=== PATIENT | female | born 1970 | race Caucasian/White ===

== ENCOUNTER 2016-04-23 12:58 | Emergency (ER) | payer BC ==
[2016-04-23 13:12] VITALS: RESP 18
[2016-04-23] MEDS ORDERED: HYDROmorphone 1 MG/ML 1 ML SYRINGE IVP STA ×2 (14:21→16:08)
[2016-04-23] MEDS ORDERED: SODIUM CHLORIDE 0.9% 1,000 ML IV STA (14:21)
[2016-04-23] MEDS ORDERED: ONDANSETRON 4 MG/2 ML VIAL IVP STA (14:21)
[2016-04-23 15:19] LABS: Basophils % (A) 1 %; CH 30.3; CHCM 33.7; Eosinophils # (A) 0.2 k/uL (0-0.7); Eosinophils % (A) 3 %; HCT 40.2 % (34.0-46.0); HDW 2.46; HGB 13.2 gm/dL (11.4-16.0); Luc # (Auto) 0.13; Luc % (Auto) 3; Lymphocytes % (A) 41 %; MCH 29.7 pg (25.0-35.0); MCHC 32.9 g/dL (31.0-37.0); MCV 90.2 fL (80.0-100.0); Mean Platelet Volume 6.3; Monocytes # (A) 0.2 k/uL (0-1.0); Monocytes % (A) 3 %; Neutrophils # (A) 2.5 k/uL (1.3-7.7); Neutrophils % (A) 50 %; RBC 4.45 m/uL (3.80-5.40); WBC (Perox) 5.31
--- NOTE | 2016-04-23 15:25 | ED ---
General Adult HPI - General Chief complaint: Recheck/Abnormal Lab/Rx Stated complaint: Pain from MS Time Seen by Provider: 04/23/16 14:12 Source: patient, RN notes reviewed Mode of arrival: ambulatory Limitations: no limitations - History of Present Illness Initial comments: 46-year-old female presents emergency Department chief complaint diffuse body pain. Patient states it has been getting worse last few days. Patient states that she has MS and states that they believe that she has fibromyalgia. Patient states that she currently sees Dr. Iker gomez in which she states that she' s been admitted in the past for this type symptoms. Patient states she has no focal weakness. Patient had a recent MRI which did show her lesions. Patient states that her pain medication was up to [place] was not helping her pain. Patient denies fever, chills, chest pain, shortness breath, nausea, vomiting diarrhea constipation. Patient states that nothing seems to help her symptoms. - Related Data Home Medications Medication Instructions Recorded Confirmed ALPRAZolam [ALPRAZolam] 0.5 mg PO TID PRN 02/26/14 04/23/16 ARIPiprazole [Abilify] 2 mg PO HS 04/23/16 04/23/16 Citalopram Hydrobromide [CeleXA] 40 mg PO HS 04/23/16 04/23/16 Dextroamphetamine/Amphetamine 30 mg PO DAILY 04/23/16 04/23/16 [Adderall] HYDROcodone/APAP 5-325MG [[place] 1 tab PO Q8H PRN 04/23/16 04/23/16 5-325] Previous Rx's Medication Instructions Recorded Ciprofloxacin HCl [Cipro] 500 mg PO Q12HR #14 tablet 04/23/16 Allergies Allergy/AdvReac Type Severity Reaction Status Date / Time No Known Allergies Allergy Verified 04/23/16 13:12 Review of Systems ROS Statement: Those systems with pertinent positive or pertinent negative responses have been documented in the HPI. ROS Other: All systems not noted in ROS Statement are negative. Past Medical History Past Medical History: Fibromyalgia, Neurologic Disorder Additional Past Medical History / Comment(s): Multiple Sclerosis - diagnosis 2013 History of Any Multi-Drug Resistant Organisms: None Reported Past Surgical History: Appendectomy Past Psychological History: No Psychological Hx Reported Smoking Status: Former smoker Past Alcohol Use History: Rare Past Drug Use History: None Reported General Exam Limitations: no limitations General appearance: alert, in no apparent distress Head exam: Present: atraumatic, normocephalic, normal inspection Eye exam: Present: normal appearance, PERRL, EOMI. Absent: scleral icterus, conjunctival injection, periorbital swelling ENT exam: Present: normal exam, normal oropharynx, mucous membranes moist, TM's normal bilaterally, normal external ear exam Neck exam: Present: normal inspection, full ROM. Absent: tenderness, meningismus, lymphadenopathy Respiratory exam: Present: normal lung sounds bilaterally. Absent: respiratory distress, wheezes, rales, rhonchi, stridor Cardiovascular Exam: Present: regular rate, normal rhythm, normal heart sounds. Absent: systolic murmur, diastolic murmur, rubs, gallop, clicks GI/Abdominal exam: Present: soft, normal bowel sounds. Absent: distended, tenderness, guarding, rebound, rigid Extremities exam: Present: other (Full range of motion of all extremities, full strength upper and lower extremities pulses equal bilaterally) Neurological exam: Present: alert, oriented X3, CN II-XII intact, reflexes normal. Absent: motor sensory deficit Skin exam: Present: warm, dry, intact, normal color. Absent: rash Course Vital Signs 04/23/16 13:08 Temperature 97.6 F Pulse Rate 93 Respiratory 18 Rate Blood Pressure 129/73 O2 Sat by Pulse 100 Oximetry EKG Findings - EKG Comments: EKG Findings:: EKG performed at 14:30 normal sinus rhythm with a rate of 83, WI interval 166, QRS duration 78, QT/QTC 372/437 Medical Decision Making - Medical Decision Making 46-year-old female presented for pain. Patient states she has chronic pain. Patient states she is feeling improved at this time but is requesting further medications. Patient we given additional medications WITH ANTIBIOTICS FOR HER UTI. PATIENT WILL BE DISCHARGED AND FOLLOW-UP WITH DR. BEACH. - Lab Data Result diagrams: 04/23/16 15:10 04/23/16 15:10 Lab Results 04/23/16 04/23/16 04/23/16 Range/Units 15:00 15:10 15:10 WBC 5.0 (3.8-10.6) k/uL RBC 4.45 (3.80-5.40) m/uL Hgb 13.2 (11.4-16.0) gm/dL Hct 40.2 (34.0-46.0) % MCV 90.2 (80.0-100.0) fL MCH 29.7 (25.0-35.0) pg MCHC 32.9 (31.0-37.0) g/dL RDW 13.0 (11.5-15.5) % Plt Count 225 (150-450) k/uL Neutrophils % 50 % Lymphocytes % 41 % Monocytes % 3 % Eosinophils % 3 % Basophils % 1 % Neutrophils # 2.5 (1.3-7.7) k/uL Lymphocytes # 2.0 (1.0-4.8) k/uL Monocytes # 0.2 (0-1.0) k/uL Eosinophils # 0.2 (0-0.7) k/uL Basophils # 0.0 (0-0.2) k/uL PT (9.0-12.0) sec INR (<1.1) APTT (22.0-30.0) sec Sodium (137-145) mmol/L Potassium (3.5-5.1) mmol/L Chloride (98-107) mmol/L Carbon Dioxide (22-30) mmol/L Anion Gap mmol/L BUN (7-17) mg/dL Creatinine (0.52-1.04) mg/dL Est GFR (MDRD) Af Amer (>60 ml/min/1.73 sqM) Est GFR (MDRD) Non-Af (>60 ml/min/1.73 sqM) Glucose (74-99) mg/dL Calcium (8.4-10.2) mg/dL Magnesium (1.6-2.3) mg/dL Total Bilirubin (0.2-1.3) mg/dL AST (14-36) U/L ALT (9-52) U/L Alkaline Phosphatase (38-126) U/L Total Creatine Kinase 44 (30-135) U/L CK-MB (CK-2) <0.2 (0.0-2.4) ng/mL CK-MB (CK-2) Rel Index Troponin I <0.012 (0.000-0.034) ng/mL Total Protein (6.3-8.2) g/dL Albumin (3.5-5.0) g/dL Urine Color Yellow Urine Appearance Cloudy H (Clear) Urine pH 6.5 (5.0-8.0) Ur Specific [place] 1.012 (1.001-1.035) Urine Protein Negative (Negative) Urine Glucose (UA) Negative (Negative) Urine Ketones Negative (Negative) Urine Blood Negative (Negative) Urine Nitrate Negative (Negative) Urine Bilirubin Negative (Negative) Urine Urobilinogen <2.0 (<2.0) mg/dL Ur Leukocyte Esterase Small H (Negative) Urine RBC 1 (0-5) /hpf Urine WBC 31 H (0-5) /hpf Ur Squamous Epith Cells 2 (0-4) /hpf Urine Bacteria Rare H (None) /hpf Urine Mucus Rare H (None) /hpf 04/23/16 04/23/16 Range/Units 15:10 15:10 WBC (3.8-10.6) k/uL RBC (3.80-5.40) m/uL Hgb (11.4-16.0) gm/dL Hct (34.0-46.0) % MCV (80.0-100.0) fL MCH (25.0-35.0) pg MCHC (31.0-37.0) g/dL RDW (11.5-15.5) % Plt Count (150-450) k/uL Neutrophils % % Lymphocytes % % Monocytes % % Eosinophils % % Basophils % % Neutrophils # (1.3-7.7) k/uL Lymphocytes # (1.0-4.8) k/uL Monocytes # (0-1.0) k/uL Eosinophils # (0-0.7) k/uL Basophils # (0-0.2) k/uL PT 10.0 (9.0-12.0) sec INR 1.0 (<1.1) APTT 24.1 (22.0-30.0) sec Sodium 140 (137-145) mmol/L Potassium 4.4 (3.5-5.1) mmol/L Chloride 104 (98-107) mmol/L Carbon Dioxide 28 (22-30) mmol/L Anion Gap 8 mmol/L BUN 8 (7-17) mg/dL Creatinine 0.80 (0.52-1.04) mg/dL Est GFR (MDRD) Af Amer >60 (>60 ml/min/1.73 sqM) Est GFR (MDRD) Non-Af >60 (>60 ml/min/1.73 sqM) Glucose 89 (74-99) mg/dL Calcium 8.9 (8.4-10.2) mg/dL Magnesium 2.0 (1.6-2.3) mg/dL Total Bilirubin 0.3 (0.2-1.3) mg/dL AST 22 (14-36) U/L ALT 42 (9-52) U/L Alkaline Phosphatase 52 (38-126) U/L Total Creatine Kinase (30-135) U/L CK-MB (CK-2) (0.0-2.4) ng/mL CK-MB (CK-2) Rel Index Troponin I (0.000-0.034) ng/mL Total Protein 6.6 (6.3-8.2) g/dL Albumin 3.9 (3.5-5.0) g/dL Urine Color Urine Appearance (Clear) Urine pH (5.0-8.0) Ur Specific [place] (1.001-1.035) Urine Protein (Negative) Urine Glucose (UA) (Negative) Urine Ketones (Negative) Urine Blood (Negative) Urine Nitrate (Negative) Urine Bilirubin (Negative) Urine Urobilinogen (<2.0) mg/dL Ur Leukocyte Esterase (Negative) Urine RBC (0-5) /hpf Urine WBC (0-5) /hpf Ur Squamous Epith Cells (0-4) /hpf Urine Bacteria (None) /hpf Urine Mucus (None) /hpf Disposition Clinical Impression: UTI (urinary tract infection), Diffuse pain Disposition: HOME SELF-CARE Condition: Stable Instructions: Urinary Tract Infection in Women (ED) Additional Instructions: Please return to the Emergency Department if symptoms worsen or any other concerns. Prescriptions: Ciprofloxacin HCl [Cipro] 500 mg PO Q12HR #14 tablet Time of Disposition: 16:10
[2016-04-23 15:28] LABS: Partial Thromboplastin Time 24.1 sec (22.0-30.0)
[2016-04-23 15:42] LABS: Appearance,Urine Cloudy (Clear); Bacteria,Urine Rare /hpf; Bilirubin,Urine Negative (Negative); Glucose,Urine (UA) Negative (Negative); Ketones,Urine Negative (Negative); Leukocyte Esterase,Urine Small (Negative); Mucus,Urine Rare /hpf; Nitrite,Urine Negative (Negative); PH, Urine 6.5 (5.0-8.0); Particle Count 3640; Protein,Urine Negative (Negative); RBC,Urine 1 /hpf (0-5); Specific Gravity,Urine 1.012 (1.001-1.035); Squamous Epithelial Cell,Urine 2 /hpf (0-4); UA Billing (MACRO vs. MICRO) MICRO; Urobilinogen,Urine <2.0 mg/dL (<2.0); WBC,Urine 31 /hpf (0-5)
[2016-04-23 15:46] LABS: ALT 42 U/L (9-52); AST 22 U/L (14-36); Alkaline Phosphatase 52 U/L (38-126); Anion Gap 8 mmol/L; Blood Urea Nitrogen 8 mg/dL (7-17); Calcium 8.9 mg/dL (8.4-10.2); Carbon Dioxide 28 mmol/L (22-30); Chloride 104 mmol/L (98-107); Glucose 89 mg/dL (74-99); Non-African American GFR(MDRD) >60 (>60 ml/min/1.73 sqM); Potassium 4.4 mmol/L (3.5-5.1); Sodium 140 mmol/L (137-145); Total Bilirubin 0.3 mg/dL (0.2-1.3); Total Protein 6.6 g/dL (6.3-8.2)
[2016-04-23 15:53] LABS: Creatine Kinase 44 U/L (30-135)
[2016-04-23 16:05] LABS: Creatine Kinase MB <0.2 ng/mL (0.0-2.4); Troponin I <0.012 ng/mL (0.000-0.034)
[2016-04-23] MEDS ORDERED: KETOROLAC 30 MG/ML 1 ML VIAL IVP STA (16:08)
[2016-04-23 17:01] VITALS: BP 116/65; PULSE 84; TEMP 98.1
== END 2016-04-23 16:57 | disposition home or self-care (01) ==
LOC: EC 12:58
DX: N39.0 Urinary tract infection, site not specified (principal); G89.29 Other chronic pain; G35 Multiple sclerosis; Z87.891 Personal history of nicotine dependence; Z79.899 Other long term (current) drug therapy
CPT/HCPCS: 99283; 96374; 96375 ×2; 96376; 96361; 36415; 93005; 80053; 82550; 82553; 83735; 84484; 85025; 85610; 85730; 81001; J2405; J1885; J1170

== ENCOUNTER 2016-06-02 21:43 | Inpatient (IN) | payer BC ==
[2016-06-02] MEDS ORDERED: NALOXONE 0.4 MG/ML 1 ML VIAL IV STA (21:46)
[2016-06-02] MEDS: NALOXONE 0.4 MG/ML 10 ML VIAL IVP STA ×2 (21:53→22:48)
--- NOTE | 2016-06-02 22:00 | ED ---
Overdose HPI - General Stated Complaint: Overdose Time Seen by Provider: 06/02/16 21:46 Source: police, EMS Limitations: altered mental status - History of Present Illness Initial Comments: This patient is a 46-year-old woman brought to be evaluated after she appears to have taken an overdose of her medications as a suicide attempt. History is from EMS and the police. The patient is not giving any history due to being very somnolent. It is reported that a family member arrived home and found the patient lying in the bathtub poorly responsive. There were a number of notes addressed to family members that indicated she had overdosed on her medications. There were bottles of Xanax and tramadol at the scene. MD Complaint: intentional overdose -: hour(s) Treatments Prior to Arrival: oxygen - Related Data Home Medications Medication Instructions Recorded Confirmed ALPRAZolam [ALPRAZolam] 0.5 mg PO TID PRN 02/26/14 06/02/16 ARIPiprazole [Abilify] 2 mg PO HS 04/23/16 06/02/16 Citalopram Hydrobromide [CeleXA] 40 mg PO HS 04/23/16 06/02/16 Dextroamphetamine/Amphetamine 30 mg PO DAILY 04/23/16 06/02/16 [Adderall] HYDROcodone/APAP 5-325MG [[place] 1 tab PO Q8H PRN 04/23/16 06/02/16 5-325] Allergies Allergy/AdvReac Type Severity Reaction Status Date / Time No Known Allergies Allergy Verified 06/02/16 22:01 Review of Systems ROS Statement: Those systems with pertinent positive or pertinent negative responses have been documented in the HPI. ROS Other: All systems not noted in ROS Statement are negative. Limitations: ROS unobtainable due to patients medical condition Past Medical History Past Medical History: Fibromyalgia, Neurologic Disorder Additional Past Medical History / Comment(s): Multiple Sclerosis - diagnosis 2014 History of Any Multi-Drug Resistant Organisms: None Reported Past Surgical History: Appendectomy Past Psychological History: No Psychological Hx Reported Smoking Status: Former smoker Past Alcohol Use History: Rare Past Drug Use History: None Reported General Exam General appearance: obtunded Head exam: Present: atraumatic, normocephalic Pupils: Present: miosis ENT exam: Present: mucous membranes dry Neck exam: Present: normal inspection. Absent: tenderness Respiratory exam: Present: normal lung sounds bilaterally. Absent: respiratory distress, wheezes, rales, rhonchi, stridor, chest wall tenderness Cardiovascular Exam: Present: regular rate, normal rhythm, normal heart sounds. Absent: systolic murmur, diastolic murmur, rubs, gallop GI/Abdominal exam: Present: soft. Absent: distended, tenderness, guarding, rebound, mass Extremities exam: Present: normal inspection, normal capillary refill. Absent: tenderness, pedal edema Back exam: Present: normal inspection Neurological exam: Present: altered, CN II-XII intact, reflexes normal, other ( The patient's GCS is (E=2, V=2, M=5). The patient does have intact cranial nerve reflexes including gag reflex. Deep tendon reflexes are symmetric. The patient does localize the painful stimuli (she is reaching for IV start).) Skin exam: Present: warm, dry, intact, normal color. Absent: rash Course Vital Signs 06/02/16 06/02/16 06/02/16 21:45 22:44 23:29 Temperature 96.9 F L Pulse Rate 72 89 80 Respiratory 12 16 16 Rate Blood Pressure 111/65 106/66 111/64 O2 Sat by Pulse 97 96 99 Oximetry 06/03/16 06/03/16 00:10 01:06 Temperature Pulse Rate 90 98 Respiratory 16 16 Rate Blood Pressure 99/58 115/69 O2 Sat by Pulse 98 98 Oximetry Medical Decision Making - Medical Decision Making This patient is a 46-year-old woman brought for evaluation and treatment of what appears to be suicide attempt by overdose. The patient does remain obtunded but arouses to noxious stimuli and at this point is protecting her airway. She has been evaluated multiple times and does continue to have protective reflexes. The patient is observed in the emergency department for number of hours. The EKG is repeated and it does show some lengthening of the QT interval from 460 ms to 500 ms. The patient will have additional electrolytes checked and may require supplementation. Bicarb drip indicated if QRS duration becomes prolonged. Case D/W toxicology fellow and recommendations incorporated. Case discussed with Dr. Spring who will admit the patient. Case discussed with Dr. Palomino. Treatment recommendations incorporated. - Lab Data Result diagrams: 06/02/16 22:10 06/02/16 22:10 Lab Results 06/02/16 06/02/16 06/02/16 Range/Units 22:10 22:10 22:10 WBC 9.7 (3.8-10.6) k/uL RBC 4.44 (3.80-5.40) m/uL Hgb 13.0 (11.4-16.0) gm/dL Hct 40.2 (34.0-46.0) % MCV 90.7 (80.0-100.0) fL MCH 29.4 (25.0-35.0) pg MCHC 32.4 (31.0-37.0) g/dL RDW 13.4 (11.5-15.5) % Plt Count 216 (150-450) k/uL Neutrophils % 73 % Lymphocytes % 21 % Monocytes % 4 % Eosinophils % 1 % Basophils % 0 % Neutrophils # 7.0 (1.3-7.7) k/uL Lymphocytes # 2.0 (1.0-4.8) k/uL Monocytes # 0.3 (0-1.0) k/uL Eosinophils # 0.1 (0-0.7) k/uL Basophils # 0.0 (0-0.2) k/uL PT (9.0-12.0) sec INR (<1.1) Sodium 140 (137-145) mmol/L Potassium 4.4 (3.5-5.1) mmol/L Chloride 106 (98-107) mmol/L Carbon Dioxide 23 (22-30) mmol/L Anion Gap 11 mmol/L BUN 14 (7-17) mg/dL Creatinine 1.10 H (0.52-1.04) mg/dL Est GFR (MDRD) Af Amer >60 (>60 ml/min/1.73 sqM) Est GFR (MDRD) Non-Af 53 (>60 ml/min/1.73 sqM) Glucose 107 H (74-99) mg/dL Calcium 9.6 (8.4-10.2) mg/dL Total Bilirubin 0.6 (0.2-1.3) mg/dL AST 19 (14-36) U/L ALT 47 (9-52) U/L Alkaline Phosphatase 53 (38-126) U/L Troponin I (0.000-0.034) ng/mL Total Protein 7.2 (6.3-8.2) g/dL Albumin 4.2 (3.5-5.0) g/dL Urine HCG, Qual (Not Detectd) Salicylates <1.0 mg/dL Urine Opiates Screen Detected H (NotDetected) Ur Oxycodone Screen Not Detected (NotDetected) Urine Methadone Screen Not Detected (NotDetected) Ur Propoxyphene Screen Not Detected (NotDetected) Acetaminophen <10.0 ug/mL Ur Barbiturates Screen Not Detected (NotDetected) U Tricyclic Antidepress Detected H (NotDetected) Ur Phencyclidine Scrn Not Detected (NotDetected) Ur Amphetamines Screen Detected H (NotDetected) U Methamphetamines Scrn Not Detected (NotDetected) U Benzodiazepines Scrn Detected H (NotDetected) Urine Cocaine Screen Not Detected (NotDetected) U Marijuana (THC) Screen Not Detected (NotDetected) Serum Alcohol <10 mg/dL 06/02/16 06/02/16 06/02/16 Range/Units 22:10 22:10 22:10 WBC (3.8-10.6) k/uL RBC (3.80-5.40) m/uL Hgb (11.4-16.0) gm/dL Hct (34.0-46.0) % MCV (80.0-100.0) fL MCH (25.0-35.0) pg MCHC (31.0-37.0) g/dL RDW (11.5-15.5) % Plt Count (150-450) k/uL Neutrophils % % Lymphocytes % % Monocytes % % Eosinophils % % Basophils % % Neutrophils # (1.3-7.7) k/uL Lymphocytes # (1.0-4.8) k/uL Monocytes # (0-1.0) k/uL Eosinophils # (0-0.7) k/uL Basophils # (0-0.2) k/uL PT 10.4 (9.0-12.0) sec INR 1.0 (<1.1) Sodium (137-145) mmol/L Potassium (3.5-5.1) mmol/L Chloride (98-107) mmol/L Carbon Dioxide (22-30) mmol/L Anion Gap mmol/L BUN (7-17) mg/dL Creatinine (0.52-1.04) mg/dL Est GFR (MDRD) Af Amer (>60 ml/min/1.73 sqM) Est GFR (MDRD) Non-Af (>60 ml/min/1.73 sqM) Glucose (74-99) mg/dL Calcium (8.4-10.2) mg/dL Total Bilirubin (0.2-1.3) mg/dL AST (14-36) U/L ALT (9-52) U/L Alkaline Phosphatase (38-126) U/L Troponin I <0.012 (0.000-0.034) ng/mL Total Protein (6.3-8.2) g/dL Albumin (3.5-5.0) g/dL Urine HCG, Qual Not Detected (Not Detectd) Salicylates mg/dL Urine Opiates Screen (NotDetected) Ur Oxycodone Screen (NotDetected) Urine Methadone Screen (NotDetected) Ur Propoxyphene Screen (NotDetected) Acetaminophen ug/mL Ur Barbiturates Screen (NotDetected) U Tricyclic Antidepress (NotDetected) Ur Phencyclidine Scrn (NotDetected) Ur Amphetamines Screen (NotDetected) U Methamphetamines Scrn (NotDetected) U Benzodiazepines Scrn (NotDetected) Urine Cocaine Screen (NotDetected) U Marijuana (THC) Screen (NotDetected) Serum Alcohol mg/dL - EKG Data -: EKG Interpreted by Nd EKG shows normal: sinus rhythm (Rate 71 bpm), axis (Normal), intervals (Normal) , QRS complexes (Normal), ST-T waves (Normal) Rate: normal Interpretation: normal EKG Critical Care Time Critical Care Time: Yes (45 minutes) Disposition Clinical Impression: Overdose of tricyclic antidepressants, Drug overdose, Suicide attempt by multiple drug overdose Disposition: ADMITTED IP TO THIS [facility] Condition: Critical Referrals: Rohit Hardy MD [Primary Care Provider] - 1-2 days
[2016-06-02 22:27] LABS: Basophils % (A) 0 %; CH 30.6; CHCM 33.9; Eosinophils # (A) 0.1 k/uL (0-0.7); Eosinophils % (A) 1 %; HCT 40.2 % (34.0-46.0); HDW 2.53; Luc # (Auto) 0.14; Luc % (Auto) 1; Lymphocytes % (A) 21 %; MCH 29.4 pg (25.0-35.0); MCHC 32.4 g/dL (31.0-37.0); MCV 90.7 fL (80.0-100.0); Mean Platelet Volume 7.2; Monocytes # (A) 0.3 k/uL (0-1.0); Monocytes % (A) 4 %; Neutrophils % (A) 73 %; RBC 4.44 m/uL (3.80-5.40); RDW 13.4 % (11.5-15.5); WBC 9.7 k/uL (3.8-10.6); WBC (Perox) 10.23
[2016-06-02 22:36] LABS: Prothrombin Time 10.4 sec (9.0-12.0)
[2016-06-02 22:37] LABS: ALT 47 U/L (9-52); AST 19 U/L (14-36); Acetaminophen <10.0 ug/mL; Alcohol <10 mg/dL; Alkaline Phosphatase 53 U/L (38-126); Anion Gap 11 mmol/L; Blood Urea Nitrogen 14 mg/dL (7-17); Calcium 9.6 mg/dL (8.4-10.2); Carbon Dioxide 23 mmol/L (22-30); Chloride 106 mmol/L (98-107); Glucose 107 mg/dL (74-99); Non-African American GFR(MDRD) 53 (>60 ml/min/1.73 sqM); Potassium 4.4 mmol/L (3.5-5.1); Salicylate <1.0 mg/dL; Sodium 140 mmol/L (137-145); Total Bilirubin 0.6 mg/dL (0.2-1.3); Total Protein 7.2 g/dL (6.3-8.2)
[2016-06-02] MEDS ORDERED: NALOXONE 0.4 MG/ML 10 ML VIAL IVP STA (22:57)
--- NOTE | 2016-06-02 22:59 | XR ---
EXAMINATION TYPE: XR chest 1V portable DATE OF EXAM: 06/02/2016 10:43 PM COMPARISON: 02/12/2015 HISTORY:MS change, overdose patient unresponsive no other history given. TECHNIQUE: Single frontal view of the chest is obtained. Portable study upright 06/02/2016, 10:39 PM h ours. FINDINGS: There is no focal air space opacity, pleural effusion, or pneumothorax seen. The cardiac silhouette size is within normal limits. The osseous structures are intact. IMPRESSION: 1. No acute process. 2. No significant change.
[2016-06-03] MEDS ORDERED: SODIUM CHLORIDE 0.9% 1,000 ML IV ONE (00:13)
[2016-06-03] MEDS ORDERED: LEVOFLOXACIN 750MG-D5W PMX 750 MG in DEXTROSE/WATER 1 150ML.BAG IVPB STA (00:48)
[2016-06-03] MEDS ORDERED: NALOXONE 0.4 MG/ML 1 ML VIAL IV PRN (01:14)
[2016-06-03] MEDS ORDERED: ARTIFICIAL TEARS OINTMENT 3.5 GM TUBE BOTH EYES PRN (01:14)
[2016-06-03] MEDS ORDERED: DEXTROSE 5% IN WATER 1,000 ML with SODIUM BICARB (1 MEQ/ML) 150 ML IV SCH (01:15)
[2016-06-03 01:30] LABS: Magnesium 2.2 mg/dL (1.6-2.3); Phosphorous 4.9 mg/dL (2.5-4.5)
[2016-06-03 01:35] LABS: Amorphous Sediment,Urine Rare /hpf; Appearance,Urine Turbid (Clear); Bacteria,Urine Occasional /hpf; Bilirubin,Urine Negative (Negative); Glucose,Urine (UA) Negative (Negative); Ketones,Urine Trace (Negative); Leukocyte Esterase,Urine Small (Negative); Mucus,Urine Many /hpf; Nitrite,Urine Negative (Negative); Particle Count 25462; Protein,Urine 1+ (Negative); Specific Gravity,Urine 1.025 (1.001-1.035); UA Billing (MACRO vs. MICRO) MICRO; WBC,Urine 12 /hpf (0-5)
[2016-06-03 02:14] LABS: Glucose,Whole Blood 85 mg/dL (75-99)
[2016-06-03 02:45] VITALS: BMI 29.4
[2016-06-03] MEDS: SODIUM CHLORIDE 0.9% 1,000 ML IV SCH ×4 (03:07→20:38)
[2016-06-03 04:12] LABS: ABG Base Excess -3.2 mmol/L; ABG HCO3 22 mmol/L (21-25); ABG PCO2 44 mmHg (35-45); ABG PH 7.32 (7.35-7.45); ABG PO2 93 mmHg (83-108); ABG TCO2 23 mmol/L (19-24)
[2016-06-03] MEDS: NALOXONE 4 MG in SODIUM CHLORIDE 0.9% 100 ML IV SCH ×3 (04:24→17:21)
[2016-06-03 05:11] LABS: Basophils % (A) 0 %; CH 30.1; CHCM 32.5; Eosinophils # (A) 0.1 k/uL (0-0.7); Eosinophils % (A) 1 %; HCT 37.8 % (34.0-46.0); HDW 2.48; HGB 12.2 gm/dL (11.4-16.0); Luc # (Auto) 0.14; Luc % (Auto) 2; Lymphocytes # (A) 1.6 k/uL (1.0-4.8); Lymphocytes % (A) 23 %; MCHC 32.3 g/dL (31.0-37.0); Mean Platelet Volume 6.7; Monocytes # (A) 0.3 k/uL (0-1.0); Monocytes % (A) 5 %; Neutrophils # (A) 4.6 k/uL (1.3-7.7); Neutrophils % (A) 68 %; RBC 4.06 m/uL (3.80-5.40); RDW 13.5 % (11.5-15.5); WBC 6.7 k/uL (3.8-10.6); WBC (Perox) 7.08
[2016-06-03 05:25] LABS: Anion Gap 9 mmol/L; Blood Urea Nitrogen 11 mg/dL (7-17); Calcium 8.5 mg/dL (8.4-10.2); Carbon Dioxide 24 mmol/L (22-30); Chloride 109 mmol/L (98-107); Glucose 89 mg/dL (74-99); Magnesium 2.1 mg/dL (1.6-2.3); Non-African American GFR(MDRD) 59 (>60 ml/min/1.73 sqM); Phosphorous 4.3 mg/dL (2.5-4.5); Potassium 4.3 mmol/L (3.5-5.1); Sodium 142 mmol/L (137-145)
--- NOTE | 2016-06-03 08:52 | P.CNPUL ---
History of Present Illness Consult date: 06/03/16 Chief complaint: Drug overdose and respiratory failure History of present illness: This is a 46-year-old female brought into the emergency department with a suicide attempt. She apparently had a drug overdose from tramadol Xanax and Abilify. There may be other medications involved as well. She was poorly responsive. She did not have to be intubated she was transferred up to the ICU. Here in the ICU, she is very somnolent and lethargic we went ahead and start her on [place] Narcan drip at 0.6 mg per hour for 6 hours. The patient's drug screen was positive for benzodiazepines opiates try cyclic antidepressant and amphetamines. Talking to her mother, she apparently did this once before when she was young. At that time was with aspirin. Anyway the patient is doing okay. I think we can hopefully hold off on intubation. Currently she is getting O2 2 L. Getting appointment 9 IV at 150 an hour. The Narcan drip will be turned off at 9 AM. Is running at 0.6 mg an hour. She apparently carries with her a diagnosis of fibromyalgia multiple sclerosis and depression. Review of Systems ROS unobtainable: due to mental status (The patient is very sleepy and lethargic and somnolent and no review of systems can be done.) Past Medical History Past Medical History: Fibromyalgia, Neurologic Disorder Additional Past Medical History / Comment(s): Multiple Sclerosis - diagnosis 2013 History of Any Multi-Drug Resistant Organisms: None Reported Past Surgical History: Appendectomy Past Anesthesia/Blood Transfusion Reactions: No Reported Reaction Past Psychological History: Anxiety, Depression Smoking Status: Former smoker Past Alcohol Use History: Rare Past Drug Use History: None Reported - Past Family History Father Family Medical History: Diabetes Mellitus Mother Family Medical History: No Reported History Additional Family Medical History / Comment(s): "healthy" Medications and Allergies Home Medications Medication Instructions Recorded Confirmed Type ALPRAZolam [ALPRAZolam] 0.5 mg PO TID PRN 02/26/14 06/02/16 History ARIPiprazole [Abilify] 2 mg PO HS 04/23/16 06/03/16 History Citalopram Hydrobromide [CeleXA] 40 mg PO HS 04/23/16 06/02/16 History Dextroamphetamine/Amphetamine 30 mg PO DAILY 04/23/16 06/02/16 History [Adderall] HYDROcodone/APAP 5-325MG [[place] 1 tab PO Q8H PRN 04/23/16 06/02/16 History 5-325] Allergies Allergy/AdvReac Type Severity Reaction Status Date / Time No Known Allergies Allergy Verified 06/02/16 22:01 Physical Exam Osteopathic Statement: *. No significant issues noted on an osteopathic structural exam other than those noted in the History and Physical/Consult. Vitals: Vital Signs Temp Pulse Resp BP Pulse Ox 06/03/16 07:00 89 12 107/63 99 06/03/16 06:00 92 12 100/59 100 06/03/16 05:00 89 11 L 114/65 100 06/03/16 04:00 89 12 104/66 98 06/03/16 03:45 89 11 L 104/66 99 06/03/16 03:30 90 19 129/80 100 06/03/16 03:15 97 13 129/80 100 06/03/16 03:00 91 10 L 106/63 99 06/03/16 02:45 91 12 106/63 99 06/03/16 02:30 92 12 118/84 100 06/03/16 02:20 95 12 118/84 100 06/03/16 02:10 98.2 F 96 11 L 118/84 100 06/03/16 01:46 88 16 99/60 100 Intake and Output 06/02/16 06/03/16 06/03/16 22:59 06:59 14:59 Intake Total 1780 165 Output Total 570 35 Balance 1210 130 Intake: IV 780 165 Naloxone 4 mg In Sodium 30 15 Chloride 0.9% 100 ml @ 0. 6 MG/HR 16.5 mls/hr IV . Q6H40M [facility] Rx#:[id number] Sodium Chloride 0.9% 1, 750 150 000 ml @ 150 mls/hr IV . Q6H40M ROSIO Rx#:[id number] Amount of Fluid Infused ( 1000 ml) Output: Urine 570 35 Other: Voiding Method Indwelling Catheter Weight 82.7 kg No acute distress, not oriented. The patient's very lethargic and somnolent but does arouse with thumb stimulation. HEENT examination is grossly unremarkable. Mucous membranes are moist. Neck supple. Full range of motion. No adenopathy or thyromegaly Cardiovascular examination reveals regular rhythm rate. S1-S2 normal. No S3- S4 or murmur. Next Lungs reveal clear breath sounds. No wheezes or rhonchi. No other adventitious lung sounds. Breath sounds are equal. Abdomen soft bowel sounds are heard. Extremities are intact. There is no edema cyanosis or clubbing. Results - Laboratory Findings CBC and BMP: 06/03/16 04:45 06/03/16 04:45 ABG ABG pH 7.32 (7.35-7.45) L 06/03/16 03:59 ABG pCO2 44 mmHg (35-45) 06/03/16 03:59 ABG pO2 93 mmHg (83-108) 06/03/16 03:59 ABG O2 Saturation 97.0 % (94-97) 06/03/16 03:59 PT/INR, D-dimer PT 10.4 sec (9.0-12.0) 06/02/16 22:10 INR 1.0 (<1.1) 06/02/16 22:10 Abnormal lab findings: Abnormal Labs 06/03/16 06/03/16 03:59 04:45 ABG pH 7.32 L Chloride 109 H - Diagnostic Findings Chest x-ray: image reviewed (Chest x-ray labs medications are all reviewed) Assessment and Plan (1) Drug overdose Status: Acute (2) Overdose of tricyclic antidepressants Status: Acute (3) Suicide attempt by multiple drug overdose Status: Acute Plan: Plan The patient will continue on fluid resuscitation. We'll continue to follow the instructions any advice of poison control. We'll turn off the Narcan drip at 9: 00 this morning see how she does. Medications labs and x-rays are all reviewed. Prognosis is guarded. I did speak to her mother. Get psychiatric evaluation at this time. Time with Patient: Greater than 30
[2016-06-03] MEDS: FAMOTIDINE 20 MG/2 ML VIAL IV SCH ×2 (09:05→20:38)
[2016-06-03] MEDS ORDERED: SODIUM CHLORIDE 0.9% 2,000 ML IV ONE (09:45)
[2016-06-03] MEDS: LEVOFLOXACIN 500MG-D5W PMX 500 MG in DEXTROSE/WATER 1 100ML.BAG IVPB SCH (13:09)
[2016-06-03] MEDS ORDERED: NOREPINEPHRINE 4 MG in SODIUM CHLORIDE 0.9% 250 ML IV SCH (13:15)
[2016-06-03] MEDS ORDERED: NOREPINEPHRINE 4 MG-0.9% NS PMX 250 ML IV ONE (13:28)
--- NOTE | 2016-06-03 15:16 | P.HPIM ---
History of Present Illness H&P Date: 06/03/16 Chief Complaint: Drug overdose, altered mental status, suicidal attempt, severe depression, 46-year-old female one of Dr. Hardy's patient with past medical history of multiple sclerosis fibromyalgia chronic depression and anxiety and panic attacks who has been struggling psychologically for the last few years has been much worse lately heparin 3 patient lost her cat recently become more depressed in the last few days. Patient found by her boyfriend and consciousness with suicidal note on the side of the bed she is taking multiple medications that she takes normally including [place], tramadol, Xanax, Celexa and Adderall. 911 was called patient brought to the emergency department by EMS drug screen came back positive for opiate, benzodiazepine, try cyclic. Patient was started on Narcan and end up on drip of Narcan. Watch for QT prolongation on her EKG finding from drug overdose patient was admitted to the intensive care unit and consult pulmonary service. Will be seen psych as well for her current attempt and for further management of her depression and suicidal. Review of Systems Constitutional: Reports anorexia, Reports fatigue, Reports lethargy, Reports malaise, Reports poor appetite, Denies as per HPI, Denies chills, Denies chronic headaches, Denies chronic pain, Denies daytime sleepiness, Denies fever , Denies night sweats, Denies sweats, Denies weakness, Denies weight gain, Denies weight loss Eyes: bilateral as per HPI, bilateral blurred vision Ears: bilateral: decreased hearing Ears, nose, mouth and throat: Reports ant. neck pain, Reports nasal congestion, Reports sinus pain, Reports sinus pressure, Denies as per HPI, Denies bleeding gums, Denies dental pain, Denies dysphagia, Denies epistaxis, Denies headache, Denies hoarseness, Denies mouth pain, Denies nasal discharge, Denies neck fullness/pressure, Denies neck lump, Denies nose pain, Denies odynophagia, Denies post-nasal drip, Denies swelling in mouth, Denies swelling in throat, Denies sore throat, Denies vertigo, Denies voice changes Breasts: bilateral: as per HPI Cardiovascular: Reports chest pain, Reports decreased exercise tolerance, Denies as per HPI, Denies claudication, Denies dyspnea on exertion, Denies edema , Denies high blood pressure, Denies irregular heart beat, Denies leg edema, Denies lightheadedness, Denies orthopnea, Denies palpitations, Denies paroxysmal nocturnal dyspnea, Denies phlebitis, Denies rapid heart beat, Denies shortness of breath, Denies syncope Respiratory: Reports congestion, Reports respiratory infections Gastrointestinal: Denies as per HPI, Denies abdominal pain, Denies belching, Denies bloating, Denies BRBPR, Denies change in bowel habits, Denies coffee ground emesis, Denies constipation, Denies diarrhea, Denies dyspepsia, Denies early satiety, Denies excessive gas, Denies heartburn, Denies hematemesis, Denies hematochezia, Denies indigestion, Denies jaundice, Denies lactose intolerance, Denies loss of appetite, Denies melena, Denies nausea, Denies vomiting Musculoskeletal: Reports limitation of motion, Reports myalgias, Reports neck pain, Reports neck stiffness, Denies as per HPI, Denies arm numbness/tingling, Denies atrophy, Denies fractures, Denies frequent falls, Denies gait dysfunction , Denies hot joints, Denies leg numbness/tingling, Denies loss of height, Denies low back pain, Denies morning stiffness, Denies muscle cramps, Denies muscle weakness, Denies prior amputations, Denies redness of joints, Denies shooting arm pain, Denies shooting leg pain Integumentary: Reports pruritus, Reports rash, Denies as per HPI, Denies acne, Denies boils, Denies brittle nails, Denies change in hair/nails, Denies color changes, Denies darkening of skin, Denies depigmentation, Denies dryness, Denies foot/leg ulcers, Denies growths, Denies hirsutism, Denies lesions, Denies onychomycosis, Denies sores, Denies striae, Denies unusual bruising, Denies wounds Neurological: Reports ataxia, Reports balance difficulties, Reports change in mentation, Reports lack of coordination, Reports paresthesias, Reports weakness , Denies as per HPI, Denies aphasia, Denies burning pain, Denies change in smell /taste, Denies change in speech, Denies confusion, Denies convulsions, Denies double vision, Denies gait dysfunction, Denies head injury, Denies headaches, Denies hearing difficulties, Denies loss of vision, Denies memory loss, Denies migraines, Denies motor disturbance, Denies numbness, Denies paralysis, Denies seizures, Denies sensory deficit, Denies spasticity, Denies syncope, Denies tic , Denies tingling, Denies transient paralysis, Denies tremors, Denies vertigo, Denies visual changes Psychiatric: Reports anhedonia, Reports anxiety, Reports depression, Reports hypersomnia, Reports mood swings, Reports sadness/tearfulness, Reports suicidal ideation, Denies as per HPI, Denies anxiety attacks, Denies change in appetite, Denies change in libido, Denies change in sleep habits, Denies confusion, Denies difficulty concentrating, Denies disorientation, Denies hallucinations, Denies hopelessness, Denies insomnia, Denies irritability, Denies memory loss, Denies paranoia, Denies sleep disturbances Endocrine: Reports nocturia, Reports polyphagia, Denies as per HPI, Denies cold intolerance, Denies deepening of the voice, Denies excessive sweating, Denies excessive thirst, Denies fatigue, Denies flushing, Denies heat intolerance, Denies high blood sugars, Denies increase in ring/shoe/hat size, Denies low blood sugars, Denies palpitations, Denies polydipsia, Denies polyuria, Denies proptosis, Denies recent glucocorticoid use, Denies thyroid mass, Denies weight change Hematologic/Lymphatic: Denies as per HPI, Denies easy bleeding, Denies easy bruising, Denies lymphadenopathy, Denies lymphedema, Denies thrombophilia Allergic/Immunologic: Denies as per HPI, Denies allergic rhinitis, Denies anaphylaxis, Denies angioedema, Denies gluten intolerance, Denies persistent infections, Denies seasonal allergies, Denies urticaria, Denies wheezing Past Medical History Past Medical History: Fibromyalgia, Neurologic Disorder Additional Past Medical History / Comment(s): Multiple Sclerosis - diagnosis 2013 History of Any Multi-Drug Resistant Organisms: None Reported Past Surgical History: Appendectomy Past Anesthesia/Blood Transfusion Reactions: No Reported Reaction Past Psychological History: Anxiety, Depression Smoking Status: Former smoker Past Alcohol Use History: Rare Past Drug Use History: None Reported - Past Family History Father Family Medical History: Diabetes Mellitus Mother Family Medical History: No Reported History Additional Family Medical History / Comment(s): "healthy" Medications and Allergies Home Medications Medication Instructions Recorded Confirmed Type ALPRAZolam [ALPRAZolam] 0.5 mg PO TID PRN 02/26/14 06/02/16 History ARIPiprazole [Abilify] 2 mg PO HS 04/23/16 06/03/16 History Citalopram Hydrobromide [CeleXA] 40 mg PO HS 04/23/16 06/02/16 History Dextroamphetamine/Amphetamine 30 mg PO DAILY 04/23/16 06/02/16 History [Adderall] HYDROcodone/APAP 5-325MG [[place] 1 tab PO Q8H PRN 04/23/16 06/02/16 History 5-325] Allergies Allergy/AdvReac Type Severity Reaction Status Date / Time No Known Allergies Allergy Verified 06/02/16 22:01 Physical Exam Vitals: Vital Signs Temp Pulse Resp BP Pulse Ox 06/03/16 14:30 87 11 L 113/65 99 06/03/16 14:15 89 10 L 102/62 99 06/03/16 14:00 85 11 L 107/61 98 06/03/16 13:45 83 13 93/53 99 06/03/16 13:30 83 9 L 75/49 97 06/03/16 13:15 87 12 79/46 99 06/03/16 13:00 86 10 L 94/52 98 06/03/16 12:45 95 13 86/48 81 L 06/03/16 12:30 97.7 F 89 11 L 80/46 89 L 06/03/16 12:15 90 11 L 81/47 91 L 06/03/16 12:00 87 12 80/46 96 06/03/16 11:45 88 11 L 91/43 98 06/03/16 11:30 90 11 L 100/49 98 06/03/16 11:15 91 13 89/46 98 06/03/16 11:00 87 11 L 93/53 99 06/03/16 10:45 91 12 95/55 99 06/03/16 10:30 82 13 95/50 100 06/03/16 10:15 86 13 93/55 99 06/03/16 10:00 89 16 93/55 96 06/03/16 09:00 88 13 93/59 97 06/03/16 08:00 98.2 F 87 12 106/61 99 06/03/16 07:00 89 12 107/63 99 06/03/16 06:00 92 12 100/59 100 06/03/16 05:00 89 11 L 114/65 100 06/03/16 04:00 89 12 104/66 98 06/03/16 03:45 89 11 L 104/66 99 06/03/16 03:30 90 19 129/80 100 06/03/16 03:15 97 13 129/80 100 06/03/16 03:00 91 10 L 106/63 99 06/03/16 02:45 91 12 106/63 99 06/03/16 02:30 92 12 118/84 100 06/03/16 02:20 95 12 118/84 100 06/03/16 02:10 98.2 F 96 11 L 118/84 100 06/03/16 01:46 88 16 99/60 100 Intake and Output 06/03/16 06/03/16 06/03/16 06:59 14:59 22:59 Intake Total 1780 3211.475 Output Total 570 415 Balance 1210 2796.475 Intake: IV 780 1110 Naloxone 4 mg In Sodium 30 60 Chloride 0.9% 100 ml @ 0. 6 MG/HR 16.5 mls/hr IV . Q6H40M [facility] Rx#:[id number] Sodium Chloride 0.9% 1, 750 1050 000 ml @ 150 mls/hr IV . Q6H40M [facility] Rx#:[id number] Amount of Fluid Infused ( 1000 ml) Intake, IV Titration 2101.475 Amount Naloxone 4 mg In Sodium 101.475 Chloride 0.9% 100 ml @ 0. 6 MG/HR 16.5 mls/hr IV . Q6H40M [facility] Rx#:[id number] Sodium Chloride 0.9% 2, 2000 000 ml @ 999 mls/hr IV . Q2H1M [facility] Rx#:[id number] Output: Urine 570 415 Other: Voiding Method Indwelling Catheter Indwelling Catheter Weight 82.7 kg - Constitutional She responded only to pain stimuli. General appearance: average body habitus, disheveled - EENT Eyes: abnormal pupil, no anicteric sclerae, no disc margins sharp, no edentulous , no EOMI, no PERRLA, no fundus normal, photophobia, no dentition normal, no poor dentition, no ptosis, no scleral icterus, normal appearance ENT: hard of hearing, hearing grossly normal, no NA/AT, normal oropharynx, no other, no pharyngeal erythema, no thrush, no tonsillar exudates, no tonsillar swelling Ears: bilateral: normal - Neck Neck: no lymphadenopathy, normal ROM, no other, no rigidity, no stridor, no thyromegaly Carotids: bilateral: upstroke normal, upstroke delayed Thyroid: bilateral: normal size - Respiratory Respiratory: bilateral: CTA, diminished - Cardiovascular Rhythm: regular Heart sounds: normal: S1, S2 Abnormal Heart Sounds: systolic murmur, S3 Gallop - Gastrointestinal General gastrointestinal: no absent bowel sounds, decreased bowel sounds, no distended, no hepatomegaly, no hyperactive bowel sounds, no normal bowel sounds , no organomegaly, no rigid, no scaphoid, soft, no splenomegaly, no tenderness, no umbilical hernia, no ventral hernia - Integumentary Integumentary: cellulitis, normal, pale, rash - Musculoskeletal Musculoskeletal: no gait normal, generalized weakness, no strength equal bilaterally, no right sided weakness, no left sided weakness - Psychiatric Psychiatric: no A&O x's 3, no appropriate affect, no intact judgment & insight Results CBC & Chem 7: 06/03/16 04:45 06/03/16 04:45 Labs: Abnormal Lab Results - Last 24 Hours (Table) 06/03/16 06/03/16 Range/Units 03:59 04:45 ABG pH 7.32 L (7.35-7.45) Chloride 109 H (98-107) mmol/L Thrombosis Risk Factor Assmnt - DVT/VTE Prophylaxis DVT/VTE Prophylaxis: Pharmacologic Prophylaxis ordered, Mechanical Prophylaxis ordered Assessment and Plan Plan: 1 drug overdose: Patient is taking multiple medication continue current treatment with an management try to protect her airway no need for intubation so far, continue hydration, continue to watch her liver kidney and blood count regularly. 2 altered mental status: Mostly secondary to drug overdose continue to secure her airway watch symptoms carefully. 3 severe depression and suicidal attempt with suicidal note, patient be seen psych and I will end up being transferred to the psych unit soon as she is more stable. 4 multiple sclerosis: Patient is not currently on any medication or management will be seen urology as an outpatient and consider treatment. 5 Severe fibromyalgia: Was seen in rheumatology recently and apparently testing are negative has been on symptom management only. 6 severe GERD: Patient will be on pantoprazole IV for now. 7 DVT prophylaxis: Patient be started on heparin 5000 units subcutaneous twice a day. 8 UTI: UA was positive patient will be continue on Levaquin 500 milligrams daily for total of 7 days. CODE STATUS: Full code. Expectation from this admission: Patient be in the hospital for more than 2 nights.
[2016-06-03 15:45] LABS: ALT 40 U/L (9-52); AST 13 U/L (14-36); Alkaline Phosphatase 43 U/L (38-126); Anion Gap 8 mmol/L; Blood Urea Nitrogen 8 mg/dL (7-17); Calcium 7.3 mg/dL (8.4-10.2); Carbon Dioxide 20 mmol/L (22-30); Chloride 115 mmol/L (98-107); Glucose 82 mg/dL (74-99); Non-African American GFR(MDRD) >60 (>60 ml/min/1.73 sqM); Potassium 4.3 mmol/L (3.5-5.1); Sodium 143 mmol/L (137-145); Total Bilirubin 0.6 mg/dL (0.2-1.3); Total Protein 5.6 g/dL (6.3-8.2)
--- NOTE | 2016-06-03 19:07 | CT ---
EXAMINATION TYPE: CT brain wo con DATE OF EXAM: 06/03/2016 6:51 PM COMPARISON: 03/10/2013 HISTORY: Patient shows signs of altered mental status. CT DLP: 875.8 mGycm Automated exposure control for dose reduction was used. FINDINGS: There is a 3 cm area of hypodensity in the left frontal lobe adjacent to the frontal horn of the left lateral ventricle. There is no mass effect nor midline shift. There is no sign of intracranial hemor rhage. The calvarium is intact. 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 No acute intracrania l abnormality.
[2016-06-03] MEDS: HEPARIN SODIUM,PORCINE 5,000 UNIT/ML 1 ML VIAL SQ SCH (20:38)
--- NOTE | 2016-06-03 20:39 | CONS ---
DATE OF CONSULTATION: 06/03/2016 REASON FOR CONSULTATION: Status post overdose. As the patient was sleeping and sedated, I did review the medical record and I did interview the patient's mother and her brother, who were at her bedside. HISTORY OF PRESENT ILLNESS: The patient is a 46-year-old white female with history of depression since early ; however, her depression has been getting worse over the last 2 years since she was diagnosed with MS. Since patient has been having difficulty going to work, despite having worked in the same place for the last 10 years. She is on medical leave of absence since . She has been feeling tired, not motivated, with poor concentration, lying in bed most of the daytime, and just on the day prior to her overdose, patient's cat of 18 years had to be put to ; according to the patient's mother, it seems that since then patient was getting worse. Patient left a suicidal note to each one of her family members, including her estranged , and she took an overdose of Xanax and tramadol. Her boyfriend, who has been living with her, found her lying in the bathtub unresponsive. Patient had one previous suicidal attempt in 1980 or 1981; she took an overdose of aspirin for depression, but it was not severe to this extent. Patient was admitted to the ICU. According to the patient's mother, patient has been treated with different antidepressant medications for more than 20 years on and off, but prescribed to her by primary care physician. Recent she did see a psychiatrist, Dr. Bingham, and she did see a counselor 2 weeks ago. PAST PSYCHIATRIC HISTORY: As I mentioned before, there is one previous suicidal attempt, but she never was admitted to any psychiatric facility. FAMILY HISTORY OF MENTAL ILLNESS: Nephew committed suicide 8 or 10 years ago. MEDICAL HISTORY: 1. Multiple sclerosis diagnosis in 2013. 2. History of fibromyalgia. Her urine drug screen when she came in was positive for benzodiazepines, opiates and tricyclic antidepressants in addition to amphetamine. Her home medications prescribed by her primary care physician are as follow: 1. Xanax 0.5 three times a day as needed. This is since 2013. 2. Abilify 2 mg at bedtime. This was started on April 23, 2016. 3. Celexa or citalopram 40 mg daily, started April 23, 2016. 4. Adderall or amphetamine. According to her mother, she has been on Adderall for a couple of years since she was diagnosed with multiple sclerosis. 5. [place] 1 tablet every 8 hours. SUBSTANCE ABUSE HISTORY/CHEMICAL DEPENDENCY: Alcohol just socially. MRI of the brain: I did compare the MRI done in March 2016 with the first one on 02/28/2014. It does show that patient has stable moderate MS (multiple sclerosis plaque). BRIEF SOCIAL HISTORY: Patient is the youngest of 3. She has one brother and one sister. 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 She was for 7 years. This ended by separation 2 years ago. She has been in a relationship for the last 2 years, and he decided to move in to live with her. He has 3 children and they have the children every other weekend. But patient does not have any children of her own. According to her mother, they found out that the patient paid the mortgage on the house for the next 3 months. Also she did transfer a lot of money from her account to her boyfriend's account. Patient has been not able to work since 2015 due to depression and physical tiredness. IMPRESSION: This is a 46-year-old female who has been struggling with chronic depression; however, it has been getting worse over the last 2 years since she was diagnosed with multiple sclerosis. Patient appears more depressed, hopeless and helpless, and it seems that she left multiple suicide notes for many of the family members; she even paid the mortgage for the next 3 months, as she wished that her boyfriend would be able to stay in her house. From this presentation, patient is at very high risk for suicide, and I do recommend that she will be transferred to inpatient psychiatric facility when she is medically cleared. DISCHARGE DIAGNOSES: 1. Major depression, recurrent, severe, without psychotic feature. 2. Rule out organic mood disorder secondary to multiple sclerosis. Prognosis guarded. MTDD
[2016-06-04] MEDS: NALOXONE 4 MG in SODIUM CHLORIDE 0.9% 100 ML IV SCH ×5 (03:14→23:43)
[2016-06-04] MEDS: SODIUM CHLORIDE 0.9% 1,000 ML IV SCH ×3 (04:58→14:23)
[2016-06-04 05:05] LABS: Basophils % (A) 0 %; CH 30.5; CHCM 32.2; Eosinophils # (A) 0.1 k/uL (0-0.7); Eosinophils % (A) 1 %; HCT 32.5 % (34.0-46.0); HDW 2.46; HGB 10.3 gm/dL (11.4-16.0); Luc # (Auto) 0.04; Luc % (Auto) 1; Lymphocytes # (A) 1.3 k/uL (1.0-4.8); Lymphocytes % (A) 21 %; MCH 30.3 pg (25.0-35.0); MCHC 31.8 g/dL (31.0-37.0); MCV 95.3 fL (80.0-100.0); Monocytes # (A) 0.3 k/uL (0-1.0); Monocytes % (A) 5 %; Neutrophils # (A) 4.5 k/uL (1.3-7.7); Neutrophils % (A) 73 %; RBC 3.41 m/uL (3.80-5.40); RDW 13.5 % (11.5-15.5); WBC 6.2 k/uL (3.8-10.6)
[2016-06-04 05:13] LABS: ALT 38 U/L (9-52); AST 17 U/L (14-36); Alkaline Phosphatase 44 U/L (38-126); Anion Gap 6 mmol/L; Blood Urea Nitrogen 7 mg/dL (7-17); Calcium 7.4 mg/dL (8.4-10.2); Carbon Dioxide 22 mmol/L (22-30); Chloride 114 mmol/L (98-107); Glucose 91 mg/dL (74-99); Magnesium 1.7 mg/dL (1.6-2.3); Non-African American GFR(MDRD) >60 (>60 ml/min/1.73 sqM); Phosphorous 2.3 mg/dL (2.5-4.5); Potassium 3.6 mmol/L (3.5-5.1); Sodium 142 mmol/L (137-145); Total Bilirubin 0.9 mg/dL (0.2-1.3); Total Protein 5.3 g/dL (6.3-8.2)
[2016-06-04] MEDS ORDERED: Magnesium Replacement Protocol 1 EACH MISC MISCELLANE PRN (06:45)
[2016-06-04] MEDS ORDERED: Phosphorus Replacement Protoco 1 EACH MISC MISCELLANE PRN (06:45)
[2016-06-04] MEDS ORDERED: Potassium Replacement Protocol 1 EACH MISC MISCELLANE PRN (06:45)
[2016-06-04] MEDS ORDERED: POTASSIUM CHLORIDE ER 20 MEQ TAB.ER PO ONE (06:59)
[2016-06-04] MEDS ORDERED: SODIUM PHOSPHATE 10 MMOL in SODIUM CHLORIDE 0.9% 250 ML IVPB ONE (07:00)
[2016-06-04] MEDS: MAGNESIUM SULFATE-D5W PMX 1 GM in DEXTROSE/WATER 1 100ML.BAG IVPB SCH ×2 (07:07→09:00)
[2016-06-04] MEDS: FAMOTIDINE 20 MG/2 ML VIAL IV SCH ×2 (09:00→20:52)
[2016-06-04] MEDS: HEPARIN SODIUM,PORCINE 5,000 UNIT/ML 1 ML VIAL SQ SCH ×2 (09:01→20:52)
[2016-06-04] MEDS ORDERED: BENZOCAINE/MENTHOL LOZENG 1 EACH LOZENGE MUCOUS MEM PRN (09:43)
--- NOTE | 2016-06-04 11:28 | P.PN ---
Subjective Principal diagnosis: Suicide attempt This is a 46-year-old female who has a history of fibromyalgia and multiple sclerosis as well as anxiety/depression. She was brought into the emergency department with a suicide attempt. She apparently had a drug overdose from tramadol, Xanax and Abilify. There may be other medications involved as well. She was poorly responsive. She did not have to be intubated she was transferred up to the ICU. Here in the ICU, she is very somnolent and lethargic we went ahead and start her on Narcan drip at 0.6 mg per hour for 6 hours. The patient's drug screen was positive for benzodiazepines opiates try cyclic antidepressant and amphetamines. Talking to her mother, she apparently did this once before when she was young. At that time was with aspirin. The patient is seen and evaluated in the intensive care unit again today 2016. She is more awake and alert today as compared to yesterday. She does admit to taking multiple medications today she is stating that was tramadol Flexeril and Xanax. She states she was just feeling overwhelmed. She is somewhat slow to respond. She denies any worsening shortness of breath, cough or congestion. She is maintaining good O2 saturations in the mid to upper 90s on room air. Current temperature 100.3. She's been hemodynamically stable. She is on a port .9 at 150 MLS per hour. The norepinephrine has been off since 6 AM. We'll give an additional 1 L bolus of 0.9 today. Objective - Vital Signs Vital signs: Vital Signs Temp 100.3 F H 06/04/16 08:00 Pulse 108 H 06/04/16 11:00 Resp 17 06/04/16 11:00 BP 109/72 06/04/16 11:00 Pulse Ox 96 06/04/16 11:00 Intake & Output 06/03/16 06/04/16 06/04/16 18:59 06:59 18:59 Intake Total 3811.475 2079.501 1200 Output Total 615 580 600 Balance 3196.475 1499.501 600 Weight 90.8 kg 90.8 kg Intake: IV 1710 1800 1200 Magnesium Sulfate-D5w Pmx 200 1 gm In Dextrose/Water 1 100ml.bag @ 100 mls/hr IVPB Q1H [facility] Rx#: [id number] Naloxone 4 mg In Sodium 60 Chloride 0.9% 100 ml @ 0. 6 MG/HR 16.5 mls/hr IV . Q6H40M [facility] Rx#:[id number] Sodium Chloride 0.9% 1, 1650 1800 750 000 ml @ 150 mls/hr IV . Q6H40M [facility] Rx#:[id number] Sodium Phosphate 10 mmol 250 In Sodium Chloride 0.9% 250 ml @ 125 mls/hr IVPB [facility]CE [facility] Rx#:[id number] Intake, IV Titration 2101.475 79.501 Amount Naloxone 4 mg In Sodium 101.475 Chloride 0.9% 100 ml @ 0. 6 MG/HR 16.5 mls/hr IV . Q6H40M [facility] Rx#:[id number] Norepinephrine 4 mg In 79.501 Sodium Chloride 0.9% 250 ml @ Titrate IV .Q0M [facility] Rx#:[id number] Sodium Chloride 0.9% 2, 2000 000 ml @ 999 mls/hr IV . Q2H1M [facility] Rx#:[id number] Oral 200 Output: Urine 615 580 600 Other: Voiding Method Indwelling Catheter Indwelling Catheter Indwelling Catheter - Exam GENERAL EXAM: Alert, alert, slow to respond, comfortable in no apparent distress. HEAD: Normocephalic. EYES: Normal reaction of pupils, equal size. NOSE: Clear with pink turbinates. THROAT: No erythema or exudates. NECK: No masses, no JVD. CHEST: No chest wall deformity. LUNGS: Equal air entry with no crackles, wheeze, rhonchi or dullness. CVS: S1 and S2 normal with no audible murmurs, regular rhythm. ABDOMEN: No hepatosplenomegaly, normal bowel sounds, no guarding or rigidity. Extremities: There is no significant peripheral edema. No clubbing, no cyanosis. Peripheral pulses are intact. - Labs CBC & Chem 7: 06/04/16 04:39 06/04/16 04:39 Labs: Abnormal Lab Results - Last 24 Hours (Table) 06/03/16 06/04/16 06/04/16 Range/Units 15:14 04:39 04:39 RBC 3.41 L (3.80-5.40) m/uL Hgb 10.3 L (11.4-16.0) gm/dL Hct 32.5 L (34.0-46.0) % Plt Count 144 L (150-450) k/uL Chloride 115 H 114 H (98-107) mmol/L Carbon Dioxide 20 L (22-30) mmol/L Calcium 7.3 L 7.4 L (8.4-10.2) mg/dL Phosphorus 2.3 L (2.5-4.5) mg/dL AST 13 L (14-36) U/L Total Protein 5.6 L 5.3 L (6.3-8.2) g/dL Albumin 2.9 L 2.8 L (3.5-5.0) g/dL Assessment and Plan Plan: Impression: #1 Acute drug overdose secondary to suicide attempt. Today stating she took tramadol and Xanax and Flexeril. Narcan drip has been discontinued. #2 Multiple sclerosis, history of. #3 Fibromyalgia, history of. Plan: The patient was seen and evaluated by Dr. Palomino. She is more awake and alert today. She remains tachycardic. We'll give her an additional liter of 0.9 normal saline. We'll continue her IV 0.9 normal saline at 150 MLS Per hour. She could be transferred to the [facility] medical floor with a sitter 09/11. We'll await further input from psychiatric services. We'll continue to follow make further recommendations based on her clinical status.
[2016-06-04] MEDS: LEVOFLOXACIN 500MG-D5W PMX 500 MG in DEXTROSE/WATER 1 100ML.BAG IVPB SCH (12:17)
[2016-06-04] MEDS: BENZOCAIN/BENZALKONM ORAL GEL 12 GM TUBE MM PRN ×2 (14:19→20:52)
--- NOTE | 2016-06-04 14:59 | P.PN ---
Subjective 46-year-old female one of Dr. Hardy's patient with past medical history of multiple sclerosis fibromyalgia chronic depression and anxiety and panic attacks who has been struggling psychologically for the last few years has been much worse lately heparin 3 patient lost her cat recently become more depressed in the last few days. Patient found by her boyfriend and consciousness with suicidal note on the side of the bed she is taking multiple medications that she takes normally including [place], tramadol, Xanax, Celexa and Adderall. 911 was called patient brought to the emergency department by EMS drug screen came back positive for opiate, benzodiazepine, try cyclic. Patient was started on Narcan and end up on drip of Narcan. Watch for QT prolongation on her EKG finding from drug overdose patient was admitted to the intensive care unit and consult pulmonary service. Will be seen psych as well for her current attempt and for further management of her depression and suicidal. 06/04: Patient has been weaned off vasopressor. She has been cleared for transfer to [facility]. Patient at this time is not ready for transfer to mental health unit due to lethargy. Sitter is at the bedside. Objective - Vital Signs Vital signs: Vital Signs Temp 100.3 F H 06/04/16 08:00 Pulse 112 H 06/04/16 10:00 Resp 25 H 06/04/16 10:00 BP 101/54 06/04/16 10:00 Pulse Ox 99 06/04/16 10:00 Intake & Output 06/03/16 06/04/16 06/04/16 18:59 06:59 18:59 Intake Total 3811.475 2079.501 1050 Output Total 615 580 200 Balance 3196.475 1499.501 850 Weight 90.8 kg 90.8 kg Intake: IV 1710 1800 1050 Magnesium Sulfate-D5w Pmx 200 1 gm In Dextrose/Water 1 100ml.bag @ 100 mls/hr IVPB Q1H [facility] Rx#: [id number] Naloxone 4 mg In Sodium 60 Chloride 0.9% 100 ml @ 0. 6 MG/HR 16.5 mls/hr IV . Q6H40M [facility] Rx#:[id number] Sodium Chloride 0.9% 1, 1650 1800 600 000 ml @ 150 mls/hr IV . Q6H40M [facility] Rx#:[id number] Sodium Phosphate 10 mmol 250 In Sodium Chloride 0.9% 250 ml @ 125 mls/hr IVPB ONCE ONE Rx#:[id number] Intake, IV Titration 2101.475 79.501 Amount Naloxone 4 mg In Sodium 101.475 Chloride 0.9% 100 ml @ 0. 6 MG/HR 16.5 mls/hr IV . Q6H40M [facility] Rx#:[id number] Norepinephrine 4 mg In 79.501 Sodium Chloride 0.9% 250 ml @ Titrate IV .Q0M [facility] Rx#:[id number] Sodium Chloride 0.9% 2, 2000 000 ml @ 999 mls/hr IV . Q2H1M [facility] Rx#:[id number] Oral 200 Output: Urine 615 580 200 Other: Voiding Method Indwelling Catheter Indwelling Catheter Indwelling Catheter - Exam She responded slowly to verbal stimuli. General appearance: average body habitus, disheveled - EENT Eyes: abnormal pupil, no anicteric sclerae, no disc margins sharp, no edentulous , no EOMI, no PERRLA, no fundus normal, photophobia, no dentition normal, no poor dentition, no ptosis, no scleral icterus, normal appearance ENT: hard of hearing, hearing grossly normal, no NA/AT, normal oropharynx, no other, no pharyngeal erythema, no thrush, no tonsillar exudates, no tonsillar swelling Ears: bilateral: normal - Neck Neck: no lymphadenopathy, normal ROM, no other, no rigidity, no stridor, no thyromegaly Carotids: bilateral: upstroke normal, upstroke delayed Thyroid: bilateral: normal size - Respiratory Respiratory: bilateral: CTA, diminished - Cardiovascular Rhythm: regular Heart sounds: normal: S1, S2 Abnormal Heart Sounds: systolic murmur, S3 Gallop - Gastrointestinal General gastrointestinal: no absent bowel sounds, decreased bowel sounds, no distended, no hepatomegaly, no hyperactive bowel sounds, no normal bowel sounds , no organomegaly, no rigid, no scaphoid, soft, no splenomegaly, no tenderness, no umbilical hernia, no ventral hernia - Integumentary Integumentary: cellulitis, normal, pale, rash - Musculoskeletal Musculoskeletal: no gait normal, generalized weakness, no strength equal bilaterally, no right sided weakness, no left sided weakness - Psychiatric Psychiatric: A&O x's 2, no appropriate affect, no intact judgment & insight - Labs CBC & Chem 7: 06/04/16 04:39 06/04/16 04:39 Labs: Abnormal Lab Results - Last 24 Hours (Table) 06/03/16 06/04/16 06/04/16 Range/Units 15:14 04:39 04:39 RBC 3.41 L (3.80-5.40) m/uL Hgb 10.3 L (11.4-16.0) gm/dL Hct 32.5 L (34.0-46.0) % Plt Count 144 L (150-450) k/uL Chloride 115 H 114 H (98-107) mmol/L Carbon Dioxide 20 L (22-30) mmol/L Calcium 7.3 L 7.4 L (8.4-10.2) mg/dL Phosphorus 2.3 L (2.5-4.5) mg/dL AST 13 L (14-36) U/L Total Protein 5.6 L 5.3 L (6.3-8.2) g/dL Albumin 2.9 L 2.8 L (3.5-5.0) g/dL Assessment and Plan Plan: 1 drug overdose: Patient is taking multiple medication continue current treatment with an management try to protect her airway no need for intubation so far, continue hydration, continue to watch her liver kidney and blood count regularly. 2 toxic encephalopathy: Mostly secondary to drug overdose continue to secure her airway watch symptoms carefully. 3 severe depression and suicidal attempt with suicidal note, patient be seen psych and I will end up being transferred to the psych unit soon as she is more stable. 4 multiple sclerosis: Patient is not currently on any medication or management will be seen urology as an outpatient and consider treatment. 5 Severe fibromyalgia: Was seen in rheumatology recently and apparently testing are negative has been on symptom management only. 6 severe GERD: Patient will be on pantoprazole IV for now. 7 DVT prophylaxis: Patient be started on heparin 5000 units subcutaneous twice a day. 8 UTI: UA was positive patient will be continue on Levaquin 500 milligrams daily for total of 7 days. CODE STATUS: Full code. Discharge plan: Mental health unit. Impression and plan of care have been directed as dictated by the signing physician. Reny Pearson nurse practitioner acting as scribe for signing physician. Time with Patient: Greater than 30
--- NOTE | 2016-06-04 15:49 | P.PN ---
Progress Note - Text PATIENT WAS SEEN FOR PSYCHIATRIC FOLLOW UP: SUBJECTIVE: Patient was sitting in her bed ,tearful however she is trying to minimize her serious suicidal attempt telling me "Loosing my cat pushed me to edge ,I will never hurt myself again ,I am not going to Mental unit ,I have appointment with Neurologist and I am not loosing my Job",patient was irritable ,labile ,very defensive ,her insight to need for inpatient psych.hospitalization is impaired I talked with her mother outside patient room who informed me that patient lost her job as she did return back to work on Wednesday and lost her medical insurance but her mother bought her COBRA and she is afraid to inform patient about this PLAN: Petition was filled by juvenile officer ,please transfer to inpatient psych. unit on involuntary basis
[2016-06-04] MEDS: BENZOCAINE SPRAY 100 APPLIC/CAN MUCOUS MEM PRN (15:51)
[2016-06-04 17:25] VITALS: RESP 16
[2016-06-05] MEDS: BENZOCAINE SPRAY 100 APPLIC/CAN MUCOUS MEM PRN ×2 (01:23→09:13)
[2016-06-05] MEDS: SODIUM CHLORIDE 0.9% 1,000 ML IV SCH (04:24)
[2016-06-05] MEDS ORDERED: ACETAMINOPHEN TAB 325 MG TAB PO PRN (08:31)
[2016-06-05] MEDS: FAMOTIDINE 20 MG/2 ML VIAL IV SCH (09:13)
[2016-06-05] MEDS: HEPARIN SODIUM,PORCINE 5,000 UNIT/ML 1 ML VIAL SQ SCH (09:13)
[2016-06-05] MEDS: LEVOFLOXACIN 500MG-D5W PMX 500 MG in DEXTROSE/WATER 1 100ML.BAG IVPB SCH (13:01)
[2016-06-05] MEDS: NALOXONE 4 MG in SODIUM CHLORIDE 0.9% 100 ML IV SCH (13:36)
--- NOTE | 2016-06-05 13:40 | P.PN ---
Subjective Principal diagnosis: Suicide attempt This is a 46-year-old female who has a history of fibromyalgia and multiple sclerosis as well as anxiety/depression. She was brought into the emergency department with a suicide attempt. She apparently had a drug overdose from tramadol, Xanax and Abilify. There may be other medications involved as well. She was poorly responsive. She did not have to be intubated she was transferred up to the ICU. Here in the ICU, she is very somnolent and lethargic we went ahead and start her on Narcan drip at 0.6 mg per hour for 6 hours. The patient's drug screen was positive for benzodiazepines opiates try cyclic antidepressant and amphetamines. Talking to her mother, she apparently did this once before when she was young. At that time was with aspirin. The patient is seen and evaluated in the intensive care unit again today 2016. She is more awake and alert today as compared to yesterday. She does admit to taking multiple medications today she is stating that was tramadol Flexeril and Xanax. She states she was just feeling overwhelmed. She is somewhat slow to respond. She denies any worsening shortness of breath, cough or congestion. She is maintaining good O2 saturations in the mid to upper 90s on room air. Current temperature 100.3. She's been hemodynamically stable. She is on a port .9 at 150 MLS per hour. The norepinephrine has been off since 6 AM. We'll give an additional 1 L bolus of 0.9 today. The patient is seen again today 06/05/2016 on the regular medical floor. She is more awake and alert today as compared to yesterday. She denies any shortness of breath, cough or congestion. She denies any significant pain or discomfort. She has been afebrile. No leukocytosis. She is maintaining good O2 saturations in the mid 90s on room air. She's been hemodynamically stable. Objective - Vital Signs Vital signs: Vital Signs Temp 97.9 F 06/05/16 07:00 Pulse 97 06/05/16 07:00 Resp 16 06/05/16 07:00 BP 117/72 06/05/16 07:00 Pulse Ox 95 06/05/16 07:00 Intake & Output 06/04/16 06/05/16 06/05/16 18:59 06:59 18:59 Intake Total 1500 Output Total 2900 2800 2400 Balance -1400 -2800 -2400 Weight 90.8 kg 88.5 kg Intake: IV 1500 Magnesium Sulfate-D5w Pmx 200 1 gm In Dextrose/Water 1 100ml.bag @ 100 mls/hr IVPB Q1H [facility] Rx#: [id number] Sodium Chloride 0.9% 1, 1050 000 ml @ 75 mls/hr IV . [id number] [facility] Rx#:[id number] Sodium Phosphate 10 mmol 250 In Sodium Chloride 0.9% 250 ml @ 125 mls/hr IVPB ONCE ONE Rx#:[id number] Output: Urine 2900 2800 2400 Straight 1200 Other: Voiding Method Indwelling Catheter Indwelling Catheter Indwelling Catheter # Voids 2 - Exam GENERAL EXAM: Alert, alert, comfortable in no apparent distress. HEAD: Normocephalic. EYES: Normal reaction of pupils, equal size. NOSE: Clear with pink turbinates. THROAT: No erythema or exudates. NECK: No masses, no JVD. CHEST: No chest wall deformity. LUNGS: Equal air entry with no crackles, wheeze, rhonchi or dullness. CVS: S1 and S2 normal with no audible murmurs, regular rhythm. ABDOMEN: No hepatosplenomegaly, normal bowel sounds, no guarding or rigidity. Extremities: There is no significant peripheral edema. No clubbing, no cyanosis. Peripheral pulses are intact. - Labs CBC & Chem 7: 06/04/16 04:39 06/04/16 04:39 Assessment and Plan Plan: Impression: #1 Acute drug overdose secondary to suicide attempt. Stating she took tramadol and Xanax and Flexeril. Narcan drip has been discontinued. #2 Multiple sclerosis, history of. #3 Fibromyalgia, history of. Plan: The patient was seen and evaluated by Dr. Palomino. She is more awake and alert today. She is cleared for discharge from the pulmonary standpoint. She could be transitioned to oral Levaquin for her suspected urinary tract infection. I believe the plan is for inpatient admission to the psychiatric unit. In the interim, she remains with a sitter 24 7. We'll see the patient on as-needed basis.
[2016-06-05 15:19] VITALS: BP 109/63; PULSE 96; TEMP 98.1
[2016-06-05] MEDS ORDERED: FAMOTIDINE 20 MG TAB PO SCH (21:00)
[2016-06-06] MEDS ORDERED: LEVOFLOXACIN 500 MG TAB PO SCH (12:00)
--- NOTE | 2016-06-12 17:08 | P.DS ---
Providers Date of admission: 06/03/16 01:14 Expected date of discharge: 06/05/16 Attending physician: [place] Consults: 06/03/16 09:02 Consult Physician Urgent Consulting Provider: Latanya Bee Consult Reason/Comments: intentional overdose Do you want consulting provider notified?: Yes Primary care physician: Rohit Hardy Hospital Course: 46-year-old female one of Dr. Hardy's patient with past medical history of multiple sclerosis fibromyalgia chronic depression and anxiety and panic attacks who has been struggling psychologically for the last few years has been much worse lately heparin 3 patient lost her cat recently become more depressed in the last few days. Patient found by her boyfriend and consciousness with suicidal note on the side of the bed she is taking multiple medications that she takes normally including [place], tramadol, Xanax, Celexa and Adderall. 911 was called patient brought to the emergency department by EMS drug screen came back positive for opiate, benzodiazepine, try cyclic. Patient was started on Narcan and end up on drip of Narcan. Watch for QT prolongation on her EKG finding from drug overdose patient was admitted to the intensive care unit and consult pulmonary service. Will be seen psych as well for her current attempt and for further management of her depression and suicidal. 06/04: Patient has been weaned off vasopressor. She has been cleared for transfer to [facility]. Patient at this time is not ready for transfer to mental health unit due to lethargy. Sitter is at the bedside. 06/05:patient is back to her baseline mentation. Plan for follow-up with Dr. Bautista as an outpatient regarding her multiple sclerosis. She does have a sitter at the bedside. Hernandez will be discontinued. She is complaining of a headache. Patient has been cleared medically for discharge to mental health unit. Discharge Diagnoses: 1 drug overdose: Patient is taking multiple medication 2 toxic encephalopathy: Mostly secondary to drug overdose 3 severe depression and suicidal attempt 4 multiple sclerosis: 5 Severe fibromyalgia 6 severe GERD 7 UTI Discharge plan: Mental health unit. Impression and plan of care have been directed as dictated by the signing physician. Reny Pearson nurse practitioner acting as scribe for signing physician. Patient Condition at Discharge: Good Plan - Discharge Summary Discharge Medication List Citalopram Hydrobromide [CeleXA] 40 mg PO HS 30 Days 06/09/16 [Rx] Modafinil [Provigil] 100 mg PO DAILY 30 Days 06/09/16 [Rx] clonazePAM [KlonoPIN] 0.5 mg PO HS PRN 21 Days 06/09/16 [Rx] Follow up Appointment(s)/Referral(s): Rohit Hardy MD [Primary Care Provider] - 1 Week (after discharge from [facility]) Discharge Disposition: TRANSFER TO PSYCH HOSP/UNIT
== END 2016-06-05 16:39 | DRG 918 ==
LOC: EC 21:43 → 6ICU 06-03 01:14 → 4MS4W 06-04 19:26
PROVIDERS: ADMIT Internal Medicine Geriatric Medicine; ATTEND Internal Medicine Geriatric Medicine
PROC: 0T9B70Z Drainage of Bladder with Drainage Device, Via Natural or Artificial Opening (ICD-10-PCS; principal; 2016-06-02)
DX: T42.4X2A Poisoning by benzodiazepines, intentional self-harm, initial encounter (principal); F33.2 Major depressive disorder, recurrent severe without psychotic features; N39.0 Urinary tract infection, site not specified; G35 Multiple sclerosis; F41.9 Anxiety disorder, unspecified; T14.91 Suicide attempt; T43.622A Poisoning by amphetamines, intentional self-harm, initial encounter; T43.012A Poisoning by tricyclic antidepressants, intentional self-harm, initial encounter; R94.31 Abnormal electrocardiogram [ECG] [EKG]; T40.4X2A Poisoning by other synthetic narcotics, intentional self-harm, initial encounter; T48.1X2A Poisoning by skeletal muscle relaxants [neuromuscular blocking agents], intentional self-harm, initial encounter; R41.82 Altered mental status, unspecified; F41.0 Panic disorder [episodic paroxysmal anxiety]; K21.9 Gastro-esophageal reflux disease without esophagitis; M79.7 Fibromyalgia; Z87.891 Personal history of nicotine dependence; Z83.3 Family history of diabetes mellitus; Z81.8 Family history of other mental and behavioral disorders; Z79.891 Long term (current) use of opiate analgesic; Z79.899 Other long term (current) drug therapy; Z90.49 Acquired absence of other specified parts of digestive tract; Z91.5 Personal history of self-harm; Z56.0 Unemployment, unspecified; Y92.012 Bathroom of single-family (private) house as the place of occurrence of the external cause
CPT/HCPCS: 36415; 36600; 70450; 71010; 80048; 80053; 80306; 80320; 81001; 81025; 82805; 83520; 83735; 84100; 84484; 85025; 85610; 93005; 96361; 96374; 99291

== ENCOUNTER 2016-06-05 16:05 | Inpatient (IN) | payer BC ==
[2016-06-05 16:48] VITALS: BMI 29.7
[2016-06-05] MEDS ORDERED: ACETAMINOPHEN TAB 325 MG TAB PO PRN (19:26)
[2016-06-05] MEDS ORDERED: MAGNESIUM HYDROXIDE 2,400 MG/10 ML CUP PO PRN (19:26)
[2016-06-05] MEDS ORDERED: MAG HYDROX/AL HYDROX/SIMETH 30 ML CUP PO PRN (19:26)
[2016-06-05] MEDS: CITALOPRAM HYDROBROMIDE 20 MG TAB PO SCH (21:07)
--- NOTE | 2016-06-06 13:11 | P.HP ---
Psychiatric H&P - . H&P Date: 06/06/16 History & Physical: Allergies Allergy/AdvReac Type Severity Reaction Status Date / Time No Known Allergies Allergy Verified 06/05/16 17:04 Vital Signs Temp 98.1 F 06/06/16 05:10 Pulse 101 H 06/06/16 05:10 Resp 18 06/06/16 05:10 BP 126/74 06/06/16 05:10 Pulse Ox 97 06/05/16 17:00 Intake & Output 06/05/16 06/06/16 06/06/16 18:59 06:59 18:59 Weight 86.2 kg Laboratory Last Values TSH 3.170 mIU/L (0.465-4.680) 06/05/16 08:43 06/06/16 13:03 IDENTIFYING DATA: 46-year-old female patient HPI: Patient was admitted to the inpatient psychiatric unit [facility] on a voluntary basis as a transfer from the medical floor. She reports that Wednesday she tried to kill herself by taking a bunch of pills. She says she took Ultram Xanax and Flexeril probably a total of about 100 pills and was having thoughts of suicide at the time. She says lately has been a snowball effect she says she was diagnosed with MS 4 years ago in the past 4 years of been difficult with symptoms. She is in February things were bad and she had to take a leave from work and couldn't get out of bed. She says April and May were starting to be the same, she was having a lot of pain and the final straw was that her cat of 18-1/2 years she had to have put to sleep. She states that her boyfriend came home and found her after taking the pills. She does describe that she will have difficulties with racing thoughts and irritability. PAST PSYCHIATRIC HISTORY: She states that she saw Dr. Byrd 2 weeks ago but otherwise has not been any outpatient treatment. She did see a counselor through [facility] once. She's never had any previous psychiatric hospitalizations or had any previous suicide attempts. She most recently has been taking Celexa 40 mg daily. She did try Cymbalta which made her feel weird and Trileptal it's which seemed to work but her insurance would not pay for it. She has been on Abilify in the past for approximately a month but had stopped that because they did not want her to begin to many new medications. 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 She's been off work since the end of February other than 6 days. She states that work has been understanding. She currently lives with her boyfriend in the home. They have been together 3 years she says the relationship is good. She is still but they are and says she has a great relationship with him. She does not have any children. MENTAL STATUS EXAM: She is alert and cooperative with the interview. Her speech is fluent, not rapid or pressured. Her thought processes are organized. Her mood is described as "thoughtful." She denies any thoughts of harm to self or others. Her affect overall is restricted but able show some range. She does not verbalize any delusions or hallucinations. Cognitively she appears very grossly intact. I do not note any significant disorientation or memory disturbance. Insight is adequate, judgment shows evidence of recent impairment. STRENGTHS/WEAKNESSES: Strengths-support system, seeking treatment; weaknesses- coping skills INTELLECTUAL FUNCTIONING: Average IMPRESSIONS: AXIS I : Major depressive disorder, recurrent AXIS II: Deferred AXIS III: MS, concerns of fibromyalgia AXIS IV: Medical, lengthy time off work AXIS V: 30 PLAN: She is admitted to the inpatient psychiatric unit [facility] on a voluntary basis. She'll be placed on SP 15 minute precautions. Baseline laboratory workup will be done the patient and medical consultation will be ordered. She will be maintained on Celexa 40 more grams daily for depression. We will add Lamictal 25 mg at bedtime to help augmentation for depression. Lamictal may also get benefit for description of some irritability as well as racing thoughts. We will look into support systems. Estimated length of stay is 3-5 days. We'll continue to cover for Dr. Bee through the weekend. Prognosis guarded.
--- NOTE | 2016-06-06 16:39 | CONS ---
DATE OF CONSULTATION: CHIEF COMPLAINT: Suicidal ideation. HISTORY OF PRESENT ILLNESS: This is a 46-year-old female who presented to the hospital with chief complaint of suicidal ideation. The patient was found by her friend where after she ingested multiple pills including Ultram, Xanax, Flexeril, Celexa and other medications. The patient was admitted to the psych floor for acute depression. Currently, the patient is denying chest pain, shortness of breath, nausea, vomiting, abdominal pain, dizziness, lightheadedness, or blurry vision. REVIEW OF SYSTEMS: All 14 systems were reviewed and negative except as above. ALLERGIES: No known drug allergies. Past medical history significant for: 1. Multiple sclerosis diagnosed 4 years ago. 2. Fibromyalgia since that time. 3. Generalized pain and tingling for the above reason. 4. Depression. 5. Anxiety. 6. Chronic back spasm. HOME MEDICATIONS: 1. Adderall 30 mg every morning. 2. Celexa 40 mg every evening. 3. Xanax 0.5 mg bedtime. 4. Ultram as needed. 5. Flexeril as needed. FAMILY HISTORY: Mother positive for age 75, healthy otherwise. Father positive for diabetes and coronary artery disease. SOCIAL HISTORY: Quit tobacco 15 years ago. Drinks alcohol rarely. No drug abuse. Lives with boyfriend and she works ( ). PAST SURGICAL HISTORY: Positive for appendix removal and wisdom extraction. PHYSICAL EXAMINATION: VITAL SIGNS: Reviewed and stable. LUNGS: Clear to auscultation bilaterally. HEART: Normal S1, S2. NECK: Supple. No masses or thyromegaly. HEENT: Atraumatic, normocephalic. PERRLA. ABDOMEN: Soft, no tenderness. Positive bowel sounds in all 4 quadrants. LOWER EXTREMITIES: Chronic 1+ edema, states that she has been in that condition for a long time. PSYCH: Alert and oriented x3. ( ) and affect. NEURO: Cranial nerves 2 through 12 intact. Normal ( ) and sensation. IMAGING AND LABS: TSH normal. ASSESSMENT AND PLAN: 1. Suicidal ideation with acute depression, per your recommendation. 2. Anxiety and depression. Will continue on regimen. 3. Insomnia. Will continue ( ) 0.5 at bedtime. 4. Multiple sclerosis. No active medication at this point. Follow up outpatient. 5. Fibromyalgia. Continue current pain regimen and Flexeril as needed. 6. Chronic back spasm. Will continue Ultram as needed. 7. Discharge planning per your recommendation.
[2016-06-06] MEDS ORDERED: BENZOCAINE/MENTHOL LOZENG 1 EACH LOZENGE MUCOUS MEM PRN (17:19)
[2016-06-06] MEDS: lamoTRIgine 25 MG TAB PO SCH (21:06)
[2016-06-06] MEDS: CITALOPRAM HYDROBROMIDE 20 MG TAB PO SCH (21:06)
--- NOTE | 2016-06-07 16:49 | P.PN ---
Progress Note - Text Interval history: Patient seen in cross coverage today for Dr. Bee. She reports that her mood is doing better. She states that last night she was not able to fall sleep until very late. She also felt some stomach upset. She does seem agreeable to continuing to trial the Lamictal. She inquires regarding being restarted on Xanax. Mental status exam: She is alert and cooperative with the interview. Her speech is fluent, not rapid or pressured. Thought processes are organized. Her mood is described as doing better. She denies any thoughts of harm to self or others. No evidence of psychosis or agitation. Plan: We'll maintain current psychotropic medications. Status is improving. Dr. Bee will be initiating care of this patient tomorrow. Would continue to hold Xanax at this time due to status post overdose on Xanax among a few other medications.
[2016-06-07] MEDS: CITALOPRAM HYDROBROMIDE 20 MG TAB PO SCH (20:54)
[2016-06-07] MEDS: lamoTRIgine 25 MG TAB PO SCH (20:54)
[2016-06-08 05:55] VITALS: RESP 16; TEMP 98.1
[2016-06-08] MEDS ORDERED: ZOLPIDEM 10 MG TAB PO PRN (16:41)
--- NOTE | 2016-06-08 16:55 | P.PN ---
Progress Note - Text Interval history: . She reports initial insomnia ,still struggling with low motivation ,tiredness ,fatigue ,.she is feeling overwhelmed with declining of her physical health saying "I TRIED 3 DIFFERENT MS MEDICATIONS OVER LAST COUPLE OF YEARS AND I COULD NOT TOLERATE SIDE EFFECTS",she stated that she read her last MRI and felt worse "THEY ARE SAYING MS LESIONS INCREASED OVER 6 MONTHS ", patient had Neurology follow-up on 06/05 to discuss new MS medication but she overdosed prior to it . She has upset stomach since started Lamictal . Her mother told her yesterday that "I USED ALL MY MEDICAL LEAVE ,MY MOTHER IS PAYING FOR COBRA I KNOW THAT MY BOSS CAN TAKE ME BACK" Mental status exam: She is alert and cooperative with the interview. Her speech is fluent, not rapid or pressured. Thought processes are organized. Very somatic preoccupied . She denies any thoughts of harm to self or others. No evidence of psychosis or agitation. Plan: Discontinue Lamictal add Ambien PRN ,Provigil to improve her energy and motivation ,SW will meet with mother for family meeting ,will monitor her mood and medications side-effect
[2016-06-08] MEDS: CITALOPRAM HYDROBROMIDE 20 MG TAB PO SCH (21:03)
[2016-06-09] MEDS ORDERED: MODAFINIL 100 MG TAB PO SCH (09:00)
[2016-06-09 13:42] VITALS: BP 124/78; PULSE 107
[2016-06-09] MEDS ORDERED: clonazePAM 0.5 MG TAB PO PRN (14:36)
--- NOTE | 2016-06-10 12:14 | DS ---
DATE OF ADMISSION: 06/05/2016 DATE OF DISCHARGE: 06/09/2016 DISCHARGE DIAGNOSES: 1. 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 2. Major depression disorder, recurrent. 3. Anxiety disorder. CONSULT PHYSICIAN: Routine. CONSULTING PROVIDER: Dr. Jaiden Wise. CONSULT REASON: For medical management. Do you want consulting provider notified? He was already notified. BRIEF SUMMARY OF ADMISSION NOTE: The patient was admitted to the mental health unit from the medical floor after being seen in psychiatric consultation. She had presented originally to the ER after she overdosed on her Xanax and Dexedrine. Patient was transferred from the ER to the intensive care unit and after she was medically stabilized she was transferred to the mental health unit on petition and certificate; however, when she came to the unit, she did sign for voluntary admission. For a complete history and physical examination, please refer to the dictation by Dr. Phill Stevens. SUMMARY OF HOSPITAL COURSE: Patient was admitted to the mental health unit and she was started back on her Celexa [address] Stevens did add Lamictal to help her depression; however, patient could not tolerate it as she was complaining of having nausea, upset stomach. She was complaining of feeling tired, fatigued from her multiple sclerosis and fibromyalgia. In addition, she has been having trouble sleeping at night. I discontinued the Lamictal and she was given low dose of Ambien; however, it was not effective to restore her sleep and she was given Klonopin 0.5 at bedtime to restore her sleep. I did discuss with her treatment option regarding her energy and motivation and she did agree to start Provigil just 100 mg. It seems that the patient is very somatic preoccupied and always very sensitive to most of the medication according to what she told me, that is why she did try 4 or 5 different medication for multiple sclerosis and she could not tolerate the side effects. I discussed with her that she needs to treat the multiple sclerosis and she has an appointment with a neurologist to try new medication next week. networker had meeting with her mother who stated that she will dispense patient's medication. Also, she will be able to take the patient to her appointment. Patient mother does feel comfortable about the discharge plan. MENTAL STATUS EXAMINATION: Patient is alert, smiling, good eye contact. Hygiene and grooming are adequate. Speech is spontaneous, non-pressured. Thought process it is linear. She denied any homicidal or suicidal ideation, intent or plan. She does not feel hopeless. She is very somatic, preoccupied, but she is aware that she has multiple sclerosis and fibromyalgia and needs to treat these 2 conditions. There is no evidence of hypomania or yogesh. There is no evidence of psychosis. Insight and judgment improved. PLAN: 1. Patient will be discharged from the mental health unit today to return back home. 2. Patient living in boyfriend will dispense patient's medications. 3. Patient was given one-month supply for Celexa 40 mg daily. 4. Klonopin 0.5 at bedtime as needed for sleep and I did give her 21 tablets. 5. Provigil 100 mg in the morning for her tiredness and fatigue due to the multiple sclerosis and fibromyalgia. 6. Patient will follow up with Dr. Bingham for psychotropic management. 7. Patient will follow up with her neurologist for medical management of her fibromyalgia and multiple sclerosis. 8. Patient is able to complete her activity of daily living and she was very active in all the group therapy. She does not have any hopeless or helpless feeling and there is no ( ) safety risk and she is appropriate for transition back to the outpatient care.
== END 2016-06-09 15:11 | disposition home or self-care (01) | DRG 885 ==
LOC: 3MHU 16:33
PROVIDERS: ADMIT Psychiatry & Neurology Psychiatry; ATTEND Psychiatry & Neurology Psychiatry
DX: F33.9 Major depressive disorder, recurrent, unspecified (principal); R45.851 Suicidal ideations; G35 Multiple sclerosis; F41.9 Anxiety disorder, unspecified; G47.00 Insomnia, unspecified; M79.7 Fibromyalgia; M62.830 Muscle spasm of back; Z87.891 Personal history of nicotine dependence; Z79.899 Other long term (current) drug therapy; Z82.49 Family history of ischemic heart disease and other diseases of the circulatory system
CPT/HCPCS: 84443

== ENCOUNTER 2016-07-01 23:06 | Emergency (ER) | payer BC ==
--- NOTE | 2016-07-01 23:49 | ED ---
General Adult HPI - General Chief complaint: Upper Respiratory Infection Stated complaint: SOB/Cough Time Seen by Provider: 07/01/16 23:38 Source: patient, RN notes reviewed, old records reviewed Mode of arrival: ambulatory Limitations: no limitations - History of Present Illness Initial comments: Chief complaint history of present illness a 38-year-old female here for complaint of not feeling well for a days with him cough. Today she vomited several times and thinks she may have aspirated. - Related Data Home Medications Medication Instructions Recorded Confirmed Dextroamphetamine/Amphetamine 30 mg PO DAILY 07/01/16 07/01/16 [Adderall] clonazePAM [KlonoPIN] 1 mg PO HS PRN 07/01/16 07/01/16 Previous Rx's Medication Instructions Recorded Citalopram Hydrobromide [CeleXA] 40 mg PO HS 30 Days 06/09/16 Azithromycin [Zithromax Z-pack] 250 mg PO DIRECTED #6 tab 07/02/16 Ondansetron Odt [Zofran ODT] 4 mg PO Q8HR PRN #5 tab 07/02/16 Allergies Allergy/AdvReac Type Severity Reaction Status Date / Time No Known Allergies Allergy Verified 07/01/16 23:38 Review of Systems ROS Statement: Those systems with pertinent positive or pertinent negative responses have been documented in the HPI. Review of systems patient reports been coughing hard for 8 days today she coughed hard enough to vomit 4 times asked and thinks she may have aspirated. Denies any fever. Has generalized aches and pains. She did receive her flu shot this year. All systems were otherwise reviewed. Past medical problems significant for MS, fibromyalgia. Surgeries appendectomy. Family history grandfather colon cancer. Patient has seasonal ALLERGIES. She quit smoking 20 years ago drinks alcohol socially. 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 No heavy lifting ROS Other: All systems not noted in ROS Statement are negative. Past Medical History Past Medical History: Fibromyalgia, Neurologic Disorder Additional Past Medical History / Comment(s): Multiple Sclerosis - diagnosis 2013 History of Any Multi-Drug Resistant Organisms: None Reported Past Surgical History: Appendectomy Past Anesthesia/Blood Transfusion Reactions: No Reported Reaction Past Psychological History: Anxiety, Depression Smoking Status: Former smoker Past Alcohol Use History: Rare Past Drug Use History: None Reported - Past Family History Father Family Medical History: Diabetes Mellitus Mother Family Medical History: No Reported History Additional Family Medical History / Comment(s): "healthy" General Exam - General Exam Comments Initial Comments: General: The patient is awake and alert, in no distress, and does not appear acutely ill. Complains of cough for 8 days. Thinks may have aspirated after vomiting today. Vital signs show temperature 97.7 pulse 95 respiratory rate 16 pulse ox 96% room air blood pressure 125/87. Mildly elevated systolic diastolic noted patient will be following up with her family physician. Eye: Pupils are equal, round and reactive to light, extra-ocular movements are intact ; there is normal conjunctiva bilaterally. No signs of icterus. Ears, nose, mouth and throat: There are moist mucous membranes and no oral lesions. Neck: The neck is supple, there is no tenderness . Cardiovascular: There is a regular rate and rhythm. No murmur, rub or gallop is appreciated. Respiratory: Lungs are clear to auscultation, respirations are non-labored, breath sounds are equal. No wheezes, stridor, rales, or rhonchi. Gastrointestinal: Soft, non-distended, non-tender abdomen without masses or organomegaly noted. There is no rebound or guarding present. No CVA tenderness. Bowel sounds are unremarkable. Back: There is no tenderness to palpation in the midline. There is no obvious deformity. No rashes noted. Musculoskeletal: Normal ROM, no tenderness, There is no pedal edema. There is no calf tenderness or swelling. Sensation intact. Pulses equal bilaterally 2+. Neurological: No neuro deficits this time. Patient does have a history of MS. Limitations: no limitations Course Vital Signs 07/01/16 23:25 Temperature 97.7 F Pulse Rate 95 Respiratory 16 Rate Blood Pressure 125/87 O2 Sat by Pulse 96 Oximetry Medical Decision Making - Medical Decision Making Medical decision making; the patient's influenza test were both negative. Chest x-ray was done and reviewed by radiologist his final impression is normal chest x-ray. As read by Dr. Gallo The patient coughing for a week she will be placed on Zofran for control of nausea. She'll be placed on a Z-Seun and advised follow-up with her family physician. - Lab Data Lab Results 07/01/16 Range/Units 23:45 Influenza Type A RNA Not Detected (Not Detectd) Influenza Type B (PCR) Not Detected (Not Detectd) Disposition Clinical Impression: Bronchitis Disposition: HOME SELF-CARE Condition: Fair Instructions: Acute Bronchitis (ED) Additional Instructions: Use Z-Seun as directed. Use Zofran to control nausea vomiting. Increase fluid intake. If he develop a fever repeat chest x-ray may be necessary Prescriptions: Azithromycin [Zithromax Z-pack] 250 mg PO DIRECTED #6 tab Ondansetron Odt [Zofran ODT] 4 mg PO Q8HR PRN #5 tab PRN Reason: Nausea Time of Disposition: 00:38
--- NOTE | 2016-07-02 00:16 | XR ---
EXAM: XR Chest, 2 Views. CLINICAL HISTORY: Reason: Pain TECHNIQUE: Frontal and lateral views of the chest. COMPARISON: CXR 06/02/16 FINDINGS: Lungs: Unremarkable. No consolidation. Pleural space: Unremarkable. No pneumothorax. Heart: Unremarkable. No cardiomegaly. Mediastinum: Unremarkable. Bones/joints: Unremarkable. IMPRESSION: Normal chest x-rays.
[2016-07-02] MEDS ORDERED: AZITHROMYCIN 250 MG TAB PO STA (00:41)
[2016-07-02] MEDS ORDERED: Acetaminophen-Codeine 300-30mg TAB PO STA (00:49)
[2016-07-02 00:59] VITALS: BP 136/71; PULSE 87; RESP 18; TEMP 98.9
== END 2016-07-02 01:03 | disposition home or self-care (01) ==
LOC: EC 23:06
DX: J20.9 Acute bronchitis, unspecified (principal); R11.2 Nausea with vomiting, unspecified; Z87.891 Personal history of nicotine dependence; Z79.899 Other long term (current) drug therapy
CPT/HCPCS: 71020; 87502; 99284

== ENCOUNTER → 2016-08-07 | Outpatient (CLI) | payer BC | END | disposition home or self-care (01) | LOC: LABWHC1 10:26 | PROVIDERS: ATTEND Psychiatry & Neurology Psychiatry | DX: E03.9 Hypothyroidism, unspecified (principal) | CPT/HCPCS: 36415; 84439; 84443 ==

== ENCOUNTER → 2016-10-28 | Outpatient (CLI) | payer OTHER ==
--- NOTE | 2016-10-28 15:27 | US ---
EXAMINATION TYPE: US abdomen complete DATE OF EXAM: 10/28/2016 COMPARISON: NONE CLINICAL HISTORY: 46-year-old female NAUSEA AND VOMITING R11.2. abdominal pain, acid reflux TECHNIQUE: Multiple sonographic images of the abdomen are obtained. FINDINGS: Liver Length: 14.1 cm Gallbladder Wall: 0.2 cm CBD: 0.5 cm Spleen: 13.3 cm Right Kidney: 12.0 x 4.0 x 5.6 cm Left Kidney: 12.5 x 4.8 x 5.5 cm Pancreas: Suboptimal visualization of the pancreatic neck and head. Visualized portions appear withi n normal limits. Liver: Slight increased echogenicity. No focal lesion seen. Gallbladder: No abnormal gallbladder distention, wall thickening, pericholecystic fluid, or shadowin g calculi. Evidence for sonographic Hernandez's sign: No CBD: wnl Spleen: Measures at the upper limits of normal. Right Kidney: No hydronephrosis. Left Kidney: No hydronephrosis. Upper IVC: wnl Abd Aorta: wnl IMPRESSION: 1. Correlate for mild fatty infiltration of the liver. 2. Otherwise, unremarkable sonographic examination of the abdomen.
== END | disposition home or self-care (01) ==
LOC: RADUSWWP 14:51
PROVIDERS: ATTEND Family Medicine
DX: R11.2 Nausea with vomiting, unspecified (principal); K76.0 Fatty (change of) liver, not elsewhere classified
CPT/HCPCS: 76700

== ENCOUNTER → 2016-11-17 | Outpatient (CLI) | payer OTHER ==
--- NOTE | 2016-11-19 11:00 | MM ---
Reason for exam: screening (asymptomatic). Last mammogram was performed 3 years ago. History: Patient is nulliparous. Took hormonal contraceptives for 15 years beginning at age 13. Physical Findings: A clinical breast exam by your physician is recommended on an annual basis and results should be correlated with mammographic findings. MG Screening Mammo w CAD Bilateral CC and MLO view(s) were taken. Prior study comparison: November 22, 2013, bilateral MG diagnostic mammo w CAD [facility]. The breast tissue is heterogeneously dense. This may lower the sensitivity of mammography. There is a 8mm focal asymmetry left upper outer quadrant at middle depth. ASSESSMENT: Incomplete: need additional imaging evaluation, BI-RAD 0 RECOMMENDATION: Special view mammogram of the left breast. If lesion persists on supplemental views, image directed ultrasound is recommended. [facility] will attempt to contact patient to return for supplemental views and ultrasound if indicated.
== END | disposition home or self-care (01) ==
LOC: RADMAMWWP 14:50
PROVIDERS: ATTEND Obstetrics & Gynecology
DX: Z12.31 Encounter for screening mammogram for malignant neoplasm of breast (principal)

== ENCOUNTER → 2016-11-24 | Outpatient (CLI) | payer BC, OTHER ==
--- NOTE | 2016-11-25 07:49 | CONS ---
REASON FOR CONSULTATION: Sleep apnea. This is a 46-year-old female patient with known history of multiple sclerosis and chronic depression. More recently, the patient was told also to have chronic liver disease. She was found to have abnormal LFTs and she is currently under investigation. The patient is coming in to have a sleep evaluation to see if there is any other sleep disorder contributing to her chronic fatigue and tiredness. In terms of her MS. The patient is under the care of Dr. Bautista and the patient is on Copaxone. This has been a progressively debilitating neurological disease for this patient. She has also had significant depression and anxiety for which she is on a combination of Seroquel , Xanax and Effexor. In terms of her chronic fatigue, and tiredness and sleepiness, the patient was started on Adderall 20 mg po twice a day. In terms of her sleep characteristics, the patient has a very irregular sleep wake cycle. She tries to go to bed at midnight and takes her hours to fall asleep. She gets out of bed around noon time. This is not however, a steady schedule and the schedule varies on a day to day basis. She spends many hours in bed without having good luck in establishing and maintaining sleep. As such her average sleep hours are between five hours and as much as 10 to 11 hours. She is tired all the time and she is having trouble paying attention and concentration. She is not sure if she snores. She is not sure if she stops breathing. She has restlessness in the lower extremities and occasional grinding of the teeth. No sleepwalking and no sleeptalking. No waking up in the middle of the night choking or gasping for air. No nocturia. Her weight is stable and she is currently around 185 which is five pounds higher than her baseline. No sleep paralysis. No ( ). No cataplexy at this point. No history of any substance abuse. His past medical history: 1. MS. 2. Severe anxiety. 3. Severe depression. 4. Chronic liver disease, currently under investigation. 5. History of [employer] concussion. Surgical history: Appendectomy. Drug allergies are not known. Outpatient Medications: 1. Adderall 20 mg po twice a day. 2. Copaxone 200 mg po daily. 3. Effexor XR 150 mg po daily. 4. Xanax 0.5 mg on a prn basis. 5. Gabapentin 300 mg po daily. 6. Seroquel 200 mg po daily. SOCIAL HISTORY: Smokes is a nonsmoker. No history of alcohol. No history of IV drugs. FAMILY HISTORY: Negative for any insomnia. Brother and Father have obstructive sleep apnea. REVIEW OF SYSTEMS: 12 point review of systems was done. All of the positive findings were mentioned above in the history of present illness. BP 138/90. Pulse 100, respiratory rate 16, temperature 97.9, saturation 98% on room air. Weight is 196. Height 5 feet 7 inches and neck size 13 and three quarter inches. BMI 30.5. General appearance: Calm, comfortable. Mallampati Class III with some mild tonsillar enlargement. There is no goiter or neck masses. Lungs clear to auscultation. Heart sounds are regular rate and rhythm , normal S1, S2. Normal S3, S4. No murmurs. Abdomen soft, nontender, no organomegaly. Extremities: No edema, cyanosis or clubbing. IMPRESSION: 1. Chronic fatigue/sleepiness, multifactorial. Declo score is at 4. The patients chronic tiredness and fatigue and sleepiness could be a manifestation of various other medical problems and comorbidities most significant of which includes MS, anxiety, depression and chronic liver disease. In addition, this may be a potential side effect of the various drugs that she is on. However, possibility of primary sleep disorder is being considered and for that reason, it is reasonable to undergo a screening polysomnogram to assess the patients sleep efficiency and sleep architecture and see if there is any other sleep breathing disorder that is contributing to her symptoms. For that reason a sleep study will be done. 2. Chronic liver disease. 3. Multiple sclerosis. 4. Depression. 5. Anxiety. PLAN: 1. Proceed with a polysomnogram. 2. We will make further recommendations based on the results of the sleep study. LEV
== END ==
LOC: SLEEP 14:21
PROVIDERS: ATTEND Internal Medicine Critical Care Medicine
DX: G47.30 Sleep apnea, unspecified (principal); K76.9 Liver disease, unspecified; G35 Multiple sclerosis; F41.9 Anxiety disorder, unspecified; F32.9 Major depressive disorder, single episode, unspecified; Z79.899 Other long term (current) drug therapy
CPT/HCPCS: 99211

== ENCOUNTER → 2016-11-25 | Outpatient (CLI) | payer BC ==
--- NOTE | 2016-11-26 08:45 | MM ---
Reason for exam: additional evaluation requested from abnormal screening. Last mammogram was performed less than 1 month ago. History: Patient is nulliparous. Took hormonal contraceptives for 15 years beginning at age 13. Physical Findings: Nurse did not find any significant physical abnormalities on exam. MG Work Up Mamm w CAD LT CC and MLO view(s) were taken of the left breast. Prior study comparison: November 17, 2016, bilateral MG screening mammo w CAD. November 22, 2013, bilateral MG diagnostic mammo w CAD [facility]. The breast tissue is heterogeneously dense. This may lower the sensitivity of mammography. The focal asymmetry appears to disperse on additional views. Precautionary 6 month follow up recommended. These results were verbally communicated with the patient and result sheet given to the patient on 11/25/16. ASSESSMENT: Probably benign, BI-RAD 3 RECOMMENDATION: Follow-up diagnostic mammogram of the left breast in 6 months.
== END | disposition home or self-care (01) ==
LOC: RADMAMWWP 13:35
PROVIDERS: ATTEND Obstetrics & Gynecology
DX: R92.8 Other abnormal and inconclusive findings on diagnostic imaging of breast (principal)

== ENCOUNTER → 2016-12-09 | Outpatient (CLI) | payer OTHER ==
[2016-12-09 12:17] LABS: CH 30.9; HCT 37.5 % (34.0-46.0); HDW 2.79; HGB 12.9 gm/dL (11.4-16.0); MCH 31.4 pg (25.0-35.0); MCHC 34.3 g/dL (31.0-37.0); MCV 91.4 fL (80.0-100.0); Mean Platelet Volume 6.5; RDW 13.8 % (11.5-15.5); WBC 6.1 k/uL (3.8-10.6)
[2016-12-09 13:47] LABS: ALT 141 U/L (9-52); AST 104 U/L (14-36); Alkaline Phosphatase 70 U/L (38-126); Bilirubin, Delta 0.3 mg/dL (0.0-0.2); Total Bilirubin 0.5 mg/dL (0.2-1.3)
[2016-12-09 20:23] LABS: Hepatitis B Surface Ag Index 0.06
[2016-12-09 20:29] LABS: Hepatitis B Core IgM Index 0.03
[2016-12-09 20:41] LABS: Hepatitis C Virus IgG Ab Negative (Negative); Hepatitis C Virus IgG Index 0.03
== END | disposition home or self-care (01) ==
LOC: LABWHC1 11:45
PROVIDERS: ATTEND Psychiatry & Neurology Psychiatry
DX: R74.8 Abnormal levels of other serum enzymes (principal); R11.2 Nausea with vomiting, unspecified; K75.9 Inflammatory liver disease, unspecified
CPT/HCPCS: 36415; 80074; 80076; 85027

== ENCOUNTER → 2016-12-26 | Outpatient (CLI) | payer OTHER ==
[2016-12-26 12:55] LABS: ALT 35 U/L (9-52); AST 20 U/L (14-36); Alkaline Phosphatase 69 U/L (38-126); Anion Gap 12 mmol/L; Blood Urea Nitrogen 13 mg/dL (7-17); Calcium 9.4 mg/dL (8.4-10.2); Carbon Dioxide 21 mmol/L (22-30); Chloride 105 mmol/L (98-107); Glucose 131 mg/dL (74-99); Iron 57 ug/dL (37-170); Non-African American GFR(MDRD) >60 (>60 ml/min/1.73 sqM); Potassium 4.4 mmol/L (3.5-5.1); Sodium 138 mmol/L (137-145); Total Bilirubin 0.6 mg/dL (0.2-1.3); Total Protein 7.4 g/dL (6.3-8.2)
[2016-12-26 13:04] LABS: % Iron Saturation 15.1 % (20-50); Total Iron Binding Capacity 378 ug/dL (265-497)
== END ==
LOC: LABWHC1 11:59
PROVIDERS: ATTEND Internal Medicine Gastroenterology
DX: R94.5 Abnormal results of liver function studies (principal)
CPT/HCPCS: 36415; 80053; 82103; 82390; 82728; 83516; 83540; 83550; 84165; 86038

== ENCOUNTER → 2017-02-25 | Outpatient (CLI) | payer OTHER ==
[2017-02-25 15:49] LABS: Estradiol 90.2 pg/mL
== END | disposition home or self-care (01) ==
LOC: LABWHC1 08:45
PROVIDERS: ATTEND Obstetrics & Gynecology
DX: E55.9 Vitamin D deficiency, unspecified (principal); F41.8 Other specified anxiety disorders; N95.9 Unspecified menopausal and perimenopausal disorder; R53.83 Other fatigue
CPT/HCPCS: 36415; 82306; 82670; 83001; 84403

== ENCOUNTER → 2017-04-09 | Outpatient (CLI) | payer OTHER ==
--- NOTE | 2017-04-11 07:26 | MR ---
EXAMINATION TYPE: MR brain wo/w con DATE OF EXAM: 04/10/2017 2:40 AM COMPARISON: Previous study dated 04/09/2016. HISTORY: MS. TECHNIQUE: Multiplanar, multiecho imaging of the brain was obtained with and without intravenous adm inistration of 10 mL intravenous Gadavist. FINDINGS: Midline structures are unremarkable. There is a normal craniocervical junction. Echoplanar diffusion imaging is normal. There are normal vascular flow voids. The orbits are unremarkable. There is no evidence of a CP angle mass lesion. T2 lesions present: Yes Approximate number of lesions greater than 20 Locations: Pericallosal and deep white matter tracts Size of reference lesion: 1. The largest lesion in the ram radiata on the left adjacent to the frontal horn of the left late ral ventricle today measures 17 x 22 x 17.5 mm. Previously this measured 18 x 19 mm. This is best see n on axial image 22 and sagittal image 12. 2. Second reference lesion in the subcortical white matter no left cerebral hemisphere previously omega sured 8.3 x 6.9 mm. Today this measures 11.5 x 3.8 x 4.6 mm, best seen on axial image 20 and sagittal image 7. Enhancing lesions: No T1 hypointense lesions: Yes Change from previous colon slight improvement IMPRESSION: MILD IMPROVEMENT IN THE PATIENT'S KNOWN MULTIPLE SCLEROSIS LESIONS.
== END | disposition home or self-care (01) ==
LOC: RADMRIMAIN 13:45
PROVIDERS: ATTEND Psychiatry & Neurology Neurology
DX: G35 Multiple sclerosis (principal); G93.9 Disorder of brain, unspecified
CPT/HCPCS: 70553; A9581

== ENCOUNTER → 2017-04-09 | Outpatient (CLI) | payer OTHER ==
[2017-04-10 15:15] LABS: Bilirubin, Delta 0.2 mg/dL (0.0-0.2); Total Bilirubin 0.4 mg/dL (0.2-1.3); Total Protein 6.8 g/dL (6.3-8.2)
== END | disposition home or self-care (01) ==
LOC: LABWHC1 12:01
PROVIDERS: ATTEND Psychiatry & Neurology Psychiatry
DX: E11.9 Type 2 diabetes mellitus without complications (principal); Z79.899 Other long term (current) drug therapy
CPT/HCPCS: 36415; 80076; 83036

== ENCOUNTER → 2017-11-05 | Outpatient (CLI) | payer OTHER ==
[2017-11-05 13:55] LABS: Basophils % (A) 0 %; Eosinophils # (A) 0.2 k/uL (0-0.7); Eosinophils % (A) 3 %; HCT 40.8 % (34.0-46.0); HGB 13.5 gm/dL (11.4-16.0); Lymphocytes # (A) 2.3 k/uL (1.0-4.8); Lymphocytes % (A) 37 %; MCH 30.2 pg (25.0-35.0); MCHC 33.1 g/dL (31.0-37.0); MCV 91.3 fL (80.0-100.0); Mean Platelet Volume 6.7; Monocytes # (A) 0.3 k/uL (0-1.0); Monocytes % (A) 4 %; Neutrophils # (A) 3.5 k/uL (1.3-7.7); Neutrophils % (A) 55 %; Platelet Count 232 k/uL (150-450); RBC 4.47 m/uL (3.80-5.40); RDW 13.4 % (11.5-15.5); WBC 6.4 k/uL (3.8-10.6)
[2017-11-05 14:04] LABS: Albumin 4.4 g/dL (3.5-5.0); Calcium 9.2 mg/dL (8.4-10.2); Potassium 4.5 mmol/L (3.5-5.1); Total Bilirubin 0.5 mg/dL (0.2-1.3); Total Protein 7.1 g/dL (6.3-8.2)
[2017-11-05 19:58] LABS: Vitamin D 25 Hydroxy 24.8 ng/mL (30.0-100.0)
== END | disposition home or self-care (01) ==
LOC: LABWHC1 13:16
PROVIDERS: ATTEND Family Medicine
DX: E78.5 Hyperlipidemia, unspecified (principal); E55.9 Vitamin D deficiency, unspecified; F32.2 Major depressive disorder, single episode, severe without psychotic features
CPT/HCPCS: 36415; 80053; 80061; 82306; 82607; 85025

== ENCOUNTER 2017-12-31 01:37 | Emergency (ER) | payer OTHER ==
[2017-12-31] MEDS ORDERED: KETOROLAC 30 MG/ML 1 ML VIAL IVP STA (02:01)
[2017-12-31] MEDS ORDERED: SODIUM CHLORIDE 0.9% 1,000 ML IV ONE (02:01)
[2017-12-31] MEDS ORDERED: METOCLOPRAMIDE 5 MG/ML 2 ML VIAL IVP STA (02:01)
[2017-12-31] MEDS ORDERED: diphenhydrAMINE 50 MG/ML 1 ML VIAL IVP STA (02:01)
[2017-12-31 02:17] LABS: Basophils % (A) 0 %; Eosinophils # (A) 0.2 k/uL (0-0.7); Eosinophils % (A) 3 %; HCT 39.2 % (34.0-46.0); HGB 12.8 gm/dL (11.4-16.0); Lymphocytes # (A) 2.6 k/uL (1.0-4.8); Lymphocytes % (A) 31 %; MCH 30.7 pg (25.0-35.0); MCHC 32.8 g/dL (31.0-37.0); MCV 93.8 fL (80.0-100.0); Mean Platelet Volume 6.5; Monocytes # (A) 0.3 k/uL (0-1.0); Monocytes % (A) 4 %; Neutrophils # (A) 5.1 k/uL (1.3-7.7); Neutrophils % (A) 61 %; Platelet Count 229 k/uL (150-450); RBC 4.18 m/uL (3.80-5.40); RDW 14.3 % (11.5-15.5); WBC 8.4 k/uL (3.8-10.6)
[2017-12-31 02:25] LABS: ALT 24 U/L (9-52); AST 16 U/L (14-36); Albumin 3.8 g/dL (3.5-5.0); Alkaline Phosphatase 53 U/L (38-126); Anion Gap 7 mmol/L; Blood Urea Nitrogen 14 mg/dL (7-17); Calcium 8.9 mg/dL (8.4-10.2); Carbon Dioxide 26 mmol/L (22-30); Chloride 105 mmol/L (98-107); Glucose 118 mg/dL (74-99); Potassium 3.9 mmol/L (3.5-5.1); Sodium 138 mmol/L (137-145); Total Bilirubin 0.2 mg/dL (0.2-1.3); Total Protein 6.6 g/dL (6.3-8.2)
[2017-12-31 02:27] LABS: INR 0.9 (<1.2); Partial Thromboplastin Time 23.5 sec (22.0-30.0); Prothrombin Time 9.5 sec (9.0-12.0)
[2017-12-31 02:36] LABS: Creatine Kinase 47 U/L (30-135)
[2017-12-31 02:49] LABS: Creatine Kinase MB 0.3 ng/mL (0.0-2.4); Troponin I <0.012 ng/mL (0.000-0.034)
--- NOTE | 2017-12-31 02:54 | ED ---
General Adult HPI - General Chief complaint: Chest Pain Stated complaint: back/chest/neck/arm pain Time Seen by Provider: 12/31/17 01:50 Source: patient, family Mode of arrival: ambulatory Limitations: no limitations - History of Present Illness Initial comments: 47-year-old female patient with past medical history significant for multiple sclerosis presents to the emergency department today for evaluation of increased pain. Patient states that she has had increased pain to her shoulders , arms, low back, and right leg over the last 5 days. Patient is also reporting headache with pain to the right eye. Patient denies any blurred vision or double vision. States she is nauseated but has not vomited. Patient states that over the last 7 weeks she has been gradually decreasing her Seroquel dosing. Patient states she initially started with 300 mg and is now down to 150 mg. She does believe her symptoms may be related to Seroquel withdrawal. Patient denies any chest pain or shortness of breath. She denies any abdominal pain, constipation, or diarrhea. Denies any difficulty with urination. Patient states she has been taking [id number] Tylenol Motrin without relief of symptoms.Patient denies any recent rash, fever, chills, numbness, tingling, dizziness, weakness, hematuria, dysuria, urinary urgency, urinary frequency, or any other complaints. - Related Data Home Medications Medication Instructions Recorded Confirmed Dextroamphetamine/Amphetamine 30 mg PO DAILY 07/01/16 12/31/17 [Adderall] QUEtiapine FUMARATE [SEROquel] 300 mg PO HS 12/31/17 12/31/17 Venlafaxine HCl ER [Effexor Xr] 150 mg PO DAILY 12/31/17 12/31/17 busPIRone HCl [Buspar] 22.5 mg PO BID 12/31/17 12/31/17 Allergies Allergy/AdvReac Type Severity Reaction Status Date / Time No Known Allergies Allergy Verified 12/31/17 01:47 Review of Systems ROS Statement: Those systems with pertinent positive or pertinent negative responses have been documented in the HPI. ROS Other: All systems not noted in ROS Statement are negative. Past Medical History Past Medical History: Fibromyalgia, Neurologic Disorder Additional Past Medical History / Comment(s): Multiple Sclerosis - diagnosis 2014 History of Any Multi-Drug Resistant Organisms: None Reported Past Surgical History: Appendectomy Past Anesthesia/Blood Transfusion Reactions: No Reported Reaction Past Psychological History: Anxiety, Depression Smoking Status: Former smoker Past Alcohol Use History: Rare Past Drug Use History: None Reported - Past Family History Father Family Medical History: Diabetes Mellitus Mother Family Medical History: No Reported History Additional Family Medical History / Comment(s): "healthy" General Exam Limitations: no limitations General appearance: alert, in no apparent distress, other (This is a well- developed, well-nourished adult female patient in no acute distressVital signs upon presentation are temperature 98.7F, pulse 110, respirations 18, blood pressure 153/79, pulse ox 97% on room air.) Eye exam: Present: normal appearance, PERRL, EOMI. Absent: scleral icterus, conjunctival injection, periorbital swelling ENT exam: Present: normal exam, normal oropharynx, mucous membranes moist Respiratory exam: Present: normal lung sounds bilaterally. Absent: respiratory distress, wheezes, rales, rhonchi, stridor Cardiovascular Exam: Present: regular rate, normal rhythm, normal heart sounds. Absent: systolic murmur, diastolic murmur, rubs, gallop, clicks GI/Abdominal exam: Present: soft, normal bowel sounds. Absent: distended, tenderness, guarding, rebound, rigid Neurological exam: Present: alert, oriented X3, CN II-XII intact, other ( Strength in all 4 extremities is 5/5.) Psychiatric exam: Present: normal affect, normal mood Skin exam: Present: warm, dry, intact, normal color. Absent: rash Course Vital Signs 12/31/17 12/31/17 12/31/17 01:42 03:14 03:15 Temperature 98.7 F Pulse Rate 110 H 84 Respiratory 18 18 20 Rate Blood Pressure 153/79 119/74 O2 Sat by Pulse 97 95 Oximetry EKG Findings - EKG Comments: EKG Findings:: EKG obtained at shows normal sinus rhythm with a ventricular rate of 92, TX interval 174, QRS duration 76, QT 364, QTC 450. No evidence of ST elevation or depression. Medical Decision Making - Medical Decision Making 47-year-old female patient presented to the emergency department today for evaluation of increased back pain, clavicle pain, and headache. Physical examination was relatively unremarkable. Patient is neurologically intact. Patient did receive medication here in the emergency department, upon reevaluation she is feeling better. Patient is currently weaning down from Seroquel, she had her last dose reduction about one week ago. Patient has had increase in symptoms for the last 5 days. Patient symptoms are consistent with Seroquel withdrawal symptoms. Labs reviewed and were unremarkable. EKG showed normal sinus rhythm. Patient be discharged home to follow-up with her primary care physician to discuss a slower tapering. She also does have MS that she is instructed to discuss possible exacerbation with her physician. At this time she will be discharged in stable condition. Return parameters were discussed in detail. She verbalizes understanding and agreed with this plan. - Lab Data Result diagrams: 12/31/17 02:05 12/31/17 02:05 Lab Results 12/31/17 12/31/17 12/31/17 Range/Units 02:05 02:05 02:05 WBC 8.4 (3.8-10.6) k/uL RBC 4.18 (3.80-5.40) m/uL Hgb 12.8 (11.4-16.0) gm/dL Hct 39.2 (34.0-46.0) % MCV 93.8 (80.0-100.0) fL MCH 30.7 (25.0-35.0) pg MCHC 32.8 (31.0-37.0) g/dL RDW 14.3 (11.5-15.5) % Plt Count 229 (150-450) k/uL Neutrophils % 61 % Lymphocytes % 31 % Monocytes % 4 % Eosinophils % 3 % Basophils % 0 % Neutrophils # 5.1 (1.3-7.7) k/uL Lymphocytes # 2.6 (1.0-4.8) k/uL Monocytes # 0.3 (0-1.0) k/uL Eosinophils # 0.2 (0-0.7) k/uL Basophils # 0.0 (0-0.2) k/uL PT (9.0-12.0) sec INR (<1.2) APTT (22.0-30.0) sec Sodium 138 (137-145) mmol/L Potassium 3.9 (3.5-5.1) mmol/L Chloride 105 (98-107) mmol/L Carbon Dioxide 26 (22-30) mmol/L Anion Gap 7 mmol/L BUN 14 (7-17) mg/dL Creatinine 0.81 (0.52-1.04) mg/dL Est GFR (CKD-EPI)AfAm >90 (>60 ml/min/1.73 sqM) Est GFR (CKD-EPI)NonAf 86 (>60 ml/min/1.73 sqM) Glucose 118 H (74-99) mg/dL Calcium 8.9 (8.4-10.2) mg/dL Magnesium 2.0 (1.6-2.3) mg/dL Total Bilirubin 0.2 (0.2-1.3) mg/dL AST 16 (14-36) U/L ALT 24 (9-52) U/L Alkaline Phosphatase 53 (38-126) U/L Total Creatine Kinase 47 (30-135) U/L CK-MB (CK-2) 0.3 (0.0-2.4) ng/mL CK-MB (CK-2) Rel Index 0.6 Troponin I <0.012 (0.000-0.034) ng/mL Total Protein 6.6 (6.3-8.2) g/dL Albumin 3.8 (3.5-5.0) g/dL 12/31/17 Range/Units 02:05 WBC (3.8-10.6) k/uL RBC (3.80-5.40) m/uL Hgb (11.4-16.0) gm/dL Hct (34.0-46.0) % MCV (80.0-100.0) fL MCH (25.0-35.0) pg MCHC (31.0-37.0) g/dL RDW (11.5-15.5) % Plt Count (150-450) k/uL Neutrophils % % Lymphocytes % % Monocytes % % Eosinophils % % Basophils % % Neutrophils # (1.3-7.7) k/uL Lymphocytes # (1.0-4.8) k/uL Monocytes # (0-1.0) k/uL Eosinophils # (0-0.7) k/uL Basophils # (0-0.2) k/uL PT 9.5 (9.0-12.0) sec INR 0.9 (<1.2) APTT 23.5 (22.0-30.0) sec Sodium (137-145) mmol/L Potassium (3.5-5.1) mmol/L Chloride (98-107) mmol/L Carbon Dioxide (22-30) mmol/L Anion Gap mmol/L BUN (7-17) mg/dL Creatinine (0.52-1.04) mg/dL Est GFR (CKD-EPI)AfAm (>60 ml/min/1.73 sqM) Est GFR (CKD-EPI)NonAf (>60 ml/min/1.73 sqM) Glucose (74-99) mg/dL Calcium (8.4-10.2) mg/dL Magnesium (1.6-2.3) mg/dL Total Bilirubin (0.2-1.3) mg/dL AST (14-36) U/L ALT (9-52) U/L Alkaline Phosphatase (38-126) U/L Total Creatine Kinase (30-135) U/L CK-MB (CK-2) (0.0-2.4) ng/mL CK-MB (CK-2) Rel Index Troponin I (0.000-0.034) ng/mL Total Protein (6.3-8.2) g/dL Albumin (3.5-5.0) g/dL Disposition Clinical Impression: Headache, Body aches Disposition: HOME SELF-CARE Condition: Good Instructions: Acute Headache (ED), Back Pain (ED) Additional Instructions: Follow-up with your primary care physician for recheck or sooner as possible. Return here immediately for any new, worsening, or concerning symptoms. Is patient prescribed a controlled substance at d/c from ED?: No Referrals: Miguelina Monroe MD [Primary Care Provider] - 1-2 days Time of Disposition: 03:41
[2017-12-31 03:17] VITALS: RESP 20
[2017-12-31] MEDS ORDERED: MORPHINE SULFATE 4 MG/ML SYRINGE IVP STA (03:40)
[2017-12-31 04:18] VITALS: BP 121/73; PULSE 81; TEMP 98
== END 2017-12-31 04:22 | disposition home or self-care (01) ==
LOC: EC 01:37
DX: R51 Headache (principal); M79.1 Myalgia; M25.512 Pain in left shoulder; M25.511 Pain in right shoulder; M54.5 Low back pain; M79.604 Pain in right leg; R11.0 Nausea; F32.9 Major depressive disorder, single episode, unspecified; F41.9 Anxiety disorder, unspecified; Z87.891 Personal history of nicotine dependence; Z79.899 Other long term (current) drug therapy
CPT/HCPCS: 36415; 93005; 80053; 82550; 82553; 83735; 84484; 85025; 85610; 85730; 99285; 96374; 96375 ×3; 96361 ×2; J2270; J1200; J2765; J1885

== ENCOUNTER 2018-02-04 03:34 | Emergency (ER) | payer OTHER ==
[2018-02-04] MEDS ORDERED: SODIUM CHLORIDE 0.9% 1,000 ML IV ONE (04:03)
[2018-02-04] MEDS ORDERED: ORPHENADRINE 30 MG/ML 2 ML VIAL IM STA (04:03)
[2018-02-04] MEDS ORDERED: KETOROLAC 30 MG/ML 1 ML VIAL IVP ONE (04:03)
[2018-02-04] MEDS ORDERED: MORPHINE SULFATE 4 MG/ML SYRINGE IVP STA (04:03)
--- NOTE | 2018-02-04 04:05 | ED ---
General Adult HPI - General Chief complaint: Recheck/Abnormal Lab/Rx Stated complaint: pain, MS PATIENT Time Seen by Provider: 02/04/18 03:44 Source: patient Mode of arrival: ambulatory Limitations: no limitations - History of Present Illness Initial comments: Juliette is a 48-year-old female with a history of MS as well as fibromyalgia who presents to the emergency department for evaluation of diffuse body pain. Patient reports that she has these exacerbations of pain at times and they're uncertain if it's due to her MS or her fibromyalgia. Patient reports that her MS primarily causes some paresthesias in her extremities as well as cognitive impairment with memory problems. She is currently being treated with injection medication which she gets results daily. Patient admits that she is always perfectly compliant with this medication due to not liking the injection. She has a follow-up visit with her neurologist to discuss this. Patient was also diagnosed with fibromyalgia and reports that she suffers from chronic pain. She reports that in the past she has had to come to the ER due to exacerbations of her pain. Patient states that she is currently on Effexor or and BuSpar for her fibromyalgia and depression. Patient reports that she is currently experiencing pain all over her body, worse in her upper extremities and her lower. Pain is not associated with any weakness or gait instability. Pain is described as diffuse aching of all of her tissues. This at home with Tylenol with no relief. - Related Data Home Medications Medication Instructions Recorded Confirmed Dextroamphetamine/Amphetamine 30 mg PO DAILY 07/01/16 12/31/17 [Adderall] QUEtiapine FUMARATE [SEROquel] 300 mg PO HS 12/31/17 12/31/17 Venlafaxine HCl ER [Effexor Xr] 150 mg PO DAILY 12/31/17 12/31/17 busPIRone HCl [Buspar] 22.5 mg PO BID 12/31/17 12/31/17 Allergies Allergy/AdvReac Type Severity Reaction Status Date / Time No Known Allergies Allergy Verified 02/04/18 03:39 Review of Systems ROS Statement: Those systems with pertinent positive or pertinent negative responses have been documented in the HPI. ROS Other: All systems not noted in ROS Statement are negative. Past Medical History Past Medical History: Fibromyalgia, Neurologic Disorder Additional Past Medical History / Comment(s): Multiple Sclerosis - diagnosis 2014 History of Any Multi-Drug Resistant Organisms: None Reported Past Surgical History: Appendectomy Past Anesthesia/Blood Transfusion Reactions: No Reported Reaction Past Psychological History: Anxiety, Depression Smoking Status: Former smoker Past Alcohol Use History: Rare Past Drug Use History: None Reported - Past Family History Father Family Medical History: Diabetes Mellitus Mother Family Medical History: No Reported History Additional Family Medical History / Comment(s): "healthy" General Exam - General Exam Comments Initial Comments: Physical Exam GENERAL: Patient is well-developed and well-nourished. Patient is nontoxic and well- hydrated and is in no distress. HENT: Normocephalic, Atraumatic. EYES: PERRL, EOMI PULMONARY: Unlabored respirations. No audible rales rhonchi or wheezing was noted. CARDIOVASCULAR: There is a regular rate and rhythm without any murmurs gallops or rubs. ABDOMEN: Soft and nontender with normal bowel sounds. SKIN: Skin is clear with no lesions or rashes and otherwise unremarkable. : Deferred NEUROLOGIC: Patient is alert and oriented x3. Moving all extremities spontaneously MUSCULOSKELETAL: Normal extremities with adequate strength and full range of motion. No lower extremity swelling or edema. No calf tenderness. PSYCHIATRIC: Normal psychiatric evaluation. Limitations: no limitations Limitations: no limitations Course Vital Signs 02/04/18 02/04/18 02/04/18 03:35 04:58 05:30 Temperature 97.0 F L 98 F Pulse Rate 90 74 Respiratory 18 17 Rate Blood Pressure 127/89 108/67 O2 Sat by Pulse 97 94 L Oximetry - Reevaluation(s) Reevaluation #1: The patient was reevaluated, reports that the first dose of morphine took the edge off her pain but she still having some pain. Repeat dose was ordered. 02/04/18 05:17 Medical Decision Making - Medical Decision Making Patient with a history of chronic pain, fibromyalgia, MS presenting with diffuse pain throughout her body similar to previous exacerbations she has experienced No midline back pain, no fevers, no red flag signs of back pain Labs, IVF, pain medications ordered Patient reported some improvement after first dose of morphine, 2mg repeat dose ordered Patient was satisfied with analgesia from repeat dose of morphine. Patient was discharged home in stable condition with plan to follow up with neurology - Lab Data Result diagrams: 02/04/18 04:09 02/04/18 04:09 Lab Results 02/04/18 02/04/18 Range/Units 04:09 04:09 WBC 6.8 (3.8-10.6) k/uL RBC 4.17 (3.80-5.40) m/uL Hgb 12.8 (11.4-16.0) gm/dL Hct 38.6 (34.0-46.0) % MCV 92.7 (80.0-100.0) fL MCH 30.7 (25.0-35.0) pg MCHC 33.1 (31.0-37.0) g/dL RDW 14.5 (11.5-15.5) % Plt Count 248 (150-450) k/uL Neutrophils % 48 % Lymphocytes % 41 % Monocytes % 5 % Eosinophils % 3 % Basophils % 0 % Neutrophils # 3.3 (1.3-7.7) k/uL Lymphocytes # 2.8 (1.0-4.8) k/uL Monocytes # 0.3 (0-1.0) k/uL Eosinophils # 0.2 (0-0.7) k/uL Basophils # 0.0 (0-0.2) k/uL Sodium 137 (137-145) mmol/L Potassium 4.1 (3.5-5.1) mmol/L Chloride 107 (98-107) mmol/L Carbon Dioxide 22 (22-30) mmol/L Anion Gap 8 mmol/L BUN 12 (7-17) mg/dL Creatinine 0.86 (0.52-1.04) mg/dL Est GFR (CKD-EPI)AfAm >90 (>60 ml/min/1.73 sqM) Est GFR (CKD-EPI)NonAf 80 (>60 ml/min/1.73 sqM) Glucose 109 H (74-99) mg/dL Calcium 9.5 (8.4-10.2) mg/dL Total Bilirubin 0.3 (0.2-1.3) mg/dL AST 20 (14-36) U/L ALT 33 (9-52) U/L Alkaline Phosphatase 56 (38-126) U/L Creatine Kinase 44 (30-135) U/L Total Protein 6.8 (6.3-8.2) g/dL Albumin 3.9 (3.5-5.0) g/dL Disposition Clinical Impression: Diffuse pain Disposition: HOME SELF-CARE Condition: Good Instructions: Fibromyalgia (ED) Is patient prescribed a controlled substance at d/c from ED?: No Referrals: Miguelina Monroe MD [Primary Care Provider] - 1-2 days
[2018-02-04 04:29] LABS: Basophils % (A) 0 %; Eosinophils # (A) 0.2 k/uL (0-0.7); Eosinophils % (A) 3 %; HCT 38.6 % (34.0-46.0); HGB 12.8 gm/dL (11.4-16.0); Lymphocytes # (A) 2.8 k/uL (1.0-4.8); Lymphocytes % (A) 41 %; MCH 30.7 pg (25.0-35.0); MCHC 33.1 g/dL (31.0-37.0); MCV 92.7 fL (80.0-100.0); Mean Platelet Volume 6.6; Monocytes # (A) 0.3 k/uL (0-1.0); Monocytes % (A) 5 %; Neutrophils # (A) 3.3 k/uL (1.3-7.7); Neutrophils % (A) 48 %; Platelet Count 248 k/uL (150-450); RBC 4.17 m/uL (3.80-5.40); RDW 14.5 % (11.5-15.5); WBC 6.8 k/uL (3.8-10.6)
[2018-02-04 04:34] LABS: ALT 33 U/L (9-52); AST 20 U/L (14-36); Albumin 3.9 g/dL (3.5-5.0); Alkaline Phosphatase 56 U/L (38-126); Anion Gap 8 mmol/L; Blood Urea Nitrogen 12 mg/dL (7-17); Calcium 9.5 mg/dL (8.4-10.2); Carbon Dioxide 22 mmol/L (22-30); Chloride 107 mmol/L (98-107); Creatine Kinase 44 U/L (30-135); Glucose 109 mg/dL (74-99); Potassium 4.1 mmol/L (3.5-5.1); Sodium 137 mmol/L (137-145); Total Bilirubin 0.3 mg/dL (0.2-1.3); Total Protein 6.8 g/dL (6.3-8.2)
[2018-02-04 05:00] VITALS: BP 108/67; PULSE 74; RESP 17
[2018-02-04] MEDS ORDERED: MORPHINE SULFATE 2 MG/ML SYRINGE IVP STA (05:09)
[2018-02-04 05:32] VITALS: TEMP 98
== END 2018-02-04 05:31 | disposition home or self-care (01) ==
LOC: EC 03:34
DX: R52 Pain, unspecified (principal); M79.7 Fibromyalgia; F32.9 Major depressive disorder, single episode, unspecified; F41.9 Anxiety disorder, unspecified; Z87.891 Personal history of nicotine dependence; Z79.899 Other long term (current) drug therapy
CPT/HCPCS: 36415; 80053; 82550; 85025; 99283; 96374; 96375; 96376; 96361; 96372; J2270 ×2; J2360; J1885

== ENCOUNTER → 2018-03-30 | Outpatient (CLI) | payer OTHER ==
--- NOTE | 2018-03-30 16:53 | MR ---
EXAMINATION TYPE: MR brain/cspine wo/w DATE OF EXAM: 03/30/2018 COMPARISON: Prior brain MRI 04/09/2017 and cervical spine MRI 02/28/2014 HISTORY: Yearly F/U for MS TECHNIQUE: Multiplanar, multisequence images of the brain and brainstem, cervical spine is performed without and with IV contrast, utilizing 9 mL intravenous Gadavist . FINDINGS: Diffusion weighted images demonstrate no evidence of a recent infarct or other diffusion ab normality. There is no extra-axial fluid collection or significant interval change in white matter s ignal abnormality. The ventricular system and cisternal spaces are normal in size and appearance. T he brain volume is age appropriate. Midline structures demonstrate normal morphology. The craniocervical junction appears within normal limits. Post contrast images demonstrate no abnormal enhancement. The dural venous sinuses appear pa tent. The visualized sinuses are clear and the globes are intact. CERVICAL spine: There is no interval change. Mild spondylosis is present, mild degenerative disc cameron ges. No significant central canal stenosis or foraminal encroachment. Cervical cord signal is unremar kable. No abnormal enhancement following contrast menstruation. IMPRESSION: Stable brain and stable cervical spine MRI. Findings compatible with patient's history of multiple sclerosis.
== END | disposition home or self-care (01) ==
LOC: RADMRIMAIN 14:43
PROVIDERS: ATTEND Psychiatry & Neurology Neurology
DX: G35 Multiple sclerosis (principal)
CPT/HCPCS: 70553; 72156; A9585

== ENCOUNTER → 2018-07-01 | Outpatient (CLI) | payer OTHER ==
[2018-07-01 11:49] LABS: Basophils % (A) 0 %; Eosinophils # (A) 0.2 k/uL (0-0.7); Eosinophils % (A) 2 %; HGB 13.6 gm/dL (11.4-16.0); Lymphocytes # (A) 2.8 k/uL (1.0-4.8); Lymphocytes % (A) 30 %; MCH 30.1 pg (25.0-35.0); MCHC 32.4 g/dL (31.0-37.0); MCV 92.8 fL (80.0-100.0); Mean Platelet Volume 6.7; Monocytes # (A) 0.3 k/uL (0-1.0); Monocytes % (A) 4 %; Neutrophils # (A) 5.8 k/uL (1.3-7.7); Neutrophils % (A) 63 %; Platelet Count 249 k/uL (150-450); RBC 4.52 m/uL (3.80-5.40); RDW 14.1 % (11.5-15.5); WBC 9.3 k/uL (3.8-10.6)
[2018-07-01 18:30] LABS: Albumin 4.4 g/dL (3.80-4.90); Calcium 9.1 mg/dL (8.7-10.3); Globulin 2.2 g/dL (1.6-3.3); Potassium 3.6 mmol/L (3.5-5.5); Total Bilirubin 0.4 mg/dL (0.2-1.2); Total Protein 6.6 g/dL (6.2-8.2)
[2018-07-01 18:34] LABS: Hemoglobin A1C 5.2 % (4.0-6.0)
[2018-07-01 19:00] LABS: T4, Free (Free Thyroxine) 0.8 ng/dL (0.80-1.80)
[2018-07-01 19:10] LABS: Hepatitis A Antibody IgM Non-Reactive (Non-Reactive); Hepatitis B Core IgM Non-Reactive (Non-Reactive)
== END ==
LOC: LABWHC1 11:24
PROVIDERS: ATTEND Nurse Practitioner Acute Care
DX: E03.9 Hypothyroidism, unspecified (principal); G35 Multiple sclerosis; R51 Headache; Z79.899 Other long term (current) drug therapy
CPT/HCPCS: 36415; 80053; 80074; 83036; 84439; 84443; 85025

== ENCOUNTER 2018-09-17 13:14 | Inpatient (IN) | payer MEDICARE, OTHER ==
[2018-09-17] MEDS ORDERED: SODIUM CHLORIDE 0.9% 1,000 ML IV STA ×2 (13:19)
[2018-09-17] MEDS ORDERED: IPRATROPIUM-ALBUTEROL 3 ML NEB INHALATION STA (13:19)
--- NOTE | 2018-09-17 13:20 | ED ---
SOB HPI - General Chief Complaint: Shortness of Breath Stated Complaint: SOB Time Seen by Provider: 09/17/18 13:19 Source: patient, RN notes reviewed, old records reviewed Mode of arrival: ambulatory Limitations: no limitations - History of Present Illness Initial Comments: This is a 48-year-old female the ER for evaluation recent diagnosis of pneumonia and history of MS. Patient given steroids and antibiotics currently. Also 20 of chest pain back pain rib pain. Persistent severe cough unable take deep breath without coughing. Patient denies any current fevers. MD Complaint: shortness of breath, cough, chest pain -: days(s) Severity: mild Severity scale (1-10): 3 Consistency: constant Improves With: nothing Worsens With: exertion Known History Of: recurrent pneumonia Context: recent URI Associated Symptoms: pain with inspiration, fever, cough - Related Data Home Medications Medication Instructions Recorded Confirmed Albuterol Inhaler [Ventolin Hfa 1 - 2 puff INHALATION RT-Q6H PRN 09/17/18 09/17/18 Inhaler] Azithromycin [Zithromax] 500 mg PO DAILY 09/17/18 09/17/18 Benzonatate [Tessalon Perles] 200 mg PO TID PRN 09/17/18 09/17/18 DULoxetine HCL [Cymbalta] 120 mg PO DAILY 09/17/18 09/17/18 Ergocalciferol [Vitamin D2] 50,000 unit PO Q7D 09/17/18 09/17/18 Levothyroxine Sodium [Synthroid] 25 mcg PO DAILY 09/17/18 09/17/18 Mirtazapine [Remeron] 30 mg PO HS 09/17/18 09/17/18 Pregabalin [Lyrica] 150 mg PO TID 09/17/18 09/17/18 methylPREDNISolone Dose Pack See Taper PO DAILY 09/17/18 09/17/18 [Medrol Dose Pack] Allergies Allergy/AdvReac Type Severity Reaction Status Date / Time No Known Allergies Allergy Verified 09/17/18 13:42 Review of Systems ROS Statement: Those systems with pertinent positive or pertinent negative responses have been documented in the HPI. ROS Other: All systems not noted in ROS Statement are negative. Past Medical History Past Medical History: Fibromyalgia, Neurologic Disorder Additional Past Medical History / Comment(s): Multiple Sclerosis - diagnosis 2014 History of Any Multi-Drug Resistant Organisms: None Reported Past Surgical History: Appendectomy Past Anesthesia/Blood Transfusion Reactions: No Reported Reaction Past Psychological History: Anxiety, Depression Smoking Status: Former smoker Past Alcohol Use History: Rare Past Drug Use History: None Reported - Past Family History Father Family Medical History: Diabetes Mellitus Mother Family Medical History: No Reported History Additional Family Medical History / Comment(s): "healthy" General Exam Limitations: no limitations General appearance: alert, in no apparent distress Head exam: Present: atraumatic, normocephalic, normal inspection Eye exam: Present: normal appearance, PERRL, EOMI. Absent: scleral icterus, conjunctival injection, periorbital swelling ENT exam: Present: normal exam, mucous membranes moist Neck exam: Present: normal inspection. Absent: tenderness, meningismus, lymphadenopathy Respiratory exam: Present: wheezes, rales, accessory muscle use, decreased breath sounds, prolonged expiratory. Absent: respiratory distress, rhonchi, stridor Cardiovascular Exam: Present: normal rhythm, tachycardia, normal heart sounds. Absent: systolic murmur, diastolic murmur, rubs, gallop, clicks GI/Abdominal exam: Present: soft, normal bowel sounds. Absent: distended, tenderness, guarding, rebound, rigid Extremities exam: Present: normal inspection, full ROM, normal capillary refill. Absent: tenderness, pedal edema, joint swelling, calf tenderness Back exam: Present: normal inspection Neurological exam: Present: alert, oriented X3, CN II-XII intact Psychiatric exam: Present: normal affect, normal mood Skin exam: Present: warm, dry, intact, normal color. Absent: rash Course Vital Signs 09/17/18 09/17/18 09/17/18 13:16 13:17 13:47 Temperature 98.0 F Pulse Rate 104 H 90 Respiratory 18 24 Rate Blood Pressure 145/87 O2 Sat by Pulse 97 Oximetry 09/17/18 14:05 Temperature Pulse Rate 92 Respiratory Rate Blood Pressure O2 Sat by Pulse Oximetry - Reevaluation(s) Reevaluation #1: 09/17/18 16:20 Medical record is reviewed Reevaluation #2: 09/17/18 16:20 Patient symptoms improved with breathing treatments and pain control Medical Decision Making - Medical Decision Making 48 female the ER for evaluation, patient presents for shortness with cough and congestion mild heart failure which is new for her. History of MS, will admit patient for monitoring of cardiac troponin chest, steroids and cardiology evaluation - Lab Data Result diagrams: 09/17/18 13:31 09/17/18 13:31 Lab Results 09/17/18 09/17/18 09/17/18 Range/Units 13:31 13:31 13:31 WBC 15.1 H (3.8-10.6) k/uL RBC 4.49 (3.80-5.40) m/uL Hgb 13.0 (11.4-16.0) gm/dL Hct 39.2 (34.0-46.0) % MCV 87.4 (80.0-100.0) fL MCH 29.0 (25.0-35.0) pg MCHC 33.2 (31.0-37.0) g/dL RDW 14.1 (11.5-15.5) % Plt Count 354 (150-450) k/uL Neutrophils % (Manual) 57 % Band Neutrophils % 1 % Lymphocytes % (Manual) 38 % Monocytes % (Manual) 2 % Eosinophils % (Manual) 2 % Neutrophils # (Manual) 8.70 H (1.3-7.7) k/uL Lymphocytes # (Manual) 5.74 H (1.0-4.8) k/uL Monocytes # (Manual) 0.30 (0-1.0) k/uL Eosinophils # (Manual) 0.30 (0-0.7) k/uL Nucleated RBCs 0 (0-0) /100 WBC Manual Slide Review Performed Stomatocytes Present PT 9.4 (9.0-12.0) sec INR 0.9 (<1.2) APTT 22.7 (22.0-30.0) sec Sodium 141 (137-145) mmol/L Potassium 3.6 (3.5-5.1) mmol/L Chloride 107 (98-107) mmol/L Carbon Dioxide 24 (22-30) mmol/L Anion Gap 10 mmol/L BUN 11 (7-17) mg/dL Creatinine 0.85 (0.52-1.04) mg/dL Est GFR (CKD-EPI)AfAm >90 (>60 ml/min/1.73 sqM) Est GFR (CKD-EPI)NonAf 80 (>60 ml/min/1.73 sqM) Glucose 100 H (74-99) mg/dL Calcium 9.3 (8.4-10.2) mg/dL Magnesium 2.1 (1.6-2.3) mg/dL Total Bilirubin 0.3 (0.2-1.3) mg/dL AST 20 (14-36) U/L ALT 26 (9-52) U/L Alkaline Phosphatase 71 (38-126) U/L Troponin I (0.000-0.034) ng/mL NT-Pro-B Natriuret Pep pg/mL Total Protein 7.4 (6.3-8.2) g/dL Albumin 4.5 (3.5-5.0) g/dL 09/17/18 09/17/18 Range/Units 13:31 13:31 WBC (3.8-10.6) k/uL RBC (3.80-5.40) m/uL Hgb (11.4-16.0) gm/dL Hct (34.0-46.0) % MCV (80.0-100.0) fL MCH (25.0-35.0) pg MCHC (31.0-37.0) g/dL RDW (11.5-15.5) % Plt Count (150-450) k/uL Neutrophils % (Manual) % Band Neutrophils % % Lymphocytes % (Manual) % Monocytes % (Manual) % Eosinophils % (Manual) % Neutrophils # (Manual) (1.3-7.7) k/uL Lymphocytes # (Manual) (1.0-4.8) k/uL Monocytes # (Manual) (0-1.0) k/uL Eosinophils # (Manual) (0-0.7) k/uL Nucleated RBCs (0-0) /100 WBC Manual Slide Review Stomatocytes PT (9.0-12.0) sec INR (<1.2) APTT (22.0-30.0) sec Sodium (137-145) mmol/L Potassium (3.5-5.1) mmol/L Chloride (98-107) mmol/L Carbon Dioxide (22-30) mmol/L Anion Gap mmol/L BUN (7-17) mg/dL Creatinine (0.52-1.04) mg/dL Est GFR (CKD-EPI)AfAm (>60 ml/min/1.73 sqM) Est GFR (CKD-EPI)NonAf (>60 ml/min/1.73 sqM) Glucose (74-99) mg/dL Calcium (8.4-10.2) mg/dL Magnesium (1.6-2.3) mg/dL Total Bilirubin (0.2-1.3) mg/dL AST (14-36) U/L ALT (9-52) U/L Alkaline Phosphatase (38-126) U/L Troponin I <0.012 (0.000-0.034) ng/mL NT-Pro-B Natriuret Pep 283 pg/mL Total Protein (6.3-8.2) g/dL Albumin (3.5-5.0) g/dL - EKG Data -: EKG Interpreted by Me (EKG shows sinus rhythm rate 95, CT 176, QRS 80, QTC 469) Disposition Clinical Impression: Acute exacerbation of chronic obstructive airways disease, Community acquired pneumonia, Acute pulmonary edema, Congestive heart failure, Multiple sclerosis Disposition: ADMITTED IP TO THIS HOSP Condition: Fair Is patient prescribed a controlled substance at d/c from ED?: No Referrals: Miguelina Monroe MD [Primary Care Provider] - 1-2 days
[2018-09-17 14:11] LABS: ALT 26 U/L (9-52); AST 20 U/L (14-36); Albumin 4.5 g/dL (3.5-5.0); Alkaline Phosphatase 71 U/L (38-126); Anion Gap 10 mmol/L; Blood Urea Nitrogen 11 mg/dL (7-17); Calcium 9.3 mg/dL (8.4-10.2); Carbon Dioxide 24 mmol/L (22-30); Chloride 107 mmol/L (98-107); Glucose 100 mg/dL (74-99); Magnesium 2.1 mg/dL (1.6-2.3); Potassium 3.6 mmol/L (3.5-5.1); Sodium 141 mmol/L (137-145); Total Bilirubin 0.3 mg/dL (0.2-1.3); Total Protein 7.4 g/dL (6.3-8.2)
[2018-09-17 14:12] LABS: INR 0.9 (<1.2); Partial Thromboplastin Time 22.7 sec (22.0-30.0); Prothrombin Time 9.4 sec (9.0-12.0)
[2018-09-17 14:14] LABS: HCT 39.2 % (34.0-46.0); MCHC 33.2 g/dL (31.0-37.0); MCV 87.4 fL (80.0-100.0); Mean Platelet Volume 6.8; Platelet Count 354 k/uL (150-450); RBC 4.49 m/uL (3.80-5.40); RDW 14.1 % (11.5-15.5); WBC 15.1 k/uL (3.8-10.6)
--- NOTE | 2018-09-17 14:20 | XR ---
EXAMINATION TYPE: XR chest 2V DATE OF EXAM: 09/17/2018 COMPARISON: Prior chest x-ray July 01, 2016. HISTORY: Shortness of breath with cough and congestion for 9 days. TECHNIQUE: Frontal and lateral views of the chest are obtained. FINDINGS: Overlying EKG leads are present. There is no focal air space opacity, pleural effusion, or pneumothorax seen. The cardiac silhouette size is within normal limits. The osseous structures are intact. IMPRESSION: No acute cardiopulmonary process. No significant change from prior.
[2018-09-17] MEDS ORDERED: FAMOTIDINE 20 MG/2 ML VIAL IV STA (14:34)
[2018-09-17] MEDS ORDERED: HYDROmorphone 1 MG/ML 1 ML SYRINGE IVP STA (14:34)
[2018-09-17] MEDS ORDERED: diphenhydrAMINE 50 MG/ML 1 ML VIAL IVP STA (14:34)
[2018-09-17] MEDS ORDERED: DEXAMETHASONE SOD PHOSPHATE 10 MG/ML 1 ML VIAL IV STA (14:34)
--- NOTE | 2018-09-17 15:23 | CT ---
EXAMINATION TYPE: CT angio chest DATE OF EXAM: 09/17/2018 COMPARISON: CT abdomen and pelvis from 2012. HISTORY: SOB CT DLP: 396.9 mGycm. Automated Exposure Control for Dose Reduction was Utilized. CONTRAST: CTA scan of the thorax is performed with IV Contrast, patient injected with 80cc mL of Isovue 370, pu lmonary embolism protocol. MIP Images are created on CT scanner and reviewed. FINDINGS: LUNGS: Frontal and lower lobes show increased groundglass opacity suggesting mild alveolar edema bila terally with more focal linear scarring or atelectasis medially in the left lower lobe axial image 84 for reference. Right lower lobe shows 6 x 6 mm nodule or nodular consolidation subpleural region pos teriorly axial image 76. Advise short-term CT follow-up in 6 months time to reassess. No pleural effu frank or pneumothorax is evident. Tracheobronchial tree is patent. MEDIASTINUM: There is satisfactory enhancement of the pulmonary artery and its branches, there is no CT evidence for pulmonary embolism. There are no greater than 1 cm hilar or mediastinal lymph nodes. No cardiomegaly or pericardial effusion is seen. OTHER: There is dextroconvex scoliotic curvature centered in the mid thoracic spine. There is partial visualization of splenomegaly axial image 96 which is felt enlarged from [address] IMPRESSION: 1. No CT evidence for acute pulmonary embolism. 2. Mild fluid overload state felt present as there is mild bilateral central alveolar edema. 3. Splenomegaly is partially seen which may warrant further clinical workup.
[2018-09-17 15:43] LABS: Band Neutrophils % 1 %; Lymphocytes # (M) 5.74 k/uL (1.0-4.8); Neutrophils % (M) 57 %; Nucleated Red Blood Cells 0 /100 WBC (0-0); Total Cells Counted 100
[2018-09-17 15:44] LABS: Stomatocytes Present
[2018-09-17] MEDS ORDERED: methylPREDNISolone SOD SUCCI 125 MG/2 ML VIAL IV STA (16:20)
[2018-09-17] MEDS ORDERED: AZITHROMYCIN 500 MG in SODIUM CHLORIDE 0.9% 250 ML IVPB STA (16:24)
[2018-09-17] MEDS ORDERED: ACETAMINOPHEN TAB 325 MG TAB PO PRN (17:43)
[2018-09-17] MEDS ORDERED: ONDANSETRON 4 MG/2 ML VIAL IVP PRN (17:43)
[2018-09-17] MEDS ORDERED: NALOXONE 0.4 MG/ML 1 ML VIAL IV PRN (17:43)
[2018-09-17] MEDS ORDERED: BENZOCAINE/MENTHOL LOZENG 1 EACH LOZENGE MUCOUS MEM PRN (17:43)
--- NOTE | 2018-09-17 17:51 | P.HPIM ---
History of Present Illness H&P Date: 09/17/18 Chief Complaint: cough Patient is a 48-year-old female with a past medical history of multiple sclerosis seen by Dr. Pitt, fibromyalgia, depression, and hypothyroi dism who presented to the emergency department with complaints of shortness of breath and cough. In the ER she underwent an extensive evaluation. On her initial vital signs his found to be tachycardic with a pulse rate of 104. Initial laboratory analysis showed an elevated white blood cell count of 15.1. Initial chest x-ray showed no acute process. EKG demonstrated normal sinus rhythm at a rate of 95. CTA of the chest showed no acute pulmonary embolism, mild fluid overload due to bilateral central alveolar edema, splenomegaly. In the ER she was given a dose of Zithromax, Rocephin, Decadron, Pepcid, and Dilaudid. There was concern for CHF and therefore the patient was admitted. Patient seen and examined at bedside in the emergency department. She states that approximately 10 days ago she woke up with a hoarse voice, she then developed laryngitis and coughing. 2 days ago she presented to her primary care's office. She underwent a chest x-ray and was told she had pneumonia. She was placed on Zithromax, albuterol inhaler, Medrol Dosepak, and Tessalon Perles. She states that she continued to have severe coughing. She reports that she's had some wheezing and rattling in her chest. She reports shortness of breath secondary to cough. She reports that prior to pain medication she was unable to stop coughing at all. This coughing made her feel very lightheaded. She then had some nausea and vomiting. She also reports significant postnasal drip. Her cough is productive of clear sputum. She reports that she's had some intermittent diarrhea. She has had very little appetite. She states that her fatigue and pain is worse but she is unsure if that is secondary to her MS with a which exacerbates when she is sick, or part of the acute illness. She reports that her boyfriend's son currently has mono. She states that 2 months ago she was diagnosed with hypothyroidism and started on levothyroxine. She is not taking anything currently for her MS and is awaiting insurance approval. Review of Systems Pertinent positives and negatives as discussed in HPI, a complete review of systems was performed and all other systems are negative. Past Medical History Past Medical History: Fibromyalgia, Neurologic Disorder Additional Past Medical History / Comment(s): Multiple Sclerosis - diagnosis 2014 , hypothyroidism History of Any Multi-Drug Resistant Organisms: None Reported Past Surgical History: Appendectomy Past Anesthesia/Blood Transfusion Reactions: No Reported Reaction Past Psychological History: Anxiety, Depression Smoking Status: Former smoker Past Alcohol Use History: Rare Past Drug Use History: None Reported Additional History: On disability, lives with her boyfriend, no assistive devices - Past Family History Father Family Medical History: Diabetes Mellitus, Myocardial Infarction ([place]) Mother Additional Family Medical History / Comment(s): Chronic kidney disease stage IV Medications and Allergies Home Medications Medication Instructions Recorded Confirmed Type Albuterol Inhaler [Ventolin Hfa 1 - 2 puff INHALATION RT-Q6H PRN 09/17/18 09/17/18 History Inhaler] Azithromycin [Zithromax] 500 mg PO DAILY 09/17/18 09/17/18 History Benzonatate [Tessalon Perles] 200 mg PO TID PRN 09/17/18 09/17/18 History DULoxetine HCL [Cymbalta] 120 mg PO DAILY 09/17/18 09/17/18 History Ergocalciferol [Vitamin D2] 50,000 unit PO Q7D 09/17/18 09/17/18 History Levothyroxine Sodium [Synthroid] 25 mcg PO DAILY 09/17/18 09/17/18 History Mirtazapine [Remeron] 30 mg PO HS 09/17/18 09/17/18 History Pregabalin [Lyrica] 150 mg PO TID 09/17/18 09/17/18 History methylPREDNISolone Dose Pack See Taper PO DAILY 09/17/18 09/17/18 History [Medrol Dose Pack] Allergies Allergy/AdvReac Type Severity Reaction Status Date / Time No Known Allergies Allergy Verified 09/17/18 13:42 Physical Exam Osteopathic Statement: *. No significant issues noted on an osteopathic structural exam other than those noted in the History and Physical/Consult. Vitals: Vital Signs Temp Pulse Resp BP Pulse Ox 09/17/18 16:55 98.8 F 106 H 24 136/67 98 09/17/18 14:05 92 09/17/18 13:47 90 09/17/18 13:17 24 09/17/18 13:16 98.0 F 104 H 18 145/87 97 Intake and Output 09/17/18 09/17/18 09/17/18 06:59 14:59 22:59 Other: Weight 90.718 kg General: Ill-appearing, no distress, appears at stated age, normal weight Derm: + Multiple tattoos no unusual rashes/lesions no unusual ecchymoses, warm, dry Head: atraumatic, normocephalic, symmetric Eyes: EOMI, no lid lag, anicteric sclera, pupils equal round reactive to light ENT: Nose and ears atraumatic, no thrush, no pharyngeal erythema Neck: No thyromegaly, no cervical lymphadenopathy, trachea midline, supple Mouth: no lip lesion, mucus membranes moist Cardiovascular: S1S2 reg, no murmur, positive posterior tibial pulse bilateral, no edema, capillary refill less than 2 seconds Lungs: Velcro Crackles bilateral, no rhonchi, no rales , no accessory muscle use Abdominal: soft, nontender to palpation, no guarding, no appreciable organomegaly, normal bowel sounds Ext: no gross muscle atrophy, no contractures, Moving all 4 extremities independently Neuro: CN II-XI grossly intact, light touch intact all 4 extremities Psych: Alert, oriented, appropriate affect Results CBC & Chem 7: 09/17/18 13:31 09/17/18 13:31 Labs: Abnormal Lab Results - Last 24 Hours (Table) 09/17/18 09/17/18 Range/Units 13:31 13:31 WBC 15.1 H (3.8-10.6) k/uL Neutrophils # (Manual) 8.70 H (1.3-7.7) k/uL Lymphocytes # (Manual) 5.74 H (1.0-4.8) k/uL Glucose 100 H (74-99) mg/dL Comments: EKG-normal sinus rhythm at 95, NM 176, QRS 80, QTC 469, normal axis, no ST-T wave changes Chest x-ray: report reviewed CT scan - chest: report reviewed Thrombosis Risk Factor Assmnt - DVT/VTE Prophylaxis DVT/VTE Prophylaxis: Low risk, early ambulation encouraged Assessment and Plan Assessment: Pneumonia failed outpatient treatment -CT of the chest shows pulmonary edema, believed more consistent with atypical p neumonia, BNP normal -Continue with Zithromax and Rocephin -Repeat CBC -Sputum culture -Check respiratory viral panel and Monospot -Clinically appears dehydrated, will stop Lasix has been given 1 dose in the ER -Await cardiology input on pulmonary edema -Continue with steroids -Add Phenergan With Codeine Costochondritis -Toradol -Dilaudid for breakthrough pain Multiple sclerosis -Not currently on treatment -Continue outpatient follow-up with Dr. Pitt Fibromyalgia and depression - Cymbalta - lyrica - Remeron Hypothyroidism - continue synthroid Lung nodule -6 mm -Follow up CT in 6 months to reassess The patient is placed in observation with an anticipated less than 2 per night stay for evaluation of Pneumonia failed outpatient treatment. Surrogate decision-maker: MotherKenan Montiel CODE STATUS: Full DVT prophylaxis: Lovenox Discussed with: Patient, ED physician Anticipated discharge date: 24-[address]: home A total of 65 minutes was spent on the care of this complex patient more than 50% of the time was spent in counseling and care coordination.
[2018-09-17] MEDS: DULoxetine HCL 60 MG CAPSULE.DR PO SCH (17:59)
[2018-09-17] MEDS: PREGABALIN 75 MG CAP PO SCH ×2 (18:00→22:57)
[2018-09-17] MEDS: FUROSEMIDE 10 MG/ML 4 ML VIAL IV SCH (18:00)
[2018-09-17] MEDS: HYDROmorphone 1 MG/ML 1 ML SYRINGE IV PRN ×2 (18:02→22:57)
[2018-09-17] MEDS: guaiFENesin 600 MG TABLET.ER PO SCH (19:39)
[2018-09-17] MEDS: MIRTAZAPINE 15 MG TAB PO SCH (19:40)
[2018-09-17] MEDS: IPRATROPIUM-ALBUTEROL 3 ML NEB INHALATION SCH (20:39)
[2018-09-17 20:59] LABS: Glucose,Whole Blood 235 mg/dL (75-99)
[2018-09-17] MEDS: INSULIN ASPART (NovoLOG) 100 UNIT/ML VIAL SQ SCH (21:09)
[2018-09-17] MEDS: methylPREDNISolone SOD SUCCI 125 MG/2 ML VIAL IV SCH (22:57)
[2018-09-18] MEDS: HYDROmorphone 1 MG/ML 1 ML SYRINGE IV PRN ×5 (02:38→15:54)
[2018-09-18] MEDS: FUROSEMIDE 10 MG/ML 4 ML VIAL IV SCH (06:04)
[2018-09-18] MEDS: LEVOTHYROXINE 25 MCG TAB PO SCH (06:04)
[2018-09-18] MEDS: methylPREDNISolone SOD SUCCI 125 MG/2 ML VIAL IV SCH ×3 (06:04→17:48)
[2018-09-18 06:05] LABS: Glucose,Whole Blood 149 mg/dL (75-99)
[2018-09-18] MEDS: INSULIN ASPART (NovoLOG) 100 UNIT/ML VIAL SQ SCH ×4 (06:12→20:52)
[2018-09-18 07:09] LABS: HCT 41.7 % (34.0-46.0); HGB 13.5 gm/dL (11.4-16.0); MCH 29.3 pg (25.0-35.0); MCHC 32.3 g/dL (31.0-37.0); MCV 90.7 fL (80.0-100.0); Mean Platelet Volume 6.5; Platelet Count 390 k/uL (150-450); RDW 13.6 % (11.5-15.5); WBC 14.7 k/uL (3.8-10.6)
[2018-09-18 07:22] LABS: Anion Gap 14 mmol/L; Blood Urea Nitrogen 16 mg/dL (7-17); Calcium 9.2 mg/dL (8.4-10.2); Carbon Dioxide 23 mmol/L (22-30); Chloride 103 mmol/L (98-107); Glucose 149 mg/dL (74-99); Potassium 4.2 mmol/L (3.5-5.1); Sodium 140 mmol/L (137-145)
[2018-09-18] MEDS: IPRATROPIUM-ALBUTEROL 3 ML NEB INHALATION SCH ×4 (07:36→20:12)
[2018-09-18] MEDS: guaiFENesin 600 MG TABLET.ER PO SCH ×2 (08:03→20:52)
[2018-09-18] MEDS: DULoxetine HCL 60 MG CAPSULE.DR PO SCH (09:04)
[2018-09-18] MEDS: ENOXAPARIN 40 MG/0.4 ML SYRINGE SQ SCH (09:05)
[2018-09-18] MEDS: PREGABALIN 75 MG CAP PO SCH ×2 (09:05→15:54)
--- NOTE | 2018-09-18 09:21 | P.CRDCN ---
History of Present Illness Consult date: 09/18/18 Requesting physician: Lizzy Leos Consult reason: shortness of breath Chief complaint: Cough, shortness of breath History of present illness: This is a 48-year-old female with no documented history of hypertension, nondiabetic, no hyperlipidemia, she does have history of multiple sclerosis, fibromyalgia, depression, and hypothyroidism for which recently she was started on Synthroid. She presented to the hospital with symptoms of shortness of breath and cough. According to the patient for the last few weeks she's been dealing with an upper respiratory infection and postnasal drip, she's been coughing a considerable amount and has had a hoarse throat. Because of the significant coughing, she states that she's aching in her ribs all over and has a headache. Patient went to see her primary care doctor, underwent a chest x- ray and was told that she may have a possible pneumonia, she was placed on Zithromax inhalers and steroids. In spite of that she continued to feel rattling in her chest with associated wheezing and came to the emergency room for further evaluation and treatment. Her chest x-ray on presentation here did not reveal any acute cardiopulmonary process. CTA of the chest was also performed which did not reveal any evidence for acute pulmonary embolism, mild fluid overload noted. Splenomegaly was also partially seen. EKG on presentation here showed normal sinus rhythm with no acute changes. Blood pressure 110/60 with a heart rate in the 90s, 90% on room air. White blood cell count 15.1 on admission, 14.7 this morning. Hemoglobin 13.5 and platelet count 390. Sodium 140, potassium 4.2, BUN 16 and creatinine 0.8. Troponins were negative 3 and her BNP level came back at 283. At the time of my examination this morning, patient complains of headache and generalized body aches. Breathing overall is stable. Past Medical History Past Medical History: Fibromyalgia, Neurologic Disorder Additional Past Medical History / Comment(s): Multiple Sclerosis - diagnosis 2014 , hypothyroidism History of Any Multi-Drug Resistant Organisms: None Reported Past Surgical History: Appendectomy Past Anesthesia/Blood Transfusion Reactions: No Reported Reaction Past Psychological History: Anxiety, Depression Smoking Status: Former smoker Past Alcohol Use History: Rare Past Drug Use History: None Reported - Past Family History Father Family Medical History: Diabetes Mellitus, Myocardial Infarction ([place]) Mother Family Medical History: No Reported History Additional Family Medical History / Comment(s): Chronic kidney disease stage IV Medications and Allergies Home Medications Medication Instructions Recorded Confirmed Type Albuterol Inhaler [Ventolin Hfa 1 - 2 puff INHALATION RT-Q6H PRN 09/17/18 09/17/18 History Inhaler] Azithromycin [Zithromax] 500 mg PO DAILY 09/17/18 09/17/18 History Benzonatate [Tessalon Perles] 200 mg PO TID PRN 09/17/18 09/17/18 History DULoxetine HCL [Cymbalta] 120 mg PO DAILY 09/17/18 09/17/18 History Ergocalciferol [Vitamin D2] 50,000 unit PO Q7D 09/17/18 09/17/18 History Levothyroxine Sodium [Synthroid] 25 mcg PO DAILY 09/17/18 09/17/18 History Mirtazapine [Remeron] 30 mg PO HS 09/17/18 09/17/18 History Pregabalin [Lyrica] 150 mg PO TID 09/17/18 09/17/18 History methylPREDNISolone Dose Pack See Taper PO DAILY 09/17/18 09/17/18 History [Medrol Dose Pack] Allergies Allergy/AdvReac Type Severity Reaction Status Date / Time No Known Allergies Allergy Verified 09/17/18 13:42 Physical Exam Vitals: Vital Signs Temp Pulse Pulse Resp BP BP Pulse Ox 09/18/18 07:54 97.8 F 93 16 110/67 90 L 09/18/18 03:18 102 H 16 09/18/18 03:17 98.0 F 102 H 16 125/75 92 L 09/17/18 23:23 102 H 16 09/17/18 23:21 97.9 F 102 H 16 116/64 92 L 09/17/18 20:49 100 09/17/18 20:41 101 H 09/17/18 19:44 101 H 18 09/17/18 19:43 98.0 F 101 H 18 131/79 93 L 09/17/18 18:13 99 16 140/90 95 09/17/18 16:55 98.8 F 106 H 24 136/67 98 09/17/18 14:05 92 09/17/18 13:47 90 09/17/18 13:17 24 09/17/18 13:16 98.0 F 104 H 18 145/87 97 Intake and Output 09/17/18 09/18/18 09/18/18 22:59 06:59 14:59 Intake Total 240 1000 240 Balance 240 1000 240 Intake: Intake, IV Titration 1000 Amount Sodium Chloride 0.9% 1, 1000 000 ml @ 100 mls/hr IV . Q10H STA Rx#:[id number] Oral 240 240 Other: Voiding Method Toilet Toilet # Voids 3 Weight 91.8 kg PHYSICAL EXAMINATION: GENERAL: 48-year-old female in no acute distress at the time of my examination HEENT: Head is atraumatic, normocephalic. Pupils equal, round. Sclera anicteric. Conjunctiva are clear. Mucous membranes of the mouth are moist. Neck is supple. There is no elevated jugular venous pressure.No carotid bruit is heard. HEART EXAMINATION: Heart S1, S2 normal. No murmur or gallop heard. CHEST EXAMINATION: Lungs are clear to auscultation and precussion. Positive chest wall tenderness is noted on palpation or with deep breathing. ABDOMEN: Soft, nontender. Bowel sounds are heard. No organomegaly noted. EXTREMITIES: 2+ peripheral pulses with no evidence of peripheral edema and no calf tenderness noted. NEUROLOGIC patient is awake, alert and oriented X3 . Results 09/18/18 06:24 09/18/18 06:24 Cardiac Enzymes 09/17/18 09/17/18 09/17/18 Range/Units 13:31 13:31 22:38 AST 20 (14-36) U/L Troponin I <0.012 <0.012 (0.000-0.034) ng/mL 09/18/18 Range/Units 01:27 AST (14-36) U/L Troponin I <0.012 (0.000-0.034) ng/mL Coagulation 09/17/18 Range/Units 13:31 PT 9.4 (9.0-12.0) sec APTT 22.7 (22.0-30.0) sec CBC 09/17/18 09/18/18 Range/Units 13:31 06:24 WBC 15.1 H 14.7 H (3.8-10.6) k/uL RBC 4.49 4.60 (3.80-5.40) m/uL Hgb 13.0 13.5 (11.4-16.0) gm/dL Hct 39.2 41.7 (34.0-46.0) % Plt Count 354 390 (150-450) k/uL Comprehensive Metabolic Panel 09/17/18 09/18/18 Range/Units 13:31 06:24 Sodium 141 140 (137-145) mmol/L Potassium 3.6 4.2 (3.5-5.1) mmol/L Chloride 107 103 (98-107) mmol/L Carbon Dioxide 24 23 (22-30) mmol/L BUN 11 16 (7-17) mg/dL Creatinine 0.85 0.86 (0.52-1.04) mg/dL Glucose 100 H 149 H (74-99) mg/dL Calcium 9.3 9.2 (8.4-10.2) mg/dL AST 20 (14-36) U/L ALT 26 (9-52) U/L Alkaline Phosphatase 71 (38-126) U/L Total Protein 7.4 (6.3-8.2) g/dL Albumin 4.5 (3.5-5.0) g/dL Current Medications Generic Name Dose Route Start Last Admin Trade Name Freq PRN Reason Stop Dose Admin Acetaminophen 650 mg 09/17/18 17:43 Tylenol Tab PO Q6HR PRN Mild Pain or Fever > 100.5 Hydrocodone Bitart/Acetaminophen 1 each 09/18/18 09:06 Byron 7.5-325 PO Q6H PRN Pain Albuterol/Ipratropium 3 ml 09/17/18 20:00 09/18/18 07:36 Duoneb 0.5 Mg-3 Mg/3 Ml Soln INHALATION Not Given RT-QID [facility] Benzocaine/Menthol 1 each 09/17/18 17:43 Cepacol Lozenge MUCOUS MEM Q4HR PRN Sore Throat Duloxetine HCl 120 mg 09/17/18 17:15 09/18/18 09:04 Cymbalta PO 120 mg DAILY [facility] Administration Enoxaparin Sodium 40 mg 09/18/18 09:00 09/18/18 09:05 Lovenox SQ 40 mg DAILY [facility] Administration Guaifenesin 1,200 mg 09/17/18 21:00 09/18/18 08:03 Mucinex PO Not Given Q12HR [facility]IO Hydromorphone HCl 0.5 mg 09/17/18 17:43 09/18/18 09:05 Dilaudid IV 0.5 mg Q3HR PRN Administration Severe Pain Azithromycin 500 mg/ Sodium 250 mls @ 250 mls/hr 09/18/18 16:00 Chloride IVPB DAILY@1600 ROSIO Ceftriaxone Sodium 1 gm/ 50 mls @ 100 mls/hr 09/18/18 09:00 09/18/18 09:05 Sodium Chloride IVPB 100 mls/hr Q24HR [facility]IO Administration Insulin Aspart 0 unit 09/17/18 21:00 09/18/18 06:12 Novolog SQ 2 unit ACHS ROSIO Administration Protocol Ketorolac Tromethamine 15 mg 09/17/18 17:43 Toradol IVP 09/22/18 17:44 Q6HR PRN Moderate Pain Levothyroxine Sodium 25 mcg 09/18/18 06:30 09/18/18 06:04 Synthroid PO 25 mcg 0630 ROSIO Administration Methylprednisolone Sodium Succinate 60 mg 09/18/18 00:00 09/18/18 06:04 Solu-Medrol IV 60 mg Q6HR [facility]IO Administration Mirtazapine 30 mg 09/17/18 21:00 09/17/18 19:40 Remeron PO 30 mg HS ROSIO Administration Naloxone HCl 0.2 mg 09/17/18 17:43 Narcan IV Q2M PRN Opioid Reversal Ondansetron HCl 4 mg 09/17/18 17:43 Zofran IVP Q8HR PRN Nausea And Vomiting Pregabalin 150 mg 09/17/18 17:15 09/18/18 09:05 Lyrica PO 150 mg TID [facility]IO Administration Promethazine HCl/Codeine 5 ml 09/17/18 17:50 Phenergan With Codeine PO Q6H PRN Cold Symptoms Intake and Output 09/17/18 09/18/18 09/18/18 22:59 06:59 14:59 Intake Total 240 1000 240 Balance 240 1000 240 Intake: Intake, IV Titration 1000 Amount Sodium Chloride 0.9% 1, 1000 000 ml @ 100 mls/hr IV . Q10H STA Rx#:[id number] Oral 240 240 Other: Voiding Method Toilet Toilet # Voids 3 Weight 91.8 kg 09/18/18 06:24 09/18/18 06:24 EKG Interpretations (text) EKG shows a normal sinus rhythm with no acute changes. Assessment and Plan Plan: Assessment and plan #1 symptoms of generalized chest discomfort, with associated cough and shortness of breath. atypical for acute coronary syndrome, possible costochondritis. Possible pneumonia. No evidence of congestive cardiac failure. #2 multiple sclerosis #3 fibromyalgia and depression #4 hypothyroidism #5 lung nodule, follow-up CT in 6 months Plan We will obtain an echocardiogram with Doppler study. It does not appear that the patient is in congestive cardiac failure at this time. Continue current medications. Further recommendations to follow. DNP note has been reviewed, I agree with a documented findings and plan of care. Patient was seen and examined.
[2018-09-18 11:43] LABS: Glucose,Whole Blood 147 mg/dL (75-99)
--- NOTE | 2018-09-18 11:48 | P.CNPUL ---
History of Present Illness Consult date: 09/18/18 Requesting physician: Lizzy Leos Reason for consult: dyspnea, cough Chief complaint: Shortness of breath, coughing History of present illness: This is a 48-year-old white female patient with past medical history of multiple sclerosis, fibromyalgia, anxiety, depression, remote history of sm oking, who presented to the emergency department yesterday on 09/17/2018 for evaluation of severe coughing spells, chest pain, back pain and rib pain. Patient was diagnosed with pneumonia 10 days ago, was started on Zithromax, and patient had taken a couple days worth, started on Medrol Dosepak for severe coughing spells. However her cough got significantly worse, and she started developing chest pain and patient came into the hospital. Chest x-ray showed no acute cardiopulmonary process, lab work did show mild leukocytosis, with a white blood cell, 15.1, electrolytes and renal profile were within normal limits, troponins were negative 3, proBNP was within normal limits at 283. CT angios chest was completed and showed no evidence for acute pulmonary embolism, it did show increased groundglass opacities suggesting mild alveolar edema bilaterally with more focal linear scarring or atelectasis medially in the left lower lobe, right lower lobe showed 6.6 mm nodule or nodular consolidation in the subpleural region posteriorly. Patient was started on Rocephin and Zithromax for possib ility of pneumonia, IV steroids, nebulized bronchodilators, cough syrup. She is receiving Dilaudid for her chest pain, she does complain of generalized aching. Has had no fever, room air pulse ox is 90-92%, hemodynamically stable, lung sounds reveal coarse expiratory crackles at bilateral bases, no rhonchi or wheezes. Today's exam patient states her coughing spells are not quite as severe with the cough medication, or chest pain has subsided. She has she has been evaluated by cardiology and her chest pain was felt to be atypical, likely related to underlying pneumonia, and cough. Review of Systems All systems: negative Constitutional: Denies chills, Denies fever Eyes: denies blurred vision, denies pain Ears, nose, mouth and throat: Denies headache, Denies sore throat Cardiovascular: Reports chest pain, Denies shortness of breath Respiratory: Reports cough, Reports pain, Reports wheezing Gastrointestinal: Denies abdominal pain, Denies diarrhea, Denies nausea, Denies vomiting Genitourinary: Denies dysuria, Denies hematuria Musculoskeletal: Denies myalgias Integumentary: Denies pruritus, Denies rash Neurological: Denies numbness, Denies weakness Psychiatric: Denies anxiety, Denies depression Endocrine: Denies fatigue, Denies weight change Past Medical History Past Medical History: Fibromyalgia, Neurologic Disorder Additional Past Medical History / Comment(s): Multiple Sclerosis - diagnosis 2014 , hypothyroidism History of Any Multi-Drug Resistant Organisms: None Reported Past Surgical History: Appendectomy Past Anesthesia/Blood Transfusion Reactions: No Reported Reaction Past Psychological History: Anxiety, Depression Smoking Status: Former smoker Past Alcohol Use History: Rare Past Drug Use History: None Reported - Past Family History Father Family Medical History: Diabetes Mellitus, Myocardial Infarction ([place]) Mother Family Medical History: No Reported History Additional Family Medical History / Comment(s): Chronic kidney disease stage IV Medications and Allergies Home Medications Medication Instructions Recorded Confirmed Type Albuterol Inhaler [Ventolin Hfa 1 - 2 puff INHALATION RT-Q6H PRN 09/17/18 09/17/18 History Inhaler] Azithromycin [Zithromax] 500 mg PO DAILY 09/17/18 09/17/18 History Benzonatate [Tessalon Perles] 200 mg PO TID PRN 09/17/18 09/17/18 History DULoxetine HCL [Cymbalta] 120 mg PO DAILY 09/17/18 09/17/18 History Ergocalciferol [Vitamin D2] 50,000 unit PO Q7D 09/17/18 09/17/18 History Levothyroxine Sodium [Synthroid] 25 mcg PO DAILY 09/17/18 09/17/18 History Mirtazapine [Remeron] 30 mg PO HS 09/17/18 09/17/18 History Pregabalin [Lyrica] 150 mg PO TID 09/17/18 09/17/18 History methylPREDNISolone Dose Pack See Taper PO DAILY 09/17/18 09/17/18 History [Medrol Dose Pack] Allergies Allergy/AdvReac Type Severity Reaction Status Date / Time No Known Allergies Allergy Verified 09/17/18 13:42 Physical Exam Vitals: Vital Signs Temp Pulse Pulse Resp BP BP Pulse Ox 09/18/18 11:12 94 09/18/18 11:01 98 09/18/18 07:54 97.8 F 93 16 110/67 90 L 09/18/18 03:18 102 H 16 09/18/18 03:17 98.0 F 102 H 16 125/75 92 L 09/17/18 23:23 102 H 16 09/17/18 23:21 97.9 F 102 H 16 116/64 92 L 09/17/18 20:49 100 09/17/18 20:41 101 H 09/17/18 19:44 101 H 18 09/17/18 19:43 98.0 F 101 H 18 131/79 93 L 09/17/18 18:13 99 16 140/90 95 09/17/18 16:55 98.8 F 106 H 24 136/67 98 09/17/18 14:05 92 09/17/18 13:47 90 09/17/18 13:17 24 09/17/18 13:16 98.0 F 104 H 18 145/87 97 Intake and Output 09/17/18 09/18/18 09/18/18 22:59 06:59 14:59 Intake Total 240 1000 240 Balance 240 1000 240 Intake: Intake, IV Titration 1000 Amount Sodium Chloride 0.9% 1, 1000 000 ml @ 100 mls/hr IV . Q10H [facility] Rx#:[id number] Oral 240 240 Other: Voiding Method Toilet Toilet # Voids 3 Weight 91.8 kg GENERAL EXAM: Alert, 48-year-old white female, comfortable in no apparent distress. HEAD: Normocephalic/atraumatic. EYES: Normal reaction of pupils, equal size. Conjunctiva pink, sclera white. NOSE: Clear with pink turbinates. THROAT: No erythema or exudates. NECK: No masses, no JVD, no thyroid enlargement, no adenopathy. CHEST: No chest wall deformity. Symmetrical expansion. LUNGS: Equal air entry with coarse crackles at posterior bases, wheeze, rhonchi or dullness. CVS: Regular rate and rhythm, normal S1 and S2, no gallops, no murmurs, no rubs ABDOMEN: Soft, nontender. No hepatosplenomegaly, normal bowel sounds, no guarding or rigidity. EXTREMITIES: No clubbing, no edema, no cyanosis, 2+ pulses and upper and lower extremities. MUSCULOSKELETAL: Muscle strength and tone normal. SPINE: No scoliosis or deformity SKIN: No rashes CENTRAL NERVOUS SYSTEM: Alert and oriented -3. No focal deficits, tone is normal in all 4 extremities. PSYCHIATRIC: Alert and oriented -3. Appropriate affect. Intact judgment and insight. Results - Laboratory Findings CBC and BMP: 09/18/18 06:24 09/18/18 06:24 PT/INR, D-dimer PT 9.4 sec (9.0-12.0) 09/17/18 13:31 INR 0.9 (<1.2) 09/17/18 13:31 Abnormal lab findings: Abnormal Labs 09/17/18 09/17/18 09/17/18 13:31 13:31 20:53 WBC 15.1 H Neutrophils # (Manual) 8.70 H Lymphocytes # (Manual) 5.74 H Glucose 100 H POC Glucose (mg/dL) 235 H 09/18/18 09/18/18 09/18/18 06:03 06:24 06:24 WBC 14.7 H Neutrophils # (Manual) Lymphocytes # (Manual) Glucose 149 H POC Glucose (mg/dL) 149 H - Diagnostic Findings Chest x-ray: report reviewed, image reviewed CT scan - chest: report reviewed, image reviewed Additional studies: EKG reviewed Assessment and Plan Plan: Assessment: #1. Acute community acquired pneumonia, with secondary dyspnea, and severe coughing, chest x-ray showed no acute cardiopulmonary process, CT angios showed no evidence for acute pulmonary embolism, it showed increased groundglass opacity and mild alveolar edema bilaterally hemodynamically related to atypical pneumonia. ProBNP was within normal limits, and troponins were negative. #2. Atypical chest pain #3. Multiple sclerosis #4. Anxiety, depression #5. Remote history of smoking Plan: We'll continue current antibiotic coverage, with Zithromax and Rocephin, IV steroids, nebulized bronchodilators and cough syrup. Patient has been evaluated by cardiology, echocardiogram is pending, chest pain is felt to be atypical. CT chest has been reviewed with Dr. Hewitt, patient was seen and evaluated by Dr. Hewitt, her symptoms are likely related to pneumonia. Her coughing spells have improved, and are not as severe. No fever or chills, vitals are stable, anticipate further improvement, possible discharge home today or tomorrow I performed a history & physical examination of the patient and discussed their management with my nurse practitioner, Lesley Bean. I reviewed the nurse practitioner's note and agree with the documented findings and plan of care. Lung sounds are positive for coarse rales at the bases. The findings and the impression was discussed with the patient. I attest to the documentation by the nurse practitioner. Time with Patient: Greater than 30
--- NOTE | 2018-09-18 13:57 | ECHOF ---
Referral Reason:sob MEASUREMENTS -------- HEIGHT: 170.2 cm WEIGHT: 90.7 kg BP: 120/80 IVSd: 1.3 cm (0.6 - 1.1) LVIDd: 3.6 cm (3.9 - 5.3) LVPWd: 1.4 cm (0.6 - 1.1) EDV(Teich): 56 ml IVSs: 1.6 cm LVIDs: 2.3 cm LVPWs: 1.7 cm %IVS Thck: 23 % ESV(Teich): 18 ml EF(Teich): 68 % %FS: 37 % SV(Teich): 38 ml LA Diam: 3.2 cm (2.7 - 3.8) RVIDd: 3.0 cm (< 3.3) LALs A4C: 4.9 cm LAAs A4C: 13.2 cm LAESV A-L A4C: 30 ml LAESV MOD A4C: 29 ml LALs A2C: 4.7 cm LAAs A2C: 13.5 cm LAESV A-L A2C: 33 ml LAESV MOD A2C: 32 ml LAESV(A-L): 32 ml LAESV Index (A-L): 15.95 ml/m Ao Diam: 3.2 cm (2.0 - 3.7) AV Cusp: 2.1 cm (1.5 - 2.6) EPSS: 1.0 cm MV E Anthony: 1.11 m/s MV DecT: 296 ms MV Dec [place]: 3.7 m/s MV A Anthony: 1.30 m/s MV E/A Ratio: 0.85 MV PHT: 86 ms AV Vmax: 1.62 m/s AV maxP.50 mmHg MV EF SLOPE: 42.20 mm/s (70 - 150) MV EXCURSION: 9.59 mm (> 18.000) FINDINGS -------- Resting tachycardia (HR>100bpm). This was a technically good study. The left ventricular size is normal. There is moderate concentric left ventricular hypertrophy. O verall left ventricular systolic function is normal with, an EF between 60 - 65 %. The right ventricle is normal in size. Normal LA size by volume 22+/-6 ml/m2. The right atrium is normal in size. Interatrial and interventricular septum intact. The aortic valve is trileaflet and appears structurally normal. The mitral valve is normal. The tricuspid valve appears structurally normal. There is no pulmonic regurgitation present. The aortic root size is normal. Normal inferior vena cava with normal inspiratory collapse consistent with estimated right atrial pre ssure of 5 mmHg. There is no pericardial effusion. CONCLUSIONS -------- 1. Resting tachycardia (HR>100bpm). 2. This was a technically good study. 3. The left ventricular size is normal. 4. There is moderate concentric left ventricular hypertrophy. 5. Overall left ventricular systolic function is normal with, an EF between 60 - 65 %. 6. The right ventricle is normal in size. 7. Normal LA size by volume 22+/-6 ml/m2. 8. The right atrium is normal in size. 9. Interatrial and interventricular septum intact. 10. The aortic valve is trileaflet and appears structurally normal. 11. The mitral valve is normal. 12. The tricuspid valve appears structurally normal. 13. There is no pulmonic regurgitation present. 14. The aortic root size is normal. 15. Normal inferior vena cava with normal inspiratory collapse consistent with estimated right atrial pressure of 5 mmHg. 16. There is no pericardial effusion. SURGICAL DEVICE SALES REPRESENTATIVE: Shirley Coronado RDCS
[2018-09-18 15:37] VITALS: BMI 31.6
[2018-09-18] MEDS ORDERED: AZITHROMYCIN 500 MG in SODIUM CHLORIDE 0.9% 250 ML IVPB SCH (16:00)
--- NOTE | 2018-09-18 16:43 | P.PN ---
Subjective Progress Note Date: 09/18/18 Principal diagnosis: shortness of breath Patient is a 48-year-old female with a past medical history of multiple sclerosis seen by Dr. Pitt, fibromyalgia, depression, and hypothyroidism who presented to the emergency department with complaints of shortness of breath and cough. In the ER she underwent an extensive evaluation. On her initial vital signs his found to be tachycardic with a pulse rate of 104. Initial laboratory analysis showed an elevated white blood cell count of 15.1. Initial chest x-ray showed no acute process. EKG demonstrated normal sinus rhythm at a rate of 95. CTA of the chest showed no acute pulmonary embolism, mild fluid overload due to bilateral central alveolar edema, splenomegaly. In the ER she was given a dose of Zithromax, Rocephin, Decadron, Pepcid, and Dilaudid. There was concern for CHF and therefore the patient was admitted. On my review of CT scan it appears more consistent with atypical pneumonia, patient maintained on ABX. Seen by cardio no CHF, echo normal. Seen by Pulm who agrees with atypical Pneumonia. Patient complaining of severe pain due to MS Flair. Patient seen and examined at bedside. Reports complaints of pain all over. Complains of being tired and not being able to sleep because of her IV. Still with cough and shortness of breath. Did not try phenergan with codine. Encouraged her to try norco. Was told home today if echo normal. Objective - Vital Signs Vital signs: Vital Signs Temp 97.8 F 09/18/18 07:54 Pulse 104 H 09/18/18 16:08 Resp 16 09/18/18 15:53 BP 138/60 09/18/18 15:53 Pulse Ox 91 L 09/18/18 15:53 Intake & Output 09/17/18 09/18/18 09/18/18 18:59 06:59 18:59 Intake Total 240 1000 900 Balance 240 1000 900 Weight 90.718 kg 91.8 kg 91.8 kg Intake: Intake, IV Titration 1000 300 Amount Azithromycin 500 mg In 250 Sodium Chloride 0.9% 250 ml @ 250 mls/hr IVPB DAILY@1600 [facility] Rx#: [id number] Sodium Chloride 0.9% 1, 1000 000 ml @ 100 mls/hr IV . Q10H [facility] Rx#:[id number] cefTRIAXone 1 gm In 50 Sodium Chloride 0.9% 50 ml @ 100 mls/hr IVPB Q24HR [facility] Rx#:[id number] Oral 240 600 Other: Voiding Method Toilet # Voids 3 2 - Exam General: ill appearing, no distress, appears at stated age Derm: warm, dry Head: atraumatic, normocephalic, symmetric Eyes: EOMI, no lid lag, anicteric sclera Mouth: no lip lesion, mucus membranes moist Cardiovascular: S1S2 reg, no murmur, positive posterior tibial pulse bilateral, Lungs: Ronchi bilateral , no accessory muscle use Abdominal: soft, nontender to palpation, no guarding, no appreciable organomegaly Ext: no gross muscle atrophy, no edema, no contractures Neuro: CN II-XI grossly intact, no focal neuro deficits Psych: Alert, oriented, tearful - Labs CBC & Chem 7: 09/18/18 06:24 09/18/18 06:24 Labs: Abnormal Lab Results - Last 24 Hours (Table) 09/17/18 09/18/18 09/18/18 Range/Units 20:53 06:03 06:24 WBC 14.7 H (3.8-10.6) k/uL Glucose (74-99) mg/dL POC Glucose (mg/dL) 235 H 149 H (75-99) mg/dL 09/18/18 09/18/18 Range/Units 06:24 11:40 WBC (3.8-10.6) k/uL Glucose 149 H (74-99) mg/dL POC Glucose (mg/dL) 147 H (75-99) mg/dL Assessment and Plan Assessment: Pneumonia failed outpatient treatment -Atypical pneumonia -Continue with Zithromax and Rocephin -Repeat CBC -Sputum culture -EBV pending -Cardio: no CHF -Continue with steroids -Phenergan With Codeine Costochondritis -Toradol -[place] for breakthrough pain Multiple sclerosis -Not currently on treatment -Continue outpatient follow-up with Dr. Pitt Fibromyalgia and depression - Cymbalta - lyrica - Remeron Hypothyroidism - continue synthroid Lung nodule -6 mm -Follow up CT in 6 months to reassess Discussed with: Patient, Cardio, pulm Anticipated discharge date:in AM Anticipated discharge place: home A total of 35 minutes was spent on the care of this complex patient more than 50% of the time was spent in counseling and care coordination.
[2018-09-18 16:47] LABS: Glucose,Whole Blood 167 mg/dL (75-99)
[2018-09-18] MEDS: HYDROcodone/APAP 7.5-325MG 1 EACH TAB PO PRN (19:15)
[2018-09-18 20:17] LABS: Glucose,Whole Blood 188 mg/dL (75-99)
[2018-09-18] MEDS: KETOROLAC 30 MG/ML 1 ML VIAL IVP PRN (20:18)
[2018-09-18] MEDS: MIRTAZAPINE 15 MG TAB PO SCH (20:52)
[2018-09-19] MEDS: PREGABALIN 75 MG CAP PO SCH ×2 (00:02→09:00)
[2018-09-19] MEDS: methylPREDNISolone SOD SUCCI 125 MG/2 ML VIAL IV SCH ×3 (00:02→13:28)
[2018-09-19] MEDS: HYDROcodone/APAP 7.5-325MG 1 EACH TAB PO PRN ×3 (04:07→15:59)
[2018-09-19 07:05] LABS: Glucose,Whole Blood 148 mg/dL (75-99)
[2018-09-19] MEDS: ENOXAPARIN 40 MG/0.4 ML SYRINGE SQ SCH (09:00)
[2018-09-19] MEDS ORDERED: CEFDINIR 300 MG CAP PO SCH (09:00)
[2018-09-19] MEDS: guaiFENesin 600 MG TABLET.ER PO SCH (09:00)
[2018-09-19] MEDS: LEVOTHYROXINE 25 MCG TAB PO SCH (09:01)
[2018-09-19] MEDS: PROMETHAZ-COD 6.25-10 MG/5 ML 5 ML CUP PO PRN ×2 (09:13→14:31)
[2018-09-19] MEDS: KETOROLAC 30 MG/ML 1 ML VIAL IVP PRN (09:13)
[2018-09-19 09:15] LABS: HCT 37.6 % (34.0-46.0); HGB 12.2 gm/dL (11.4-16.0); MCH 29.9 pg (25.0-35.0); MCHC 32.5 g/dL (31.0-37.0); MCV 91.8 fL (80.0-100.0); Platelet Count 300 k/uL (150-450); RDW 14.7 % (11.5-15.5); WBC 16.4 k/uL (3.8-10.6)
[2018-09-19] MEDS: IPRATROPIUM-ALBUTEROL 3 ML NEB INHALATION SCH ×3 (09:15→16:24)
[2018-09-19] MEDS: INSULIN ASPART (NovoLOG) 100 UNIT/ML VIAL SQ SCH ×2 (09:18→13:28)
[2018-09-19] MEDS: DULoxetine HCL 60 MG CAPSULE.DR PO SCH (10:01)
[2018-09-19 11:07] LABS: Glucose,Whole Blood 141 mg/dL (75-99)
[2018-09-19 12:10] LABS: EBV-VCA (IgG) >8.0 AI
[2018-09-19 12:16] VITALS: BP 103/64; PULSE 101; RESP 16; TEMP 98.2
[2018-09-19 12:37] LABS: Band Neutrophils % 2 %; Monocytes # (M) 0.16 k/uL (0-1.0); Neutrophils % (M) 83 %; Nucleated Red Blood Cells 0 /100 WBC (0-0); Total Cells Counted 100
[2018-09-19 12:39] LABS: Anisocytosis (M) Present; Poikilocytosis (M) Present
--- NOTE | 2018-09-19 13:35 | P.PN ---
Subjective Progress Note Date: 09/19/18 Principal diagnosis: Acute community acquired pneumonia, with secondary dyspnea, and severe coughing, CTA chest showed groundglass opacity and mild alveolar edema bilaterally, likely related to atypical pneumonia, viral pneumonia or pneumonitis This is a 48-year-old white female patient with past medical history of multiple sclerosis, fibromyalgia, anxiety, depression, remote history of smoking, who presented to the emergency department yesterday on 09/17/2018 for evaluation of severe coughing spells, chest pain, back pain and rib pain. Patient was diagnosed with pneumonia 10 days ago, was started on Zithromax, and patient had taken a couple days worth, started on Medrol Dosepak for severe coughing spells. However her cough got significantly worse, and she started developing chest pain and patient came into the hospital. Chest x-ray showed no acute cardiopulmonary process, lab work did show mild leukocytosis, with a white blood cell, 15.1, electrolytes and renal profile were within normal limits, troponins were negative 3, proBNP was within normal limits at 283. CT angios chest was completed and showed no evidence for acute pulmonary embolism, it did show increased groundglass opacities suggesting mild alveolar edema bilaterally with more focal linear scarring or atelectasis medially in the left lower lobe, right lower lobe showed 6.6 mm nodule or nodular consolidation in the subpleural region posteriorly. Patient was started on Rocephin and Zithromax for possibility of pneumonia, IV steroids, nebulized bronchodilators, cough syrup. She is receiving Dilaudid for her chest pain, she does complain of generalized aching. Has had no fever, room air pulse ox is 90-92%, hemodynamically stable, lung sounds reveal coarse expiratory crackles at bilateral bases, no rhonchi or wheezes. Today's exam patient states her coughing spells are not quite as severe with the cough medication, or chest pain has subsided. She has she has been evaluated by cardiology and her chest pain was felt to be atypical, likely related to underlying pneumonia, and cough. On 09/19/2018 patient seen in follow-up on medical surgical floor. Her main complaint today is her chest discomfort from coughing, but coughing overall has subsided, patient is receiving cough syrup, and she is receiving IV Dilaudid for pain control. She states she has generalized body aches. No fever, or chills. Hemodynamically patient is stable, room air pulse ox 91%, lung sounds reveal diminished breath sounds reveal coarse crackles at posterior bases, no wheezes rhonchi or dullness. Objective - Vital Signs Vital signs: Vital Signs Temp 98.2 F 09/19/18 12:15 Pulse 101 H 09/19/18 12:15 Resp 16 09/19/18 12:15 BP 103/64 09/19/18 12:15 Pulse Ox 91 L 09/19/18 12:15 Intake & Output 09/18/18 09/19/18 09/19/18 18:59 06:59 18:59 Intake Total 1260 Balance 1260 Weight 91.8 kg Intake: Intake, IV Titration 300 Amount Azithromycin 500 mg In 250 Sodium Chloride 0.9% 250 ml @ 250 mls/hr IVPB DAILY@1600 [facility] Rx#: [id number] cefTRIAXone 1 gm In 50 Sodium Chloride 0.9% 50 ml @ 100 mls/hr IVPB Q24HR [facility] Rx#:[id number] Oral 960 Other: Voiding Method Toilet # Voids 2 1 - Exam GENERAL EXAM: Alert, 48-year-old white female, comfortable in no apparent distress. HEAD: Normocephalic/atraumatic. EYES: Normal reaction of pupils, equal size. Conjunctiva pink, sclera white. NOSE: Clear with pink turbinates. THROAT: No erythema or exudates. NECK: No masses, no JVD, no thyroid enlargement, no adenopathy. CHEST: No chest wall deformity. Symmetrical expansion. LUNGS: Equal air entry with coarse crackles at posterior bases, wheeze, rhonchi or dullness. CVS: Regular rate and rhythm, normal S1 and S2, no gallops, no murmurs, no rubs ABDOMEN: Soft, nontender. No hepatosplenomegaly, normal bowel sounds, no guarding or rigidity. EXTREMITIES: No clubbing, no edema, no cyanosis, 2+ pulses and upper and lower extremities. MUSCULOSKELETAL: Muscle strength and tone normal. SPINE: No scoliosis or deformity SKIN: No rashes CENTRAL NERVOUS SYSTEM: Alert and oriented -3. No focal deficits, tone is normal in all 4 extremities. PSYCHIATRIC: Alert and oriented -3. Appropriate affect. Intact judgment and insight. - Labs CBC & Chem 7: 09/19/18 08:26 09/18/18 06:24 Labs: Abnormal Lab Results - Last 24 Hours (Table) 09/17/18 09/18/18 09/18/18 Range/Units 22:38 16:32 20:16 WBC (3.8-10.6) k/uL Neutrophils # (Manual) (1.3-7.7) k/uL POC Glucose (mg/dL) 167 H 188 H (75-99) mg/dL EBV Capsid Ag IgG Intrp POSITIVE H (NEGATIVE) EBV Nuc Ag IgG Interp POSITIVE H (NEGATIVE) 09/19/18 09/19/18 09/19/18 Range/Units 07:02 08:26 11:05 WBC 16.4 H (3.8-10.6) k/uL Neutrophils # (Manual) 13.90 H (1.3-7.7) k/uL POC Glucose (mg/dL) 148 H 141 H (75-99) mg/dL EBV Capsid Ag IgG Intrp (NEGATIVE) EBV Nuc Ag IgG Interp (NEGATIVE) Assessment and Plan Plan: Assessment: #1. Acute community acquired pneumonia, with secondary dyspnea, and severe coughing, chest x-ray showed no acute cardiopulmonary process, CT angios showed no evidence for acute pulmonary embolism, it showed increased groundglass opacity and mild alveolar edema bilaterally hemodynamically possibly related to atypical pneumonia, viral pneumonia, or pneumonitis. ProBNP was within normal limits, and troponins were negative. #2. Atypical chest pain #3. Multiple sclerosis #4. Anxiety, depression #5. Remote history of smoking Plan: Continue current antibiotic coverage, afebrile, hemodynamically stable, we will check influenza screen, and if it is negative from pulmonary perspective patient is stable for discharge home today she can finish outpatient course of oral an tibiotics, prednisone taper, and cough syrup. Follow-up with Dr. Santoyo any office in 7-10 days. I performed a history & physical examination of the patient and discussed their management with my nurse practitioner, Lesley Bean. I reviewed the nurse practitioner's note and agree with the documented findings and plan of care. Lung sounds are positive for coarse rales at the bases. The findings and the impression was discussed with the patient. I attest to the documentation by the nurse practitioner. Time with Patient: Less than 30
--- NOTE | 2018-09-19 14:10 | P.DS ---
Providers Date of admission: 09/17/18 16:21 Expected date of discharge: 09/19/18 Attending physician: Najma Andino MD Consults: 09/17/18 16:20 Consult Physician Routine Consulting Provider: Kayla Bucio Consult Reason/Comments: chf Do you want consulting provider notified?: Yes 09/18/18 08:06 Consult Physician Routine Consulting Provider: Shae Santoyo Consult Reason/Comments: Pneumonia vs CHF Do you want consulting provider notified?: Yes Primary care physician: Miguelina Monroe MD Hospital Course: Discharge diagnosis Atypical pneumonia Atypical chest pain due to costochondritis Costochondritis Multiple sclerosis Fibromyalgia and depression Hypothyroidism Lung nodule This is a 48-year-old white female patient with past medical history of multiple sclerosis, fibromyalgia, anxiety, depression, remote history of smoking, who presented to the emergency department yesterday on 09/17/2018 for evaluation of severe coughing spells, chest pain, back pain and rib pain. Patient was diagnosed with pneumonia 10 days ago, was started on Zithromax, and patient had taken a couple days worth, started on Medrol Dosepak for severe coughing spells. However her cough got significantly worse, and she started developing chest pain and patient came into the hospital. Chest x-ray showed no acute cardiopulmonary process, lab work did show mild leukocytosis, with a white blood cell, 15.1, electrolytes and renal profile were within normal limits, troponins were negative 3, proBNP was within normal limits at 283. CT angios chest was completed and showed no evidence for acute pulmonary embolism, it did show increased groundglass opacities suggesting mild alveolar edema bilaterally with more focal linear scarring or atelectasis medially in the left lower lobe, right lower lobe showed 6.6 mm nodule or nodular consolidation in the subpleural region posteriorly. Patient was started on Rocephin and Zithromax for atypical pneumonia, IV steroids, nebulized bronchodilators, cough syrup. She was receiving Dilaudid for her chest pain, she does complain of generalized aching. Has had no fever, room air pulse ox is 90-92%, hemodynamically stable, antibiotics was de-escalated to include ceftinir and oral azithromycin. She was discharged home in stable condition with the prednisone taper, continuing her home azithromycin for 3 more days and Ceftinir for 4 more days. This discharge process took approximately 35 minutes. The patient is told to follow-up with her PCP and Dr. Natanael so 1 week. The patient is also advised to have her PCP follow-up on her pulmonary nodule with a repeat CAT scan of the chest in 6 months Focused exam Equal air entry with coarse crackles at the posterior bases, unlabored breathing on room air with sats documented at 92% Patient Condition at Discharge: Good Plan - Discharge Summary Discharge Rx Participant: No New Discharge Prescriptions: New Cefdinir [Omnicef] 300 mg PO BID #8 cap Promethaz-Cod 6.25-10 mg/5 ml [Phenergan with Codeine] 5 ml PO Q6H PRN 5 Days #100 ml PRN Reason: Cold Symptoms Continue Mirtazapine [Remeron] 30 mg PO HS DULoxetine HCL [Cymbalta] 120 mg PO DAILY methylPREDNISolone Dose Pack [Medrol Dose Pack] See Taper PO DAILY Pregabalin [Lyrica] 150 mg PO TID Levothyroxine Sodium [Synthroid] 25 mcg PO DAILY Ergocalciferol [Vitamin D2 (DRISDOL)] 50,000 unit PO Q7D Benzonatate [Tessalon Perles] 200 mg PO TID PRN PRN Reason: Cough Albuterol Inhaler [Ventolin Hfa Inhaler] 1 - 2 puff INHALATION RT-Q6H PRN PRN Reason: Shortness Of Breath Discontinued Azithromycin [Zithromax] 500 mg PO DAILY Discharge Medication List Albuterol Inhaler [Ventolin Hfa Inhaler] 1 - 2 puff INHALATION RT-Q6H PRN 09/17/18 [History] Benzonatate [Tessalon Perles] 200 mg PO TID PRN 09/17/18 [History] DULoxetine HCL [Cymbalta] 120 mg PO DAILY 09/17/18 [History] Ergocalciferol [Vitamin D2 (DRISDOL)] 50,000 unit PO Q7D 09/17/18 [History] Levothyroxine Sodium [Synthroid] 25 mcg PO DAILY 09/17/18 [History] Mirtazapine [Remeron] 30 mg PO HS 09/17/18 [History] Pregabalin [Lyrica] 150 mg PO TID 09/17/18 [History] methylPREDNISolone Dose Pack [Medrol Dose Pack] See Taper PO DAILY 09/17/18 [History] Cefdinir [Omnicef] 300 mg PO BID #8 cap 09/19/18 [Rx] Promethaz-Cod 6.25-10 mg/5 ml [Phenergan with Codeine] 5 ml PO Q6H PRN 5 Days #100 ml 09/19/18 [Rx] Follow up Appointment(s)/Referral(s): Shae Santoyo MD [STAFF PHYSICIAN] - 1 Week Miguelina Monroe MD [Primary Care Provider] - 1-2 days
[2018-09-19] MEDS ORDERED: AZITHROMYCIN 500 MG TAB PO SCH (16:00)
[2018-09-19 16:05] LABS: Glucose,Whole Blood 158 mg/dL (75-99)
== END 2018-09-19 16:10 | disposition home or self-care (01) | DRG 194 ==
LOC: EC 13:14 → 3SCARD 16:21 → 3NMEDONC 09-18 18:17
PROVIDERS: ADMIT Internal Medicine; ATTEND Internal Medicine
DX: J18.9 Pneumonia, unspecified organism (principal); J44.0 Chronic obstructive pulmonary disease with (acute) lower respiratory infection; J44.1 Chronic obstructive pulmonary disease with (acute) exacerbation; G35 Multiple sclerosis; R16.1 Splenomegaly, not elsewhere classified; E03.9 Hypothyroidism, unspecified; E86.0 Dehydration; F32.9 Major depressive disorder, single episode, unspecified; F41.9 Anxiety disorder, unspecified; M79.7 Fibromyalgia; M94.0 Chondrocostal junction syndrome [Tietze]; R09.82 Postnasal drip; R19.7 Diarrhea, unspecified; R91.1 Solitary pulmonary nodule; R07.89 Other chest pain; Z79.890 Hormone replacement therapy; Z79.899 Other long term (current) drug therapy; Z87.01 Personal history of pneumonia (recurrent); Z87.891 Personal history of nicotine dependence; Z90.49 Acquired absence of other specified parts of digestive tract; Z82.49 Family history of ischemic heart disease and other diseases of the circulatory system; Z83.3 Family history of diabetes mellitus; Z84.1 Family history of disorders of kidney and ureter
CPT/HCPCS: 36415; 71046; 71275; 80048; 80053; 83735; 83880; 84484; 85025; 85027; 85610; 85730; 86663; 86664; 86665; 87502; 93005; 93306; 94640; 94760; 96361; 96374; 96375; 99285

== ENCOUNTER 2018-09-24 14:54 | Inpatient (IN) | payer MEDICARE, OTHER ==
[2018-09-24] MEDS ORDERED: SODIUM CHLORIDE 0.9% 1,000 ML IV STA ×2 (15:27)
[2018-09-24] MEDS ORDERED: IPRATROPIUM-ALBUTEROL 3 ML NEB INHALATION STA ×2 (15:27→17:16)
[2018-09-24] MEDS ORDERED: MORPHINE SULFATE 4 MG/ML SYRINGE IVP STA (15:29)
--- NOTE | 2018-09-24 15:35 | ED ---
SOB HPI - General Source: patient, RN notes reviewed, old records reviewed Mode of arrival: wheelchair Limitations: no limitations <Kandis Yanez - Last Filed: 09/24/18 17:30> <Chirag Vega - Last Filed: 09/24/18 17:49> - General Chief Complaint: Shortness of Breath Stated Complaint: RADHA Time Seen by Provider: 09/24/18 15:11 - History of Present Illness Initial Comments: Samy is 48-year-old female presents emergency room today with difficulty breathing, cough. She is diagnosed with pneumonia and discharged 5 days ago. She reports taking the antibiotic Ceftin year as prescribed. Patient states it seems like her chest pain, coughing and symptoms are becoming worse. She complains of fevers chills and sweats. She complains of generalized weakness. She reports that she gets sick her MS flares up to be more severe. She reports that she's been coughing so much that she has been having hard time coping keeping her medications down. Patient relates that she's had no other significant symptoms. (Kandis Yanez) - Related Data Home Medications Medication Instructions Recorded Confirmed Albuterol Inhaler [Ventolin Hfa 1 - 2 puff INHALATION RT-Q6H PRN 09/17/18 09/24/18 Inhaler] DULoxetine HCL [Cymbalta] 120 mg PO DAILY 09/17/18 09/24/18 Ergocalciferol [Vitamin D2 50,000 unit PO FR 09/17/18 09/24/18 (DRISDOL)] Levothyroxine Sodium [Synthroid] 25 mcg PO DAILY 09/17/18 09/24/18 Mirtazapine [Remeron] 30 mg PO HS 09/17/18 09/24/18 Pregabalin [Lyrica] 150 mg PO TID 09/17/18 09/24/18 Allergies Allergy/AdvReac Type Severity Reaction Status Date / Time No Known Allergies Allergy Verified 09/24/18 15:07 Review of Systems ROS Other: All systems not noted in ROS Statement are negative. <Kandis Yanez - Last Filed: 09/24/18 17:30> ROS Other: All systems not noted in ROS Statement are negative. <Chirag Vega - Last Filed: 09/24/18 17:49> ROS Statement: Those systems with pertinent positive or pertinent negative responses have been documented in the HPI. Past Medical History Past Medical History: Fibromyalgia, Neurologic Disorder, Pneumonia Additional Past Medical History / Comment(s): Multiple Sclerosis - diagnosis 2014 , hypothyroidism History of Any Multi-Drug Resistant Organisms: None Reported Past Surgical History: Appendectomy Past Anesthesia/Blood Transfusion Reactions: No Reported Reaction Past Psychological History: Anxiety, Depression Smoking Status: Former smoker Past Alcohol Use History: Rare Past Drug Use History: None Reported - Past Family History Father Family Medical History: Diabetes Mellitus, Myocardial Infarction ([place]) Mother Family Medical History: No Reported History Additional Family Medical History / Comment(s): Chronic kidney disease stage IV <Kandis Yanez - Last Filed: 09/24/18 17:30> General Exam Limitations: no limitations General appearance: alert, in no apparent distress Head exam: Present: atraumatic, normocephalic, normal inspection Eye exam: Present: normal appearance, PERRL, EOMI. Absent: scleral icterus, conjunctival injection, periorbital swelling ENT exam: Present: normal exam Neck exam: Present: normal inspection Respiratory exam: Present: wheezes, decreased breath sounds, other (Severe coughing.). Absent: normal lung sounds bilaterally Cardiovascular Exam: Present: regular rate, normal rhythm, normal heart sounds. Absent: systolic murmur, diastolic murmur, rubs, gallop, clicks GI/Abdominal exam: Present: soft, normal bowel sounds. Absent: distended, tenderness, guarding, rebound, rigid Extremities exam: Present: normal inspection, full ROM, normal capillary refill. Absent: tenderness, pedal edema, joint swelling, calf tenderness Back exam: Present: normal inspection Neurological exam: Present: alert, oriented X3, CN II-XII intact Psychiatric exam: Present: normal affect, normal mood Skin exam: Present: warm, dry, intact, normal color. Absent: rash <Kandis Yanez - Last Filed: 09/24/18 17:30> - General Exam Comments Initial Comments: 48-year-old female. Alert and oriented. Patient appears in moderate discomfort. (Knadis Yanez) Course <Chirag Vega - Last Filed: 09/24/18 17:49> Vital Signs 09/24/18 09/24/18 09/24/18 14:56 16:21 16:28 Temperature 98.4 F Pulse Rate 125 H 99 101 H Respiratory 20 18 18 Rate Blood Pressure 127/78 O2 Sat by Pulse 95 Oximetry - Reevaluation(s) Reevaluation #1: 09/24/18 17:47 PA supervision: I proceeded [id number] evaluation the patient she does present with complaints of progressively worsening weakness that she attributes to her MS as well as persistent cough with some shortness of breath. She's had decreased oral intake since she was discharged from the hospital earlier this week. I did discuss the case with her and did discuss case with Dr. Hopkins. She will be admitted for IV fluids evaluation of MS with treatment for bronchospasm and persistent cough (Chirag Vega) Medical Decision Making - Lab Data Result diagrams: 09/24/18 15:40 09/24/18 15:40 - Radiology Data Radiology results: report reviewed <Kandis Yanez - Last Filed: 09/24/18 17:30> - Lab Data Result diagrams: 09/24/18 15:40 09/24/18 15:40 <Chirag Vega - Last Filed: 09/24/18 17:49> - Medical Decision Making 48-year-old female presents weren't department today for evaluation today complaints of cough difficulty breathing. He was treated recently for continued or pneumonia. She completed her Ceftin year 2 days ago. She states that her emesis worsening cognitive general weakness, and worsening cough and fevers. Patient has chest x-ray showing evidence of left sided atelectasis. Blood work was reviewed today and improved from her previous. Patient was tachycardic, diaphoretic and emergency department. She generally pills L1 week. She's had multiple coughing episodes, heart rate up to 150s during that time. Patient case discussed Dr. Vega also given the Patient. He contacted Dr. jong Palacios. We will admit the Patient at this time for generalized weakness, acute bronchitis. (Kandis Yanez) - Lab Data Lab Results 09/24/18 09/24/18 09/24/18 Range/Units 15:40 15:40 15:40 WBC 10.2 (3.8-10.6) k/uL RBC 4.70 (3.80-5.40) m/uL Hgb 13.9 (11.4-16.0) gm/dL Hct 42.1 (34.0-46.0) % MCV 89.5 (80.0-100.0) fL MCH 29.6 (25.0-35.0) pg MCHC 33.0 (31.0-37.0) g/dL RDW 13.7 (11.5-15.5) % Plt Count 312 (150-450) k/uL Neutrophils % 58 % Lymphocytes % 34 % Monocytes % 4 % Eosinophils % 2 % Basophils % 0 % Neutrophils # 5.9 (1.3-7.7) k/uL Lymphocytes # 3.5 (1.0-4.8) k/uL Monocytes # 0.4 (0-1.0) k/uL Eosinophils # 0.2 (0-0.7) k/uL Basophils # 0.0 (0-0.2) k/uL PT 9.4 (9.0-12.0) sec INR 0.9 (<1.2) APTT 22.5 (22.0-30.0) sec Sodium 139 (137-145) mmol/L Potassium 4.0 (3.5-5.1) mmol/L Chloride 107 (98-107) mmol/L Carbon Dioxide 23 (22-30) mmol/L Anion Gap 9 mmol/L BUN 12 (7-17) mg/dL Creatinine 0.86 (0.52-1.04) mg/dL Est GFR (CKD-EPI)AfAm >90 (>60 ml/min/1.73 sqM) Est GFR (CKD-EPI)NonAf 80 (>60 ml/min/1.73 sqM) Glucose 134 H (74-99) mg/dL Calcium 8.9 (8.4-10.2) mg/dL Magnesium 2.1 (1.6-2.3) mg/dL Total Bilirubin 0.4 (0.2-1.3) mg/dL AST 22 (14-36) U/L ALT 21 (9-52) U/L Alkaline Phosphatase 61 (38-126) U/L Troponin I (0.000-0.034) ng/mL NT-Pro-B Natriuret Pep pg/mL Total Protein 6.7 (6.3-8.2) g/dL Albumin 3.8 (3.5-5.0) g/dL 09/24/18 09/24/18 Range/Units 15:40 15:40 WBC (3.8-10.6) k/uL RBC (3.80-5.40) m/uL Hgb (11.4-16.0) gm/dL Hct (34.0-46.0) % MCV (80.0-100.0) fL MCH (25.0-35.0) pg MCHC (31.0-37.0) g/dL RDW (11.5-15.5) % Plt Count (150-450) k/uL Neutrophils % % Lymphocytes % % Monocytes % % Eosinophils % % Basophils % % Neutrophils # (1.3-7.7) k/uL Lymphocytes # (1.0-4.8) k/uL Monocytes # (0-1.0) k/uL Eosinophils # (0-0.7) k/uL Basophils # (0-0.2) k/uL PT (9.0-12.0) sec INR (<1.2) APTT (22.0-30.0) sec Sodium (137-145) mmol/L Potassium (3.5-5.1) mmol/L Chloride (98-107) mmol/L Carbon Dioxide (22-30) mmol/L Anion Gap mmol/L BUN (7-17) mg/dL Creatinine (0.52-1.04) mg/dL Est GFR (CKD-EPI)AfAm (>60 ml/min/1.73 sqM) Est GFR (CKD-EPI)NonAf (>60 ml/min/1.73 sqM) Glucose (74-99) mg/dL Calcium (8.4-10.2) mg/dL Magnesium (1.6-2.3) mg/dL Total Bilirubin (0.2-1.3) mg/dL AST (14-36) U/L ALT (9-52) U/L Alkaline Phosphatase (38-126) U/L Troponin I <0.012 (0.000-0.034) ng/mL NT-Pro-B Natriuret Pep <11 pg/mL Total Protein (6.3-8.2) g/dL Albumin (3.5-5.0) g/dL - Radiology Data EKG performed at 1519 to sinus tachycardia otherwise normal EKG. Ventricular rate of 102 bpm period. It was 156 ms. QRS duration 80 ms. QT QTc is 360/469 ms. The left lower lobe that is new compared old exam. Normal heart. (Kandis Yanez) Disposition Is patient prescribed a controlled substance at d/c from ED?: No Time of Disposition: 17:33 <Kandis Yanez - Last Filed: 09/24/18 17:30> <Chirag Vega - Last Filed: 09/24/18 17:49> Clinical Impression: Acute exacerbation of chronic obstructive airways disease, Multiple sclerosis, Acute bronchospasm Disposition: ADMITTED IP TO THIS HOSP Condition: Stable Instructions (If sedation given, give patient instructions): Bronchospasm (ED) Referrals: Miguelina Monroe MD [Primary Care Provider] - 1-2 days
[2018-09-24 16:16] LABS: Basophils % (A) 0 %; Eosinophils # (A) 0.2 k/uL (0-0.7); Eosinophils % (A) 2 %; HCT 42.1 % (34.0-46.0); HGB 13.9 gm/dL (11.4-16.0); Lymphocytes # (A) 3.5 k/uL (1.0-4.8); Lymphocytes % (A) 34 %; MCH 29.6 pg (25.0-35.0); MCV 89.5 fL (80.0-100.0); Mean Platelet Volume 6.3; Monocytes # (A) 0.4 k/uL (0-1.0); Monocytes % (A) 4 %; Neutrophils # (A) 5.9 k/uL (1.3-7.7); Neutrophils % (A) 58 %; Platelet Count 312 k/uL (150-450); RDW 13.7 % (11.5-15.5); WBC 10.2 k/uL (3.8-10.6)
[2018-09-24 16:32] LABS: ALT 21 U/L (9-52); AST 22 U/L (14-36); African American GFR (CKD) >90 (>60 ml/min/1.73 sqM); Albumin 3.8 g/dL (3.5-5.0); Alkaline Phosphatase 61 U/L (38-126); Anion Gap 9 mmol/L; Blood Urea Nitrogen 12 mg/dL (7-17); Calcium 8.9 mg/dL (8.4-10.2); Carbon Dioxide 23 mmol/L (22-30); Chloride 107 mmol/L (98-107); Glucose 134 mg/dL (74-99); Magnesium 2.1 mg/dL (1.6-2.3); Sodium 139 mmol/L (137-145); Total Bilirubin 0.4 mg/dL (0.2-1.3); Total Protein 6.7 g/dL (6.3-8.2)
[2018-09-24 16:43] LABS: INR 0.9 (<1.2); Partial Thromboplastin Time 22.5 sec (22.0-30.0); Prothrombin Time 9.4 sec (9.0-12.0)
--- NOTE | 2018-09-24 16:50 | XR ---
EXAMINATION TYPE: XR chest 2V DATE OF EXAM: 09/24/2018 COMPARISON: 09/17/2018 HISTORY: Pneumonia TECHNIQUE: Frontal and lateral views of the chest are obtained. FINDINGS: Heart and mediastinum are normal. There are some linear density left lower lobe. The other lung jimenez are clear. There are chest leads. Diaphragm is normal. IMPRESSION: There is some atelectasis left lower lobe that is new compared to old exam. Normal heart .
[2018-09-24] MEDS ORDERED: PROMETHAZ-COD 6.25-10 MG/5 ML 5 ML CUP PO STA (17:16)
[2018-09-24] MEDS ORDERED: NALOXONE 0.4 MG/ML 1 ML VIAL IV PRN (17:33)
[2018-09-24] MEDS ORDERED: ONDANSETRON 4 MG/2 ML VIAL IVP PRN (17:33)
[2018-09-24] MEDS ORDERED: methylPREDNISolone SOD SUCCI 125 MG/2 ML VIAL IV STA (17:36)
[2018-09-24] MEDS ORDERED: ACETAMINOPHEN TAB 325 MG TAB PO PRN (18:20)
[2018-09-24] MEDS: SODIUM CHLORIDE 0.9% 1,000 ML IV SCH (18:25)
--- NOTE | 2018-09-24 18:31 | P.HPIM ---
History of Present Illness H&P Date: 09/24/18 Chief Complaint: cough Patient is a 48-year-old female past medical history of multiple sclerosis followed by Dr. Pitt was not been on treatment in over a year, fi bromyalgia, depression, and hypothyroidism who presented to the emergency department with intractable cough. [facility]. She was discharged home to complete a course of Zithromax and Vantin. She reports presented to the ER because she is just feeling worse. In the ER she underwent an extensive evaluation. On arrival her vital signs within normal limits and she is satting 95% on room air, laboratory analysis is unremarkable, chest x-ray showed atelectasis in the left lobe. She was noted to have intractable cough. She was given a dose of morphine without relief, she was given 2 DuoNeb's, and a dose of Solu-Medrol. She was also complaining of pain and fatigue there is concern that her MS may be exacerbated. Arrangements are made for patient to be placed in observation. Patient seen and examined in the emergency department. Upon entering the room she is crying and holding emesis basin, crying, avoids eye contact, and speaks softly. She reports that since leaving the hospital she was just continued to feel worse. She still feels short of breath, has chest tightness, has a cough that she can just not get rid of. She also reports a bandlike sensation around her chest. She states that she has pain all over which is worse than normal. She also feels overall weakness and fatigue. She is unsure if this is her MS. She feels as though her pneumonia is not getting better. We discussed that her chest x-ray is essentially normal, white blood cell count is decreased, and that she is afebrile. She has not had any other changes in her chronic condition since being discharged from the hospital. She has not yet seen her PCP. She has completed her antibiotic course. Review of Systems Pertinent positives and negatives as discussed in HPI, a complete review of systems was performed and all other systems are negative. Past Medical History Past Medical History: Fibromyalgia, Neurologic Disorder, Pneumonia Additional Past Medical History / Comment(s): Multiple Sclerosis - diagnosis 2014 , hypothyroidism History of Any Multi-Drug Resistant Organisms: None Reported Past Surgical History: Appendectomy Past Anesthesia/Blood Transfusion Reactions: No Reported Reaction Past Psychological History: Anxiety, Depression Smoking Status: Former smoker Past Alcohol Use History: Rare Past Drug Use History: None Reported Additional History: On disability, lives with her boyfriend, no assistive devices - Past Family History Father Family Medical History: Diabetes Mellitus, Myocardial Infarction ([place]) Mother Additional Family Medical History / Comment(s): Chronic kidney disease stage IV Medications and Allergies Home Medications Medication Instructions Recorded Confirmed Type RX: Albuterol Inhaler [Ventolin 1 - 2 puff INHALATION RT-Q6H PRN 09/17/18 09/24/18 History Hfa Inhaler] RX: DULoxetine HCL [Cymbalta] 120 mg PO DAILY 09/17/18 09/24/18 History RX: Ergocalciferol [Vitamin D2 50,000 unit PO FR 09/17/18 09/24/18 History (DRISDOL)] RX: Levothyroxine Sodium 25 mcg PO DAILY 09/17/18 09/24/18 History [Synthroid] RX: Mirtazapine [Remeron] 30 mg PO HS 09/17/18 09/24/18 History RX: Pregabalin [Lyrica] 150 mg PO TID 09/17/18 09/24/18 History Allergies Allergy/AdvReac Type Severity Reaction Status Date / Time No Known Allergies Allergy Verified 09/24/18 15:07 Physical Exam Osteopathic Statement: *. No significant issues noted on an osteopathic structural exam other than those noted in the History and Physical/Consult. Vitals: Vital Signs Temp Pulse Resp BP Pulse Ox 09/24/18 17:55 114 H 22 09/24/18 16:28 101 H 18 09/24/18 16:21 99 18 09/24/18 14:56 98.4 F 125 H 20 127/78 95 Intake and Output 09/24/18 09/24/18 09/24/18 06:59 14:59 22:59 Other: Weight 90.718 kg General: Ill-appearing, moderate distress secondary to cough, appears at stated age, normal weight Derm: Darkening under bilateral eyes, no unusual rashes/lesions no unusual e cchymoses, warm, dry Head: atraumatic, normocephalic, symmetric Eyes: EOMI, no lid lag, anicteric sclera, pupils equal round reactive to light ENT: Nose and ears atraumatic, no thrush, + pharyngeal erythema Neck: No thyromegaly, no cervical lymphadenopathy, trachea midline, supple Mouth: no lip lesion, mucus membranes moist Cardiovascular: S1S2 tachy, no murmur, positive posterior tibial pulse bi lateral, no edema, capillary refill less than 2 seconds Lungs: CTA bilateral, no rhonchi, no rales , no accessory muscle use Abdominal: soft, nontender to palpation, no guarding, no appreciable organ omegaly, normal bowel sounds Ext: no gross muscle atrophy, muscle strength 4 out of 5 in all 4 extremities grossly, no contractures, Neuro: CN II-XI grossly intact, light touch intact all 4 extremities Psych: Alert, oriented, upset and crying Results CBC & Chem 7: 09/24/18 15:40 09/24/18 15:40 Labs: Abnormal Lab Results - Last 24 Hours (Table) 09/24/18 Range/Units 15:40 Glucose 134 H (74-99) mg/dL Chest x-ray: report reviewed, image reviewed Thrombosis Risk Factor Assmnt - DVT/VTE Prophylaxis DVT/VTE Prophylaxis: Pharmacologic Prophylaxis ordered Assessment and Plan Assessment: Weakness with probable MS flare -Methylprednisolone 1 g IV ( will give 750 mg more due to amount given in ED) X 1 and then -Neurology consult -Pain control -Supportive care Costochondritis -Toradol -Morphine for breakthrough pain Intractable cough -Appears that pneumonia is better on x-ray and leukocytosis is resolved -possible post pneumonia cough -Consult pulmonary for further recommendations -Continue with Mucinex, Phenergan with codeine, and bronchodilators Hypothyroidism -Synthroid Fibromyalgia and depression -Cymbalta -Lyrica -Remeron Lung nodule, found on prior CTs -6 mm -6 month reassessment The patient is placed in observation with an anticipated less than 2 per night stay for evaluation of possible MS flair Surrogate decision-maker: mother- Tiana CODE STATUS:Full DVT prophylaxis: Lovenox Discussed with: Patient, nursing, ED attending Anticipated discharge date: 1-[address]: home A total of 50 minutes was spent on the care of this complex patient more than 50% of the time was spent in counseling and care coordination.
[2018-09-24] MEDS: MORPHINE SULFATE 4 MG/ML SYRINGE IV PRN (20:05)
[2018-09-24 20:59] LABS: Glucose,Whole Blood 167 mg/dL (75-99)
[2018-09-24] MEDS: IPRATROPIUM-ALBUTEROL 3 ML NEB INHALATION PRN (21:16)
[2018-09-24] MEDS: BUDESONIDE 0.5 MG/2 ML NEBU INHALATION SCH (21:17)
[2018-09-24] MEDS: guaiFENesin 600 MG TABLET.ER PO SCH (21:34)
[2018-09-24] MEDS: PREGABALIN 75 MG CAP PO SCH (21:35)
[2018-09-24] MEDS: MIRTAZAPINE 15 MG TAB PO SCH (21:35)
[2018-09-24] MEDS: INSULIN ASPART (NovoLOG) 100 UNIT/ML VIAL SQ SCH (21:37)
[2018-09-24 21:44] VITALS: BMI 31.3
[2018-09-25] MEDS ORDERED: methylPREDNISolone SOD SUCCI 125 MG/2 ML VIAL IV SCH
[2018-09-25] MEDS: PROMETHAZ-COD 6.25-10 MG/5 ML 5 ML CUP PO PRN ×2 (00:03→14:22)
[2018-09-25] MEDS: SODIUM CHLORIDE 0.9% 1,000 ML IV SCH (04:39)
[2018-09-25] MEDS: oxyCODONE-APAP 5-325MG 1 EACH TAB PO PRN ×2 (04:45→22:22)
[2018-09-25] MEDS: LEVOTHYROXINE 25 MCG TAB PO SCH (06:29)
[2018-09-25 06:40] LABS: Glucose,Whole Blood 233 mg/dL (75-99)
[2018-09-25] MEDS: INSULIN ASPART (NovoLOG) 100 UNIT/ML VIAL SQ SCH ×5 (07:00→20:52)
[2018-09-25] MEDS: MORPHINE SULFATE 4 MG/ML SYRINGE IV PRN ×5 (08:07→20:30)
[2018-09-25] MEDS: DULoxetine HCL 60 MG CAPSULE.DR PO SCH (08:08)
[2018-09-25] MEDS: PREGABALIN 75 MG CAP PO SCH ×3 (08:09→22:13)
[2018-09-25] MEDS: guaiFENesin 600 MG TABLET.ER PO SCH ×2 (08:09→20:39)
[2018-09-25] MEDS: IPRATROPIUM-ALBUTEROL 3 ML NEB INHALATION PRN ×3 (08:23→21:45)
[2018-09-25] MEDS: BUDESONIDE 0.5 MG/2 ML NEBU INHALATION SCH (08:23)
[2018-09-25] MEDS ORDERED: PANTOPRAZOLE 40 MG/10 ML VIAL IV SCH (09:00)
[2018-09-25] MEDS ORDERED: LEVOFLOXACIN 500 MG TAB PO SCH (09:00)
[2018-09-25 12:04] LABS: Glucose,Whole Blood 240 mg/dL (75-99)
[2018-09-25] MEDS: methylPREDNISolone SOD SUCCI 125 MG/2 ML VIAL IV SCH ×2 (12:25→17:52)
--- NOTE | 2018-09-25 12:48 | CONS ---
CONSULTATION HISTORY OF PRESENT ILLNESS: This is a 48-year-old female who I am asked to see in consultation. This is a patient who was recently in the hospital in early September. She was admitted with a diagnosis of probable acute tracheobronchitis. The patient has significant cough and bronchospasm. Chest x-ray shows no acute cardiopulmonary abnormality and CT angiogram of the chest showed no evidence of pulmonary embolism. There was some ground-glass opacity seen on the CT angiogram. The CT angiogram was thought to probably correlate more to an atypical pneumonia. In addition, she was admitted with a diagnosis of atypical chest pain, multiple sclerosis, anxiety, and depression. She does have a remote history of tobacco use. On that admission, she was treated aggressively with Zithromax and Rocephin. She also received breathing treatments and corticosteroids. The patient again presented to the emergency department on September 24. She came in with similar symptoms of coughing and difficulty breathing. She also describes a chest tightness. She states that she does not feel like she was fully treated when she was discharged last from 5 days ago. She denies any fever or chills. She states that she feels like her multiple sclerosis is acting up and more severe. Neurology has been consulted. Again on this admissions x-ray, there is minimal atelectasis at the lung bases, not much very impressive to say the least. Anyway, the patient is receiving additional medications at this time. I was asked to see her for additional followup and recommendations. She was admitted to the [facility]. CURRENT MEDICATIONS: Include albuterol inhaler, Cymbalta, vitamin D2, levothyroxine, Remeron, and Lyrica. ALLERGIES: Denied. MEDICAL HISTORY: Possible atypical pneumonia, MS, and fibromyalgia. She also has a history of hypothyroidism. Her MS was diagnosed in 2013. SURGICAL HISTORY: Includes previous appendectomy. SOCIAL HISTORY: Positive for previous remote tobacco use. Rare alcohol use. No illicit drug use. FAMILY HISTORY: Positive for diabetes mellitus, cardiac disease and stage 4 chronic kidney disease. REVIEW OF SYSTEMS: CONSTITUTIONAL: Negative. NEUROLOGIC: Negative. HEENT negative. CARDIOVASCULAR negative. PULMONARY: Cough, shortness of breath, chest tightness. GI negative. negative. RHEUMATOLOGIC negative. IMMUNOLOGIC negative. ENDOCRINOLOGIC: Negative. DERMATOLOGIC: Negative. PHYSICAL EXAMINATION: VITAL SIGNS: Current vital signs are reviewed. Temperature 98, heart rate, respiratory rate 20, blood pressure 157/78, mean 104, room air saturation 94%. GENERAL: She appears in no acute distress. She was not coughing in the room when I was examining her. There is no use of accessory muscles or conversational dyspnea. HEENT examination is grossly unremarkable. NECK: Supple. Full range of motion. No adenopathy or thyromegaly. Neck veins are flat. CARDIOVASCULAR examination reveals regular rhythm and rate. Heart rate about 80 beats per minute. S1, S2 normal. No murmur. LUNGS: Reveal mostly clear breath sounds. No wheezes, rhonchi, or crackles. The only thing I do notice that when she forcibly exhales, she does cough a bit. The cough sounds relatively dry. ABDOMEN: Soft. Bowel sounds are heard. EXTREMITIES are intact. No cyanosis, clubbing, or edema. SKIN without rash. NEUROLOGIC examination is brief but nonfocal. LABS: Reviewed. CBC is completely normal. PT/INR and PTT all normal. Comprehensive metabolic profile is entirely normal. Chest x-ray shows some atelectasis in the left lung base. Previously on September [address] angiogram of the chest. It showed no CT evidence of pulmonary embolism. Mild fluid overload and splenomegaly was noted. The ground-glass opacities were most consistent with I believe with fluid overload/CHF. MEDICATIONS: Current medications include Pulmicort updrafts with albuterol and Atrovent, Solu-Medrol and cough syrup. ASSESSMENT: 1. Cough, more likely related to either postnasal drip and/or upper airway cough syndrome and/or residual bronchospasm from the recent episode of tracheobronchitis. 2. History of fibromyalgia. 3. Possible atypical pneumonia. 4. History of multiple sclerosis. 5. Hypothyroidism. 6. Anxiety/depression. PLAN: Please see my orders. I will review the medications. We will make sure she is on medications to help relieve the bronchospasm. She was bronchospastic on exhalation. No additional recommendations are made. I do not believe she needs an antibiotic. I do not think there is an active infection. We will also add some Tessalon Perles to the regimen. MMODL / IJN: [id number] /
--- NOTE | 2018-09-25 12:56 | P.PN ---
Subjective Progress Note Date: 09/25/18 Principal diagnosis: pain and intractable cough Patient is a 48-year-old female past medical history of multiple sclerosis followed by Dr. Pitt was not been on treatment in over a year, fibromyalgia, depression, and hypothyroidism who presented to the emergency department with intractable cough. Patient was hospitalized here from 09-17 to 09/19 secondary to atypical pneumonia. She was discharged home to complete a course of Zithromax and Vantin. She reports presented to the ER because she is just feeling worse. In the ER she underwent an extensive evaluation. On arrival her vital signs within normal limits and she is satting 95% on room air, laboratory analysis is unremarkable, chest x-ray showed atelectasis in the left lobe. She was noted to have intractable cough. She was given a dose of morphine without relief, she was given 2 DuoNeb's, and a dose of Solu-Medrol. She was also complaining of pain and fatigue there is concern that her MS may be exacerbated. Arrangements were made for patient to be admitted. She was started on mucinex and phenergan with codeine for cough. She was given 750mg of solu- medrol IVPB for a total of 1 gram. She was started on pain medications. Neurology and pulm were consulted. Patient seen and examined at bedside. Intractable cough is resolved. Still complains of diffuse pain, heaviness in her legs, and extreme fatigue. She states that the increase morphine is helping with the pain slightly. We talked about the risks of high-dose Solu-Medrol. She received 1 g yesterday we will wait for neurology to evaluate her to see she needs to complete a 5 day regimen. Objective - Vital Signs Vital signs: Vital Signs Temp 98 F 09/25/18 07:50 Pulse 98 09/25/18 08:36 Resp 20 09/25/18 08:00 BP 157/78 09/25/18 07:50 Pulse Ox 94 L 09/25/18 07:50 Intake & Output 09/24/18 09/25/18 09/25/18 18:59 06:59 18:59 Weight 90.718 kg Other: # Voids 1 1 - Exam General: Diaphoretic, non toxic, no distress, appears at stated age Derm: Multiple tattoos, warm, dry Head: atraumatic, normocephalic, symmetric Eyes: EOMI, no lid lag, anicteric sclera Mouth: no lip lesion, mucus membranes moist Cardiovascular: S1S2 reg, no murmur, positive posterior tibial pulse bilateral, Lungs: CTA bilateral, no rhonchi, no rales , no accessory muscle use Abdominal: soft, nontender to palpation, no guarding, no appreciable organomegaly Ext: no gross muscle atrophy, no edema, no contractures Neuro: CN II-XI grossly intact, no focal neuro deficits Psych: Alert, oriented, appropriate affect - Labs CBC & Chem 7: 09/24/18 15:40 09/24/18 15:40 Labs: Abnormal Lab Results - Last 24 Hours (Table) 09/24/18 09/24/18 09/25/18 Range/Units 15:40 20:57 06:35 Glucose 134 H (74-99) mg/dL POC Glucose (mg/dL) 167 H 233 H (75-99) mg/dL 09/25/18 Range/Units 12:00 Glucose (74-99) mg/dL POC Glucose (mg/dL) 240 H (75-99) mg/dL Assessment and Plan Assessment: Weakness with probable MS flare -Methylprednisolone 1 g IV X 1 given 09/24 -Neurology consult pending -Pain control continue with morphine and percocet, prn baclofen. -Supportive care Costochondritis -Toradol -Morphine for breakthrough pain Intractable cough with possible reactive airway disease -Appears that pneumonia is better on x-ray and leukocytosis is resolved -possible post pneumonia cough -Await pulm recs: added tesselon, formoterol, budesonide -Continue with Mucinex, Phenergan with codeine, and bronchodilators Hypothyroidism -Synthroid Fibromyalgia and depression -Cymbalta -Lyrica -Remeron Lung nodule, found on prior CTs -6 mm -6 month reassessment DVT prophylaxis: Lovenox Discussed with: Patient, nursing, Anticipated discharge date: 1-[address]: home A total of 35 minutes was spent on the care of this complex patient more than 50% of the time was spent in counseling and care coordination.
[2018-09-25] MEDS: ENOXAPARIN 40 MG/0.4 ML SYRINGE SQ SCH (13:54)
[2018-09-25] MEDS: BACLOFEN 10 MG TAB PO PRN (14:01)
[2018-09-25] MEDS: BENZONATATE 100 MG CAP PO SCH ×2 (15:29→22:12)
[2018-09-25 17:37] LABS: Glucose,Whole Blood 195 mg/dL (75-99)
--- NOTE | 2018-09-25 18:07 | P.CNNES ---
History of Present Illness Consult date: 09/25/18 Reason for Consult: Possible MS exacerbation History of Present Illness: Patient is a 48-year-old female, who has been diagnosed with MS 5 years ago. Patient follows up with Dr. Mondragon. Patient previously has tried Avonex, Tecfidera, Gilenya, and lastly was on Copaxone. Patient has depression, could not continue with frequent injections. She is now in the process of getting treatment with Ocrevus, trying to get authorization by her insurance. Currently patient is not on any disease modifying agents. Patient states that about 16 days ago she started having coughing, laryngitis, which progressively got worse and has been diagnosed with pneumonia. Patient given some steroids, antibiotics, and his pneumonia has improved, but she feels very generalized weak, pain in the in the torso from clavicles down to the low back, in the front and the back region. She feels the pain could be related to significant coughing related to pneumonia, but the whole torso hurts. She is concerned about MS exacerbation. She denies any focal numbness tingling, problem with the vision speech or swallow. Patient is feels generalized weak. Her most recent chest x-ray showed some atelectasis left lower lobe. Patient's last MRI of the brain and cervical spine from 03/30/2018 showed stable brain in stable cervical spine MRI. Findings compatible with patient's history of multiple sclerosis. Review of Systems As per HPI. Complains of whole body pain. Complains of some chest pain, shortness of breath. Also some cough. All other review of systems negative. Past Medical History Past Medical History: Fibromyalgia, Neurologic Disorder, Pneumonia Additional Past Medical History / Comment(s): Multiple Sclerosis - diagnosis 2013 , hypothyroidism History of Any Multi-Drug Resistant Organisms: None Reported Past Surgical History: Appendectomy Past Anesthesia/Blood Transfusion Reactions: No Reported Reaction Past Psychological History: Anxiety, Depression Smoking Status: Former smoker Past Alcohol Use History: Rare Past Drug Use History: Marijuana Additional Drug Use History / Comment(s): pt states she uses marijuana occasionally 'not very often though' - Past Family History Father Family Medical History: Diabetes Mellitus, Myocardial Infarction (VT) Mother Family Medical History: No Reported History Additional Family Medical History / Comment(s): Chronic kidney disease stage IV Medications and Allergies Home Medications Medication Instructions Recorded Confirmed Type Albuterol Inhaler [Ventolin Hfa 1 - 2 puff INHALATION RT-Q6H PRN 09/17/18 09/24/18 History Inhaler] DULoxetine HCL [Cymbalta] 120 mg PO DAILY 09/17/18 09/24/18 History Ergocalciferol [Vitamin D2 50,000 unit PO FR 09/17/18 09/24/18 History (DRISDOL)] Levothyroxine Sodium [Synthroid] 25 mcg PO DAILY 09/17/18 09/24/18 History Mirtazapine [Remeron] 30 mg PO HS 09/17/18 09/24/18 History Pregabalin [Lyrica] 150 mg PO TID 09/17/18 09/24/18 History Allergies Allergy/AdvReac Type Severity Reaction Status Date / Time No Known Allergies Allergy Verified 09/24/18 15:07 Physical Examination - Vital Signs Vital Signs: Vital Signs Temp Pulse Pulse Pulse Resp BP BP 09/25/18 16:00 112 H 20 09/25/18 15:30 97.9 F 112 H 20 131/69 09/25/18 13:40 100 09/25/18 13:28 94 09/25/18 08:36 98 09/25/18 08:23 100 09/25/18 08:00 112 H 20 09/25/18 07:50 98 F 112 H 20 157/78 09/25/18 04:00 97.3 F L 111 H 20 128/81 09/24/18 23:55 97.8 F 115 H 18 115/66 09/24/18 21:31 102 H 09/24/18 21:20 09/24/18 21:18 102 H 09/24/18 19:00 97.9 F 93 20 112/75 09/24/18 18:30 99.2 F 99 16 120/81 09/24/18 18:08 102 H 18 Pulse Ox 09/25/18 16:00 09/25/18 15:30 93 L 09/25/18 13:40 09/25/18 13:28 09/25/18 08:36 09/25/18 08:23 09/25/18 08:00 09/25/18 07:50 94 L 09/25/18 04:00 93 L 09/24/18 23:55 95 09/24/18 21:31 09/24/18 21:20 92 L 09/24/18 21:18 09/24/18 19:00 93 L 09/24/18 18:30 99 09/24/18 18:08 Intake and Output 09/25/18 09/25/18 09/25/18 06:59 14:59 22:59 Intake Total 240 Balance 240 Intake: Oral 240 Other: # Voids 1 1 1 On examination patient is a middle-aged female, in no distress. She is alert and awake fully oriented. His speech and language functions are normal. Attention and concentration fund of knowledge is adequate. On cranial examination pupils are round and reacting to light, visual jimenez are full. Extraocular muscles are intact. Face is symmetric and tongue protrudes to the midline. Palatal elevation and sensation normal. On muscle strength testing there is no pronator drift and the strength is normal in arms and legs distally and proximally. Reflexes are 2+ all over and plantars downgoing. No ataxia for [id number] testing. Tone and bulk of muscles normal. Sensations equal. Gait deferred. Results Patient's hemoglobin A1c 5.2 on 07/01/2018. Liver functions are normal. CPK normal. Patient's B12 is 305, 01/10/2018. Thyroid functions are normal. Ceruloplasmin is 32.9. - Laboratory Findings CBC and BMP: 09/24/18 15:40 09/24/18 15:40 Abnormal Lab Findings: Abnormal Labs 09/24/18 09/24/18 09/25/18 15:40 20:57 06:35 Glucose 134 H POC Glucose (mg/dL) 167 H 233 H 09/25/18 09/25/18 12:00 17:33 Glucose POC Glucose (mg/dL) 240 H 195 H Assessment and Plan Assessment: * 48-year-old female with history of MS, came with pneumonia, generalized weakness and body pain. Her symptoms could be related to unmasking of old lesions related to her febrile illness. No definitive evidence of MS exacerbation however. * Fibromyalgia * Hypothyroidism Plan: * Patient has received Solu-Medrol 1 g IV PB yesterday. Patient will receive another dose of Solu-Medrol 1 g IV PB today and third the final dose tomorrow, then can be potentially discharged. Patient has an appointment with her neurologist on 10/06/2018.
[2018-09-25] MEDS: MIRTAZAPINE 15 MG TAB PO SCH (20:40)
[2018-09-25] MEDS: methylPREDNISolone SOD SUCC 1,000 MG in SODIUM CHLORIDE 0.9% 250 ML IVPB SCH (20:41)
[2018-09-25 20:44] LABS: Glucose,Whole Blood 204 mg/dL (75-99)
[2018-09-25] MEDS: FORMOTEROL FUMARATE 20 MCG/2 ML NEBU INHALATION SCH (21:43)
[2018-09-25] MEDS: BUDESONIDE 1 MG/2 ML NEBU INHALATION SCH (21:45)
[2018-09-26] MEDS: MORPHINE SULFATE 4 MG/ML SYRINGE IV PRN ×4 (01:06→14:01)
[2018-09-26] MEDS: oxyCODONE-APAP 5-325MG 1 EACH TAB PO PRN ×3 (03:04→12:52)
[2018-09-26] MEDS: BACLOFEN 10 MG TAB PO PRN ×3 (03:05→21:36)
[2018-09-26] MEDS: SODIUM CHLORIDE 0.9% 1,000 ML IV SCH (05:35)
[2018-09-26] MEDS: LEVOTHYROXINE 25 MCG TAB PO SCH (06:26)
[2018-09-26 06:29] LABS: Glucose,Whole Blood 183 mg/dL (75-99)
[2018-09-26] MEDS: INSULIN ASPART (NovoLOG) 100 UNIT/ML VIAL SQ SCH ×7 (06:36→21:14)
[2018-09-26] MEDS: ENOXAPARIN 40 MG/0.4 ML SYRINGE SQ SCH (09:03)
[2018-09-26] MEDS: PREGABALIN 75 MG CAP PO SCH ×3 (09:03→21:15)
[2018-09-26] MEDS: DULoxetine HCL 60 MG CAPSULE.DR PO SCH (09:03)
[2018-09-26] MEDS: guaiFENesin 600 MG TABLET.ER PO SCH ×2 (09:03→21:15)
[2018-09-26] MEDS: BENZONATATE 100 MG CAP PO SCH ×3 (09:04→21:15)
[2018-09-26] MEDS: PROMETHAZ-COD 6.25-10 MG/5 ML 5 ML CUP PO PRN ×2 (09:37→21:48)
[2018-09-26] MEDS: BUDESONIDE 1 MG/2 ML NEBU INHALATION SCH ×2 (09:43→19:13)
[2018-09-26] MEDS: IPRATROPIUM-ALBUTEROL 3 ML NEB INHALATION PRN (09:43)
[2018-09-26] MEDS: FORMOTEROL FUMARATE 20 MCG/2 ML NEBU INHALATION SCH ×2 (09:44→19:13)
[2018-09-26 12:42] LABS: Glucose,Whole Blood 202 mg/dL (75-99)
[2018-09-26] MEDS ORDERED: FUROSEMIDE 10 MG/ML 4 ML VIAL IV STA (13:52)
[2018-09-26] MEDS: oxyCODONE-APAP 10-325MG 1 EACH TAB PO PRN ×2 (17:34→21:35)
--- NOTE | 2018-09-26 17:41 | P.PN ---
Subjective Progress Note Date: 09/26/18 Patient continues to complain about fatigue, whole body aching. No new symptoms. Patient has received Solu-Medrol 1 g IV PB yesterday also. So far she has received 2 doses of 1 g IV PB. She is scheduled for the third dose today. Objective - Vital Signs Vital signs: Vital Signs Temp 98.1 F 09/26/18 16:45 Pulse 119 H 09/26/18 16:45 Resp 18 09/26/18 16:45 BP 129/83 09/26/18 16:45 Pulse Ox 93 L 09/26/18 16:45 Intake & Output 09/25/18 09/26/18 09/26/18 18:59 06:59 18:59 Intake Total 240 480 Balance 240 480 Intake: Oral 240 480 Other: Voiding Method Toilet # Voids 1 1 2 - Exam On examination mental status patient functions are normal. Cranial nerves are normal. Muscle strength normal. No ataxia. Sensation equal. - Labs CBC & Chem 7: 09/24/18 15:40 09/24/18 15:40 Labs: Abnormal Lab Results - Last 24 Hours (Table) 09/25/18 09/26/18 09/26/18 Range/Units 20:43 06:27 12:41 POC Glucose (mg/dL) 204 H 183 H 202 H (75-99) mg/dL Microbiology - Last 24 Hours (Table) 09/24/18 15:40 Blood Culture - Preliminary Blood No Growth after 24 hours Assessment and Plan Assessment: * 48-year-old female with history of MS, came with pneumonia, generalized weakness and body pain. Her symptoms could be related to unmasking of old lesions related to her pulmonary illness, or possible flareup of fibromyalgia. No definitive evidence of MS exacerbation however. * Fibromyalgia * Hypothyroidism Plan: * Patient has received Solu-Medrol 1 g IV PB on 09/24/2018 and 09/25/2018. Patient will receive third dose today. Potential discharge in the morning. Follow up with her neurologist on 10/06/2018.
[2018-09-26 18:22] LABS: Glucose,Whole Blood 166 mg/dL (75-99)
--- NOTE | 2018-09-26 18:55 | P.PN ---
Subjective Progress Note Date: 09/26/18 (delayed charting seen at 1330) Principal diagnosis: pain and intractable cough Patient is a 48-year-old female past medical history of multiple sclerosis followed by Dr. Pitt was not been on treatment in over a year, fibromyalgia, depression, and hypothyroidism who presented to the emergency department with intractable cough. Patient was hospitalized here from 09-17 to 09/19 secondary to atypical pneumonia. She was discharged home to complete a course of Zithromax and Vantin. She reports presented to the ER because she is just feeling worse. In the ER she underwent an extensive evaluation. On arrival her vital signs within normal limits and she is satting 95% on room air, laboratory analysis is unremarkable, chest x-ray showed atelectasis in the left lobe. She was noted to have intractable cough. She was given a dose of morphine without relief, she was given 2 DuoNeb's, and a dose of Solu-Medrol. She was also complaining of pain and fatigue there is concern that her MS may be exacerbated. Arrangements were made for patient to be admitted. She was started on mucinex and phenergan with codeine for cough. She was given 750mg of solu- medrol IVPB for a total of 1 gram. She was started on pain medications. Neurology and pulm were consulted. Neuro felt likly unmasking of prior MS symptoms. Pulm agreed no active pneumonia. Patient seen and examined at bedside. Cough improved. still with complaints of all over pain, no sob, no nausea, still feeling fatigued. Objective - Vital Signs Vital signs: Vital Signs Temp 98.1 F 09/26/18 16:45 Pulse 119 H 09/26/18 16:45 Resp 18 09/26/18 16:45 BP 129/83 09/26/18 16:45 Pulse Ox 93 L 09/26/18 16:45 Intake & Output 09/25/18 09/26/18 09/26/18 18:59 06:59 18:59 Intake Total 240 480 Balance 240 480 Intake: Oral 240 480 Other: Voiding Method Toilet # Voids 1 1 2 - Exam General: Diaphoretic, non toxic, mild distress due to pain, appears at stated age Derm: Multiple tattoos, warm, dry Head: atraumatic, normocephalic, symmetric Eyes: EOMI, no lid lag, anicteric sclera Mouth: no lip lesion, mucus membranes moist Cardiovascular: S1S2 reg, no murmur, positive posterior tibial pulse bilateral, Lungs: decreased bs bilateral, no rhonchi, no rales , no accessory muscle use Abdominal: soft, nontender to palpation, no guarding, no appreciable organomegaly Ext: no gross muscle atrophy, no edema, no contractures Neuro: CN II-XI grossly intact, no focal neuro deficits Psych: Alert, oriented, appropriate affect - Labs CBC & Chem 7: 09/24/18 15:40 09/24/18 15:40 Labs: Abnormal Lab Results - Last 24 Hours (Table) 09/25/18 09/26/18 09/26/18 Range/Units 20:43 06:27 12:41 POC Glucose (mg/dL) 204 H 183 H 202 H (75-99) mg/dL 09/26/18 Range/Units 18:21 POC Glucose (mg/dL) 166 H (75-99) mg/dL Microbiology - Last 24 Hours (Table) 09/24/18 15:40 Blood Culture - Preliminary Blood No Growth after 48 hours Assessment and Plan Assessment: Weakness with probable unmasking of prior MS lesion bs fibromyalgia flair -Methylprednisolone 1 g X 3 days, anticipate home in AM, case discussed with neuro -Neurology recs appreciated -Discontinue morphine, increase Percocet, continue with baclofen -Supportive care Costochondritis -Toradol -Morphine for breakthrough pain Fluid overload - lasix X 1 Intractable cough with possible reactive airway disease, intractable cough improved -Appears that pneumonia is better on x-ray and leukocytosis is resolved -possible post pneumonia cough -Await pulm recs: added tesselon, formoterol, budesonide -Continue with Mucinex, Phenergan with codeine, and bronchodilators Hypothyroidism -Synthroid Fibromyalgia and depression -Cymbalta -Lyrica -Remeron Lung nodule, found on prior CTs -6 mm -6 month reassessment DVT prophylaxis: Lovenox Discussed with: Patient, nursing, Anticipated discharge date: 1-[address]: home A total of 35 minutes was spent on the care of this complex patient more than 50% of the time was spent in counseling and care coordination.
--- NOTE | 2018-09-26 20:55 | P.PN ---
Subjective Progress Note Date: 09/26/18 On today's evaluation of 09/26/2018, the patient is being seen for a follow-up. The patient is known to have MS, fibromyalgia, depression, hypothyroidism and she is coming into the hospital because of worsening cough. She has been hospitalized in early September for atypical pneumonia. She was discharged home on a combination of Zithromax and Vantin. She came into the hospital because of worsening in symptoms. Pulse ox on room air is 95%. Chest x-ray showing some atelectatic changes and left lung base. The patient has been started on DuoNeb nebulized treatments around the clock. She is also on IV Solu-Medrol. She is on a combination of Perforomist and Pulmicort neb last treatment twice a day. She is taking Tessalon Perles for cough. She is on Lovenox for DVT prophylaxis. Patient has significant cough and bronchospasm. Chest x-ray showed no acute abnormalities. CT angiogram of the chest showed no evidence of any pulmonary embolism. There was some limited groundglass opacity seen in the CT angiogram that was more consistent with atypical pneumonia. The patient has also chronic anxiety and depression. She does not have any remote history of tobacco use. She was given accommodation Rocephin and Zithromax at time of admission. She is also receiving breathing treatments and steroids. No fever. No chills. Slightly improved compared to yesterday. Objective - Vital Signs Vital signs: Vital Signs Temp 98.1 F 09/26/18 16:45 Pulse 105 H 09/26/18 19:20 Resp 18 09/26/18 16:45 BP 129/83 09/26/18 16:45 Pulse Ox 93 L 09/26/18 16:45 Intake & Output 09/26/18 09/26/18 09/27/18 06:59 18:59 06:59 Intake Total 480 Balance 480 Intake: Oral 480 Other: Voiding Method Toilet # Voids 1 2 - Exam Gen. appearance, comfortable likely distress. Head exam was generally normal. There was no scleral icterus or corneal arcus. M ucous membranes were moist. Neck was supple and without jugular venous distension, thyromegaly, or carotid bruits. Carotids were easily palpable bilaterally. There was no adenopathy. Cardiac exam revealed the PMI to be normally situated and sized. The rhythm was regular and no extrasystoles were noted during several minutes of auscultation. The first and second heart sounds were normal and physiologic splitting of the second heart sound was noted. There were no murmurs, rubs, clicks, or gallops. Lungs sounds are clear and there is some limited wheezing on forceful expiratory maneuvers. Abdominal exam revealed normal bowel sounds. The abdomen was soft, non-tender, and without masses, organomegaly, or appreciable enlargement of the abdominal aorta. Examination of the extremities revealed easily palpable radial, femoral and pedal pulses. There was no cyanosis, clubbing or edema. Neurologic exam please refer to neurology. - Labs CBC & Chem 7: 09/24/18 15:40 09/24/18 15:40 Labs: Abnormal Lab Results - Last 24 Hours (Table) 09/25/18 09/26/18 09/26/18 Range/Units 20:43 06:27 12:41 POC Glucose (mg/dL) 204 H 183 H 202 H (75-99) mg/dL 09/26/18 Range/Units 18:21 POC Glucose (mg/dL) 166 H (75-99) mg/dL Microbiology - Last 24 Hours (Table) 09/24/18 15:40 Blood Culture - Preliminary Blood No Growth after 48 hours Assessment and Plan Plan: 1 intractable cough may be related to bronchospasm or wheezing which is probably reactive in nature. Rule out occult aspiration. Rule out postnasal drainage. 2 multiple sclerosis with secondary weakness. Continue methylprednisolone 1 g for the next 3 days. Neurologist on the case. 3 fibromyalgia 4 hypothyroidism, on Synthroid 5 history of depression 6 pulmonary nodule 6 mm in size, nonspecific Plan Agree on the current treatment. We'll follow. Clinically much improved.
[2018-09-26] MEDS ORDERED: INSULIN DETEMIR (LEVEMIR) 100 UNIT/ML SYR SQ SCH ×2 (21:00)
[2018-09-26 21:09] LABS: Glucose,Whole Blood 164 mg/dL (75-99)
[2018-09-26] MEDS: methylPREDNISolone SOD SUCC 1,000 MG in SODIUM CHLORIDE 0.9% 250 ML IVPB SCH (21:14)
[2018-09-26] MEDS: MIRTAZAPINE 15 MG TAB PO SCH (21:15)
[2018-09-27] MEDS: oxyCODONE-APAP 10-325MG 1 EACH TAB PO PRN ×3 (04:34→13:01)
[2018-09-27] MEDS: LEVOTHYROXINE 25 MCG TAB PO SCH (07:04)
[2018-09-27] MEDS: BUDESONIDE 1 MG/2 ML NEBU INHALATION SCH (07:18)
[2018-09-27] MEDS: SODIUM CHLORIDE 0.9% 1,000 ML IV SCH (07:22)
[2018-09-27] MEDS: FORMOTEROL FUMARATE 20 MCG/2 ML NEBU INHALATION SCH (07:35)
[2018-09-27 07:52] LABS: Glucose,Whole Blood 155 mg/dL (75-99)
[2018-09-27] MEDS: BACLOFEN 10 MG TAB PO PRN (08:45)
[2018-09-27] MEDS: DULoxetine HCL 60 MG CAPSULE.DR PO SCH (08:46)
[2018-09-27] MEDS: INSULIN ASPART (NovoLOG) 100 UNIT/ML VIAL SQ SCH ×4 (08:46→13:00)
[2018-09-27] MEDS: PREGABALIN 75 MG CAP PO SCH (08:46)
[2018-09-27] MEDS: ENOXAPARIN 40 MG/0.4 ML SYRINGE SQ SCH (08:46)
[2018-09-27] MEDS: BENZONATATE 100 MG CAP PO SCH ×2 (08:48→11:44)
[2018-09-27] MEDS ORDERED: FUROSEMIDE 10 MG/ML 2 ML VIAL IV ONE (09:27)
[2018-09-27] MEDS: guaiFENesin 600 MG TABLET.ER PO SCH (09:41)
--- NOTE | 2018-09-27 09:59 | P.DS ---
Providers Date of admission: 09/24/18 17:53 Expected date of discharge: 09/27/18 Attending physician: Lizzy Leos DO Consults: 09/24/18 18:23 Consult Physician Routine Consulting Provider: Chirag Palomino Consult Reason/Comments: intratable cough Do you want consulting provider notified?: Yes Consult Physician Routine Consulting Provider: Shantanu Cruz Consult Reason/Comments: ms flair Do you want consulting provider notified?: Yes Primary care physician: Miguelina Monroe MD Hospital Course: Discharge Diagnosis: Probable unmasking of prior MS lesions Fibromyalgia flare Costochondritis Intractable cough secondary to reactive airway disease Fluid overload secondary to steroid use Hypothyroidism Depression Lung nodule Hospital Course: Patient is a 48-year-old female past medical history of multiple sclerosis followed by Dr. Pitt was not been on treatment in over a year, fibromyalgia, depression, and hypothyroidism who presented to the emergency department with intractable cough. Patient was hospitalized here from 09/17 to 09/19 secondary to atypical pneumonia. She was discharged home to complete a course of Zithromax and Vantin. She reports presented to the ER because she is just feeling worse. In the ER she underwent an extensive evaluation. On arrival her vital signs within normal limits and she is satting 95% on room air, laboratory analysis is unremarkable, chest x-ray showed atelectasis in the left lobe. She was noted to have intractable cough. She was given a dose of m orphine without relief, she was given 2 DuoNeb's, and a dose of Solu-Medrol. She was also complaining of pain and fatigue there is concern that her MS may be exacerbated. Arrangements were made for patient to be admitted. She was started on mucinex and phenergan with codeine for cough. She was given 750mg of solu- medrol IVPB for a total of 1 gram. She was started on pain medications. Neurology and pulm were consulted. Neuro felt likely unmasking of prior MS symptoms vs fibromyalgia. She received a total of 3 days of 1000mg of IV solumedrol she had some improvement in pain. Pulm agreed no active pneumonia but felt likely reactive airway disease. She was transitioned from IV to oral pain medications, she tolerated this well. She was able to ambulate in the hallways. She received 1 dose of lasix from the swelling due to steroids. She was determined stable for discharge home. She was given an RX for percocet and phenergan with codeine. She will follow with Dr. Monroe next week, and Dr. Walton in 1-2 weeks, and Dr. Walls in 2 weeks. She will use her albuterol inhailer 4 times daily for the nexxt three days and then transition to as needed. Patient seen and examined at bedside. Feeling better, has a slight headache behind her left eye, breathing better, coughing almost resolved. Vital signs reviewed and stable. General: non toxic, no distress, appears at stated age, diaphoretic Derm: warm, dry Head: atraumatic, normocephalic, symmetric Eyes: EOMI, no lid lag, anicteric sclera Mouth: no lip lesion, mucus membranes moist Cardiovascular: S1S2 reg, no murmur, positive posterior tibial pulse bilateral, Lungs: CTA bilateral, no rhonchi, no rales , no accessory muscle use Abdominal: soft, nontender to palpation, no guarding, no appreciable organomegaly Ext: no gross muscle atrophy, 1+ edema, no contractures Neuro: CN II-XI grossly intact, no focal neuro deficits Psych: Alert, oriented, appropriate affect A total of 35 minutes of time were spent preparing this complex discharge summary . Pertinent Studies: CXR- left linear atelectasis Patient Condition at Discharge: Stable Plan - Discharge Summary Discharge Rx Participant: No New Discharge Prescriptions: New guaiFENesin [Mucinex] 1,200 mg PO Q12HR tablet.er oxyCODONE-APAP 10-325MG [Percocet 10-325 mg] 1 each PO Q4H PRN #31 tab PRN Reason: Pain Promethaz-Cod 6.25-10 mg/5 ml [Phenergan with Codeine] 5 ml PO Q6H PRN #100 ml PRN Reason: Cold Symptoms Albuterol Inhaler [Ventolin Hfa Inhaler] 2 puff INHALATION RT-Q6H #1 inhaler Continue Mirtazapine [Remeron] 30 mg PO HS DULoxetine HCL [Cymbalta] 120 mg PO DAILY Pregabalin [Lyrica] 150 mg PO TID Levothyroxine Sodium [Synthroid] 25 mcg PO DAILY Ergocalciferol [Vitamin D2 (DRISDOL)] 50,000 unit PO FR Albuterol Inhaler [Ventolin Hfa Inhaler] 1 - 2 puff INHALATION RT-Q6H PRN PRN Reason: Shortness Of Breath Discharge Medication List Albuterol Inhaler [Ventolin Hfa Inhaler] 1 - 2 puff INHALATION RT-Q6H PRN 05/07 [History] DULoxetine HCL [Cymbalta] 120 mg PO DAILY 09/17/18 [History] Ergocalciferol [Vitamin D2 (DRISDOL)] 50,000 unit PO FR 09/17/18 [History] Levothyroxine Sodium [Synthroid] 25 mcg PO DAILY 09/17/18 [History] Mirtazapine [Remeron] 30 mg PO HS 09/17/18 [History] Pregabalin [Lyrica] 150 mg PO TID 09/17/18 [History] Albuterol Inhaler [Ventolin Hfa Inhaler] 2 puff INHALATION RT-Q6H #1 inhaler 09/27/18 [Rx] Promethaz-Cod 6.25-10 mg/5 ml [Phenergan with Codeine] 5 ml PO Q6H PRN #100 ml 09/27/18 [Rx] guaiFENesin [Mucinex] 1,200 mg PO Q12HR tablet.er 09/27/18 [Rx] oxyCODONE-APAP 10-325MG [Percocet 10-325 mg] 1 each PO Q4H PRN #31 tab 09/27/18 [Rx] Follow up Appointment(s)/Referral(s): Shae Santoyo MD [STAFF PHYSICIAN] - 1 Week Miguelina Monroe MD [Primary Care Provider] - 1-2 days Claudio Pitt MD [Medical Doctor] - 1 Week Patient Instructions/Handouts: Bronchospasm (ED) Activity/Diet/Wound Care/Special Instructions: regular diet activity as tolerated Albuterol inhaler 2 puffs for times daily for the next 3 days, then 2 puffs every 6 hours as needed for shortness of breath or wheeze Discharge Disposition: HOME SELF-CARE
[2018-09-27 12:43] LABS: Glucose,Whole Blood 143 mg/dL (75-99)
[2018-09-27 13:44] VITALS: BP 154/95; PULSE 118; RESP 16; TEMP 97.6
== END 2018-09-27 13:13 | disposition home or self-care (01) | DRG 59 ==
LOC: EC 14:54 → 6PED 17:53
PROVIDERS: ADMIT Internal Medicine; ATTEND Internal Medicine
DX: G35 Multiple sclerosis (principal); J98.11 Atelectasis; J45.909 Unspecified asthma, uncomplicated; Z87.891 Personal history of nicotine dependence; E03.9 Hypothyroidism, unspecified; E87.70 Fluid overload, unspecified; F32.9 Major depressive disorder, single episode, unspecified; F41.9 Anxiety disorder, unspecified; M79.7 Fibromyalgia; M94.0 Chondrocostal junction syndrome [Tietze]; T38.0X5A Adverse effect of glucocorticoids and synthetic analogues, initial encounter; Z79.890 Hormone replacement therapy; Z79.899 Other long term (current) drug therapy; Z82.49 Family history of ischemic heart disease and other diseases of the circulatory system; Z83.3 Family history of diabetes mellitus; Z90.49 Acquired absence of other specified parts of digestive tract; R91.1 Solitary pulmonary nodule; Z87.01 Personal history of pneumonia (recurrent); Z84.1 Family history of disorders of kidney and ureter
CPT/HCPCS: 36415; 71046; 80053; 83735; 83880; 84484; 85025; 85379; 85610; 85730; 87040; 93005; 94640; 96361; 96374; 96375; 99285

== ENCOUNTER 2018-12-31 22:56 | Emergency (ER) | payer MEDICARE, OTHER ==
[2018-12-31] MEDS ORDERED: SODIUM CHLORIDE 0.9% 1,000 ML IV ONE (23:35)
[2018-12-31] MEDS ORDERED: KETOROLAC 30 MG/ML 1 ML VIAL IVP STA (23:35)
[2018-12-31] MEDS ORDERED: diphenhydrAMINE 50 MG/ML 1 ML VIAL IVP STA (23:35)
[2018-12-31] MEDS ORDERED: HYDROcodone/APAP 5-325MG 1 EACH TAB PO STA (23:39)
[2019-01-01 00:11] LABS: Basophils % (A) 0 %; Eosinophils # (A) 0.1 k/uL (0-0.7); Eosinophils % (A) 2 %; HCT 36.9 % (34.0-46.0); HGB 12.7 gm/dL (11.4-16.0); Lymphocytes # (A) 2.6 k/uL (1.0-4.8); Lymphocytes % (A) 33 %; MCH 30.8 pg (25.0-35.0); MCHC 34.3 g/dL (31.0-37.0); MCV 89.6 fL (80.0-100.0); Mean Platelet Volume 7.1; Monocytes # (A) 0.3 k/uL (0-1.0); Monocytes % (A) 4 %; Neutrophils # (A) 4.7 k/uL (1.3-7.7); Neutrophils % (A) 60 %; Platelet Count 249 k/uL (150-450); RBC 4.11 m/uL (3.80-5.40); RDW 14.9 % (11.5-15.5); WBC 7.9 k/uL (3.8-10.6)
[2019-01-01 00:20] LABS: ALT 18 U/L (9-52); AST 16 U/L (14-36); African American GFR (CKD) >90 (>60 ml/min/1.73 sqM); Albumin 4.3 g/dL (3.5-5.0); Alkaline Phosphatase 62 U/L (38-126); Anion Gap 12 mmol/L; Blood Urea Nitrogen 11 mg/dL (7-17); Calcium 9.7 mg/dL (8.4-10.2); Carbon Dioxide 22 mmol/L (22-30); Chloride 105 mmol/L (98-107); Glucose 120 mg/dL (74-99); Potassium 3.2 mmol/L (3.5-5.1); Sodium 139 mmol/L (137-145); Total Bilirubin 0.4 mg/dL (0.2-1.3)
[2019-01-01] MEDS ORDERED: POTASSIUM CHLORIDE ER 20 MEQ TAB.ER PO STA (00:31)
[2019-01-01] MEDS ORDERED: HYDROmorphone 1 MG/ML 1 ML SYRINGE IVP STA (00:34)
--- NOTE | 2019-01-01 01:43 | ED ---
Skin/Abscess/FB HPI - General Chief complaint: Skin/Abscess/Foreign Body Stated complaint: Cellulitis on face Time Seen by Provider: 12/31/18 23:13 Source: patient Mode of arrival: ambulatory Limitations: no limitations - History of Present Illness Initial comments: 48-year-old female patient with past medical history significant for multiple sclerosis and fibromyalgia presents to the emergency department today for evaluation of the right facial pain and infection. Patient states she saw her primary care physician 4 days ago was diagnosed with cellulitis of the face and given prescription for Augmentin. Patient states she has been taking the medi cation as directed but the infection seems to be worsening and spreading. Patient states that she has history of multiple sclerosis and this infection has triggered her pain. Patient states she is having generalized body pain. States she is taking anti-inflammatory medication home but it doesn't seem to be helping. Patient states she is out of her [place]. She denies any fevers or chills. Patient states she has been having some nausea and vomiting since starting the antibiotic. Denies any diarrhea. Patient denies any recent rash, fever, chills, shortness breath, chest pain, abdominal pain, diarrhea, constipation, back pain, numbness, tingling, dizziness, weakness, hematuria, dysuria, urinary urgency, urinary frequency, headache, visual changes, or any other complaints. - Related Data Home Medications Medication Instructions Recorded Confirmed Albuterol Inhaler [Ventolin Hfa 1 - 2 puff INHALATION RT-Q6H PRN 09/17/18 09/24/18 Inhaler] DULoxetine HCL [Cymbalta] 120 mg PO DAILY 09/17/18 09/24/18 Ergocalciferol [Vitamin D2 50,000 unit PO FR 09/17/18 09/24/18 (DRISDOL)] Levothyroxine Sodium [Synthroid] 25 mcg PO DAILY 09/17/18 09/24/18 Mirtazapine [Remeron] 30 mg PO HS 09/17/18 09/24/18 Pregabalin [Lyrica] 150 mg PO TID 09/17/18 09/24/18 Previous Rx's Medication Instructions Recorded Albuterol Inhaler [Ventolin Hfa 2 puff INHALATION RT-Q6H #1 inhaler 09/27/18 Inhaler] Promethaz-Cod 6.25-10 mg/5 ml 5 ml PO Q6H PRN #100 ml 09/27/18 [Phenergan with Codeine] guaiFENesin [Mucinex] 1,200 mg PO Q12HR tablet.er 09/27/18 oxyCODONE-APAP 10-325MG [Percocet 1 each PO Q4H PRN #31 tab 09/27/18 10-325 mg] Cephalexin [Keflex] 500 mg PO Q6HR #40 cap 01/01/19 Sulfamethoxazole/Trimethoprim 1 each PO BID #20 tablet 01/01/19 [Bactrim DS 800-160 mg] Allergies Allergy/AdvReac Type Severity Reaction Status Date / Time No Known Allergies Allergy Verified 12/31/18 23:03 Review of Systems ROS Statement: Those systems with pertinent positive or pertinent negative responses have been documented in the HPI. ROS Other: All systems not noted in ROS Statement are negative. Past Medical History Past Medical History: Fibromyalgia, Neurologic Disorder, Pneumonia Additional Past Medical History / Comment(s): Multiple Sclerosis - diagnosis 2014 , hypothyroidism History of Any Multi-Drug Resistant Organisms: None Reported Past Surgical History: Appendectomy Past Anesthesia/Blood Transfusion Reactions: No Reported Reaction Past Psychological History: Anxiety, Depression Smoking Status: Former smoker Past Alcohol Use History: Rare Past Drug Use History: Marijuana - Past Family History Father Family Medical History: Diabetes Mellitus, Myocardial Infarction ([place]) Mother Family Medical History: No Reported History Additional Family Medical History / Comment(s): Chronic kidney disease stage IV General Exam Limitations: no limitations General appearance: alert, in no apparent distress, other (this is a well- developed, well-nourished adult female patient in no acute distress. Vital signs upon presentation are temperature 98.8F, pulse 111, respirations 20, blood pressure 142/88, pulse ox 97% on room air.) Eye exam: Present: normal appearance, PERRL, EOMI. Absent: scleral icterus, conjunctival injection, periorbital swelling ENT exam: Present: normal oropharynx, mucous membranes moist, other (There is a 1 cm abscess noted to the right cheek with surrounding erythema. This is indurated with no fluctuance.). Absent: normal exam Neck exam: Present: normal inspection. Absent: lymphadenopathy Respiratory exam: Present: normal lung sounds bilaterally. Absent: respiratory distress, wheezes, rales, rhonchi, stridor Cardiovascular Exam: Present: regular rate, normal rhythm, normal heart sounds. Absent: systolic murmur, diastolic murmur, rubs, gallop, clicks GI/Abdominal exam: Present: soft, normal bowel sounds. Absent: distended, tenderness, guarding, rebound, rigid Neurological exam: Present: alert, oriented X3, CN II-XII intact Psychiatric exam: Present: normal affect, normal mood Skin exam: Present: warm, dry, intact, normal color. Absent: rash Course Vital Signs 12/31/18 23:00 Temperature 98.8 F Pulse Rate 111 H Respiratory 20 Rate Blood Pressure 142/88 O2 Sat by Pulse 97 Oximetry Medical Decision Making - Medical Decision Making 48-year-old female patient presents to the emergency department today for evaluation of infection to the right cheek. Physical examination did reveal a 1 cm abscess noted to the right cheek with surrounding erythema consistent with cellulitis. Labs reviewed and revealed a normal white blood cell, she is afebrile. She did report generalized body pain related to her MS. She was given IV fluids and pain medication here in the emergency department. Upon reevaluation she does report improvement of symptoms. She is having side effects of nausea and vomiting with the Augmentin so we'll switch her to Bactrim and Keflex. She is instructed to apply cool compresses to the face. She is instructed to follow-up with her primary care physician for recheck in 1-2 days. Return parameters were discussed in detail. She verbalizes understanding and agrees this plan. - Lab Data Result diagrams: 12/31/18 23:57 12/31/18 23:57 Lab Results 12/31/18 12/31/18 12/31/18 Range/Units 23:57 23:57 23:57 WBC 7.9 (3.8-10.6) k/uL RBC 4.11 (3.80-5.40) m/uL Hgb 12.7 (11.4-16.0) gm/dL Hct 36.9 (34.0-46.0) % MCV 89.6 (80.0-100.0) fL MCH 30.8 (25.0-35.0) pg MCHC 34.3 (31.0-37.0) g/dL RDW 14.9 (11.5-15.5) % Plt Count 249 (150-450) k/uL Neutrophils % 60 % Lymphocytes % 33 % Monocytes % 4 % Eosinophils % 2 % Basophils % 0 % Neutrophils # 4.7 (1.3-7.7) k/uL Lymphocytes # 2.6 (1.0-4.8) k/uL Monocytes # 0.3 (0-1.0) k/uL Eosinophils # 0.1 (0-0.7) k/uL Basophils # 0.0 (0-0.2) k/uL Sodium 139 (137-145) mmol/L Potassium 3.2 L (3.5-5.1) mmol/L Chloride 105 (98-107) mmol/L Carbon Dioxide 22 (22-30) mmol/L Anion Gap 12 mmol/L BUN 11 (7-17) mg/dL Creatinine 0.78 (0.52-1.04) mg/dL Est GFR (CKD-EPI)AfAm >90 (>60 ml/min/1.73 sqM) Est GFR (CKD-EPI)NonAf 89 (>60 ml/min/1.73 sqM) Glucose 120 H (74-99) mg/dL Plasma Lactic Acid Daniel 1.3 (0.7-2.0) mmol/L Calcium 9.7 (8.4-10.2) mg/dL Total Bilirubin 0.4 (0.2-1.3) mg/dL AST 16 (14-36) U/L ALT 18 (9-52) U/L Alkaline Phosphatase 62 (38-126) U/L Total Protein 7.0 (6.3-8.2) g/dL Albumin 4.3 (3.5-5.0) g/dL Disposition Clinical Impression: Facial abscess, Facial cellulitis Disposition: HOME SELF-CARE Condition: Good Instructions (If sedation given, give patient instructions): Cellulitis (ED), Abscess (ED) Additional Instructions: Cool compresses to the face. Take medications as directed. Follow-up with your primary care physician for recheck in 1-2 days. Call for refills of pain medication Wednesday. Return to the emergency department immediately for any new, worsening, or concerning symptoms. Patient did receive a dose of Dilaudid in the emergency department. Prescriptions: Sulfamethoxazole/Trimethoprim [Bactrim DS 800-160 mg] 1 each PO BID #20 tablet Cephalexin [Keflex] 500 mg PO Q6HR #40 cap Is patient prescribed a controlled substance at d/c from ED?: No Referrals: Miguelina Monroe MD [Primary Care Provider] - 1-2 days Time of Disposition: 01:43
[2019-01-01] MEDS ORDERED: SULFAMETH-TMP DS STARTER PACK 2 TAB BTL PO STA (01:45)
[2019-01-01] MEDS ORDERED: CEPHALEXIN 500MG STARTER PACK 4 CAP BTL PO STA (01:45)
[2019-01-01 02:02] VITALS: BP 116/78; PULSE 92; RESP 18; TEMP 98
== END 2019-01-01 02:11 | disposition home or self-care (01) ==
LOC: EC 22:56
DX: L03.211 Cellulitis of face (principal); L02.01 Cutaneous abscess of face; R11.2 Nausea with vomiting, unspecified; G35 Multiple sclerosis; M79.7 Fibromyalgia; F32.9 Major depressive disorder, single episode, unspecified; F41.9 Anxiety disorder, unspecified; E03.9 Hypothyroidism, unspecified; Z79.51 Long term (current) use of inhaled steroids; Z79.890 Hormone replacement therapy; Z79.899 Other long term (current) drug therapy; Z87.891 Personal history of nicotine dependence
CPT/HCPCS: 36415; 80053; 83605; 85025; 87040; 99283; 96374; 96375 ×2; 96361 ×2; J1200; J1885; J1170

== ENCOUNTER 2019-03-20 13:28 | Emergency (ER) | payer MEDICARE, OTHER ==
[2019-03-20 13:42] VITALS: RESP 18; TEMP 98.2
[2019-03-20] MEDS ORDERED: HYDROmorphone 1 MG/ML 1 ML SYRINGE IVP STA ×3 (14:13→16:54)
--- NOTE | 2019-03-20 14:18 | ED ---
General Adult HPI - General Chief complaint: Chest Pain Stated complaint: MS, anxiety, chest pain Time Seen by Provider: 03/20/19 13:58 Source: patient Mode of arrival: ambulatory Limitations: no limitations - History of Present Illness Initial comments: Dictation was produced using [employer] dictation software. please excuse any grammatical, word or spelling errors. Chief Complaint: 49-year-old female past medical history of multiple sclerosis presents with total body pain. History of Present Illness: Patient is a 49-year-old female past medical history fibromyalgia, multiple sclerosis, chronic pain presents with total body pain. Patient reports that her pain is more severe than usual. She states however it is similar to pain episode she is had in the past. Patient states this pain is from her multiple sclerosis. She takes [place] at home. Patient also takes Lyrica. She does have an outpatient doctor that manages her multiple sclerosis. Patient states she's been very anxious recently because about some insurance issues. She believes that the anxiety is contributing to her symptoms today. Patient states she also has some sharp chest pain that does not radiate. She reports that it feels like a scraping sensation to the inside of her sternum. Pain does not radiate to the extremities. No sensory diaphoresis. No associated nausea. She does however have family history of cardiac disease in her father The ROS documented in this emergency department record has been reviewed and confirmed by me. Those systems with pertinent positive or negative responses have been documented in the HPI. All other systems are other negative and/or noncontributory. PHYSICAL EXAM: General Impression: Alert and oriented x3, not in acute distress HEENT: Normocephalic atraumatic, extra-ocular movements intact, pupils equal and reactive to light bilaterally, mucous membranes moist. Cardiovascular: Heart regular rate and rhythm, S1&S2 audible, no murmurs, rubs or gallops Chest: Lungs clear to auscultation bilaterally, no rhonchi, no wheeze, no rales Abdomen: Bowel sounds present, abdomen soft, non-tender, non-distended, no organomegaly Musculoskeletal: Pulses present and equal in all extremities, no peripheral edema Motor: no focal deficits noted Neurological: CN II-XII grossly intact, no focal motor or sensory deficits noted Skin: Intact with no visualized rashes Psych: Anxious, tearful ED course: 49-year-old female presents with clinical presentation consistent with multiple sclerosis pain and atypical chest pain. All signs upon arrival are within acceptable limits. Clinical presentation consistent with MS associated pain. was performed. Patient has overdosed risk for 460. Patient is exhibiting drug-seeking behavior. Laboratory evaluation obtained showing no acute processes. Patient given Dilaudid with improvement of symptoms. Patient has a doctor to follow-up with for outpatient management of multiple sclerosis. Patient understandable agreeable disposition. Return Prevacid discussed. Patient clear for discharge. EKG interpretation: Ventricular rate 90, normal sinus rhythm, SC interval 170, QS 80, QTc 450. No SC prolongation, no QTC prolongation, no ST or T-wave changes noted. Overall, this EKG is unremarkable - Related Data Home Medications Medication Instructions Recorded Confirmed Albuterol Inhaler [Ventolin Hfa 1 - 2 puff INHALATION RT-Q6H PRN 09/17/18 09/24/18 Inhaler] DULoxetine HCL [Cymbalta] 120 mg PO DAILY 09/17/18 09/24/18 Ergocalciferol [Vitamin D2 50,000 unit PO FR 09/17/18 09/24/18 (DRISDOL)] Levothyroxine Sodium [Synthroid] 25 mcg PO DAILY 09/17/18 09/24/18 Mirtazapine [Remeron] 30 mg PO HS 09/17/18 09/24/18 Pregabalin [Lyrica] 150 mg PO TID 09/17/18 09/24/18 Previous Rx's Medication Instructions Recorded Albuterol Inhaler [Ventolin Hfa 2 puff INHALATION RT-Q6H #1 inhaler 09/27/18 Inhaler] Promethaz-Cod 6.25-10 mg/5 ml 5 ml PO Q6H PRN #100 ml 09/27/18 [Phenergan with Codeine] guaiFENesin [Mucinex] 1,200 mg PO Q12HR tablet.er 09/27/18 oxyCODONE-APAP 10-325MG [Percocet 1 each PO Q4H PRN #31 tab 09/27/18 10-325 mg] Cephalexin [Keflex] 500 mg PO Q6HR #40 cap 01/01/19 Sulfamethoxazole/Trimethoprim 1 each PO BID #20 tablet 01/01/19 [Bactrim DS 800-160 mg] Allergies Allergy/AdvReac Type Severity Reaction Status Date / Time No Known Allergies Allergy Verified 03/20/19 13:39 Review of Systems ROS Statement: Those systems with pertinent positive or pertinent negative responses have been documented in the HPI. ROS Other: All systems not noted in ROS Statement are negative. Past Medical History Past Medical History: Fibromyalgia, Neurologic Disorder, Pneumonia Additional Past Medical History / Comment(s): Multiple Sclerosis - diagnosis 20 14 , hypothyroidism History of Any Multi-Drug Resistant Organisms: None Reported Past Surgical History: Appendectomy Past Anesthesia/Blood Transfusion Reactions: No Reported Reaction Past Psychological History: Anxiety, Depression Smoking Status: Former smoker Past Alcohol Use History: Rare Past Drug Use History: None Reported, Marijuana - Past Family History Father Family Medical History: Diabetes Mellitus, Myocardial Infarction ([place]) Mother Family Medical History: No Reported History Additional Family Medical History / Comment(s): Chronic kidney disease stage IV General Exam Limitations: no limitations Course Vital Signs 03/20/19 13:39 Temperature 98.2 F Pulse Rate 98 Respiratory 18 Rate Blood Pressure 135/88 O2 Sat by Pulse 96 Oximetry Medical Decision Making - Lab Data Result diagrams: 03/20/19 14:58 03/20/19 14:58 Lab Results 03/20/19 03/20/19 Range/Units 14:58 14:58 WBC 6.2 (3.8-10.6) k/uL RBC 4.05 (3.80-5.40) m/uL Hgb 12.3 (11.4-16.0) gm/dL Hct 36.4 (34.0-46.0) % MCV 90.0 (80.0-100.0) fL MCH 30.4 (25.0-35.0) pg MCHC 33.8 (31.0-37.0) g/dL RDW 14.2 (11.5-15.5) % Plt Count 241 (150-450) k/uL Neutrophils % 55 % Lymphocytes % 37 % Monocytes % 4 % Eosinophils % 2 % Basophils % 0 % Neutrophils # 3.4 (1.3-7.7) k/uL Lymphocytes # 2.3 (1.0-4.8) k/uL Monocytes # 0.2 (0-1.0) k/uL Eosinophils # 0.2 (0-0.7) k/uL Basophils # 0.0 (0-0.2) k/uL Sodium 141 (137-145) mmol/L Potassium 4.1 (3.5-5.1) mmol/L Chloride 110 H (98-107) mmol/L Carbon Dioxide 24 (22-30) mmol/L Anion Gap 7 mmol/L BUN 10 (7-17) mg/dL Creatinine 0.80 (0.52-1.04) mg/dL Est GFR (CKD-EPI)AfAm >90 (>60 ml/min/1.73 sqM) Est GFR (CKD-EPI)NonAf 86 (>60 ml/min/1.73 sqM) Glucose 109 H (74-99) mg/dL Calcium 9.3 (8.4-10.2) mg/dL Magnesium 2.0 (1.6-2.3) mg/dL Disposition Clinical Impression: Pain Disposition: HOME SELF-CARE Condition: Good Instructions (If sedation given, give patient instructions): Narcotic Safety (ED) Is patient prescribed a controlled substance at d/c from ED?: No Referrals: Piyush Carr [Primary Care Provider] - 1-2 days Time of Disposition: 15:41
--- NOTE | 2019-03-20 14:37 | XR ---
EXAMINATION TYPE: XR chest 2V DATE OF EXAM: 03/20/2019 COMPARISON: 09/24/2018 HISTORY: Chest pain TECHNIQUE: Frontal and lateral views of the chest are obtained. FINDINGS: New left basilar atelectasis is linear and platelike. There is no focal air space opacity, pleural e ffusion, or pneumothorax seen. The cardiac silhouette size is within normal limits. The osseous st ructures are intact. IMPRESSION: New left basilar subsegmental atelectasis. Otherwise no acute cardiopulmonary process.
[2019-03-20 15:06] LABS: Basophils % (A) 0 %; Eosinophils # (A) 0.2 k/uL (0-0.7); Eosinophils % (A) 2 %; HCT 36.4 % (34.0-46.0); HGB 12.3 gm/dL (11.4-16.0); Lymphocytes # (A) 2.3 k/uL (1.0-4.8); Lymphocytes % (A) 37 %; MCH 30.4 pg (25.0-35.0); MCHC 33.8 g/dL (31.0-37.0); Mean Platelet Volume 5.6; Monocytes # (A) 0.2 k/uL (0-1.0); Monocytes % (A) 4 %; Neutrophils # (A) 3.4 k/uL (1.3-7.7); Neutrophils % (A) 55 %; Platelet Count 241 k/uL (150-450); RBC 4.05 m/uL (3.80-5.40); RDW 14.2 % (11.5-15.5); WBC 6.2 k/uL (3.8-10.6)
[2019-03-20 15:14] LABS: African American GFR (CKD) >90 (>60 ml/min/1.73 sqM); Anion Gap 7 mmol/L; Blood Urea Nitrogen 10 mg/dL (7-17); Calcium 9.3 mg/dL (8.4-10.2); Carbon Dioxide 24 mmol/L (22-30); Chloride 110 mmol/L (98-107); Glucose 109 mg/dL (74-99); Non-African American GFR(CKD) 86 (>60 ml/min/1.73 sqM); Potassium 4.1 mmol/L (3.5-5.1); Sodium 141 mmol/L (137-145)
[2019-03-20] MEDS ORDERED: DEXAMETHASONE SOD PHOSPHATE 10 MG/ML 1 ML VIAL IV STA (16:54)
[2019-03-20 17:04] VITALS: BP 134/88; PULSE 78
== END 2019-03-20 17:18 | disposition home or self-care (01) ==
LOC: EC 13:28
DX: R07.89 Other chest pain (principal); G35 Multiple sclerosis; Z76.5 Malingerer [conscious simulation]; R45.83 Excessive crying of child, adolescent or adult; F41.9 Anxiety disorder, unspecified; M79.7 Fibromyalgia; E03.9 Hypothyroidism, unspecified; F32.9 Major depressive disorder, single episode, unspecified; Z87.891 Personal history of nicotine dependence; Z79.890 Hormone replacement therapy; Z79.899 Other long term (current) drug therapy; Z82.49 Family history of ischemic heart disease and other diseases of the circulatory system
CPT/HCPCS: 36415; 93005; 80048; 83735; 85025; 71046; 99285; 96374; 96375; 96376 ×2; J1100; J1170

== ENCOUNTER → 2019-03-21 | Outpatient (CLI) | payer MEDICARE ==
[2019-03-21 21:17] LABS: African American GFR (CKD) 98.9 (60.0-200.0); Albumin 4.7 g/dL (3.80-4.90); Albumin/Globulin Ratio 2.61 (1.60-3.17); Anion Gap 11.3 mmol/L (4.00-12.00); BUN/Creat Ratio 22.5 Ratio (12.00-20.00); Calcium 9.5 mg/dL (8.7-10.3); Carbon Dioxide 20.7 mmol/L (21.6-31.8); Chol/HDL Ratio 4.27; Globulin 1.8 g/dL (1.6-3.3); LDL Cholesterol,Calculated 159.6 mg/dL (0.0-131.0); Non-African American GFR(CKD) 85.4 (60.0-200.0); Total Bilirubin 0.4 mg/dL (0.2-1.2); Total Protein 6.5 g/dL (6.2-8.2); VLDL Calculation 43.4 mg/dL (5.00-40.00)
[2019-03-21 22:06] LABS: T4, Free (Free Thyroxine) 0.7 ng/dL (0.80-1.80)
[2019-03-22 00:21] LABS: Hemoglobin A1C 5.6 % (4.0-6.0)
== END | disposition home or self-care (01) ==
LOC: LABWHC1 11:38
PROVIDERS: ATTEND Psychiatry & Neurology Psychiatry
DX: E78.5 Hyperlipidemia, unspecified (principal); E53.8 Deficiency of other specified B group vitamins; E03.9 Hypothyroidism, unspecified; E55.9 Vitamin D deficiency, unspecified; R73.9 Hyperglycemia, unspecified; F33.2 Major depressive disorder, recurrent severe without psychotic features; Z79.899 Other long term (current) drug therapy
CPT/HCPCS: 36415; 80053; 80061; 80175; 82306; 82607; 83036; 84439; 84443; 85652

== ENCOUNTER 2019-09-13 17:30 | Emergency (ER) | payer MEDICARE, OTHER ==
[2019-09-13 17:41] VITALS: RESP 18
[2019-09-13] MEDS ORDERED: SODIUM CHLORIDE 0.9% 1,000 ML IV STA (18:27)
[2019-09-13] MEDS ORDERED: HYDROmorphone 1 MG/ML 1 ML SYRINGE IVP STA ×2 (18:28→20:18)
[2019-09-13] MEDS ORDERED: ONDANSETRON 4 MG/2 ML VIAL IVP STA (18:28)
--- NOTE | 2019-09-13 18:30 | ED ---
General Adult HPI - General Chief complaint: Recheck/Abnormal Lab/Rx Stated complaint: Pain all over-MS Source: patient Mode of arrival: ambulatory Limitations: no limitations - History of Present Illness Initial comments: Patient is a 49-year-old female with history of MS presenting to emergency Department with a chief complaint of pain. Patient reports she typically has 2- 3 flareups per year. States this is what her typical flareups look like. States there is pain throughout all joints and he feels like "someone is scooping the joints". Also reports nausea but no vomiting. States the symptoms began 2 days ago and gradually getting worse symptomatically. Denies any visual changes headache chest pain or shortness of breath. States she was scheduled to start MS medication but it was all delayed due to the Covid crisis. Patient sees Dr Mathias. - Related Data Home Medications Medication Instructions Recorded Confirmed Albuterol Inhaler (Mhu) [Ventolin 1 - 2 puff INHALATION RT-Q6H PRN 09/17/18 09/24/18 Hfa Inhaler (Mhu)] DULoxetine HCL [Cymbalta] 120 mg PO DAILY 09/17/18 09/24/18 Ergocalciferol [Vitamin D2 50,000 unit PO FR 09/17/18 09/24/18 (DRISDOL)] Levothyroxine Sodium [Synthroid] 25 mcg PO DAILY 09/17/18 09/24/18 Mirtazapine [Remeron] 30 mg PO HS 09/17/18 09/24/18 Pregabalin [Lyrica] 150 mg PO TID 09/17/18 09/24/18 Previous Rx's Medication Instructions Recorded Albuterol Inhaler (Mhu) [Ventolin 2 puff INHALATION RT-Q6H #1 inhaler 09/27/18 Hfa Inhaler (Mhu)] Promethaz-Cod 6.25-10 mg/5 ml 5 ml PO Q6H PRN #100 ml 09/27/18 [Phenergan with Codeine] guaiFENesin [Mucinex] 1,200 mg PO Q12HR tablet.er 09/27/18 oxyCODONE-APAP 10-325MG [Percocet 1 each PO Q4H PRN #31 tab 09/27/18 10-325 mg] Cephalexin [Keflex] 500 mg PO Q6HR #40 cap 01/01/19 Sulfamethoxazole/Trimethoprim 1 each PO BID #20 tablet 01/01/19 [Bactrim DS 800-160 mg] Ondansetron Odt [Zofran Odt] 4 mg PO Q8HR PRN #20 tab 09/13/19 Allergies Allergy/AdvReac Type Severity Reaction Status Date / Time No Known Allergies Allergy Verified 09/13/19 17:40 Review of Systems ROS Statement: Those systems with pertinent positive or pertinent negative responses have been documented in the HPI. ROS Other: All systems not noted in ROS Statement are negative. Past Medical History Past Medical History: Fibromyalgia, Neurologic Disorder, Pneumonia Additional Past Medical History / Comment(s): Multiple Sclerosis - diagnosis 2014 , hypothyroidism History of Any Multi-Drug Resistant Organisms: None Reported Past Surgical History: Appendectomy Past Anesthesia/Blood Transfusion Reactions: No Reported Reaction Past Psychological History: Anxiety, Depression Smoking Status: Former smoker Past Alcohol Use History: Rare Past Drug Use History: None Reported, Marijuana - Past Family History Father Family Medical History: Diabetes Mellitus, Myocardial Infarction ([place]) Mother Family Medical History: No Reported History Additional Family Medical History / Comment(s): Chronic kidney disease stage IV General Exam Limitations: no limitations General appearance: alert, in no apparent distress Head exam: Present: atraumatic, normocephalic, normal inspection Eye exam: Present: normal appearance, PERRL, EOMI Pupils: Present: normal accommodation ENT exam: Present: normal exam, normal oropharynx, mucous membranes moist Neck exam: Present: normal inspection, full ROM Respiratory exam: Present: normal lung sounds bilaterally. Absent: respiratory distress, wheezes Cardiovascular Exam: Present: regular rate, normal rhythm, normal heart sounds Extremities exam: Present: normal inspection, full ROM Back exam: Present: normal inspection, full ROM Neurological exam: Present: alert, oriented X3 Psychiatric exam: Present: normal affect, normal mood Course Vital Signs 09/13/19 17:38 Temperature 98.1 F Pulse Rate 95 Respiratory 18 Rate Blood Pressure 120/88 O2 Sat by Pulse 96 Oximetry Medical Decision Making - Medical Decision Making Patient is a 49-year-old female with history of MS presenting to the emergency department with a chief complaint of MS flareup. Physical examination is unremarkable. Patient appears to have polyarthralgias which is common during her MS flareups. Patient did also have some nausea but no vomiting. She was given antiemetics, analgesia and fluids. On reevaluation patient reports improvement of symptoms. Patient states she feels comfortable going home. Patient will be discharged with Zofran. Return parameters were thoroughly d iscussed with patient some standing and agreeable. Case discussed with physician. - Lab Data Result diagrams: 09/13/19 19:30 09/13/19 19:30 Lab Results 09/13/19 09/13/19 Range/Units 19:30 19:30 WBC 7.0 (3.8-10.6) k/uL RBC 4.22 (3.80-5.40) m/uL Hgb 13.1 (11.4-16.0) gm/dL Hct 38.6 (34.0-46.0) % MCV 91.6 (80.0-100.0) fL MCH 31.0 (25.0-35.0) pg MCHC 33.9 (31.0-37.0) g/dL RDW 14.6 (11.5-15.5) % Plt Count 201 (150-450) k/uL Neutrophils % 60 % Lymphocytes % 33 % Monocytes % 4 % Eosinophils % 2 % Basophils % 0 % Neutrophils # 4.2 (1.3-7.7) k/uL Lymphocytes # 2.3 (1.0-4.8) k/uL Monocytes # 0.3 (0-1.0) k/uL Eosinophils # 0.1 (0-0.7) k/uL Basophils # 0.0 (0-0.2) k/uL Sodium 136 L (137-145) mmol/L Potassium 3.8 (3.5-5.1) mmol/L Chloride 104 (98-107) mmol/L Carbon Dioxide 22 (22-30) mmol/L Anion Gap 10 mmol/L BUN 11 (7-17) mg/dL Creatinine 0.78 (0.52-1.04) mg/dL Est GFR (CKD-EPI)AfAm >90 (>60 ml/min/1.73 sqM) Est GFR (CKD-EPI)NonAf 89 (>60 ml/min/1.73 sqM) Glucose 95 (74-99) mg/dL Calcium 9.3 (8.4-10.2) mg/dL Total Bilirubin 0.6 (0.2-1.3) mg/dL AST 19 (14-36) U/L ALT 18 (4-34) U/L Alkaline Phosphatase 73 (38-126) U/L Total Protein 6.9 (6.3-8.2) g/dL Albumin 4.3 (3.5-5.0) g/dL Disposition Clinical Impression: Polyarthralgia, Generalized pain, Multiple sclerosis exacerbation Disposition: HOME SELF-CARE Condition: Good Instructions (If sedation given, give patient instructions): Multiple Sclerosis (DC) Additional Instructions: Follow-up with your neurologist. Return to emergency department if symptoms worsen. Take prescribed medication as directed. Is patient prescribed a controlled substance at d/c from ED?: No Referrals: Ki Choi MD [Primary Care Provider] - 1-2 days Time of Disposition: 20:28
[2019-09-13 19:55] LABS: ALT 18 U/L (4-34); AST 19 U/L (14-36); African American GFR (CKD) >90 (>60 ml/min/1.73 sqM); Albumin 4.3 g/dL (3.5-5.0); Alkaline Phosphatase 73 U/L (38-126); Anion Gap 10 mmol/L; Blood Urea Nitrogen 11 mg/dL (7-17); Calcium 9.3 mg/dL (8.4-10.2); Carbon Dioxide 22 mmol/L (22-30); Chloride 104 mmol/L (98-107); Glucose 95 mg/dL (74-99); Non-African American GFR(CKD) 89 (>60 ml/min/1.73 sqM); Potassium 3.8 mmol/L (3.5-5.1); Sodium 136 mmol/L (137-145); Total Bilirubin 0.6 mg/dL (0.2-1.3); Total Protein 6.9 g/dL (6.3-8.2)
[2019-09-13 19:57] LABS: Basophils % (A) 0 %; Eosinophils # (A) 0.1 k/uL (0-0.7); Eosinophils % (A) 2 %; HCT 38.6 % (34.0-46.0); HGB 13.1 gm/dL (11.4-16.0); Lymphocytes # (A) 2.3 k/uL (1.0-4.8); Lymphocytes % (A) 33 %; MCHC 33.9 g/dL (31.0-37.0); MCV 91.6 fL (80.0-100.0); Mean Platelet Volume 6.7; Monocytes # (A) 0.3 k/uL (0-1.0); Monocytes % (A) 4 %; Neutrophils # (A) 4.2 k/uL (1.3-7.7); Neutrophils % (A) 60 %; Platelet Count 201 k/uL (150-450); RBC 4.22 m/uL (3.80-5.40); RDW 14.6 % (11.5-15.5)
[2019-09-13] MEDS ORDERED: ONDANSETRON 4 MG ODT STARTER PACK 2 TAB BTL PO STA (20:28)
[2019-09-13 20:43] VITALS: BP 126/78; PULSE 83; TEMP 97.7
== END 2019-09-13 20:43 | disposition home or self-care (01) ==
LOC: EC 17:30
DX: G35 Multiple sclerosis (principal); R11.0 Nausea; F41.9 Anxiety disorder, unspecified; F32.9 Major depressive disorder, single episode, unspecified; M79.7 Fibromyalgia; E03.9 Hypothyroidism, unspecified; Z79.890 Hormone replacement therapy; Z79.899 Other long term (current) drug therapy; Z87.891 Personal history of nicotine dependence
CPT/HCPCS: 36415; 80053; 85025; 99283; 96374; 96375; 96376; 96361; J2405; J1170; S0119

== ENCOUNTER → 2019-09-21 | Outpatient (CLI) | payer MEDICARE ==
[2019-09-21 13:17] LABS: Basophils % (A) 0 %; Eosinophils # (A) 0.1 k/uL (0-0.7); Eosinophils % (A) 2 %; HCT 40.7 % (34.0-46.0); Lymphocytes # (A) 2.2 k/uL (1.0-4.8); Lymphocytes % (A) 32 %; MCH 29.4 pg (25.0-35.0); MCHC 32.1 g/dL (31.0-37.0); MCV 91.7 fL (80.0-100.0); Mean Platelet Volume 6.9; Monocytes # (A) 0.3 k/uL (0-1.0); Monocytes % (A) 5 %; Neutrophils % (A) 60 %; Platelet Count 246 k/uL (150-450); RBC 4.43 m/uL (3.80-5.40); RDW 14.5 % (11.5-15.5); WBC 6.7 k/uL (3.8-10.6)
[2019-09-21 15:04] LABS: Erythrocyte Sedimentation Rate 20 mm/hr (0-20)
[2019-09-22 00:01] LABS: Progesterone 2.7 ng/mL
[2019-09-22 00:44] LABS: Magnesium 2.1 mg/dL (1.5-2.4)
[2019-09-22 00:51] LABS: Estradiol 52.6 pg/mL
[2019-09-22 00:53] LABS: Follicle Stimulating Hormone 4.5 mIU/mL
[2019-09-22 00:55] LABS: Folate, Serum 16.9 ng/mL; Luteinizing Hormone 1.4 mIU/mL
== END | disposition home or self-care (01) ==
LOC: LABWHC1 11:45
PROVIDERS: ATTEND Family Medicine
DX: R43.2 Parageusia (principal); N95.1 Menopausal and female climacteric states
CPT/HCPCS: 85652; 83001; 83002; 82607; 82746; 82670; 83735; 84630; 85025; 84144; 86038; 36415; U0003

== ENCOUNTER → 2020-01-03 | Outpatient (CLI) | payer MEDICARE ==
[2020-01-03 13:46] LABS: Basophils % (A) 0 %; Eosinophils # (A) 0.1 k/uL (0-0.7); Eosinophils % (A) 1 %; HCT 37.5 % (34.0-46.0); HGB 12.2 gm/dL (11.4-16.0); Lymphocytes # (A) 1.8 k/uL (1.0-4.8); Lymphocytes % (A) 22 %; MCH 28.2 pg (25.0-35.0); MCHC 32.4 g/dL (31.0-37.0); MCV 87.1 fL (80.0-100.0); Mean Platelet Volume 6.6; Monocytes # (A) 0.4 k/uL (0-1.0); Monocytes % (A) 4 %; Neutrophils # (A) 5.6 k/uL (1.3-7.7); Neutrophils % (A) 71 %; Platelet Count 245 k/uL (150-450); RDW 14.1 % (11.5-15.5); WBC 7.9 k/uL (3.8-10.6)
[2020-01-03 21:30] LABS: African American GFR (CKD) 75.5 (60.0-200.0); Albumin 4.6 g/dL (3.80-4.90); Albumin/Globulin Ratio 2.42 (1.60-3.17); Calcium 9.2 mg/dL (8.7-10.3); Globulin 1.9 g/dL (1.6-3.3); Non-African American GFR(CKD) 65.2 (60.0-200.0); Potassium 4.3 mmol/L (3.5-5.5); Total Bilirubin 0.6 mg/dL (0.3-1.2); Total Protein 6.5 g/dL (6.2-8.2)
== END | disposition home or self-care (01) ==
LOC: LABWHC1 12:13
PROVIDERS: ATTEND Nurse Practitioner Family
DX: Z51.81 Encounter for therapeutic drug level monitoring (principal)
CPT/HCPCS: 36415; 80053; 82306; 83735; 85025

== ENCOUNTER 2020-02-17 12:38 | Emergency (ER) | payer MEDICARE ==
[2020-02-17 12:45] VITALS: BP 104/67; PULSE 110; RESP 18; TEMP 98.2
[2020-02-17] MEDS ORDERED: CLINDAMYCIN 150 MG CAP PO STA (13:08)
--- NOTE | 2020-02-17 13:09 | ED ---
ENT HPI - General Chief complaint: Dental/Oral Stated complaint: painful lump on face Time Seen by Provider: 02/17/20 12:46 Source: patient, RN notes reviewed, old records reviewed Mode of arrival: ambulatory Limitations: no limitations - History of Present Illness Initial comments: Patient is a 49-year-old female with past medical history of multiple sclerosis and fibromyalgia presents emergency room today for left-sided facial pain and swelling to dental pain from a crown on the left lower molar. Patient reports that she started to have pain a few days ago. Patient reports that she apply ice to her face and tooth to help with the pain. She does have an upcoming appointment with a dentist. She reports that after applying ice for partially f gissel-minute she noticed a small area of swelling has developed onto the left cheek and has now spread for the past 2 days. Patient reports taking anti- inflammatory medication at home but has not been significant helpful. She denies any ALLERGY history. - Related Data Home Medications Medication Instructions Recorded Confirmed Albuterol Inhaler (Mhu) [Ventolin 1 - 2 puff INHALATION RT-Q6H PRN 09/17/18 09/24/18 Hfa Inhaler (Mhu)] DULoxetine HCL [Cymbalta] 120 mg PO DAILY 09/17/18 09/24/18 Ergocalciferol [Vitamin D2 50,000 unit PO FR 09/17/18 09/24/18 (DRISDOL)] Levothyroxine Sodium [Synthroid] 25 mcg PO DAILY 09/17/18 09/24/18 Mirtazapine [Remeron] 30 mg PO HS 09/17/18 09/24/18 Pregabalin [Lyrica] 150 mg PO TID 09/17/18 09/24/18 Previous Rx's Medication Instructions Recorded Albuterol Inhaler (Mhu) [Ventolin 2 puff INHALATION RT-Q6H #1 inhaler 09/27/18 Hfa Inhaler (Mhu)] Promethaz-Cod 6.25-10 mg/5 ml 5 ml PO Q6H PRN #100 ml 09/27/18 [Phenergan with Codeine] guaiFENesin [Mucinex] 1,200 mg PO Q12HR tablet.er 09/27/18 oxyCODONE-APAP 10-325MG [Percocet 1 each PO Q4H PRN #31 tab 09/27/18 10-325 mg] Cephalexin [Keflex] 500 mg PO Q6HR #40 cap 01/01/19 Sulfamethoxazole/Trimethoprim 1 each PO BID #20 tablet 01/01/19 [Bactrim DS 800-160 mg] Ondansetron Odt [Zofran Odt] 4 mg PO Q8HR PRN #20 tab 09/13/19 Clindamycin [Cleocin] 300 mg PO TID #60 cap 02/17/20 Allergies Allergy/AdvReac Type Severity Reaction Status Date / Time No Known Allergies Allergy Verified 02/17/20 12:45 Review of Systems ROS Statement: Those systems with pertinent positive or pertinent negative responses have been documented in the HPI. ROS Other: All systems not noted in ROS Statement are negative. Past Medical History Past Medical History: Fibromyalgia, Neurologic Disorder, Pneumonia Additional Past Medical History / Comment(s): Multiple Sclerosis - diagnosis 2013 , hypothyroidism History of Any Multi-Drug Resistant Organisms: None Reported Past Surgical History: Appendectomy Past Anesthesia/Blood Transfusion Reactions: No Reported Reaction Past Psychological History: Anxiety, Depression Smoking Status: Former smoker Past Alcohol Use History: Rare Past Drug Use History: None Reported - Past Family History Father Family Medical History: Diabetes Mellitus, Myocardial Infarction ([place]) Mother Family Medical History: No Reported History Additional Family Medical History / Comment(s): Chronic kidney disease stage IV General Exam - General Exam Comments Initial Comments: This is an alert and oriented.-year-old female. No acute distress. Limitations: no limitations General appearance: alert, in no apparent distress Head exam: Present: atraumatic, normocephalic, normal inspection Eye exam: Present: normal appearance, PERRL, EOMI. Absent: scleral icterus, conjunctival injection, periorbital swelling ENT exam: Present: normal exam, mucous membranes moist, other (Patient is crown of her tooth #21. Patient has no gingival erythema. She does have swelling to the left side of the lower lip and cheek.). Absent: normal oropharynx Neck exam: Present: normal inspection. Absent: tenderness, meningismus, lymphadenopathy Respiratory exam: Present: normal lung sounds bilaterally. Absent: respiratory distress, wheezes, rales, rhonchi, stridor Cardiovascular Exam: Present: regular rate, normal rhythm, normal heart sounds. Absent: systolic murmur, diastolic murmur, rubs, gallop, clicks GI/Abdominal exam: Present: soft, normal bowel sounds. Absent: distended, tenderness, guarding, rebound, rigid Extremities exam: Present: normal inspection, full ROM, normal capillary refill. Absent: tenderness, pedal edema, joint swelling, calf tenderness Back exam: Present: normal inspection Neurological exam: Present: alert, oriented X3, CN II-XII intact Psychiatric exam: Present: normal affect, normal mood Course Vital Signs 02/17/20 12:42 Temperature 98.2 F Pulse Rate 110 H Respiratory 18 Rate Blood Pressure 104/67 O2 Sat by Pulse 98 Oximetry Medical Decision Making - Medical Decision Making Patient is a 50-year-old female presents with dental pain. He is [place] started with swelling shortly afterward. Patient states clinical presentation is concerning for likely infection. There is no drainable abscess at the gumline at this time. I discussed putting the Patient on course of antibiotics. I discussed the Patient is a help with her dentist that she has an upcoming appointment next week. Discussed return parameters and saltwater/ listerine rinses. All questions answered. Disposition Clinical Impression: Pain, dental, Facial swelling Disposition: HOME SELF-CARE Condition: Good Instructions (If sedation given, give patient instructions): Toothache (ED), Dental Abscess (ED) Additional Instructions: Take the medication as prescribed. Follow-up with primary care physician and dentist. Return to the emergency department if any alarming signs or symptoms occur. Prescriptions: Clindamycin [Cleocin] 300 mg PO TID #60 cap Is patient prescribed a controlled substance at d/c from ED?: No Referrals: Ki Choi MD [Primary Care Provider] - 1-2 days Time of Disposition: 13:08
== END 2020-02-17 13:23 | disposition home or self-care (01) ==
LOC: EC 12:38
DX: K08.89 Other specified disorders of teeth and supporting structures (principal); F41.9 Anxiety disorder, unspecified; F32.9 Major depressive disorder, single episode, unspecified; M79.7 Fibromyalgia; Z87.891 Personal history of nicotine dependence; Z79.899 Other long term (current) drug therapy
CPT/HCPCS: 99283

== ENCOUNTER 2020-02-17 19:51 | Observation (INO) | payer MEDICARE ==
[2020-02-17] MEDS ORDERED: SODIUM CHLORIDE 0.9% 1,000 ML IV STA (20:42)
[2020-02-17] MEDS ORDERED: HYDROmorphone 1 MG/ML 1 ML SYRINGE IVP STA ×2 (20:43→23:09)
[2020-02-17] MEDS ORDERED: ONDANSETRON 4 MG/2 ML VIAL IVP STA ×2 (20:43→23:12)
--- NOTE | 2020-02-17 20:46 | ED ---
General Adult HPI - General Chief complaint: Dental/Oral Stated complaint: Facial Swelling - Revisit Time Seen by Provider: 02/17/20 20:12 Source: patient, RN notes reviewed Mode of arrival: ambulatory Limitations: no limitations - History of Present Illness Initial comments: 50-year-old female history of MS who was seen earlier today with what appear to be the beginnings of a dental abscess who is back tonight with complaints of generalized pain 6/10 severity she believes her emesis acting up she also some left facial swelling and numbness. She denies any overt fevers chills or sweats at this time all over. - Related Data Home Medications Medication Instructions Recorded Confirmed Albuterol Inhaler (Mhu) [Ventolin 1 - 2 puff INHALATION RT-Q6H PRN 09/17/18 09/24/18 Hfa Inhaler (Mhu)] DULoxetine HCL [Cymbalta] 120 mg PO DAILY 09/17/18 09/24/18 Ergocalciferol [Vitamin D2 50,000 unit PO FR 09/17/18 09/24/18 (DRISDOL)] Levothyroxine Sodium [Synthroid] 25 mcg PO DAILY 09/17/18 09/24/18 Mirtazapine [Remeron] 30 mg PO HS 09/17/18 09/24/18 Pregabalin [Lyrica] 150 mg PO TID 09/17/18 09/24/18 Previous Rx's Medication Instructions Recorded Albuterol Inhaler (Mhu) [Ventolin 2 puff INHALATION RT-Q6H #1 inhaler 09/27/18 Hfa Inhaler (Mhu)] Promethaz-Cod 6.25-10 mg/5 ml 5 ml PO Q6H PRN #100 ml 09/27/18 [Phenergan with Codeine] guaiFENesin [Mucinex] 1,200 mg PO Q12HR tablet.er 09/27/18 oxyCODONE-APAP 10-325MG [Percocet 1 each PO Q4H PRN #31 tab 09/27/18 10-325 mg] Cephalexin [Keflex] 500 mg PO Q6HR #40 cap 01/01/19 Sulfamethoxazole/Trimethoprim 1 each PO BID #20 tablet 01/01/19 [Bactrim DS 800-160 mg] Ondansetron Odt [Zofran Odt] 4 mg PO Q8HR PRN #20 tab 09/13/19 Clindamycin [Cleocin] 300 mg PO TID #60 cap 02/17/20 Allergies Allergy/AdvReac Type Severity Reaction Status Date / Time No Known Allergies Allergy Verified 02/17/20 19:56 Review of Systems ROS Statement: Those systems with pertinent positive or pertinent negative responses have been documented in the HPI. ROS Other: All systems not noted in ROS Statement are negative. Past Medical History Past Medical History: Fibromyalgia, Neurologic Disorder, Pneumonia Additional Past Medical History / Comment(s): Multiple Sclerosis - diagnosis 2013 , hypothyroidism, History of Any Multi-Drug Resistant Organisms: None Reported Past Surgical History: Appendectomy Past Anesthesia/Blood Transfusion Reactions: No Reported Reaction Past Psychological History: Anxiety, Depression Smoking Status: Former smoker Past Alcohol Use History: Rare Past Drug Use History: None Reported - Past Family History Father Family Medical History: Diabetes Mellitus, Myocardial Infarction ([place]) Mother Family Medical History: No Reported History Additional Family Medical History / Comment(s): Chronic kidney disease stage IV General Exam - General Exam Comments Initial Comments: This is a well-developed well-nourished awake alert oriented 3 female Limitations: no limitations General appearance: alert, anxious, in distress Head exam: Present: atraumatic, normocephalic, normal inspection Eye exam: Present: normal appearance, PERRL, EOMI. Absent: scleral icterus, conjunctival injection, periorbital swelling ENT exam: Present: other (Evidence of some left facial swelling with erythema examination oropharynx reveals some mild dental tenderness over the anterior left lower molars some mild erythema to the gumline no definite focal evidence of abscess at this time.) Neck exam: Present: full ROM, other (Evidence of mild erythema down the anterior left chain.) Respiratory exam: Present: normal lung sounds bilaterally. Absent: respiratory distress, wheezes, rales, rhonchi, stridor Cardiovascular Exam: Present: normal rhythm, tachycardia GI/Abdominal exam: Present: soft, normal bowel sounds. Absent: distended, tenderness, guarding, rebound, rigid Extremities exam: Present: normal inspection, full ROM, normal capillary refill. Absent: tenderness, pedal edema, joint swelling, calf tenderness Back exam: Present: normal inspection Neurological exam: Present: alert, oriented X3, CN II-XII intact Psychiatric exam: Present: normal affect, normal mood Skin exam: Present: warm, dry, intact, normal color. Absent: rash Course Vital Signs 02/17/20 19:52 Temperature 100.0 F H Pulse Rate 114 H Respiratory 18 Rate Blood Pressure 137/82 O2 Sat by Pulse 96 Oximetry Medical Decision Making - Medical Decision Making I did discuss the findings with the patient and with family who was present patient be admitted for IV antibiotics and suspected MS exacerbation. I did discuss the case initially with Dr. De La Fuente no neurology available this weekend. Patient aware - Lab Data Result diagrams: 02/17/20 21:02 02/17/20 21:02 Lab Results 02/17/20 02/17/20 02/17/20 Range/Units 21:02 21: 21:02 WBC 6.1 (3.8-10.6) k/uL RBC 3.94 (3.80-5.40) m/uL Hgb 11.7 (11.4-16.0) gm/dL Hct 36.1 (34.0-46.0) % MCV 91.7 (80.0-100.0) fL MCH 29.7 (25.0-35.0) pg MCHC 32.4 (31.0-37.0) g/dL RDW 15.1 (11.5-15.5) % Plt Count 210 (150-450) k/uL Neutrophils % 74 % Lymphocytes % 16 % Monocytes % 7 % Eosinophils % 1 % Basophils % 0 % Neutrophils # 4.5 (1.3-7.7) k/uL Lymphocytes # 1.0 (1.0-4.8) k/uL Monocytes # 0.4 (0-1.0) k/uL Eosinophils # 0.1 (0-0.7) k/uL Basophils # 0.0 (0-0.2) k/uL Sodium 134 L (137-145) mmol/L Potassium 3.6 (3.5-5.1) mmol/L Chloride 102 (98-107) mmol/L Carbon Dioxide 22 (22-30) mmol/L Anion Gap 10 mmol/L BUN 14 (7-17) mg/dL Creatinine 0.89 (0.52-1.04) mg/dL Est GFR (CKD-EPI)AfAm 86 (>60 ml/min/1.73 sqM) Est GFR (CKD-EPI)NonAf 75 (>60 ml/min/1.73 sqM) Glucose 129 H (74-99) mg/dL Plasma Lactic Acid Daniel 1.2 (0.7-2.0) mmol/L Calcium 8.8 (8.4-10.2) mg/dL Total Bilirubin 1.0 (0.2-1.3) mg/dL AST 29 (14-36) U/L ALT 21 (4-34) U/L Alkaline Phosphatase 71 (38-126) U/L Creatine Kinase 74 (30-135) U/L Total Protein 6.6 (6.3-8.2) g/dL Albumin 4.0 (3.5-5.0) g/dL Disposition Clinical Impression: Dental infection, Gingivitis, Facial cellulitis, Febrile illness, acute, Multiple sclerosis exacerbation Disposition: ADMITTED IP TO THIS [facility] Condition: Stable Referrals: Ki Choi MD [Primary Care Provider] - 1-2 days
[2020-02-17] MEDS ORDERED: PIPERACILLIN-TAZOBACTAM 3.375 GM in SODIUM CHLORIDE 0.9% 100 ML IVPB ONE (21:00)
[2020-02-17 21:25] LABS: Calcium 8.8 mg/dL (8.4-10.2); Potassium 3.6 mmol/L (3.5-5.1); Total Protein 6.6 g/dL (6.3-8.2)
[2020-02-17 21:37] LABS: Basophils % (A) 0 %; Eosinophils # (A) 0.1 k/uL (0-0.7); Eosinophils % (A) 1 %; HCT 36.1 % (34.0-46.0); HGB 11.7 gm/dL (11.4-16.0); Lymphocytes % (A) 16 %; MCH 29.7 pg (25.0-35.0); MCHC 32.4 g/dL (31.0-37.0); MCV 91.7 fL (80.0-100.0); Mean Platelet Volume 6.8; Monocytes # (A) 0.4 k/uL (0-1.0); Monocytes % (A) 7 %; Neutrophils # (A) 4.5 k/uL (1.3-7.7); Neutrophils % (A) 74 %; Platelet Count 210 k/uL (150-450); RBC 3.94 m/uL (3.80-5.40); RDW 15.1 % (11.5-15.5); WBC 6.1 k/uL (3.8-10.6)
[2020-02-17] MEDS ORDERED: HYDROCORTISONE SUCCINATE 100 MG/2 ML VIAL IV STA (22:54)
[2020-02-17] MEDS ORDERED: NALOXONE 0.4 MG/ML 1 ML VIAL IV PRN (23:00)
[2020-02-17] MEDS ORDERED: ACETAMINOPHEN TAB 325 MG TAB PO PRN (23:00)
[2020-02-17] MEDS ORDERED: oxyCODONE-APAP 10-325MG 1 EACH TAB PO PRN (23:02)
[2020-02-17] MEDS ORDERED: ONDANSETRON ODT 4 MG TAB PO PRN (23:02)
[2020-02-18] MEDS ORDERED: guaiFENesin-Coden 100-10MG/5ML 10 ML CUP PO PRN
[2020-02-18] MEDS: HYDROCORTISONE SUCCINATE 100 MG/2 ML VIAL IV SCH ×3 (00:50→16:41)
[2020-02-18] MEDS ORDERED: ALBUTEROL NEBULIZED 2.5 MG/3 ML INHALATION SCH (02:00)
[2020-02-18] MEDS: HYDROmorphone 0.5 MG/0.5 ML SYRINGE IVP PRN ×3 (03:19→21:07)
[2020-02-18] MEDS ORDERED: ALBUTEROL NEBULIZED 2.5 MG/3 ML INHALATION PRN (04:52)
[2020-02-18] MEDS: LEVOTHYROXINE 25 MCG TAB PO SCH (05:47)
[2020-02-18] MEDS: ALBUTEROL NEBULIZED 2.5 MG/3 ML INHALATION SCH ×3 (07:19→18:56)
[2020-02-18] MEDS: PREGABALIN 75 MG CAP PO SCH ×3 (08:38→21:09)
[2020-02-18] MEDS: guaiFENesin 600 MG TABLET.ER PO SCH ×2 (08:38→21:10)
[2020-02-18] MEDS ORDERED: DULoxetine HCL 60 MG CAPSULE.DR PO SCH (09:00)
[2020-02-18] MEDS ORDERED: ONDANSETRON 4 MG/2 ML VIAL IVP PRN (09:50)
[2020-02-18] MEDS: PIPERACILLIN-TAZOBACTAM 3.375 GM in SODIUM CHLORIDE 0.9% 100 ML IVPB SCH (16:40)
[2020-02-18] MEDS: DULoxetine HCL 60 MG CAPSULE.DR PO SCH (21:09)
[2020-02-18] MEDS: MIRTAZAPINE 15 MG TAB PO SCH (21:10)
[2020-02-18] MEDS: Dextroamphetamine/Amphetamine [Adderall] PO SCH (21:11)
[2020-02-18] MEDS: lamoTRIgine 100 MG TAB PO SCH (21:22)
--- NOTE | 2020-02-18 21:22 | P.HPIM ---
History of Present Illness H&P Date: 02/18/20 Chief Complaint: Left side facial/jaw pain Ms. Luis is a 50-year-old female with a past medical history of multiple sclerosis, hypothyroidism, fibromyalgia, anxiety with depression coming into the hospital with the chief complaint of left-sided facial pain that has been going on for the past 4 to 5 days. Patient states that she had ground on her left lower molar done few days back and later on started to have pain and swelling on the left side of the face. Patient tried to apply ice to the left side of the face to help her with the pain but did not help her much. Patient was in the emergency department yesterday afternoon and went back but return to the emergency as the patient continued to have the pain and the swelling was getting worse. Patient denied having any fevers chills or rigors. Patient denied having any difficulty in swallowing. No cough or difficulty in breathing. No chest pain or palpitations. No abdominal pain nausea vomiting or diarrhea. No dysuria or hematuria. Patient states that she has been feeling very weak and fatigued and thinks that it could be a flare of her multiple sclerosis. Patient has been complaining of hyperesthesias in both her upper extremities. In the emergency room at the time of admission patient was found to be febrile at 100.1 Fahrenheit, tachycardic at 111, respiratory rate 18, blood pressure 137/82 and was saturating at 96% on room air. Patient has blood work done showing white count of 6.1 hemoglobin 11.7 platelets 210. Sodium 134, potassium 3.6, chloride 102, bicarb 22 BUN 14, creatinine 0.89. Lactic acid is 1.2. Albumin of 4. Patient was given a dose of Zosyn and admitted to the hospital for further evaluation. Review of Systems REVIEW OF SYSTEMS: PSYCH: No anxiety or depression NEURO: No new weakness of her extremities. VASCULAR: no edema HEMATOLOGIC: No history of easy bleeding and bruising . RESPIRATORY: No cough, No SOB, No chest discomfort. IMMUNE: No recent infections INTEGUMENT: no rashes OPHTHALMOLOGIC: No blurry vision and no eye discharge : No dysuria or hematuria LITERACY COORDINATOR: No bleeding PV CARDIAC: No chest pain , shortness of breath , paroxysmal nocturnal dyspnea MUSCULOSKELETAL : generalized weakness and fatigue GI: No abdominal pain, Nausea or vomiting. No constipation or diarrhea. Past Medical History Past Medical History: Fibromyalgia, Neurologic Disorder, Pneumonia Additional Past Medical History / Comment(s): Multiple Sclerosis - diagnosis 2013 , hypothyroidism, History of Any Multi-Drug Resistant Organisms: None Reported Past Surgical History: Appendectomy Past Anesthesia/Blood Transfusion Reactions: No Reported Reaction Past Psychological History: Anxiety, Depression Smoking Status: Former smoker Past Alcohol Use History: Rare Past Drug Use History: None Reported Additional Drug Use History / Comment(s): pt states she uses marijuana occasionally 'not very often though' - Past Family History Father Family Medical History: Diabetes Mellitus, Myocardial Infarction ([place]) Mother Family Medical History: No Reported History Additional Family Medical History / Comment(s): Chronic kidney disease stage IV Medications and Allergies Home Medications Medication Instructions Recorded Confirmed Type Ergocalciferol [Vitamin D2 50,000 unit PO HAYNES 09/17/18 02/18/20 History (DRISDOL)] Pregabalin [Lyrica] 150 mg PO TID 09/17/18 02/18/20 History Atorvastatin [Lipitor] 10 mg PO DAILY 02/18/20 02/18/20 History DULoxetine HCL [Cymbalta] 30 mg PO DAILY 02/18/20 02/18/20 History DULoxetine HCL [Cymbalta] 60 mg PO HS 02/18/20 02/18/20 History Dextroamphetamine/Amphetamine 20 mg PO BID 02/18/20 02/18/20 History [Adderall] HYDROcodone/APAP 7.5-325MG [[place] 1 tab PO TID PRN 02/18/20 02/18/20 History 7.5-325] lamoTRIgine [LaMICtal] 100 mg PO DAILY 02/18/20 02/18/20 History lamoTRIgine [LaMICtal] 200 mg PO HS 02/18/20 02/18/20 History Allergies Allergy/AdvReac Type Severity Reaction Status Date / Time No Known Allergies Allergy Verified 02/18/20 09:05 Physical Exam Vitals: Vital Signs Temp Pulse Pulse Resp BP BP Pulse Ox 02/18/20 08:36 97.9 F 95 16 120/77 94 L 02/18/20 03:28 98.4 F 99 14 100/66 95 02/18/20 00:10 98.7 F 100 16 110/73 98 02/17/20 23:26 99.6 F 02/17/20 23:18 93 16 121/76 96 02/17/20 19:52 100.0 F H 114 H 18 137/82 96 Intake and Output 02/17/20 02/18/20 02/18/20 23:59 06:59 14:59 Intake Total Balance Intake: Oral Other: Voiding Method # Voids 1 Weight PHYSICAL EXAM GEN. APPEARANCE: alert, in no apparent distress HEAD EXAM: atraumatic, normocephalic, normal inspection Left jaw swollen and small abscess ~ 3/4 cm felt on the lateral side of left jaw. +tenderness, mild redness. EYE EXAM: No pallor. No icterus. ENT EXAM: normal exam, mucous membranes moist NECK EXAM: No thyromegaly, no JVD RESPIRATORY EXAM: normal lung sounds bilaterally. No wheezes or crackles. CARDIOVASCULAR EXAM: regular rate, normal rhythm, normal heart sounds. GI/ABDOMINAL EXAM: soft, normal bowel sounds. No tenderness, no distention. No guarding or rigidity. EXTREMITIES EXAM: No pedal edema. NEUROLOGICAL EXAM: alert, oriented X3, focal neurological deficits on gross exam PSYCHIATRIC EXAM: normal affect, normal mood SKIN EXAM: warm, dry, intact, normal color. Absent: rash Results CBC & Chem 7: 02/17/20 21:02 02/17/20 21:02 Labs: Abnormal Lab Results - Last 24 Hours (Table) 02/17/20 Range/Units 21:02 Sodium 134 L (137-145) mmol/L Glucose 129 H (74-99) mg/dL Thrombosis Risk Factor Assmnt - Choose All That Apply Any of the Below Risk Factors Present?: Yes Each Factor Represents 1 point: Age 41-60 years, Obesity (BMI >25) Other Risk Factors: No Other congenital or acquired thrombophilia - If yes, enter type in comment: No Thrombosis Risk Factor Assessment Total Risk Factor Score: 2 Thrombosis Risk Factor Assessment Level: Low Risk Assessment and Plan Assessment: ASSESSMENT Left side facial abscess/cellulitis Recent dental procedure -crown placement on left molar Exacerbation of multiple sclerosis-possibly due to above Multiple sclerosis Anxiety with depression Fibromyalgia Hypothyroidism PLAN: Patient to be continued on Zosyn, as she mentions that the swelling has gone down since getting a dose of Zosyn in the ER. Discussed with the patient that acute infection could sometimes cause exacerbation of multiple sclerosis and treatment of the infection is the primary goal. Neurology has been consulted. Patient is restarted on her home medications. Further recommendat ions to follow depending on the progress of the patient.
[2020-02-18] MEDS ORDERED: ENOXAPARIN 40 MG/0.4 ML SYRINGE SQ STA (22:50)
[2020-02-19] MEDS: PIPERACILLIN-TAZOBACTAM 3.375 GM in SODIUM CHLORIDE 0.9% 100 ML IVPB SCH ×3 (01:24→15:06)
[2020-02-19] MEDS: HYDROCORTISONE SUCCINATE 100 MG/2 ML VIAL IV SCH ×3 (01:24→15:06)
[2020-02-19] MEDS: LEVOTHYROXINE 25 MCG TAB PO SCH (06:21)
[2020-02-19] MEDS: guaiFENesin 600 MG TABLET.ER PO SCH ×2 (07:51→20:40)
[2020-02-19] MEDS: ATORVASTATIN 10 MG TAB PO SCH (07:51)
[2020-02-19] MEDS: PREGABALIN 75 MG CAP PO SCH ×3 (07:52→20:40)
[2020-02-19] MEDS: DULoxetine HCL 30 MG CAPSULE.DR PO SCH (07:52)
[2020-02-19] MEDS: lamoTRIgine 100 MG TAB PO SCH ×2 (07:52→20:42)
[2020-02-19] MEDS: Dextroamphetamine/Amphetamine [Adderall] PO SCH ×2 (07:53→20:40)
[2020-02-19] MEDS: ALBUTEROL NEBULIZED 2.5 MG/3 ML INHALATION SCH ×3 (08:37→19:24)
--- NOTE | 2020-02-19 09:58 | P.CNNES ---
History of Present Illness Consult date: 02/19/20 Requesting physician: Sheba Cardoza Reason for Consult: Possible Multiple Sclerosis exacerbation History of Present Illness: This is a 50-year-old right-handed woman with history of multiple sclerosis diagnosed in 2013, hypothyroidism, fibromyalgia, ex tobacco use (stopped 25 years ago) who presented to the emergency department on 02/17/2020 for left facial pain and swelling. It is thought due to dental abscess. She has dental pain from a crown on the left lower since 02/14/20. The facial swelling on the left is around the cheek area. then on 02/15/20 she noticed numbness on left cheek and jaw distribution. She presented to ED 02/17/20 as result and was discharged from ED from ED on early afternoon of 02/17/2020 was told to follow up with her dentist. She presented back on 02/17/2020 in evening for worsening of her pain. She said she has generalized pain that is 8/10 and felt the swelling is moving from the left cheek area to left jaw area as well. the similar presentation as well as for numbness on the left facial area. Neurology is consulted for possible MS exacerbation. Currently the pain is 8/10. She continues to have numbness over the left cheek and jaw distribution. She had a low grade fever upon presentation. She does have some nausea but denies vomitting. Denies dizziness, weakness, difficulty getting her words out, visual disturbance. She denies any further neurological problems. Workup in the ED consisted of: Initial vital signs: Blood pressure is 137/82, heart rate of 114, temperature of the 100.0 Fahrenheit oral, respiratory was 18 and the pulse ox is 96% at room air. The serum glucose is 129. There is no leukocytosis. She was seen by Dr. Sarmiento neuro-hospitalist over at [facility] on 09/25/2018 for possible MS exacerbation. During that visit she presented with pneumonia, jaundice weakness and body pain. And the per Dr. Sarmiento's notes and he mentioned her symptoms could be related to unmasking of old lesion related to the febrile illness. No definite of an evidence of MS exacerbation. Patient did receive Solu-Medrol 1 g daily for 3 days. Her last MRI of the brain and the C-spine was on 03/30/2018 which showed stable brain and stable cervical spine. And the findings were compatible with the patient's history of multiple sclerosis. Patient follows up with Dr. Stevens for her management of her multiple sclerosis. She previously had that tried Avonex, Tecfidera, Gilenya and Copaxone. She is currently on Ocrevus and received infusion about 1 1/2 months ago. Her next dose is 4 1/2 months from now. Review of Systems Review of system: The 12 point system was reviewed and apparent positive and negative per HPI. Past Medical History Past Medical History: Fibromyalgia, Neurologic Disorder, Pneumonia Additional Past Medical History / Comment(s): Multiple Sclerosis - diagnosis 2013 , hypothyroidism, History of Any Multi-Drug Resistant Organisms: None Reported Past Surgical History: Appendectomy Past Anesthesia/Blood Transfusion Reactions: No Reported Reaction Past Psychological History: Anxiety, Depression Smoking Status: Former smoker Past Alcohol Use History: Rare Past Drug Use History: None Reported Additional Drug Use History / Comment(s): pt states she uses marijuana occasionally 'not very often though' - Past Family History Father Family Medical History: Diabetes Mellitus, Myocardial Infarction ([place]) Mother Family Medical History: No Reported History Additional Family Medical History / Comment(s): Chronic kidney disease stage IV Medications and Allergies Home Medications Medication Instructions Recorded Confirmed Type Ergocalciferol [Vitamin D2 50,000 unit PO HAYNES 09/17/18 02/18/20 History (DAVID)] Pregabalin [Lyrica] 150 mg PO TID 09/17/18 02/18/20 History DULoxetine HCL [Cymbalta] 30 mg PO DAILY 02/18/20 02/18/20 History DULoxetine HCL [Cymbalta] 60 mg PO HS 02/18/20 02/18/20 History Dextroamphetamine/Amphetamine 20 mg PO BID 02/18/20 02/18/20 History [Adderall] HYDROcodone/APAP 7.5-325MG [[place] 1 tab PO TID PRN 02/18/20 02/18/20 History 7.5-325] lamoTRIgine [LaMICtal] 100 mg PO DAILY 02/18/20 02/18/20 History lamoTRIgine [LaMICtal] 200 mg PO HS 02/18/20 02/18/20 History Rosuvastatin [Crestor] 10 mg PO DAILY 02/19/20 02/19/20 History Allergies Allergy/AdvReac Type Severity Reaction Status Date / Time No Known Allergies Allergy Verified 02/18/20 09:05 Physical Examination - Vital Signs Vital Signs: Vital Signs Temp Pulse Resp BP Pulse Ox 02/19/20 02:37 98 F 91 16 114/67 96 02/18/20 20:26 98.7 F 107 H 18 140/86 92 L 02/18/20 15:00 98.2 F 90 16 117/77 95 02/18/20 14:55 16 02/18/20 08:36 97.9 F 95 16 120/77 94 L Intake and Output 02/18/20 02/19/20 02/19/20 22:59 06:59 14:59 Intake Total 600 Balance 600 Intake: Oral 600 Other: Voiding Method Toilet Toilet GENERAL: The patient is lying in bed and is in mild acute distress. CHEST: The heart rate is regular rate rhythm. No murmurs to auscultation. LUNG: Clear to auscultation bilaterally no wheezing noted throughout. Not labored breathing. ABDOMEN/GI: Bowel sounds present in all 4 quadrants. No tenderness to palpation throughout. NEUROLOGICAL: Higher mental function: The patient is awake, alert, oriented to self, place and time. Patient is following commands. No aphasia and no neglect. Cranial nerves: The pupils are round, equal and reactive to light and accommodation. Visual jimenez are full to confrontation throughout. Extraocular movement is intact no nystagmus is noted. Facial sensation is decreased to touch on left V2 and V3 distribution and seems patchy in distribution. The facial strength is normal throughout. Hearing is normal bilaterally to hand rub. Tongue is midline and moved [id number] without any difficulty. No dysarthria is noted. Shoulder shrug is normal bilaterally. Motor: Gait is normal with normal arm swings. The strength is 5 over 5 throughout. Normal tone and bulk. Cerebellum: Normal finger to nose heel to chin bilaterally. Sensation: Sensation is normal to touch throughout. Reflexes (right/left): [place] are 3+ bilaterally. Otherwise 2+ throughout. Plantars are downgoing bilaterally. Results Liver function test: AST 29, ALT of 21. CK of 74. - Laboratory Findings CBC and BMP: 02/17/20 21:02 02/17/20 21:02 Abnormal Lab Findings: Abnormal Labs 02/17/20 21:02 Sodium 134 L Glucose 129 H Assessment and Plan Assessment: This is a 50-year-old woman that presented to the emergency department on 02/17/2020 for left facial pain, swelling and it seems to be likely dental abscess. She also has this left facial swelling Generalized pain and left facial numbness V2/V3 seems to be due to pseuoexacerbation of MS from underlying dental abscess. Left facial numbness on V2/V3 distribution seems to as result of dental abscess. Left dental abscess History of multiple sclerosis diagnosed in 2013 Fibromyalgia Hypothyroidism X tobacco use Plan: No further imaging from neurology perspective and she needs to address this dental abscess which will control her pain as will likely resolve her facial numbness. Steroid is not warranted at this time. Patient is agreement with plan and does not want any further investigation or being on steroids. Patient was told if her numbness continues even after addressing abscess then she needs to follow-up with her neurologist for further work-up. She is on Lamictal and Cymbalta for depression. Upon discharge the patient needs to follow-up with her neurologist regarding her continued management of her multiple sclerosis. No further neurological work-up is needed. Plan was discussed with the patient and her nurse. Thank you for the consultation. Vishnu Palomino M.D. Neuro-hospitalist Time with Patient: Greater than 30
[2020-02-19 12:57] LABS: Basophils % (A) 0 %; Eosinophils % (A) 0 %; HCT 35.8 % (34.0-46.0); HGB 11.8 gm/dL (11.4-16.0); Lymphocytes # (A) 1.1 k/uL (1.0-4.8); Lymphocytes % (A) 14 %; MCH 30.4 pg (25.0-35.0); MCHC 32.9 g/dL (31.0-37.0); MCV 92.4 fL (80.0-100.0); Mean Platelet Volume 6.8; Monocytes # (A) 0.3 k/uL (0-1.0); Monocytes % (A) 4 %; Neutrophils # (A) 6.1 k/uL (1.3-7.7); Neutrophils % (A) 80 %; Platelet Count 220 k/uL (150-450); RBC 3.88 m/uL (3.80-5.40); RDW 14.6 % (11.5-15.5); WBC 7.7 k/uL (3.8-10.6)
[2020-02-19 13:12] LABS: African American GFR (CKD) >90 (>60 ml/min/1.73 sqM); Anion Gap 4 mmol/L; Blood Urea Nitrogen 8 mg/dL (7-17); Calcium 8.9 mg/dL (8.4-10.2); Carbon Dioxide 27 mmol/L (22-30); Chloride 107 mmol/L (98-107); Glucose 139 mg/dL (74-99); Non-African American GFR(CKD) >90 (>60 ml/min/1.73 sqM); Potassium 3.8 mmol/L (3.5-5.1); Sodium 138 mmol/L (137-145)
[2020-02-19] MEDS: DULoxetine HCL 60 MG CAPSULE.DR PO SCH (20:40)
[2020-02-19] MEDS: MIRTAZAPINE 15 MG TAB PO SCH (20:40)
--- NOTE | 2020-02-19 23:59 | P.PN ---
Subjective Progress Note Date: 02/19/20 Principal diagnosis: Left facial cellulitis/ Abscess hyacinth Luis is a 50-year-old female with a past medical history of multiple sclerosis, hypothyroidism, fibromyalgia, anxiety with depression coming into the hospital with the chief complaint of left-sided facial pain that has been going on for the past 4 to 5 days. Patient states that she had ground on her left lo wer molar done few days back and later on started to have pain and swelling on the left side of the face. Patient tried to apply ice to the left side of the face to help her with the pain but did not help her much. Patient was in the emergency department yesterday afternoon and went back but return to the emergency as the patient continued to have the pain and the swelling was getting worse. Patient denied having any fevers chills or rigors. Patient denied having any difficulty in swallowing. No cough or difficulty in breathing. No chest pain or palpitations. No abdominal pain nausea vomiting or diarrhea. No dysuria or hematuria. Patient states that she has been feeling very weak and fatigued and thinks that it could be a flare of her multiple sclerosis. Patient has been complaining of hyperesthesias in both her upper extremities. In the emergency room at the time of admission patient was found to be febrile at 100.1 Fahrenheit, tachycardic at 111, respiratory rate 18, blood pressure 137/82 and was saturating at 96% on room air. Patient has blood work done showing white count of 6.1 hemoglobin 11.7 platelets 210. Sodium 134, potassium 3.6, chloride 102, bicarb 22 BUN 14, creatinine 0.89. Lactic acid is 1.2. Albumin of 4. Patient was given a dose of Zosyn and admitted to the hospital for further evaluation. On 02/19/2020 -patient is lying comfortably in bed appears to be in no acute distress. She states that the swelling on the left jaw has decreased but still has still has some residual swelling. She denies having any dysphagia or cough. Patient denies having any fevers chills or rigors. She states that she c ontinues to feel fatigued and weak. Patient denies any chest pain or palpitations. No cough or difficulty in breathing. No dysuria or hematuria. No abdominal pain nausea vomiting or diarrhea.On reviewing her vitals afebrile for the past 24 hours, heart rate between 60s to 70s, respiratory rate 16, blood pressure 136/78 saturating at 96% on room air labs from this morning showing white count of 7.7, hemoglobin platelets 220. Her electrolytes are within normal limits. Active Medications Acetaminophen (Acetaminophen Tab 325 Mg Tab) 650 mg PO Q6HR PRN PRN Reason: Mild Pain or Fever > 100.5 Albuterol Sulfate (Albuterol Nebulized 2.5 Mg/3 Ml) 2.5 mg INHALATION RT-TID [facility] Last Admin: 02/19/20 19:24 Dose: Not Given Documented by: Albuterol Sulfate (Albuterol Nebulized 2.5 Mg/3 Ml) 2.5 mg INHALATION RT-Q2H PRN PRN Reason: Shortness Of Breath Or Wheezing Atorvastatin Calcium (Atorvastatin 10 Mg Tab) 10 mg PO DAILY [facility] Last Admin: 02/19/20 07:51 Dose: 10 mg Documented by: Duloxetine HCl (Duloxetine Hcl 30 Mg Capsule.Dr) 30 mg PO DAILY [facility] Last Admin: 02/19/20 07:52 Dose: 30 mg Documented by: Duloxetine HCl (Duloxetine Hcl 60 Mg Capsule.Dr) 60 mg PO HS [facility] Last Admin: 02/19/20 20:40 Dose: 60 mg Documented by: Ergocalciferol (Ergocalciferol 50,000 Unit Cap) 50,000 unit PO Fr@0900 [facility] Guaifenesin (Guaifenesin 600 Mg Tablet.Er) 1,200 mg PO Q12HR [facility] Last Admin: 02/19/20 20:40 Dose: Not Given Documented by: Guaifenesin/Codeine Phosphate (Guaifenesin-Coden 100-10mg/5ml 10 Ml Cup) 10 ml PO Q6H PRN PRN Reason: Cold Symptoms Hydrocortisone Sodium Succinate (Hydrocortisone Succinate 100 Mg/2 Ml Vial) 100 mg IV Q8HR [facility] Last Admin: 02/19/20 15:06 Dose: 100 mg Documented by: Hydromorphone HCl (Hydromorphone 0.5 Mg/0.5 Ml Syringe) 0.5 mg IVP Q3HR PRN PRN Reason: Moderate Pain Last Admin: 02/18/20 21:07 Dose: 0.5 mg Documented by: Piperacillin Sod/Tazobactam (Sod 3.375 gm/ Sodium Chloride) 100 mls @ 25 mls/hr IVPB Q8HR [facility] Last Admin: 02/19/20 15:06 Dose: 25 mls/hr Documented by: Lamotrigine (Lamotrigine 100 Mg Tab) 100 mg PO DAILY [facility] Last Admin: 02/19/20 07:52 Dose: 100 mg Documented by: Lamotrigine (Lamotrigine 100 Mg Tab) 200 mg PO [facility] Last Admin: 02/19/20 20:42 Dose: 200 mg Documented by: Levothyroxine Sodium (Levothyroxine 25 Mcg Tab) 25 mcg PO DAILY@0630 [facility] Last Admin: 02/19/20 06:21 Dose: Not Given Documented by: Mirtazapine (Mirtazapine 15 Mg Tab) 30 mg PO [facility] Last Admin: 02/19/20 20:40 Dose: Not Given Documented by: Naloxone HCl (Naloxone 0.4 Mg/Ml 1 Ml Vial) 0.2 mg IV Q2M PRN PRN Reason: Opioid Reversal Dextroamphetamine/Amphetamine [ Adderall] 20 mg PO BID [facility] Last Admin: 02/19/20 20:40 Dose: Not Given Documented by: Ondansetron HCl (Ondansetron 4 Mg/2 Ml Vial) 4 mg IVP Q6HR PRN PRN Reason: Nausea And Vomiting Last Admin: 02/18/20 10:18 Dose: 4 mg Documented by: Oxycodone/Acetaminophen (Oxycodone-Apap 10-325mg 1 Each Tab) 1 each PO Q4H PRN PRN Reason: Pain Last Admin: 02/18/20 01:10 EDT Dose: 1 each Documented by: Pregabalin (Pregabalin 75 Mg Cap) 150 mg PO TID [facility] Last Admin: 02/19/20 20:40 Dose: 150 mg Documented by: Objective - Vital Signs Vital signs: Vital Signs Temp 98.4 F 02/19/20 08:00 Pulse 99 02/19/20 08:00 Resp 16 02/19/20 08:00 BP 118/74 02/19/20 08:00 Pulse Ox 95 02/19/20 08:00 Intake & Output 02/18/20 02/19/20 02/19/20 18:59 06:59 18:59 Intake Total 600 Balance 600 Intake: Oral 600 Other: Voiding Method Toilet Toilet # Voids 1 1 - Exam PHYSICAL EXAM GEN. APPEARANCE: alert, in no apparent distress HEAD EXAM: atraumatic, normocephalic, normal inspection Left jaw swollen and small abscess ~ 3/4 cm felt on the lateral side of left jaw decreased in size compared to yesterday EYE EXAM: No pallor. No icterus. ENT EXAM: normal exam, mucous membranes moist NECK EXAM: No thyromegaly, no JVD RESPIRATORY EXAM: normal lung sounds bilaterally. No wheezes or crackles. CARDIOVASCULAR EXAM: regular rate, normal rhythm, normal heart sounds. GI/ABDOMINAL EXAM: soft, normal bowel sounds. No tenderness, no distention. No guarding or rigidity. EXTREMITIES EXAM: No pedal edema. NEUROLOGICAL EXAM: alert, oriented X3, focal neurological deficits on gross exam - Labs CBC & Chem 7: 02/19/20 12:29 02/19/20 12:29 Labs: Microbiology - Last 24 Hours (Table) 02/17/20 21:02 Blood Culture - Preliminary Blood No Growth after 24 hours Assessment and Plan Assessment: ASSESSMENT Left side facial abscess/cellulitis Recent dental procedure -crown placement on left molar Exacerbation of multiple sclerosis-possibly due to above Multiple sclerosis Anxiety with depression Fibromyalgia Hypothyroidism PLAN: Patient showed significant improvement in the left jaw swelling. Her electrolytes and CBC within normal limits. Neurology evaluated the patient, no acute interventions recommended. Continue with the current medication regimen. Anticipate discharge in the next 24 hours.
[2020-02-20] MEDS: PIPERACILLIN-TAZOBACTAM 3.375 GM in SODIUM CHLORIDE 0.9% 100 ML IVPB SCH ×2 (00:09→08:50)
[2020-02-20] MEDS: HYDROCORTISONE SUCCINATE 100 MG/2 ML VIAL IV SCH ×2 (00:09→08:52)
[2020-02-20 02:28] VITALS: RESP 16
[2020-02-20] MEDS: LEVOTHYROXINE 25 MCG TAB PO SCH (06:23)
[2020-02-20 07:50] VITALS: BP 141/79; PULSE 76; TEMP 97.6
[2020-02-20] MEDS: ALBUTEROL NEBULIZED 2.5 MG/3 ML INHALATION SCH (08:32)
[2020-02-20] MEDS: ATORVASTATIN 10 MG TAB PO SCH (08:51)
[2020-02-20] MEDS: lamoTRIgine 100 MG TAB PO SCH (08:51)
[2020-02-20] MEDS: PREGABALIN 75 MG CAP PO SCH (08:51)
[2020-02-20] MEDS: DULoxetine HCL 30 MG CAPSULE.DR PO SCH (08:51)
[2020-02-20] MEDS: Dextroamphetamine/Amphetamine [Adderall] PO SCH (08:52)
[2020-02-20] MEDS: guaiFENesin 600 MG TABLET.ER PO SCH (08:52)
--- NOTE | 2020-02-20 17:59 | P.DS ---
Providers Date of admission: 02/17/20 23:00 Expected date of discharge: 02/20/20 Attending physician: Ki Choi Consults: 02/18/20 15:19 Consult Physician Routine Consulting Provider: Vishnu Palomino Consult Reason/Comments: MS exacerbation Do you want consulting provider notified?: Yes Primary care physician: Ki Choi - Discharge Diagnosis(es) (1) Facial cellulitis Received Zosyn 3.375 g IV piggyback for 3 day duration. Placed on Augmentin 875/125 twice a day 10 days. Significant decrease in swelling since of admission. Patient instructed to follow-up with dentist regarding dental discomfort Status: Resolved Priority: Medium Hospital Course: 50-year-old female presented to the emergency room with left sided facial discomfort for duration of 4-5 days with associated generalized malaise, hyperparesthesia in bilateral upper extremities, and dental discomfort patient was seen in the emergency disease department within extensive workuprevealing left-sided facial cellulitis upon arrival to the emergency department febrile and tachycardic .inflammatory markers were negative. During hospital stay patient received IV Zosyn for left-sided facial cellulitis. during hospital stay patient's CBC, and chemistry panel were unremarkable. Neurology was consulted for possible multiple sclerosis flareup with recommendations of following up with patient's primary neurologist. Assessment: Left-sided facial abscess/cellulitis Recent dental procedurecrown placement on left molar Multiple sclerosis Anxiety with depression Fibromyalgia Hypothyroidism Health Concerns: None noted Pertinent Studies: None noted Procedures: None noted Patient Condition at Discharge: Good Plan - Discharge Summary Discharge Rx Participant: Yes New Discharge Prescriptions: New Amoxicillin/Potassium Clav [Augmentin 875-125 Tablet] 1 tab PO BID 1 Days #20 tab Continue Pregabalin [Lyrica] 150 mg PO TID Ergocalciferol [Vitamin D2 (DRISDOL)] 50,000 unit PO HAYNES HYDROcodone/APAP 7.5-325MG [[place] 7.5-325] 1 tab PO TID PRN PRN Reason: Pain DULoxetine HCL [Cymbalta] 60 mg PO HS DULoxetine HCL [Cymbalta] 30 mg PO DAILY Dextroamphetamine/Amphetamine [Adderall] 20 mg PO BID lamoTRIgine [LaMICtal] 100 mg PO DAILY lamoTRIgine [LaMICtal] 200 mg PO HS Rosuvastatin [Crestor] 10 mg PO DAILY Discharge Medication List Ergocalciferol [Vitamin D2 (DRISDOL)] 50,000 unit PO HAYNES 09/17/18 [History] Pregabalin [Lyrica] 150 mg PO TID 09/17/18 [History] DULoxetine HCL [Cymbalta] 30 mg PO DAILY 02/18/20 [History] DULoxetine HCL [Cymbalta] 60 mg PO HS 02/18/20 [History] Dextroamphetamine/Amphetamine [Adderall] 20 mg PO BID 02/18/20 [History] HYDROcodone/APAP 7.5-325MG [[place] 7.5-325] 1 tab PO TID PRN 02/18/20 [History] lamoTRIgine [LaMICtal] 100 mg PO DAILY 02/18/20 [History] lamoTRIgine [LaMICtal] 200 mg PO HS 02/18/20 [History] Rosuvastatin [Crestor] 10 mg PO DAILY 02/19/20 [History] Amoxicillin/Potassium Clav [Augmentin 875-125 Tablet] 1 tab PO BID 1 Days #20 tab 02/20/20 [Rx] Follow up Appointment(s)/Referral(s): Ki Choi MD [Primary Care Provider] - 02/22/20 2:10 pm Patient Instructions/Handouts: Dental Abscess (GEN) Discharge Disposition: HOME SELF-CARE
--- NOTE | 2020-02-20 18:39 | P.PN ---
Subjective Progress Note Date: 02/20/20 She was seen at bedside and the she said that her numbness on the left side of her cheek and jaw area is a improving from yesterday to today but still has some left as a residual she continues to have the tooth pain that. She continues to be on IV antibiotics as a result of the tooth abscess. Objective - Vital Signs Vital signs: Vital Signs Temp 97.6 F 02/20/20 07:49 Pulse 76 02/20/20 07:49 Resp 16 02/20/20 07:49 BP 141/79 02/20/20 07:49 Pulse Ox 100 02/20/20 07:49 Intake & Output 02/19/20 02/20/20 02/20/20 18:59 06:59 18:59 Intake Total 100 Balance 100 Intake: Other 100 Other: Voiding Method Toilet Toilet # Voids 1 1 - Exam GENERAL: The patient is lying in bed and is in mild acute distress. CHEST: The heart rate is regular rate rhythm. No murmurs to auscultation. LUNG: Clear to auscultation bilaterally no wheezing noted throughout. Not labored breathing. NEUROLOGICAL: Higher mental function: The patient is awake, alert, oriented to self, place and time. Patient is following commands. No aphasia and no neglect. Cranial nerves: The pupils are round, equal and reactive to light and accommodation. Visual jimenez are full to confrontation throughout. Extraocular movement is intact no nystagmus is noted. Facial sensation is minimally decreased to touch on left V2 and V3 distribution and seems patchy in di stribution. The facial strength is normal throughout. Hearing is normal bilaterally to hand rub. Tongue is midline and moved [id number] without any difficulty. No dysarthria is noted. Shoulder shrug is normal bilaterally. Motor: Gait is normal with normal arm swings. The strength is 5 over 5 throughout. Normal tone and bulk. Cerebellum: Normal finger to nose heel to chin bilaterally. Sensation: Sensation is normal to touch throughout. Reflexes (right/left): [place] are 3+ bilaterally. Otherwise 2+ throughout. Plantars are downgoing bilaterally. - Labs CBC & Chem 7: 02/19/20 12:29 02/19/20 12:29 Labs: Microbiology - Last 24 Hours (Table) 02/17/20 21:02 Blood Culture - Preliminary Blood No Growth after 48 hours Assessment and Plan Assessment: This is a 50-year-old woman that presented to the emergency department on 02/17/2020 for left facial pain, swelling and it seems to be likely dental abscess. She also has this left facial swelling Generalized pain and left facial numbness V2/V3 likely due to left tooth abscess. Does NOT seem like MS exacerbation. Left facial numbness on V2/V3 distribution seems to as result of dental abscess. Left dental abscess History of multiple sclerosis diagnosed in 2013 Fibromyalgia Hypothyroidism X tobacco use Plan: No further imaging from neurology perspective and she needs to address this dental abscess which will control her pain as will likely resolve her facial numbness. Steroid is not warranted at this time. Patient is agreement with plan and does not want any further investigation or being on steroids. Patient was told if her numbness continues even after addressing abscess then she needs to follow-up with her neurologist for further work-up. She is on Lamictal and Cymbalta for depression. Upon discharge the patient needs to follow-up with her neurologist regarding her continued management of her multiple sclerosis. No further neurological work-up is needed. Plan was discussed with the patient and her nurse. Vishnu Palomino M.D. Neuro-hospitalist Time with Patient: Less than 30
[2020-02-23] MEDS ORDERED: ERGOCALCIFEROL 50,000 UNIT CAP PO SCH (09:00)
== END 2020-02-20 12:30 | disposition home or self-care (01) ==
LOC: EC 19:51 → 1SOBS 23:00
PROVIDERS: ADMIT Family Medicine; ATTEND Family Medicine
DX: L03.211 Cellulitis of face (principal); G35 Multiple sclerosis; K04.7 Periapical abscess without sinus; K05.10 Chronic gingivitis, plaque induced; J00 Acute nasopharyngitis [common cold]; L02.01 Cutaneous abscess of face; R20.0 Anesthesia of skin; M79.7 Fibromyalgia; E03.9 Hypothyroidism, unspecified; R00.0 Tachycardia, unspecified; E66.9 Obesity, unspecified; Z68.31 Body mass index [BMI] 31.0-31.9, adult; R52 Pain, unspecified; R06.2 Wheezing; R06.02 Shortness of breath; R11.2 Nausea with vomiting, unspecified; F41.8 Other specified anxiety disorders; F32.9 Major depressive disorder, single episode, unspecified; Z87.01 Personal history of pneumonia (recurrent); Z87.891 Personal history of nicotine dependence; Z90.49 Acquired absence of other specified parts of digestive tract; Z79.899 Other long term (current) drug therapy; Z79.891 Long term (current) use of opiate analgesic; Z79.890 Hormone replacement therapy; Z82.49 Family history of ischemic heart disease and other diseases of the circulatory system; Z83.3 Family history of diabetes mellitus; Z84.1 Family history of disorders of kidney and ureter
CPT/HCPCS: 96361; 96366 ×5; 96372; 96376 ×4; 96365; 96375; 99284; 36415; 80053; 80048; 82550; 83605; 85025 ×2; 87040; G0378 ×4; J2543 ×4; J1720 ×4; J2405 ×2; J1650; J1170 ×2; 99283

== ENCOUNTER 2020-11-25 04:35 | Observation (INO) | payer MEDICARE ==
[2020-11-25] MEDS ORDERED: methylPREDNISolone SOD SUCCI 125 MG/2 ML VIAL IV STA (05:13)
[2020-11-25] MEDS ORDERED: IPRATROPIUM-ALBUTEROL 3 ML NEB INHALATION STA (05:13)
[2020-11-25] MEDS ORDERED: SODIUM CHLORIDE 0.9% 1,000 ML IV STA (05:13)
[2020-11-25] MEDS ORDERED: MORPHINE SULFATE 4 MG/ML SYRINGE IVP STA (05:14)
--- NOTE | 2020-11-25 05:15 | ED ---
URI HPI - General Chief Complaint: Shortness of Breath Stated Complaint: SOB,Chest Pain Time Seen by Provider: 11/25/20 04:38 Source: patient, RN notes reviewed, old records reviewed Mode of arrival: ambulatory - History of Present Illness MD Complaint: fever, cough, sore throat, nasal congestion -: days(s) Severity: moderate Quality: sharp Consistency: intermittent Improves With: nothing Worsens With: activity, deep breaths Associated Symptoms: chills, nasal congestion, sore throat, cough, shortness of breath, hoarseness Treatments Prior to Arrival: none - Related Data Home Medications Medication Instructions Recorded Confirmed Ergocalciferol [Vitamin D2 50,000 unit PO HAYNES 09/17/18 02/18/20 (DRISDOL)] Pregabalin [Lyrica] 150 mg PO TID 09/17/18 02/18/20 DULoxetine HCL [Cymbalta] 30 mg PO DAILY 02/18/20 02/18/20 DULoxetine HCL [Cymbalta] 60 mg PO HS 02/18/20 02/18/20 Dextroamphetamine/Amphetamine 20 mg PO BID 02/18/20 02/18/20 [Adderall] HYDROcodone/APAP 7.5-325MG [[place] 1 tab PO TID PRN 02/18/20 02/18/20 7.5-325] lamoTRIgine [LaMICtal] 100 mg PO DAILY 02/18/20 02/18/20 lamoTRIgine [LaMICtal] 200 mg PO HS 02/18/20 02/18/20 Rosuvastatin [Crestor] 10 mg PO DAILY 02/19/20 02/19/20 Previous Rx's Medication Instructions Recorded Amoxicillin/Potassium Clav 1 tab PO BID 1 Days #20 tab 02/20/20 [Augmentin 875-125 Tablet] Allergies Allergy/AdvReac Type Severity Reaction Status Date / Time No Known Allergies Allergy Verified 11/25/20 04:43 Review of Systems ROS Statement: Those systems with pertinent positive or pertinent negative responses have been documented in the HPI. ROS Other: All systems not noted in ROS Statement are negative. Past Medical History Past Medical History: Fibromyalgia, Neurologic Disorder, Pneumonia Additional Past Medical History / Comment(s): Multiple Sclerosis - diagnosis 2014 , hypothyroidism, History of Any Multi-Drug Resistant Organisms: None Reported Past Surgical History: Appendectomy Past Anesthesia/Blood Transfusion Reactions: No Reported Reaction Past Psychological History: Anxiety, Depression Smoking Status: Former smoker Past Alcohol Use History: Rare Past Drug Use History: None Reported - Past Family History Father Family Medical History: Diabetes Mellitus, Myocardial Infarction ([place]) Mother Family Medical History: No Reported History Additional Family Medical History / Comment(s): Chronic kidney disease stage IV General Exam General appearance: alert, in no apparent distress, anxious Head exam: Present: atraumatic, normocephalic, normal inspection Eye exam: Present: normal appearance, PERRL, EOMI. Absent: scleral icterus, conjunctival injection, periorbital swelling ENT exam: Present: normal exam, mucous membranes dry Neck exam: Present: normal inspection. Absent: tenderness, meningismus, lymphadenopathy Respiratory exam: Present: respiratory distress, wheezes, accessory muscle use, decreased breath sounds, prolonged expiratory. Absent: rales, rhonchi, stridor Cardiovascular Exam: Present: normal rhythm, tachycardia, normal heart sounds. Absent: systolic murmur, diastolic murmur, rubs, gallop, clicks GI/Abdominal exam: Present: soft, normal bowel sounds. Absent: distended, tenderness, guarding, rebound, rigid Extremities exam: Present: normal inspection, full ROM, normal capillary refill. Absent: tenderness, pedal edema, joint swelling, calf tenderness Back exam: Present: normal inspection Neurological exam: Present: alert, oriented X3, CN II-XII intact Psychiatric exam: Present: normal affect, normal mood Skin exam: Present: warm, dry, intact, normal color. Absent: rash Course Vital Signs 11/25/20 11/25/20 11/25/20 04:39 06:11 06:34 Temperature 98.5 F Pulse Rate 115 H 92 92 Respiratory 18 Rate Blood Pressure 131/86 O2 Sat by Pulse 94 L Oximetry Medical Decision Making - Lab Data Result diagrams: 11/25/20 05:19 11/25/20 05:19 Lab Results 11/25/20 11/25/20 11/25/20 Range/Units 05:14 05:14 05:19 WBC 5.0 (3.8-10.6) k/uL RBC 3.94 (3.80-5.40) m/uL Hgb 12.2 (11.4-16.0) gm/dL Hct 36.1 (34.0-46.0) % MCV 91.7 (80.0-100.0) fL MCH 31.0 (25.0-35.0) pg MCHC 33.8 (31.0-37.0) g/dL RDW 14.0 (11.5-15.5) % Plt Count 225 (150-450) k/uL MPV 7.1 Neutrophils % 59 % Lymphocytes % 25 % Monocytes % 8 % Eosinophils % 4 % Basophils % 1 % Neutrophils # 2.9 (1.3-7.7) k/uL Lymphocytes # 1.2 (1.0-4.8) k/uL Monocytes # 0.4 (0-1.0) k/uL Eosinophils # 0.2 (0-0.7) k/uL Basophils # 0.1 (0-0.2) k/uL PT (9.0-12.0) sec INR (<1.2) APTT (22.0-30.0) sec Sodium (137-145) mmol/L Potassium (3.5-5.1) mmol/L Chloride (98-107) mmol/L Carbon Dioxide (22-30) mmol/L Anion Gap mmol/L BUN (7-17) mg/dL Creatinine (0.52-1.04) mg/dL Est GFR (CKD-EPI)AfAm (>60 ml/min/1.73 sqM) Est GFR (CKD-EPI)NonAf (>60 ml/min/1.73 sqM) Glucose (74-99) mg/dL Calcium (8.4-10.2) mg/dL Total Bilirubin (0.2-1.3) mg/dL AST (14-36) U/L ALT (4-34) U/L Alkaline Phosphatase (38-126) U/L Troponin I (0.000-0.034) ng/mL NT-Pro-B Natriuret Pep 31 pg/mL Total Protein (6.3-8.2) g/dL Albumin (3.5-5.0) g/dL Coronavirus (PCR) Not Detected (Not Detectd) 11/25/20 11/25/20 11/25/20 Range/Units 05:19 05:19 05:19 WBC (3.8-10.6) k/uL RBC (3.80-5.40) m/uL Hgb (11.4-16.0) gm/dL Hct (34.0-46.0) % MCV (80.0-100.0) fL MCH (25.0-35.0) pg MCHC (31.0-37.0) g/dL RDW (11.5-15.5) % Plt Count (150-450) k/uL MPV Neutrophils % % Lymphocytes % % Monocytes % % Eosinophils % % Basophils % % Neutrophils # (1.3-7.7) k/uL Lymphocytes # (1.0-4.8) k/uL Monocytes # (0-1.0) k/uL Eosinophils # (0-0.7) k/uL Basophils # (0-0.2) k/uL PT 9.7 (9.0-12.0) sec INR 0.9 (<1.2) APTT 23.8 (22.0-30.0) sec Sodium 137 (137-145) mmol/L Potassium 3.8 (3.5-5.1) mmol/L Chloride 105 (98-107) mmol/L Carbon Dioxide 23 (22-30) mmol/L Anion Gap 9 mmol/L BUN 12 (7-17) mg/dL Creatinine 0.66 (0.52-1.04) mg/dL Est GFR (CKD-EPI)AfAm >90 (>60 ml/min/1.73 sqM) Est GFR (CKD-EPI)NonAf >90 (>60 ml/min/1.73 sqM) Glucose 145 H (74-99) mg/dL Calcium 9.0 (8.4-10.2) mg/dL Total Bilirubin 0.3 (0.2-1.3) mg/dL AST 27 (14-36) U/L ALT 17 (4-34) U/L Alkaline Phosphatase 65 (38-126) U/L Troponin I <0.012 (0.000-0.034) ng/mL NT-Pro-B Natriuret Pep pg/mL Total Protein 6.2 L (6.3-8.2) g/dL Albumin 3.9 (3.5-5.0) g/dL Coronavirus (PCR) (Not Detectd) - EKG Data -: EKG Interpreted by Me (EKG is sinus rhythm 94 [place] 184 QRS 82 QTC 462) Disposition Clinical Impression: Acute exacerbation of chronic obstructive airways disease, Community acquired pneumonia, Multiple sclerosis, Multiple sclerosis exacerbation, Acute bronchospasm, Anxiety Disposition: ADMITTED IP TO THIS HOSP Condition: Fair Is patient prescribed a controlled substance at d/c from ED?: No Referrals: Ki Choi MD [Primary Care Provider] - 1-2 days
[2020-11-25 05:31] LABS: Basophils # (A) 0.1 k/uL (0-0.2); Basophils % (A) 1 %; Eosinophils # (A) 0.2 k/uL (0-0.7); Eosinophils % (A) 4 %; HCT 36.1 % (34.0-46.0); HGB 12.2 gm/dL (11.4-16.0); Lymphocytes # (A) 1.2 k/uL (1.0-4.8); Lymphocytes % (A) 25 %; MCHC 33.8 g/dL (31.0-37.0); MCV 91.7 fL (80.0-100.0); Mean Platelet Volume 7.1; Monocytes # (A) 0.4 k/uL (0-1.0); Monocytes % (A) 8 %; Neutrophils # (A) 2.9 k/uL (1.3-7.7); Neutrophils % (A) 59 %; Platelet Count 225 k/uL (150-450); RBC 3.94 m/uL (3.80-5.40)
[2020-11-25 05:35] LABS: INR 0.9 (<1.2); Partial Thromboplastin Time 23.8 sec (22.0-30.0); Prothrombin Time 9.7 sec (9.0-12.0)
[2020-11-25 05:43] LABS: ALT 17 U/L (4-34); AST 27 U/L (14-36); African American GFR (CKD) >90 (>60 ml/min/1.73 sqM); Albumin 3.9 g/dL (3.5-5.0); Alkaline Phosphatase 65 U/L (38-126); Anion Gap 9 mmol/L; Blood Urea Nitrogen 12 mg/dL (7-17); Carbon Dioxide 23 mmol/L (22-30); Chloride 105 mmol/L (98-107); Glucose 145 mg/dL (74-99); Non-African American GFR(CKD) >90 (>60 ml/min/1.73 sqM); Potassium 3.8 mmol/L (3.5-5.1); Sodium 137 mmol/L (137-145); Total Bilirubin 0.3 mg/dL (0.2-1.3); Total Protein 6.2 g/dL (6.3-8.2)
--- NOTE | 2020-11-25 05:55 | XR ---
EXAMINATION TYPE: XR chest 2V DATE OF EXAM: 11/25/2020 COMPARISON: March 20, 2019 HISTORY: Chest pain. Difficulty breathing. TECHNIQUE: FINDINGS: Heart and mediastinum are normal. There is small linear density in the left lower lobe behi nd the heart. The other lung jimenez are clear. There are no hilar masses. Bony thorax is intact. Ther e are chest leads. IMPRESSION: Subsegmental atelectasis left lower lobe. Normal heart.
[2020-11-25] MEDS ORDERED: PNEUMONIA PROTOCOL UTILIZED 1 EACH MISC PO PRN (06:49)
[2020-11-25] MEDS ORDERED: AZITHROMYCIN 500 MG in SODIUM CHLORIDE 0.9% 250 ML IVPB STA (06:49)
[2020-11-25] MEDS: SODIUM CHLORIDE 0.9% 1,000 ML IV SCH ×2 (07:36→16:22)
[2020-11-25] MEDS: MORPHINE SULFATE 4 MG/ML SYRINGE IVP PRN ×4 (09:09→23:20)
[2020-11-25] MEDS: lamoTRIgine 100 MG TAB PO SCH ×2 (10:43→19:43)
[2020-11-25] MEDS: DULoxetine HCL 60 MG CAPSULE.DR PO SCH ×2 (11:09→19:43)
[2020-11-25] MEDS: BACLOFEN 10 MG TAB PO SCH ×2 (11:09→19:44)
[2020-11-25] MEDS: PREGABALIN 75 MG CAP PO PRN ×2 (11:09→19:43)
--- NOTE | 2020-11-25 11:36 | P.HPIM ---
History of Present Illness 50-year-old female came in with cough or shortness of breath and nasal congestion. Patient had a chest x-ray which showed some atelectasis patient doesn't have any fever or leukocytosis. Patient does have history of MS and she states that she was diagnosed with primary progressive multiple sclerosis for which patient is on Ocrelizumab infusion, patient doesn't have any residual MS symptoms but that she feels she has MS exacerbation which is a body aches everywhere and instability in gait. Neurology was consulted from ER neurology will evaluate the patient patient follows up with neurologist as an outpatient for multiple sclerosis. Patient has an appointment to see him on . Patient does have some tachycardia. Patient is not bringing up anything with her cough. Patient was diagnosed with pneumonia although there is mild atelectasis my suspicion is low for pneumonia clinically or radiologically. REVIEW OF SYSTEMS: CONSTITUTIONAL: No fever, no malaise, no fatigue. HEENT: No recent visual problems or hearing problems. Denied any sore throat. CARDIOVASCULAR: No chest pain, orthopnea, PND, no palpitations, no syncope. PULMONARY: As mentioned in HPI GASTROINTESTINAL: No diarrhea, no nausea, no vomiting, no abdominal pain. NEUROLOGICAL: No headaches, no weakness, no numbness. HEMATOLOGICAL: Denies any bleeding or petechiae. GENITOURINARY: Denies any burning micturition, frequency, or urgency. MUSCULOSKELETAL/RHEUMATOLOGICAL: Denies any joint pain, swelling, or any muscle pain. ENDOCRINE: Denies any polyuria or polydipsia. The rest of the 14-point review of systems is negative. PHYSICAL EXAMINATION: GENERAL: The patient is alert and oriented x3, not in any acute distress. Well developed, well nourished. HEENT: Pupils are round and equally reacting to light. EOMI. No scleral icterus. No conjunctival pallor. Normocephalic, atraumatic. No pharyngeal erythema. No thyromegaly. Patient has significant nasal congestion CARDIOVASCULAR: S1 and S2 present. No murmurs, rubs, or gallops. PULMONARY: Chest is clear to auscultation, no wheezing or crackles. ABDOMEN: Soft, nontender, nondistended, normoactive bowel sounds. No palpable organomegaly. MUSCULOSKELETAL: No joint swelling or deformity. EXTREMITIES: No cyanosis, clubbing, or pedal edema. NEUROLOGICAL: Gross neurological examination did not reveal any focal deficits but does have some gait instability. SKIN: No rashes. Assessment and plan -Upper respiratory tract infection, no clear evidence of pneumonia at this time patient will be continued on Rocephin for now probably can be discharged if cleared by neurology on Ceftin. -Possibility of MS exacerbation: Neurology will evaluate the patient further management will be a left to neurology. -Fibromyalgia -Depression -Peripheral neuropathy -Anxiety disorder DVT prophylaxis: Lovenox Past Medical History Past Medical History: Fibromyalgia, Neurologic Disorder, Pneumonia Additional Past Medical History / Comment(s): Multiple Sclerosis - diagnosis 2013 , hypothyroidism, History of Any Multi-Drug Resistant Organisms: None Reported Past Surgical History: Appendectomy Past Anesthesia/Blood Transfusion Reactions: No Reported Reaction Smoking Status: Former smoker - Past Family History Father Family Medical History: Diabetes Mellitus, Myocardial Infarction ([place]) Mother Family Medical History: No Reported History Additional Family Medical History / Comment(s): Chronic kidney disease stage IV Medications and Allergies Home Medications Medication Instructions Recorded Confirmed Type Pregabalin [Lyrica] 150 mg PO TID PRN 09/17/18 11/25/20 History HYDROcodone/APAP 7.5-325MG [[place] [facility] 1 tab PO TID PRN 02/18/20 11/25/20 History 7.5-325] Rosuvastatin [Crestor] 10 mg PO DAILY 02/19/20 11/25/20 History Baclofen [Lioresal] 20 mg PO BID 11/25/20 11/25/20 History DULoxetine HCL [Cymbalta] 60 mg PO BID 11/25/20 11/25/20 History Dextroamphetamine/Amphetamine 30 mg PO DAILY 11/25/20 11/25/20 History [Adderall] Mupirocin 2% Oint [Bactroban 2% 1 applic TOPICAL TID 11/25/20 11/25/20 History Oint] lamoTRIgine [LaMICtal] 200 mg PO BID 11/25/20 11/25/20 History traZODone HCL [Desyrel] 100 mg PO HS 11/25/20 11/25/20 History Allergies Allergy/AdvReac Type Severity Reaction Status Date / Time No Known Allergies Allergy Verified 11/25/20 06:53 Physical Exam Vitals: Vital Signs Temp Pulse Pulse Resp BP BP Pulse Ox 11/25/20 08:22 98.2 F 107 H 16 127/78 96 11/25/20 08:14 102 H 20 127/71 93 L 11/25/20 06:34 92 11/25/20 06:11 92 11/25/20 04:39 98.5 F 115 H 18 131/86 94 L Intake and Output 11/24/20 11/25/20 11/25/20 22:59 06:59 14:59 Intake Total 118 Balance 118 Intake: Oral 118 Other: Weight 86.183 kg 86.183 kg Results CBC & Chem 7: 11/25/20 05:19 11/25/20 05:19 Labs: Abnormal Lab Results - Last 24 Hours (Table) 11/25/20 Range/Units 05:19 Glucose 145 H (74-99) mg/dL Total Protein 6.2 L (6.3-8.2) g/dL
--- NOTE | 2020-11-25 15:16 | P.CNNES ---
History of Present Illness Consult date: 11/25/20 Requesting physician: Nikhil Easley Reason for Consult: MS History of Present Illness: Patient is a 50-year-old female with history of multiple sclerosis, came to the hospital this morning at 4:35 AM, for generalized weakness. Patient states that on last Wednesday and Wednesday11/19/2020 and 11/20/2020 she was sanding hardwood floor, as a result there was a lot of dust. She feels that she probably inhaled the dust particles. She believes that this resulted in development of pneumonia. Her respiratory symptoms started on night, 11/21/2020. She also started feeling generalized weak and has been getting weaker. No focal weakness. She is getting "huge amount of pain throughout the body, joints and muscles". She is noticing balance problem, she is stumbling, bumping into things. She denies any new numbness and tingling besides her hands and feet being numb and tingling, which is old finding. She always has some amount of pain. Also complaining of chest pain, trouble breathing, cough and wheezing. Patient's vitals on arrival showed blood pressure 131/86, pulse rate 115, temperature 98.5. Chest x-ray showed subsegmental atelectasis left lower lobe. Normal heart. EKG shows normal sinus rhythm. Blood test shows normal CBC, PT/PTT, normal CMP. Troponin negative. [place] virus negative. Patient's last B12 416 on 09/21/2019. Her JCV titers were negative 0.14 on 01/11/2020. Patient's medications include trazodone 100 mg, Lamictal 200 mg twice a day, Cymbalta 60 mg twice a day, Adderall 30 mg daily, baclofen, Crestor 10 mg, Lyrica 150 mg 3 times a day. Patient has been seen by myself previously on 09/25/2018. Patient has been diagnosed with MS since around 2013. Patient has previously tried Avonex, Tecfidera, Gilenya and Copaxone. Patient most recently is on Ocrevus, and the last infusion was in September 2020. Patient has depression, could not continue with frequent interferon injections. Review of Systems As above in detail. All other review of systems reviewed and unremarkable. Denies any fever or chills. Denies any rash. No dysphagia. Complains of generalized body pain. Past Medical History Past Medical History: Fibromyalgia, Neurologic Disorder, Pneumonia Additional Past Medical History / Comment(s): Multiple Sclerosis - diagnosis 2013 , hypothyroidism, History of Any Multi-Drug Resistant Organisms: None Reported Past Surgical History: Appendectomy Past Anesthesia/Blood Transfusion Reactions: No Reported Reaction Smoking Status: Former smoker - Past Family History Father Family Medical History: Diabetes Mellitus, Myocardial Infarction ([place]) Mother Family Medical History: No Reported History Additional Family Medical History / Comment(s): Chronic kidney disease stage IV Medications and Allergies Home Medications Medication Instructions Recorded Confirmed Type Pregabalin [Lyrica] 150 mg PO TID PRN 09/17/18 11/25/20 History HYDROcodone/APAP 7.5-325MG [[place] 1 tab PO TID PRN 02/18/20 11/25/20 History 7.5-325] Rosuvastatin [Crestor] 10 mg PO DAILY 02/19/20 11/25/20 History Baclofen [Lioresal] 20 mg PO BID 11/25/20 11/25/20 History DULoxetine HCL [Cymbalta] 60 mg PO BID 11/25/20 11/25/20 History Dextroamphetamine/Amphetamine 30 mg PO DAILY 11/25/20 11/25/20 History [Adderall] Mupirocin 2% Oint [Bactroban 2% 1 applic TOPICAL TID 11/25/20 11/25/20 History Oint] lamoTRIgine [LaMICtal] 200 mg PO BID 11/25/20 11/25/20 History traZODone HCL [Desyrel] 100 mg PO HS 11/25/20 11/25/20 History Allergies Allergy/AdvReac Type Severity Reaction Status Date / Time No Known Allergies Allergy Verified 11/25/20 06:53 Physical Examination - Vital Signs Vital Signs: Vital Signs Temp Pulse Pulse Resp BP BP Pulse Ox 11/25/20 08:30 107 H 11/25/20 08:22 98.2 F 107 H 16 127/78 96 11/25/20 08:14 102 H 20 127/71 93 L 11/25/20 06:34 92 11/25/20 06:11 92 11/25/20 04:39 98.5 F 115 H 18 131/86 94 L Intake and Output 11/24/20 11/25/20 11/25/20 22:59 06:59 14:59 Intake Total 118 Balance 118 Intake: Oral 118 Other: Weight 86.183 kg 86.183 kg Patient is a middle aged female, in no acute distress. Patient does have a flat affect. Patient is alert awake oriented to time place and person. Speech and language functions are normal. No aphasia or dysarthria. Attention, concentration and fund of knowledge is adequate. On cranial examination, pupils are round and reacting to light, visual jimenez are full on confrontation, extraocular muscles are intact with no nystagmus. Face is symmetric, tongue protrudes to the midline. Palatal elevation and sensation normal, hearing and shoulder shrug normal, facial sensation normal. On muscle strength testing, there is no pronator drift and the strength is normal in arms and legs distally and proximally. Deep tendon reflexes are symmetric, 1+ at the biceps, 1 brachioradialis, 2 at the knees 1+ ankles and plantars downgoing bilaterally. No clonus. Sensory to touch is equal with no neglect. Cerebellar function showed no ataxia for [id number] testing. Very mild ataxia for [id number] on either side. No dysdiadochokinesia. Tone and bulk of muscles normal. Gait not checked. On general examination, there is no carotid bruit or murmur, S1-S2 audible. Abdomen is soft nontender. Chest is clear. Peripheral pulses are present. No edema. Results - Laboratory Findings CBC and BMP: 11/25/20 05:19 11/25/20 05:19 Abnormal Lab Findings: Abnormal Labs 11/25/20 05:19 Glucose 145 H Total Protein 6.2 L Assessment and Plan Assessment: * Multiple sclerosis, unclear if there is any obvious exacerbation. Patient has inhaled dust particles while sanding hardwood floor resulting in possible bronchitis/upper respiratory infection. Patient is on azithromycin and Rocephin. Examination reveals very questionable mild ataxia in the lower extremities. Plan: * Patient believe she is an MS exacerbation. * We will start Solu-Medrol 1 g IVPB daily for 3 days. Then may discharge and follow up with her neurologist as an outpatient. No need for oral taper afterwards. * Treatment of upper respiratory infection as per IM.
[2020-11-25] MEDS: IPRATROPIUM-ALBUTEROL 3 ML NEB INHALATION PRN (15:22)
[2020-11-25] MEDS ORDERED: MUPIROCIN 2% OINT 22 GM TUBE TOPICAL SCH (16:00)
[2020-11-25] MEDS: methylPREDNISolone SOD SUCC 1,000 MG in SODIUM CHLORIDE 0.9% 250 ML IVPB SCH (16:23)
[2020-11-25] MEDS: HYDROcodone/APAP 7.5-325MG 1 EACH TAB PO PRN (16:43)
[2020-11-25] MEDS: traZODone HCL 100 MG TAB PO SCH (19:43)
[2020-11-25] MEDS ORDERED: BACLOFEN 10 MG TAB PO SCH (21:00)
[2020-11-25] MEDS ORDERED: DULoxetine HCL 60 MG CAPSULE.DR PO SCH (21:00)
[2020-11-26] MEDS: HYDROcodone/APAP 7.5-325MG 1 EACH TAB PO PRN ×2 (00:08→08:55)
[2020-11-26] MEDS: SODIUM CHLORIDE 0.9% 1,000 ML IV SCH ×3 (05:05→15:00)
[2020-11-26] MEDS: PREGABALIN 75 MG CAP PO PRN ×3 (05:05→21:28)
[2020-11-26] MEDS: ATORVASTATIN 20 MG TAB PO SCH (08:41)
[2020-11-26] MEDS: DULoxetine HCL 60 MG CAPSULE.DR PO SCH ×2 (08:41→21:28)
[2020-11-26] MEDS: lamoTRIgine 100 MG TAB PO SCH ×2 (08:41→21:28)
[2020-11-26] MEDS: ENOXAPARIN 40 MG/0.4 ML SYRINGE SQ SCH (08:43)
[2020-11-26] MEDS: BACLOFEN 10 MG TAB PO SCH ×2 (08:45→19:52)
[2020-11-26] MEDS ORDERED: AZITHROMYCIN 500 MG TAB PO SCH (09:00)
[2020-11-26] MEDS: NON FORMULARY DRUG (Dextroamphetamine/Amphetamine [Adderall] 30 MG Tablet) PO SCH (09:04)
--- NOTE | 2020-11-26 14:20 | P.PN ---
Subjective Progress Note Date: 11/26/20 Patient is laying comfortably in the bed. Offers no new complaints. Patient is tolerating Solu-Medrol infusions well. Objective - Vital Signs Vital signs: Vital Signs Temp 98.3 F 11/26/20 07:00 Pulse 98 11/26/20 07:00 Resp 16 11/26/20 07:00 BP 134/88 11/26/20 07:00 Pulse Ox 90 L 11/26/20 07:00 Intake & Output 11/25/20 11/26/20 11/26/20 18:59 06:59 18:59 Intake Total 236 400 118 Balance 236 400 118 Weight 86.183 kg Intake: IV 400 Sodium Chloride 0.9% 1, 400 000 ml @ 100 mls/hr IV . Q10H ROSIO Rx#:[id number] Oral 236 118 Other: # Voids 3 2 - Exam Patient's mental status, speech and language functions are normal. Muscle strength appears normal. No ataxia in the upper extremities.. - Labs CBC & Chem 7: 11/25/20 05:19 11/25/20 05:19 Labs: Microbiology - Last 24 Hours (Table) 11/25/20 07:05 Blood Culture - Preliminary Blood No Growth after 24 hours 11/25/20 07:20 Blood Culture - Preliminary Blood No Growth after 24 hours Assessment and Plan Assessment: * Multiple sclerosis, unclear if there is any obvious exacerbation. Patient has inhaled dust particles while sanding hardwood floor resulting in possible bronchitis/upper respiratory infection. Patient is on azithromycin and Rocephin. Examination reveals very questionable mild ataxia in the lower extremities. * Possible bronchitis, rule out pneumonia. Plan: * Patient believe she is an MS exacerbation. * Continue Solu-Medrol 1 g IVPB daily for 3 days. Then august discharge and follow up with her neurologist as an outpatient. No need for oral taper afterwards. * Treatment of upper respiratory infection as per IM. * Neurologically clear, when she completes her third dose of Solu-Medrol mel meraz.
[2020-11-26] MEDS: MORPHINE SULFATE 4 MG/ML SYRINGE IVP PRN ×2 (15:05→21:29)
[2020-11-26] MEDS: methylPREDNISolone SOD SUCC 1,000 MG in SODIUM CHLORIDE 0.9% 250 ML IVPB SCH (16:14)
--- NOTE | 2020-11-26 16:52 | XR ---
EXAMINATION TYPE: XR chest 2V DATE OF EXAM: 11/26/2020 COMPARISON: 11/25/2020. HISTORY: Cough. TECHNIQUE: Frontal and lateral views of the chest are obtained. FINDINGS: There is no focal air space opacity, pleural effusion, or pneumothorax seen. The cardiac silhouette size is within normal limits. The osseous structures are intact. IMPRESSION: No acute cardiopulmonary process.
--- NOTE | 2020-11-26 16:58 | P.PN ---
Subjective Progress Note Date: 11/26/20 50-year-old female came in with cough or shortness of breath and nasal congestion. Patient had a chest x-ray which showed some atelectasis patient doesn't have any fever or leukocytosis. Patient does have history of MS and she states that she was diagnosed with primary progressive multiple sclerosis for which patient is on Ocrelizumab infusion, patient doesn't have any residual MS symptoms but that she feels she has MS exacerbation which is a body aches everywhere and instability in gait. Neurology was consulted from ER neurology will evaluate the patient patient follows up with neurologist as an outpatient for multiple sclerosis. Patient has an appointment to see him on . Patient does have some tachycardia. Patient is not bringing up anything with her cough. Patient was diagnosed with pneumonia although there is mild atelectasis my suspicion is low for pneumonia clinically or radiologically. 11/26/2020 Patient Is seen in follow-up with no acute overnight issues. Patient having some shortness of breath and was currently maintained on 2 L and discussed with nursing staff about weaning FiO2 and monitoring oxygen saturation on room air. She was continued on high-dose IV steroids per neurology and receiving second dose today and receive dose 3 in the morning and possible discharge. Will add incentive spirometer and encourage the patient to use at least 10 times every h our while awake. Repeat chest x-ray shows no acute cardiopulmonary process with no pleural effusion or pneumothorax noted. Review of systems: Constitutional: No reports of fatigue, fever, or chills Cardiovascular: No reports of chest pain or palpitations Respiratory: reports shortness of breath GI: No reports of nausea, vomiting, or diarrhea : No reports of dysuria or retention Neurovascular: No reports of weakness or numbness All medications have been reviewed PHYSICAL EXAMINATION: GENERAL: The patient is alert and oriented x3, not in any acute distress. Well developed, well nourished. HEENT: Pupils are round and equally reacting to light. EOMI. No scleral icterus. No conjunctival pallor. Normocephalic, atraumatic. No pharyngeal erythema. No thyromegaly. Patient has significant nasal congestion CARDIOVASCULAR: S1 and S2 present. No murmurs, rubs, or gallops. PULMONARY: Chest is clear to auscultation, no wheezing or crackles. ABDOMEN: Soft, nontender, nondistended, normoactive bowel sounds. No palpable organomegaly. MUSCULOSKELETAL: No joint swelling or deformity. EXTREMITIES: No cyanosis, clubbing, or pedal edema. NEUROLOGICAL: Gross neurological examination did not reveal any focal deficits but does have some gait instability. SKIN: No rashes. Assessment and plan -Upper respiratory tract infection, no clear evidence of pneumonia at this time patient will be continued on Rocephin for now probably can be discharged if cleared by neurology on Ceftin. -Possibility of MS exacerbation: Neurology following and placed on high-dose IV steroids 3 -Fibromyalgia -Depression -Peripheral neuropathy -Anxiety disorder -DVT prophylaxis: Lovenox Plan: The chest x-ray shows no acute pulmonary process and will continue current medications. Patient was placed on high-dose IV steroids and showing some improvement per patient of MS exacerbation. Neurology following and recommending outpatient follow-up with her primary care neurologist Dr. Pitt. She will receive second dose today and third dose prior to discharge tomorrow. Anticipate discharge in a.m. Objective - Vital Signs Vital signs: Vital Signs Temp 98.3 F 11/26/20 07:00 Pulse 98 11/26/20 07:00 Resp 16 11/26/20 07:00 BP 134/88 11/26/20 07:00 Pulse Ox 90 L 11/26/20 07:00 Intake & Output 11/25/20 11/26/20 11/26/20 18:59 06:59 18:59 Intake Total 236 400 118 Balance 236 400 118 Weight 86.183 kg Intake: IV 400 Sodium Chloride 0.9% 1, 400 000 ml @ 100 mls/hr IV . Q10H ROSIO Rx#:[id number] Oral 236 118 Other: # Voids 3 2 - Labs CBC & Chem 7: 11/25/20 05:19 11/25/20 05:19
[2020-11-26] MEDS: traZODone HCL 100 MG TAB PO SCH (21:28)
[2020-11-27] MEDS: HYDROcodone/APAP 7.5-325MG 1 EACH TAB PO PRN ×2 (00:35→09:18)
[2020-11-27] MEDS: PREGABALIN 75 MG CAP PO PRN (05:29)
[2020-11-27] MEDS: ENOXAPARIN 40 MG/0.4 ML SYRINGE SQ SCH (07:25)
[2020-11-27] MEDS: ATORVASTATIN 20 MG TAB PO SCH (07:25)
[2020-11-27] MEDS: lamoTRIgine 100 MG TAB PO SCH (07:26)
[2020-11-27] MEDS: BACLOFEN 10 MG TAB PO SCH (07:26)
[2020-11-27] MEDS: NON FORMULARY DRUG (Dextroamphetamine/Amphetamine [Adderall] 30 MG Tablet) PO SCH (07:27)
[2020-11-27] MEDS: DULoxetine HCL 60 MG CAPSULE.DR PO SCH (07:27)
[2020-11-27 07:40] VITALS: BP 157/99; PULSE 72; RESP 16; TEMP 97.8
[2020-11-27] MEDS: MORPHINE SULFATE 4 MG/ML SYRINGE IVP PRN ×2 (08:00→12:10)
[2020-11-27] MEDS: SODIUM CHLORIDE 0.9% 1,000 ML IV SCH (09:00)
[2020-11-27] MEDS: IPRATROPIUM-ALBUTEROL 3 ML NEB INHALATION PRN (09:36)
[2020-11-27] MEDS ORDERED: BENZONATATE 100 MG CAP PO PRN (09:42)
[2020-11-27] MEDS: methylPREDNISolone SOD SUCC 1,000 MG in SODIUM CHLORIDE 0.9% 250 ML IVPB SCH (12:14)
--- NOTE | 2020-11-27 16:42 | P.PN ---
Subjective Progress Note Date: 11/27/20 Patient is laying comfortably in the bed. Still complains of shortness of breath and coughing. Chest x-ray is normal. Patient is tolerating Solu-Medrol infusions well. Patient is going to receive her third dose of Solu-Medrol today. Objective - Vital Signs Vital signs: Vital Signs Temp 97.8 F 11/27/20 07:00 Pulse 72 11/27/20 09:46 Resp 16 11/27/20 08:00 BP 157/99 11/27/20 07:00 Pulse Ox 93 L 11/27/20 07:00 Intake & Output 11/26/20 11/27/20 11/27/20 18:59 06:59 18:59 Intake Total 236 1000 350 Balance 236 1000 350 Intake: IV 1000 Sodium Chloride 0.9% 1, 1000 000 ml @ 100 mls/hr IV . Q10H ROSIO Rx#:[id number] Oral 236 350 Other: Voiding Method Toilet # Voids 2 1 - Exam Patient's mental status, speech and language functions are normal. Muscle strength appears normal. No ataxia in the upper extremities.. - Labs CBC & Chem 7: 11/25/20 05:19 11/25/20 05:19 Labs: Microbiology - Last 24 Hours (Table) 11/25/20 07:20 Blood Culture - Preliminary Blood No Growth after 48 hours 11/25/20 07:05 Blood Culture - Preliminary Blood No Growth after 48 hours Assessment and Plan Assessment: * Multiple sclerosis, unclear if there is any obvious exacerbation. Patient has inhaled dust particles while sanding hardwood floor resulting in possible bronchitis/upper respiratory infection. Patient is on azithromycin and Rocephin. Examination reveals very questionable mild ataxia in the lower extremities. * Possible bronchitis, rule out pneumonia. Plan: * Patient believe she is an MS exacerbation. * Continue Solu-Medrol 1 g IVPB daily for 3 days. Today patient will receive 3/3 dose of Solu-Medrol. No need for oral taper afterwards. * Treatment of upper respiratory infection as per IM. * Neurologically clear, when she completes her third dose of Solu-Medrol today. * Follow up with her neurologist in 1-2 weeks.
--- NOTE | 2020-11-28 09:15 | P.DS ---
Providers Date of admission: 11/25/20 06:49 Expected date of discharge: 11/27/20 Attending physician: Edwina Vickers Consults: 11/25/20 06:49 Consult Physician Routine Consulting Provider: Mesha Garcia Consult Reason/Comments: MS Do you want consulting provider notified?: Yes 11/25/20 10:54 Consult Physician Routine Consulting Provider: Shantanu Cruz Consult Reason/Comments: worsening MS, difficulty walking Do you want consulting provider notified?: Yes Primary care physician: Ki Choi Hospital Course: Final diagnosis -Upper respiratory tract infection, no clear evidence of pneumonia at this time patient will be continued on Rocephin for now probably can be discharged if cleared by neurology on Ceftin. -Possibility of MS exacerbation: Neurology following and placed on high-dose IV steroids 3 -Fibromyalgia -Depression -Peripheral neuropathy -Anxiety disorder -DVT prophylaxis -Full code Discharge disposition Patient is being discharged in a stable condition with guarded prognosis to home. Patient will follow-up with Dr. Choi in the outpatient setting upon discharge. Patient is to also follow-up with her neurologist Dr. Pitt on Wednesday. Patient will continue on oral antibiotics in the form of Ceftin 500 mg twice daily for the 3 days to complete the course.. Total time taken is greater than 35 minutes. Hospital course 50-year-old female came in with cough or shortness of breath and nasal congestion. Patient had a chest x-ray which showed some atelectasis patient doesn't have any fever or leukocytosis. Patient does have history of MS and she states that she was diagnosed with primary progressive multiple sclerosis for which patient is on Ocrelizumab infusion, patient doesn't have any residual MS symptoms but that she feels she has MS exacerbation which is a body aches everywhere and instability in gait. Neurology was consulted from ER neurology will evaluate the patient patient follows up with neurologist as an outpatient for multiple sclerosis. Patient has an appointment to see him on . Patient does have some tachycardia. Patient is not bringing up anything with her cough. Patient was diagnosed with pneumonia although there is mild atelectasis my suspicion is low for pneumonia clinically or radiologically. 11/26/2020 Patient Is seen in follow-up with no acute overnight issues. Patient having some shortness of breath and was currently maintained on 2 L and discussed with nursing staff about weaning FiO2 and monitoring oxygen saturation on room air. She was continued on high-dose IV steroids per neurology and receiving second dose today and receive dose 3 in the morning and possible discharge. Will add incentive spirometer and encourage the patient to use at least 10 times every hour while awake. Repeat chest x-ray shows no acute cardiopulmonary process with no pleural effusion or pneumothorax noted. 11/27/2020 Patient is seen in follow-up this morning and continues to have cough and states she is wheezing. On exam no audible wheezing noted and lung sounds are clear. Patient is off oxygen and on room air tolerating well. Patient was maintained on antibiotics and will continue with oral Ceftin to complete the course. Patient did have 3 doses of IV steroids and will follow-up with her neurologist Dr. Pitt outpatient. Patient also given an inhaler on discharge and some Tessalon Perles for the cough. Patient is afebrile. Repeat chest x-ray shows no acute cardiopulmonary process. Patient will be discharged today and instructed to follow-up with primary care provider upon discharge as well. Currently no reports of chest pain, worsening shortness of breath, or palpitations. Patient is afebrile. No reports of nausea or vomiting and patient is tolerating diet. Patient will be discharging home today. GENERAL: The patient is alert and oriented x3, not in any acute distress. Well developed, well nourished. HEENT: Pupils are round and equally reacting to light. EOMI. No scleral icterus. No conjunctival pallor. Normocephalic, atraumatic. No pharyngeal erythema. No thyromegaly. Patient has significant nasal congestion CARDIOVASCULAR: S1 and S2 present. No murmurs, rubs, or gallops. PULMONARY: Chest is clear to auscultation, no wheezing or crackles. ABDOMEN: Soft, nontender, nondistended, normoactive bowel sounds. No palpable organomegaly. MUSCULOSKELETAL: No joint swelling or deformity. EXTREMITIES: No cyanosis, clubbing, or pedal edema. NEUROLOGICAL: Gross neurological examination did not reveal any focal deficits but does have some gait instability. SKIN: No rashes. On exam vital signs are stable. Cardio S1, S2 are muffled. Respiratory system shows diminished breath sounds at the bases with no wheezing or rhonchi noted. Abdomen is soft and nontender. Nervous system shows no focal deficits. Please refer to medication reconciliation sheet for a list of medications. Patient Condition at Discharge: Fair Plan - Discharge Summary Discharge Rx Participant: No New Discharge Prescriptions: New Cefuroxime Axetil [Ceftin] 500 mg PO BID 3 Days #6 tab Albuterol Inhaler [Ventolin Hfa Inhaler] 1 puff INHALATION RT-QID #1 each Benzonatate [Tessalon Perles] 100 mg PO TID PRN #20 cap PRN Reason: Cough Continue Pregabalin [Lyrica] 150 mg PO TID PRN PRN Reason: Pain HYDROcodone/APAP 7.5-325MG [[place] 7.5-325] 1 tab PO TID PRN PRN Reason: Pain Rosuvastatin [Crestor] 10 mg PO DAILY Baclofen [Lioresal] 20 mg PO BID Dextroamphetamine/Amphetamine [Adderall] 30 mg PO DAILY DULoxetine HCL [Cymbalta] 60 mg PO BID lamoTRIgine [LaMICtal] 200 mg PO BID traZODone HCL [Desyrel] 100 mg PO HS Mupirocin 2% Oint [Bactroban 2% Oint] 1 applic TOPICAL TID Discharge Medication List Pregabalin [Lyrica] 150 mg PO TID PRN 09/17/18 [History] HYDROcodone/APAP 7.5-325MG [[place] 7.5-325] 1 tab PO TID PRN 02/18/20 [History] Rosuvastatin [Crestor] 10 mg PO DAILY 02/19/20 [History] Baclofen [Lioresal] 20 mg PO BID 11/25/20 [History] DULoxetine HCL [Cymbalta] 60 mg PO BID 11/25/20 [History] Dextroamphetamine/Amphetamine [Adderall] 30 mg PO DAILY 11/25/20 [History] Mupirocin 2% Oint [Bactroban 2% Oint] 1 applic TOPICAL TID 11/25/20 [History] lamoTRIgine [LaMICtal] 200 mg PO BID 11/25/20 [History] traZODone HCL [Desyrel] 100 mg PO HS 11/25/20 [History] Albuterol Inhaler [Ventolin Hfa Inhaler] 1 puff INHALATION RT-QID #1 each 11/27/20 [Rx] Benzonatate [Tessalon Perles] 100 mg PO TID PRN #20 cap 11/27/20 [Rx] Cefuroxime Axetil [Ceftin] 500 mg PO BID 3 Days #6 tab 11/27/20 [Rx] Follow up Appointment(s)/Referral(s): Ki Choi MD [Primary Care Provider] - 1-2 days Claudio Pitt MD [Medical Doctor] - 1-2 Days (Patient has a scheduled appointment on Wednesday) Activity/Diet/Wound Care/Special Instructions: Activity Limited until follow-up Follow-up with primary care provider upon discharge Continue with medications until finished Use inhaler as needed 1-2 puffs every 6 hours for shortness of breath or w heezing Follow-up with Dr. Pitt outpatient at your scheduled appointment this Wednesday Continue with Mandy Gaviria as needed for cough Discharge Disposition: HOME SELF-CARE
== END 2020-11-27 13:37 | disposition home or self-care (01) ==
LOC: EC 04:35 → 6NMEDSUR 06:49
PROVIDERS: ADMIT Hospitalist; ATTEND Hospitalist
DX: J06.9 Acute upper respiratory infection, unspecified (principal); J98.11 Atelectasis; G35 Multiple sclerosis; J44.9 Chronic obstructive pulmonary disease, unspecified; G62.9 Polyneuropathy, unspecified; E03.9 Hypothyroidism, unspecified; M79.7 Fibromyalgia; R26.89 Other abnormalities of gait and mobility; R07.9 Chest pain, unspecified; F32.9 Major depressive disorder, single episode, unspecified; F41.9 Anxiety disorder, unspecified; Z20.822 Contact with and (suspected) exposure to COVID-19; Z87.891 Personal history of nicotine dependence; Z79.899 Other long term (current) drug therapy; Z90.49 Acquired absence of other specified parts of digestive tract; Z87.01 Personal history of pneumonia (recurrent); Z82.49 Family history of ischemic heart disease and other diseases of the circulatory system; Z83.3 Family history of diabetes mellitus; Z84.1 Family history of disorders of kidney and ureter
CPT/HCPCS: 96376 ×3; 96361 ×4; 96366 ×2; 96367; 96372 ×2; 96368; 96365; 96375; 99285; 36415; 94640 ×2; 93005; 83880; 80053; 84484; 85025; 85610; 85730; 87040; 87635; 71046 ×2; G0378 ×3; J2270 ×3; J2930 ×4; J0456; J0696 ×3; J1650 ×2

== ENCOUNTER 2022-03-01 06:33 | Observation (INO) | payer MEDICARE ==
--- NOTE | 2022-03-01 07:07 | XR ---
EXAMINATION TYPE: XR chest 2V DATE OF EXAM: 03/01/2022 COMPARISON: 11/26/2020 HISTORY: Shortness of breath TECHNIQUE: Frontal and lateral views of the chest are obtained. FINDINGS: Scattered senescent parenchymal changes noted. No evidence for infiltrate. No evidence for atelectasis. Heart size is stable. Mediastinal structures are stable and grossly unremarkable. No evidence for hilar prominence. Degenerative changes dorsal spine. IMPRESSION: 1. No evidence for acute pulmonary disease.
[2022-03-01] MEDS ORDERED: IPRATROPIUM-ALBUTEROL 3 ML NEB INHALATION STA (07:21)
[2022-03-01] MEDS ORDERED: methylPREDNISolone SOD SUCCIN 500 MG in SODIUM CHLORIDE 0.9% 100 ML IVPB STA (07:22)
[2022-03-01] MEDS ORDERED: MORPHINE SULFATE 4 MG/ML SYRINGE IVP STA (07:23)
--- NOTE | 2022-03-01 07:26 | ED ---
General Adult HPI - General Chief complaint: Upper Respiratory Infection Stated complaint: MS flare-up Time Seen by Provider: 03/01/22 06:57 Source: patient, RN notes reviewed Mode of arrival: ambulatory Limitations: no limitations - History of Present Illness Initial comments: Patient is a pleasant 52-year-old female presenting to the emergency department with concerns for both MS flare and cough and congestion. Onset of symptoms was around 5 days ago. Patient does have cough with chest congestion. Patient is unable to fully get sputum up however. No fever. Patient does feel generally achy and pain all over. Patient does have history of similar symptoms previously with MS. Patient has had previous pneumonia with similar symptoms. Patient states she is having some difficulty with walking and general weakness. Patient requests pain medicine. - Related Data Home Medications Medication Instructions Recorded Confirmed Pregabalin [Lyrica] 150 mg PO TID PRN 09/17/18 11/25/20 HYDROcodone/APAP 7.5-325MG [[place] 1 tab PO TID PRN 02/18/20 11/25/20 7.5-325] Rosuvastatin [Crestor] 10 mg PO DAILY 02/19/20 11/25/20 Baclofen [Lioresal] 20 mg PO BID 11/25/20 11/25/20 DULoxetine HCL [Cymbalta] 60 mg PO BID 11/25/20 11/25/20 Dextroamphetamine/Amphetamine 30 mg PO DAILY 11/25/20 11/25/20 [Adderall] Mupirocin 2% Oint [Bactroban 2% 1 applic TOPICAL TID 11/25/20 11/25/20 Oint] lamoTRIgine [LaMICtal] 200 mg PO BID 11/25/20 11/25/20 traZODone HCL [Desyrel] 100 mg PO HS 11/25/20 11/25/20 Previous Rx's Medication Instructions Recorded Albuterol Inhaler [Ventolin Hfa 1 puff INHALATION RT-QID #1 each 11/27/20 Inhaler] Benzonatate [Tessalon Perles] 100 mg PO TID PRN #20 cap 11/27/20 cefUROXime axetiL [Ceftin] 500 mg PO BID 3 Days #6 tab 11/27/20 Allergies Allergy/AdvReac Type Severity Reaction Status Date / Time No Known Allergies Allergy Verified 03/01/22 06:40 Review of Systems ROS Statement: Those systems with pertinent positive or pertinent negative responses have been documented in the HPI. ROS Other: All systems not noted in ROS Statement are negative. Constitutional: Denies: fever Eyes: Denies: eye pain ENT: Reports: congestion. Denies: ear pain Respiratory: Reports: cough Cardiovascular: Denies: palpitations Endocrine: Reports: fatigue Gastrointestinal: Denies: abdominal pain Genitourinary: Denies: dysuria Musculoskeletal: Denies: back pain Skin: Denies: rash Neurological: Reports: as per HPI, weakness Past Medical History Past Medical History: Fibromyalgia, Neurologic Disorder, Pneumonia Additional Past Medical History / Comment(s): Multiple Sclerosis - diagnosis 201 4 , hypothyroidism, History of Any Multi-Drug Resistant Organisms: None Reported Past Surgical History: Appendectomy Past Anesthesia/Blood Transfusion Reactions: No Reported Reaction Past Psychological History: Anxiety, Depression Smoking Status: Former smoker Past Alcohol Use History: Rare Past Drug Use History: None Reported - Past Family History Father Family Medical History: Diabetes Mellitus, Myocardial Infarction ([place]) Mother Family Medical History: No Reported History Additional Family Medical History / Comment(s): Chronic kidney disease stage IV General Exam Limitations: no limitations General appearance: alert, in no apparent distress Eye exam: Present: normal appearance Neck exam: Present: normal inspection Respiratory exam: Present: rhonchi Cardiovascular Exam: Present: regular rate, normal rhythm GI/Abdominal exam: Present: soft. Absent: tenderness Extremities exam: Present: normal inspection. Absent: pedal edema, calf tenderness Neurological exam: Present: alert. Absent: motor sensory deficit Psychiatric exam: Present: normal affect, normal mood Skin exam: Present: normal color Course Vital Signs 03/01/22 03/01/22 03/01/22 06:40 07:34 07:46 Temperature 97.7 F Pulse Rate 107 H 100 100 Respiratory 20 Rate Blood Pressure 122/75 O2 Sat by Pulse 107 H Oximetry 03/01/22 08:09 Temperature 98 F Pulse Rate 89 Respiratory 18 Rate Blood Pressure 124/91 O2 Sat by Pulse 98 Oximetry Medical Decision Making - Medical Decision Making Patient reevaluated. Patient still complained of pain weakness and does not feel comfortable with discharge home. Case was discussed with Dr. De La Fuente, covering Dr. Choi, who will admit. - Lab Data Result diagrams: 03/01/22 07:36 03/01/22 07:36 Lab Results 03/01/22 03/01/22 03/01/22 Range/Units 06:52 06:52 07:36 WBC 4.9 (3.8-10.6) k/uL RBC 4.28 (3.80-5.40) m/uL Hgb 13.5 (11.4-16.0) gm/dL Hct 39.4 (34.0-46.0) % MCV 92.0 (80.0-100.0) fL MCH 31.6 (25.0-35.0) pg MCHC 34.3 (31.0-37.0) g/dL RDW 13.5 (11.5-15.5) % Plt Count 267 (150-450) k/uL MPV 7.4 Neutrophils % 52 % Lymphocytes % 34 % Monocytes % 7 % Eosinophils % 4 % Basophils % 0 % Neutrophils # 2.6 (1.3-7.7) k/uL Lymphocytes # 1.7 (1.0-4.8) k/uL Monocytes # 0.3 (0-1.0) k/uL Eosinophils # 0.2 (0-0.7) k/uL Basophils # 0.0 (0-0.2) k/uL Sodium (137-145) mmol/L Potassium (3.5-5.1) mmol/L Chloride (98-107) mmol/L Carbon Dioxide (22-30) mmol/L Anion Gap mmol/L BUN (7-17) mg/dL Creatinine (0.52-1.04) mg/dL Est GFR (CKD-EPI)AfAm (>60 ml/min/1.73 sqM) Est GFR (CKD-EPI)NonAf (>60 ml/min/1.73 sqM) Glucose (74-99) mg/dL Plasma Lactic Acid Daniel (0.7-2.0) mmol/L Calcium (8.4-10.2) mg/dL Total Bilirubin (0.2-1.3) mg/dL AST (14-36) U/L ALT (4-34) U/L Alkaline Phosphatase (38-126) U/L Total Protein (6.3-8.2) g/dL Albumin (3.5-5.0) g/dL Coronavirus (PCR) Not Detected (Not Detectd) Influenza Type A RNA Not Detected (Not Detectd) Influenza Type B (PCR) Not Detected (Not Detectd) 03/01/22 03/01/22 Range/Units 07:36 07:36 WBC (3.8-10.6) k/uL RBC (3.80-5.40) m/uL Hgb (11.4-16.0) gm/dL Hct (34.0-46.0) % MCV (80.0-100.0) fL MCH (25.0-35.0) pg MCHC (31.0-37.0) g/dL RDW (11.5-15.5) % Plt Count (150-450) k/uL MPV Neutrophils % % Lymphocytes % % Monocytes % % Eosinophils % % Basophils % % Neutrophils # (1.3-7.7) k/uL Lymphocytes # (1.0-4.8) k/uL Monocytes # (0-1.0) k/uL Eosinophils # (0-0.7) k/uL Basophils # (0-0.2) k/uL Sodium 143 (137-145) mmol/L Potassium 3.6 (3.5-5.1) mmol/L Chloride 112 H (98-107) mmol/L Carbon Dioxide 23 (22-30) mmol/L Anion Gap 8 mmol/L BUN 9 (7-17) mg/dL Creatinine 0.69 (0.52-1.04) mg/dL Est GFR (CKD-EPI)AfAm >90 (>60 ml/min/1.73 sqM) Est GFR (CKD-EPI)NonAf >90 (>60 ml/min/1.73 sqM) Glucose 143 H (74-99) mg/dL Plasma Lactic Acid Daniel 2.5 H* (0.7-2.0) mmol/L Calcium 8.7 (8.4-10.2) mg/dL Total Bilirubin 0.5 (0.2-1.3) mg/dL AST 20 (14-36) U/L ALT 17 (4-34) U/L Alkaline Phosphatase 55 (38-126) U/L Total Protein 6.2 L (6.3-8.2) g/dL Albumin 4.1 (3.5-5.0) g/dL Coronavirus (PCR) (Not Detectd) Influenza Type A RNA (Not Detectd) Influenza Type B (PCR) (Not Detectd) - Radiology Data Radiology results: image reviewed (Chest x-ray also interpreted by myself reveals no acute process) Disposition Clinical Impression: Multiple sclerosis Disposition: ADMITTED IP TO THIS HOSP Is patient prescribed a controlled substance at d/c from ED?: No Referrals: Ki Choi MD [Primary Care Provider] - 1-2 days Time of Disposition: 09:06
[2022-03-01 07:45] LABS: Basophils % (A) 0 %; Eosinophils # (A) 0.2 k/uL (0-0.7); Eosinophils % (A) 4 %; HCT 39.4 % (34.0-46.0); HGB 13.5 gm/dL (11.4-16.0); Lymphocytes # (A) 1.7 k/uL (1.0-4.8); Lymphocytes % (A) 34 %; MCH 31.6 pg (25.0-35.0); MCHC 34.3 g/dL (31.0-37.0); Mean Platelet Volume 7.4; Monocytes # (A) 0.3 k/uL (0-1.0); Monocytes % (A) 7 %; Neutrophils # (A) 2.6 k/uL (1.3-7.7); Neutrophils % (A) 52 %; Platelet Count 267 k/uL (150-450); RBC 4.28 m/uL (3.80-5.40); RDW 13.5 % (11.5-15.5); WBC 4.9 k/uL (3.8-10.6)
[2022-03-01 08:07] LABS: ALT 17 U/L (4-34); AST 20 U/L (14-36); African American GFR (CKD) >90 (>60 ml/min/1.73 sqM); Albumin 4.1 g/dL (3.5-5.0); Alkaline Phosphatase 55 U/L (38-126); Anion Gap 8 mmol/L; Blood Urea Nitrogen 9 mg/dL (7-17); Calcium 8.7 mg/dL (8.4-10.2); Carbon Dioxide 23 mmol/L (22-30); Chloride 112 mmol/L (98-107); Glucose 143 mg/dL (74-99); Non-African American GFR(CKD) >90 (>60 ml/min/1.73 sqM); Potassium 3.6 mmol/L (3.5-5.1); Sodium 143 mmol/L (137-145); Total Bilirubin 0.5 mg/dL (0.2-1.3); Total Protein 6.2 g/dL (6.3-8.2)
[2022-03-01] MEDS ORDERED: SODIUM CHLORIDE 0.9% 1,000 ML IV STA (08:10)
[2022-03-01] MEDS ORDERED: MORPHINE SULFATE 4 MG/ML SYRINGE IV PRN (09:06)
[2022-03-01] MEDS ORDERED: NALOXONE 0.4 MG/ML 1 ML VIAL IV PRN (09:06)
[2022-03-01] MEDS: SODIUM CHLORIDE 0.9% 1,000 ML IV SCH ×2 (12:01→22:46)
--- NOTE | 2022-03-01 12:17 | P.CNNES ---
History of Present Illness Consult date: 03/01/22 Reason for Consult: multiple sclerosis History of Present Illness: The patient is a 52-year-old female who is seen in neurologic [facility], [place] on March 01, 2022, via teleneurology. The patient believe she is having an exacerbation of her multiple sclerosis. She says that she is in "a lot of pain". She also reports that she is "sick". She came into the hospital because she was concerned about having pneumonia. She says she has had an ammonia in the past. She also reports feeling a generalized weakness. When asked to further clarify her pain she reports that she has pain in her ribs, low back and "inflammation in my arms and legs". She also reports having difficulty walking. She says when she has an infection her MS symptoms are "amplified". The patient reports being diagnosed with multiple sclerosis 7 years ago. She currently is taking Kesimpta for prevention of MS relapses. The patient denies changes in vision, headache, difficulty with speech, dysuria. She does report occasional difficulty swallowing. She reports difficulty with balance and walking. The patient does have a neurologist with whom she follows. She says she is due for her yearly MRI, soon Past Medical History Past Medical History: Fibromyalgia, Neurologic Disorder, Pneumonia Additional Past Medical History / Comment(s): Multiple Sclerosis - diagnosis 2013 , hypothyroidism, History of Any Multi-Drug Resistant Organisms: None Reported Past Surgical History: Appendectomy Additional Past Surgical History / Comment(s): breast reduction Past Anesthesia/Blood Transfusion Reactions: No Reported Reaction Past Psychological History: Anxiety, Depression Smoking Status: Former smoker Past Alcohol Use History: Rare Past Drug Use History: None Reported Additional Drug Use History / Comment(s): pt states she uses marijuana occasionally 'not very often though' - Past Family History Father Family Medical History: Diabetes Mellitus, Myocardial Infarction ([place]) Mother Family Medical History: No Reported History Additional Family Medical History / Comment(s): Chronic kidney disease stage IV Medications and Allergies Home Medications Medication Instructions Recorded Confirmed Type Pregabalin [Lyrica] 150 mg PO TID PRN 09/17/18 11/25/20 History HYDROcodone/APAP 7.5-325MG [[place] 1 tab PO TID PRN 02/18/20 11/25/20 History 7.5-325] Rosuvastatin [Crestor] 10 mg PO DAILY 02/19/20 11/25/20 History Baclofen [Lioresal] 20 mg PO BID 11/25/20 11/25/20 History DULoxetine HCL [Cymbalta] 60 mg PO BID 11/25/20 11/25/20 History Dextroamphetamine/Amphetamine 30 mg PO DAILY 11/25/20 11/25/20 History [Adderall] Mupirocin 2% Oint [Bactroban 2% 1 applic TOPICAL TID 11/25/20 11/25/20 History Oint] lamoTRIgine [LaMICtal] 200 mg PO BID 11/25/20 11/25/20 History traZODone HCL [Desyrel] 100 mg PO HS 11/25/20 11/25/20 History Albuterol Inhaler [Ventolin Hfa 1 puff INHALATION RT-QID #1 each 11/27/20 Rx Inhaler] Benzonatate [Tessalon Perles] 100 mg PO TID PRN #20 cap 11/27/20 Rx cefUROXime axetiL [Ceftin] 500 mg PO BID 3 Days #6 tab 11/27/20 Rx Allergies Allergy/AdvReac Type Severity Reaction Status Date / Time No Known Allergies Allergy Verified 03/01/22 06:40 Physical Examination - Vital Signs Vital Signs: Vital Signs Temp Pulse Pulse Resp BP BP Pulse Ox 03/01/22 10:06 98.0 F 86 16 129/81 99 03/01/22 08:09 98 F 89 18 124/91 98 03/01/22 07:46 100 03/01/22 07:34 100 03/01/22 06:40 97.7 F 107 H 20 122/75 107 H Intake and Output 02/28/22 03/01/22 03/01/22 22:59 06:59 14:59 Other: Weight 88.451 kg 88.451 kg Gen.: The patient is reclining in the bed. She is well-nourished, well- developed and in no acute distress. HEENT: Head is atraumatic, normocephalic. Fundus not visualized. There is no scleral icterus. Mucous membranes are moist. Neck: Supple without carotid bruits Heart: Regular rate and rhythm Lungs: Clear to auscultation. There are diminished breath sounds at the bases. Extremities: Without edema Neurological examination Mental status: The patient is awake, alert and oriented 3. Her speech is clear. There is no dysarthria or aphasia. Cranial nerves: Pupils are equal at 4 mm and reactive. Visual jimenez are full to confrontation. Extraocular movements are intact. There is no nystagmus. Facial sensation is intact. There is no facial asymmetry. Hearing is grossly intact. Uvula and palate are midline. Shoulder shrug is symmetric. Tongue protrudes midline. Motor: Strength is 5/5 throughout Sensation: Grossly intact to light touch throughout Coordination: Finger to nose testing, rapid alternating movements and [id number] testing are intact Deep tendon reflexes: 2+/4+ throughout Gait: Not assessed Results - Laboratory Findings CBC and BMP: 03/01/22 07:36 03/01/22 07:36 Abnormal Lab Findings: Abnormal Labs 03/01/22 03/01/22 07:36 07:36 Chloride 112 H Glucose 143 H Plasma Lactic Acid Daniel 2.5 H* Total Protein 6.2 L Assessment and Plan Assessment: 1. The patient is a 52-year-old female with a history of multiple sclerosis, who feels she is currently having an exacerbation. She may be experiencing mild increased weakness secondary to upper respiratory infection. I am not convinced that this is a true exacerbation 2. Upper respiratory infection with cough and rhinorrhea. The patient is afebrile. She is not hypoxic. ? Influenza 3. History of fibromyalgia Plan: 1. We will order IV Solu-Medrol 1 g daily 3 days 2. The patient is advised to follow-up with her neurologist 3. Symptomatic treatment for URI 4. Would consider Tylenol for pain, as pain should be adequately treated with Solu-Medrol, if this is a true exacerbation Thank you for allowing us to participate in the care of this patient Dr. Cruz will assume neurologic coverage of this patient as of March 02, 2022 Time with Patient: Greater than 30 (Spent 25 minutes examining patient. Spent another 20 minutes reviewing labs, documentation, imaging reports and preparing the note)
[2022-03-01] MEDS: HYDROcodone/APAP 7.5-325MG 1 EACH TAB PO PRN ×2 (13:27→22:44)
[2022-03-01] MEDS: HYDROmorphone 0.5 MG/0.5 ML SYRINGE IVP PRN ×2 (16:29→21:05)
[2022-03-01] MEDS ORDERED: traZODone HCL 100 MG TAB PO PRN (18:11)
[2022-03-01] MEDS ORDERED: HYDROcodone/APAP 7.5-325MG 1 EACH TAB PO PRN (18:11)
[2022-03-01] MEDS ORDERED: BACLOFEN 10 MG TAB PO PRN (18:11)
--- NOTE | 2022-03-01 18:14 | P.HPIM ---
History of Present Illness H&P Date: 03/01/22 Chief Complaint: Exacerbation of her multiple sclerosis 52-year-old female who is seen in neurologic consultation on March 01, 2022, via teleneurology. The patient believe she is having an exacerbation of her multiple sclerosis. She says that she is in "a lot of pain". She also reports that she is "sick". She came into the hospital because she was concerned about having pneumonia. She says she has had an ammonia in the past. She also reports feeling a generalized weakness. When asked to further clarify her pain she reports that she has pain in her ribs, low back and "inflammation in my arms and legs". She also reports having difficulty walking. She says when she has an infection her MS symptoms are "amplified". The patient reports being diagnosed with multiple sclerosis 7 years ago. She currently is taking Kesimpta for prevention of MS relapses. The patient denies changes in vision, headache, difficulty with speech, dysuria. She does report occasional difficulty swallowing. She reports difficulty with balance and walking. The patient does have a neurologist with whom she follows. She says she is due for her yearly MRI, soon Review of Systems Constitutional: Denies: fever Eyes: Denies: eye pain ENT: Reports: congestion. Denies: ear pain Respiratory: Reports: cough Cardiovascular: Denies: palpitations Endocrine: Reports: fatigue Gastrointestinal: Denies: abdominal pain Genitourinary: Denies: dysuria Musculoskeletal: Denies: back pain Skin: Denies: rash Neurological: Reports: as per HPI, weakness Past Medical History Past Medical History: Fibromyalgia, Neurologic Disorder, Pneumonia Additional Past Medical History / Comment(s): Multiple Sclerosis - diagnosis 2013 , hypothyroidism, History of Any Multi-Drug Resistant Organisms: None Reported Past Surgical History: Appendectomy Additional Past Surgical History / Comment(s): breast reduction Past Anesthesia/Blood Transfusion Reactions: No Reported Reaction Past Psychological History: Anxiety, Depression Smoking Status: Former smoker Past Alcohol Use History: Rare Past Drug Use History: None Reported Additional Drug Use History / Comment(s): pt states she uses marijuana oc casionally 'not very often though' - Past Family History Father Family Medical History: Diabetes Mellitus, Myocardial Infarction ([place]) Mother Family Medical History: No Reported History Additional Family Medical History / Comment(s): Chronic kidney disease stage IV Medications and Allergies Home Medications Medication Instructions Recorded Confirmed Type Pregabalin [Lyrica] 300 mg PO BID 09/17/18 03/01/22 History HYDROcodone/APAP 7.5-325MG [[place] 1 tab PO TID PRN 02/18/20 03/01/22 History 7.5-325] Rosuvastatin [Crestor] 10 mg PO HS 02/19/20 03/01/22 History Baclofen [Lioresal] 20 mg PO BID PRN 11/25/20 03/01/22 History Dextroamphetamine/Amphetamine 30 mg PO DAILY 11/25/20 03/01/22 History [Adderall] lamoTRIgine [LaMICtal] 200 mg PO BID 11/25/20 03/01/22 History traZODone HCL [Desyrel] 100 mg PO HS PRN 11/25/20 03/01/22 History Albuterol Inhaler [Ventolin Hfa 1 puff INHALATION RT-QID PRN 03/01/22 03/01/22 History Inhaler] DULoxetine HCL [Cymbalta] 60 mg PO BID 03/01/22 03/01/22 History Allergies Allergy/AdvReac Type Severity Reaction Status Date / Time No Known Allergies Allergy Verified 03/01/22 14:20 Physical Exam Vitals: Vital Signs Temp Pulse Pulse Resp BP BP Pulse Ox 03/01/22 16:35 98.1 F 109 H 18 124/74 93 L 03/01/22 10:06 98.0 F 86 16 129/81 99 03/01/22 08:09 98 F 89 18 124/91 98 03/01/22 07:46 100 03/01/22 07:34 100 03/01/22 06:40 97.7 F 107 H 20 122/75 107 H Intake and Output 03/01/22 03/01/22 03/01/22 06:59 14:59 22:59 Other: # Voids 2 Weight 88.451 kg 88.451 kg General appearance: alert, in no apparent distress Eye exam: Present: normal appearance Neck exam: Present: normal inspection Respiratory exam: Present: rhonchi Cardiovascular Exam: Present: regular rate, normal rhythm GI/Abdominal exam: Present: soft. Absent: tenderness Extremities exam: Present: normal inspection. Absent: pedal edema, calf tenderness Neurological exam: Present: alert. Absent: motor sensory deficit Psychiatric exam: Present: normal affect, normal mood Skin exam: Present: normal color Results CBC & Chem 7: 03/01/22 07:36 03/01/22 07:36 Labs: Abnormal Lab Results - Last 24 Hours (Table) 03/01/22 03/01/22 Range/Units 07:36 07:36 Chloride 112 H (98-107) mmol/L Glucose 143 H (74-99) mg/dL Plasma Lactic Acid Daniel 2.5 H* (0.7-2.0) mmol/L Total Protein 6.2 L (6.3-8.2) g/dL Thrombosis Risk Factor Assmnt - Choose All That Apply Each Factor Represents 1 point: Age 41-60 years Thrombosis Risk Factor Assessment Total Risk Factor Score: 1 Thrombosis Risk Factor Assessment Level: Low Risk Assessment and Plan Assessment: 1. Acute exacerbation of multiple sclerosis - Patient has been placed on Solu-Medrol 1 g IV daily 3 - Baclofen 20 mg twice a da with Lyrica 300 mg twice a day 2. Upper respiratory infection; symptomatic treatment 3. History of fibromyalgia 4. Bipolar disorder; patient is currently on Lamictal 200 mg twice a day; trazodone 100 mg by mouth daily at bedtime; Cymbalta 30 mg twice a day 5. Hyperlipidemia; Crestor 10 mg daily DVT prophylaxis; SCDs CODE STATUS; full code
[2022-03-01] MEDS ORDERED: methylPREDNISolone SOD SUCCIN 1,000 MG in SODIUM CHLORIDE 0.9% 250 ML IVPB STA (18:35)
[2022-03-01] MEDS: DULoxetine HCL 60 MG CAPSULE.DR PO SCH (21:06)
[2022-03-01] MEDS: ATORVASTATIN 20 MG TAB PO SCH (21:06)
[2022-03-01] MEDS: PREGABALIN 100 MG CAP PO SCH (21:07)
[2022-03-01] MEDS: lamoTRIgine 100 MG TAB PO SCH (21:07)
[2022-03-01] MEDS: FAMOTIDINE 20 MG TAB PO SCH (21:31)
[2022-03-02] MEDS: HYDROmorphone 0.5 MG/0.5 ML SYRINGE IVP PRN (01:40)
[2022-03-02] MEDS ORDERED: HYDROmorphone 0.5 MG/0.5 ML SYRINGE IVP PRN (07:38)
[2022-03-02] MEDS: NON FORMULARY DRUG (Dextroamphetamine/Amphetamine [Adderall] 30 MG Tablet) PO SCH (08:54)
[2022-03-02] MEDS: PREGABALIN 100 MG CAP PO SCH ×2 (09:00→20:33)
[2022-03-02] MEDS: lamoTRIgine 100 MG TAB PO SCH ×2 (09:00→20:33)
[2022-03-02] MEDS: FAMOTIDINE 20 MG TAB PO SCH ×2 (09:00→20:33)
[2022-03-02] MEDS: DULoxetine HCL 60 MG CAPSULE.DR PO SCH ×2 (09:00→20:33)
[2022-03-02 09:16] LABS: Basophils # (A) 0.01 X 10*3/uL (0.00-0.10); Basophils % (A) 0.1 %; Eosinophils # (A) 0 X 10*3/uL (0.04-0.35); Eosinophils % (A) 0 %; HCT 36.7 % (37.2-46.3); HGB 12.3 g/dL (12.0-15.0); Immature Grans, Automated 1.1 %; Lymphocytes # (A) 1.02 X 10*3/uL (0.90-5.00); Lymphocytes % (A) 8.3 %; MCH 30.6 pg (27.0-32.0); MCHC 33.5 g/dL (32.0-37.0); MCV 91.3 fL (80.0-97.0); Mean Platelet Volume 9.7 fL (9.5-12.2); Monocytes # (A) 0.16 X 10*3/uL (0.20-1.00); Monocytes % (A) 1.3 %; NRBC Per 100 WBC 0 /100 WBCS (0.0-0.0); Neutrophils # (A) 11.02 X 10*3/uL (1.80-7.70); Neutrophils % (A) 89.2 %; Platelet Count 298 X 10*3/uL (140-440); RBC 4.02 X 10*6/uL (4.10-5.20); RDW 13.3 % (11.5-14.5); WBC 12.34 X 10*3/uL (4.50-10.00)
[2022-03-02 09:44] LABS: African American GFR (CKD) 113.8 (60.0-200.0); Anion Gap 11.8 mmol/L (10.00-18.00); BUN/Creat Ratio 13.71 Ratio (12.00-20.00); Blood Urea Nitrogen 9.6 mg/dL (9.0-27.0); Calcium 9.3 mg/dL (8.7-10.3); Carbon Dioxide 21.2 mmol/L (20.0-27.5); Non-African American GFR(CKD) 98.2 (60.0-200.0); Potassium 4.1 mmol/L (3.5-5.5)
[2022-03-02] MEDS: HYDROcodone/APAP 7.5-325MG 1 EACH TAB PO PRN ×2 (10:10→17:45)
[2022-03-02] MEDS: ALBUTEROL NEBULIZED 2.5 MG/3 ML INHALATION PRN ×2 (10:52→21:08)
[2022-03-02] MEDS: SODIUM CHLORIDE 0.9% 1,000 ML IV SCH (11:51)
[2022-03-02] MEDS ORDERED: KETOROLAC 15 MG/ML 1 ML VIAL IVP STA (13:52)
[2022-03-02] MEDS ORDERED: KETOROLAC 15 MG/ML 1 ML VIAL IVP PRN (13:52)
[2022-03-02] MEDS ORDERED: HYDROmorphone 0.5 MG/0.5 ML SYRINGE IVP STA (18:42)
[2022-03-02] MEDS: methylPREDNISolone SOD SUCCIN 1,000 MG in SODIUM CHLORIDE 0.9% 250 ML IVPB SCH (20:16)
[2022-03-02] MEDS: ATORVASTATIN 20 MG TAB PO SCH (20:33)
[2022-03-02] MEDS: PANTOPRAZOLE 40 MG/10 ML VIAL IVP SCH (21:27)
[2022-03-02] MEDS: AMOXIC-POT CLAV 500-125 MG 1 EACH TAB PO SCH (21:29)
[2022-03-02] MEDS ORDERED: ACETAMINOPHEN TAB 325 MG TAB PO PRN (21:39)
--- NOTE | 2022-03-02 21:42 | P.PN ---
Subjective From the records 52-year-old female who is seen in neurologic consultation on March 01, 2022, via teleneurology. The patient believe she is having an exacerbation of her multiple sclerosis. She says that she is in "a lot of pain". She also reports that she is "sick". She came into the hospital because she was concerned about having pneumonia. She says she has had an ammonia in the past. She also reports feeling a generalized weakness. When asked to further clarify her pain she reports that she has pain in her ribs, low back and "inflammation in my arms and legs". She also reports having difficulty walking. She says when she has an infection her MS symptoms are "amplified". The patient reports being diagnosed with multiple sclerosis 7 years ago. She currently is taking Kesimpta for prevention of MS relapses. The patient denies changes in vision, headache, difficulty with speech, dysuria. She does report occasional difficulty swallowing. She reports difficulty with balance and walking. The patient does have a neurologist with whom she follows. She says she is due for her yearly MRI, soon 1421 Patient states that she presents because she had some tightness in her chest and difficulty breathing but today she does not feel so bad reactive she still has cough and she states when she comes she has a lot of pain in both rib cage anterior and posterior. She makes little phlegm but no blood. Patient thinks she has some sinus infection and complained from tenderness and her right maxillary sinus area. Patient states that she has balance problems and she develops this when she has MS exacerbation, no leg weakness, no diarrhea or vomiting, no dysuria urgency, she has little headache no weakness or numbness. She remains on IV Solu-Medrol 1000 mg daily for CSF MS exacerbation. We will add Augmentin for possible right maxillary sinusitis Patient is on Adderall and [place] therefore we will stop Dilaudid for patient is high-risk of addiction and complication of from opioids and narcotics and tricuspid and more on NSAIDs and Tylenol We checked d-dimer and it is negative. The risk of PE is very low Objective - Vital Signs Vital signs: Vital Signs Temp 97.5 F L 03/02/22 14:14 Pulse 104 H 03/02/22 14:14 Resp 16 03/02/22 14:14 BP 121/71 03/02/22 14:14 Pulse Ox 93 L 03/02/22 14:14 FiO2 Intake & Output 03/01/22 03/02/22 03/02/22 18:59 06:59 18:59 Intake Total 118 Balance 118 Weight 88.451 kg Intake: Oral 118 Other: # Voids 2 2 - Exam GENERAL: The patient is alert and oriented x3, not in any acute distress. Well developed, well nourished. -HEENT: Pupils are round and equally reacting to light. EOMI. No scleral icterus. No conjunctival pallor. Normocephalic, atraumatic. No pharyngeal erythema. No thyromegaly. Right maxillary tenderness CARDIOVASCULAR: S1 and S2 present. No murmurs, rubs, or gallops. PULMONARY: Chest is clear to auscultation, no wheezing or crackles. ABDOMEN: Soft, nontender, nondistended, normoactive bowel sounds. No palpable organomegaly. MUSCULOSKELETAL: No joint swelling or deformity. EXTREMITIES: No cyanosis, clubbing, or pedal edema. NEUROLOGICAL: Gross neurological examination did not reveal any focal deficits. SKIN: No rashes. no petechiae. - Labs CBC & Chem 7: 03/02/22 04:36 03/02/22 04:36 Labs: Abnormal Lab Results - Last 24 Hours (Table) 03/02/22 03/02/22 Range/Units 04:36 04:36 WBC 12.34 H (4.50-10.00) X 10*3/uL RBC 4.02 L (4.10-5.20) X 10*6/uL Hct 36.7 L (37.2-46.3) % Immature Gran # 0.13 H (0.00-0.04) X 10*3/uL Neutrophils # 11.02 H (1.80-7.70) X 10*3/uL Monocytes # 0.16 L (0.20-1.00) X 10*3/uL Eosinophils # 0 L (0.04-0.35) X 10*3/uL Glucose 178 H (70-110) mg/dL Assessment and Plan Assessment: 1. Acute exacerbation of multiple sclerosis - Patient has been placed on Solu-Medrol 1 g IV daily - Baclofen 20 mg twice a da - Neurologist on the case 2. Upper respiratory infection; with right maxillary sinusitis. 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 4. Bipolar disorder; patient is currently on Lamictal 200 mg twice a day; trazodone 100 mg by mouth daily at bedtime; Cymbalta 30 mg twice a day 5. Hyperlipidemia; Crestor 10 mg daily 6. History of fibromyalgia DVT prophylaxis; SCDs CODE STATUS; full code
[2022-03-03] MEDS ORDERED: HYDROmorphone 0.5 MG/0.5 ML SYRINGE IVP STA (02:18)
[2022-03-03] MEDS: SODIUM CHLORIDE 0.9% 1,000 ML IV SCH (03:40)
[2022-03-03] MEDS ORDERED: HYDROmorphone 0.5 MG/0.5 ML SYRINGE IVP ONE (08:00)
[2022-03-03] MEDS: NON FORMULARY DRUG (Dextroamphetamine/Amphetamine [Adderall] 30 MG Tablet) PO SCH (08:07)
[2022-03-03] MEDS: DULoxetine HCL 60 MG CAPSULE.DR PO SCH (08:14)
[2022-03-03] MEDS: PREGABALIN 100 MG CAP PO SCH (08:14)
[2022-03-03] MEDS: AMOXIC-POT CLAV 500-125 MG 1 EACH TAB PO SCH (08:14)
[2022-03-03] MEDS: lamoTRIgine 100 MG TAB PO SCH (08:15)
--- NOTE | 2022-03-03 08:28 | P.CRDCN ---
History of Present Illness Consult date: 03/03/22 Requesting physician: Nicolas E Sheet Reason for Consult (text): increased HR and chest pain Chief complaint: cough, congestion, MS flair History of present illness: This is a pleasant 52-year-old female with a history of hyperlipidemia, MS, bipolar and prior nicotine dependence quit 20 years ago. She presented to the emergency department with complaint of cough and congestion and symptoms of MS exacerbation. We were asked to the patient for elevated heart rate and "chest pain". She denies any complaints of chest discomfort. She continues to complain of cough and a rattling feeling in her chest, congestion. Complains of low back pain and pain around her lower ribs that she feels is related to her MS. She is currently sinus tachycardia on the monitor. No EKG is available at this time. Troponin has been negative 1. Chest x-ray on admission showed no evidence for acute pulmonary disease. Upon examination patient is resting comfortably in bed. She continues to complain of pain and is receiving Dilaudid. She is currently on Solu-Medrol as ordered by neurology. Continues to complain of a cough, fatigue. Denies any complaints of palpitations or dizziness. She has no complaints of orthopnea or PND. Complains of mild edema at times. Past Medical History Past Medical History: Fibromyalgia, Neurologic Disorder, Pneumonia Additional Past Medical History / Comment(s): Multiple Sclerosis - diagnosis 2013 , hypothyroidism, History of Any Multi-Drug Resistant Organisms: None Reported Past Surgical History: Appendectomy Additional Past Surgical History / Comment(s): breast reduction Past Anesthesia/Blood Transfusion Reactions: No Reported Reaction Past Psychological History: Anxiety, Depression Smoking Status: Former smoker Past Alcohol Use History: Rare Past Drug Use History: None Reported Additional Drug Use History / Comment(s): pt states she uses marijuana occasionally 'not very often though' - Past Family History Father Family Medical History: Diabetes Mellitus, Myocardial Infarction ([place]) Mother Family Medical History: No Reported History Additional Family Medical History / Comment(s): Chronic kidney disease stage IV Medications and Allergies Home Medications Medication Instructions Recorded Confirmed Type Pregabalin [Lyrica] 300 mg PO BID 09/17/18 03/01/22 History HYDROcodone/APAP 7.5-325MG [[place] 1 tab PO TID PRN 02/18/20 03/01/22 History 7.5-325] Rosuvastatin [Crestor] 10 mg PO HS 02/19/20 03/01/22 History Baclofen [Lioresal] 20 mg PO BID PRN 11/25/20 03/01/22 History Dextroamphetamine/Amphetamine 30 mg PO DAILY 11/25/20 03/01/22 History [Adderall] lamoTRIgine [LaMICtal] 200 mg PO BID 11/25/20 03/01/22 History traZODone HCL [Desyrel] 100 mg PO HS PRN 11/25/20 03/01/22 History Albuterol Inhaler [Ventolin Hfa 1 puff INHALATION RT-QID PRN 03/01/22 03/01/22 History Inhaler] DULoxetine HCL [Cymbalta] 60 mg PO BID 03/01/22 03/01/22 History Allergies Allergy/AdvReac Type Severity Reaction Status Date / Time No Known Allergies Allergy Verified 03/01/22 14:20 Physical Exam Vitals: Vital Signs Temp Pulse Pulse Resp BP Pulse Ox 03/03/22 02:10 97.5 F L 110 H 18 130/75 97 03/02/22 21:19 102 H 03/02/22 21:09 100 03/02/22 21:07 97.7 F 99 19 116/77 96 03/02/22 14:14 97.5 F L 104 H 16 121/71 93 L 03/02/22 12:43 123 H 16 129/82 93 L 03/02/22 11:03 74 03/02/22 10:53 72 Intake and Output 03/02/22 03/03/22 03/03/22 22:59 06:59 14:59 Other: # Voids 1 1 PHYSICAL EXAMINATION: This is a 52-year-old female in no apparent distress at the time of my examination. HEENT: Head is atraumatic, normocephalic. Pupils are equal, round. Sclerae anicteric. Conjunctivae are clear. Mucous membranes of the mouth are moist. Neck is supple. There is no elevated jugular venous pressure. No carotid bruit is heard. CHEST EXAMINATION: Clear to auscultation bilaterally. No wheezes rales or rhonchi. Respirations even and nonlabored. HEART EXAMINATION: Heart regular, positive S1 and S2. No S3. No S4. A soft systolic murmur. ABDOMEN: Soft, nontender. Bowel sounds are heard. No organomegaly noted. EXTREMITIES: 2+ peripheral pulses with no evidence of peripheral edema and no calf tenderness noted. NEUROLOGIC EXAMINATION: Patient is awake, alert and oriented x3. Results 03/02/22 04:36 03/02/22 04:36 Cardiac Enzymes 03/03/22 Range/Units 03:28 Troponin I <0.012 (0.000-0.034) ng/mL CBC 03/02/22 Range/Units 04:36 WBC 12.34 H (4.50-10.00) X 10*3/uL RBC 4.02 L (4.10-5.20) X 10*6/uL Hgb 12.3 (12.0-15.0) g/dL Hct 36.7 L (37.2-46.3) % Plt Count 298 (140-440) X 10*3/uL Comprehensive Metabolic Panel 03/02/22 Range/Units 04:36 Sodium 139 (135-145) mmol/L Potassium 4.1 (3.5-5.5) mmol/L Chloride 106 (96-109) mmol/L Carbon Dioxide 21.2 (20.0-27.5) mmol/L BUN 9.6 (9.0-27.0) mg/dL Creatinine 0.7 (0.6-1.5) mg/dL Glucose 178 H (70-110) mg/dL Calcium 9.3 (8.7-10.3) mg/dL Current Medications Generic Name Dose Route Start Last Admin Trade Name Freq PRN Reason Stop Dose Admin Acetaminophen 325 mg 03/02/22 21:39 Acetaminophen Tab 325 Mg Tab PO Q6HR PRN Fever and/ or Pain Hydrocodone Bitart/Acetaminophen 1 each 03/01/22 13:10 03/02/22 17:45 Hydrocodone/Apap 7.5-325mg 1 Each Tab PO 1 each Q8HR PRN Administration Pain Hydrocodone Bitart/Acetaminophen 1 each 03/01/22 18:11 Hydrocodone/Apap 7.5-325mg 1 Each Tab PO TID PRN Pain Albuterol Sulfate 2.5 mg 03/01/22 18:11 03/02/22 21:08 Albuterol Nebulized 2.5 Mg/3 Ml INHALATION 2.5 mg RT-QID PRN Administration Shortness Of Breath Amoxicillin/Clavulanate Potassium 1 each 03/02/22 21:00 03/02/22 21:29 Amoxic-Pot Clav 500-125 Mg 1 Each Tab PO 1 each BID ROSIO Administration Protocol Atorvastatin Calcium 20 mg 03/01/22 21:00 03/02/22 20:33 Atorvastatin 20 Mg Tab PO 20 mg HS ROSIO Administration Baclofen 20 mg 03/01/22 18:11 Baclofen 10 Mg Tab PO BID PRN Muscle Pain Duloxetine HCl 60 mg 03/01/22 21:00 03/02/22 20:33 Duloxetine Hcl 60 Mg Capsule.Dr PO 60 mg BID ROSIO Administration Heparin Sodium (Porcine) 5,000 unit 03/03/22 09:00 Heparin Sodium,Porcine/Pf 5,000 Unit/0.5 Ml Syringe SQ Q12HR ROSIO Sodium Chloride 1,000 mls @ 50 mls/hr 03/01/22 09:15 03/03/22 03:40 Saline 0.9% IV 50 mls/hr .Q20H ROSIO Administration Methylprednisolone Sodium 250 mls @ 250 mls/hr 03/02/22 19:00 03/02/22 20:16 Succinate 1,000 mg/ Sodium IVPB 250 mls/hr Chloride Q24H ROSIO Administration Ketorolac Tromethamine 15 mg 03/02/22 13:52 Ketorolac 15 Mg/Ml 1 Ml Vial IVP 03/05/22 13:52 Q6HR PRN Pain Lamotrigine 200 mg 03/01/22 21:00 03/02/22 20:33 Lamotrigine 100 Mg Tab PO 200 mg BID ROSIO Administration Naloxone HCl 0.2 mg 03/01/22 09:06 Naloxone 0.4 Mg/Ml 1 Ml Vial IV Q2M PRN Opioid Reversal Non-Formulary Medication 30 mg 03/02/22 09:00 03/03/22 08:07 Dextroamphetamine/Amphetamine [Adderall] PO Not Given DAILY RSOIO Pantoprazole Sodium 40 mg 03/02/22 21:00 03/02/22 21:27 Pantoprazole 40 Mg/10 Ml Vial IVP 03/03/22 10:00 40 mg BID ROSIO Administration Pantoprazole Sodium 40 mg 03/03/22 21:00 Pantoprazole 40 Mg Tablet PO BID ROSIO Pregabalin 300 mg 03/01/22 21:00 03/02/22 20:33 Pregabalin 100 Mg Cap PO 300 mg BID ROSIO Administration Trazodone HCl 100 mg 03/01/22 18:11 03/02/22 03:22 Trazodone Hcl 100 Mg Tab PO 100 mg HS PRN Administration SLEEP Intake and Output 03/02/22 03/03/22 03/03/22 22:59 06:59 14:59 Other: # Voids 1 1 03/02/22 04:36 03/02/22 04:36 Assessment and Plan Assessment: #1 tachycardia, no evidence of malignant arrhythmia #2 multiple sclerosis, exacerbation, neurology is following #3 hyperlipidemia, on Crestor 10 mg by mouth daily #4 possible chest pain, patient denies #5 bipolar Plan: From 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 We'll obtain a TSH. No evidence of acute coron angel syndrome. If there is no significant abnormality we will follow-up with the patient as an outpatient for possible stress test at a later date. MATERIALS AND PROCESSES MANAGER note has been reviewed, I agree with a documented findings and plan of care. Patient was seen and examined.
[2022-03-03] MEDS: ALBUTEROL NEBULIZED 2.5 MG/3 ML INHALATION PRN (08:29)
--- NOTE | 2022-03-03 08:48 | P.PN ---
Subjective Progress Note Date: 03/02/22 Patient was seen for a follow-up. Patient initially seen by Dr. Garcia. Please refer to her note for details. Patient has history of multiple sclerosis came with questionable exacerbation. Patient strength was normal. Patient reports severe pain. Patient was given 1 dose of Solu-Medrol. Dr. Garcia was not convinced if it was a real exacerbation of that she needs inpatient treatment. Patient at present tells me that she has suffered from bronchitis for last 1 week. She feels she has an MS flareup. She feels "tons of inflammation", horrendous pain all over, as if pressing on the ribs, like crushed from behind. Also complains of pain in the clavicle and in the low back pain. Patient has been seen by myself previously on 11/25/2020 with similar symptoms of upper respiratory infection, which she believed that time also triggered an MS exacerbation. Patient has been diagnosed with multiple sclerosis since around 2013. Patient has previously tried Avonex, Tecfidera, Gilenya and Copaxone. Patient was previously on Ocrevus, which she stopped about 9 months ago. For the last 3-4 months, she has been on Kesimpta for her MS. Patient has depression, could not tolerate interferon injections.She follows up with Dr Walton. Objective - Vital Signs Vital signs: Vital Signs Temp 97.5 F L 03/02/22 14:14 Pulse 104 H 03/02/22 14:14 Resp 16 03/02/22 14:14 BP 121/71 03/02/22 14:14 Pulse Ox 93 L 03/02/22 14:14 FiO2 Intake & Output 03/01/22 03/02/22 03/02/22 18:59 06:59 18:59 Intake Total 118 Balance 118 Weight 88.451 kg Intake: Oral 118 Other: # Voids 2 2 - Exam Patient is laying comfortably in the bed, appears worried. Patient's mental status, speech and language functions are normal. Muscle strength is normal in arms and legs distally and proximally. There is no ataxia for [id number] testing. Mild ataxia for slkg-zr-[id number] testing bilaterally, which was also present in the previous evaluation. Sensations are equal bilaterally. - Labs CBC & Chem 7: 03/02/22 04:36 11/15/22 03:28 Labs: Abnormal Lab Results - Last 24 Hours (Table) 03/02/22 03/02/22 Range/Units 04:36 04:36 WBC 12.34 H (4.50-10.00) X 10*3/uL RBC 4.02 L (4.10-5.20) X 10*6/uL Hct 36.7 L (37.2-46.3) % Immature Gran # 0.13 H (0.00-0.04) X 10*3/uL Neutrophils # 11.02 H (1.80-7.70) X 10*3/uL Monocytes # 0.16 L (0.20-1.00) X 10*3/uL Eosinophils # 0 L (0.04-0.35) X 10*3/uL Glucose 178 H (70-110) mg/dL Assessment and Plan Assessment: 1. The patient is a 52-year-old female with a history of multiple sclerosis, who feels she is currently having an exacerbation. She may be experiencing mild increased weakness secondary to upper respiratory infection. I am not convinced that this is a true exacerbation 2. Upper respiratory infection with cough and rhinorrhea. The patient is afebrile. She is not hypoxic. ? Influenza 3. History of fibromyalgia Plan: 1. We will order IV Solu-Medrol 1 g daily 3 days. Patient will receive second dose today and third dose tomorrow and then may be discharged subsequently. 2. The patient is advised to follow-up with her neurologist Dr. Walton. 3. Symptomatic treatment for URI
[2022-03-03] MEDS ORDERED: HEPARIN SODIUM,PORCINE/PF 5,000 UNIT/0.5 ML SYRINGE SQ SCH (09:00)
[2022-03-03] MEDS ORDERED: LORATADINE 10 MG TAB PO SCH (09:15)
[2022-03-03] MEDS: PANTOPRAZOLE 40 MG/10 ML VIAL IVP SCH (09:25)
[2022-03-03] MEDS: HYDROcodone/APAP 7.5-325MG 1 EACH TAB PO PRN (09:26)
[2022-03-03 09:37] LABS: African American GFR (CKD) 96.9 (60.0-200.0); Anion Gap 11.6 mmol/L (10.00-18.00); BUN/Creat Ratio 17.25 Ratio (12.00-20.00); Blood Urea Nitrogen 13.8 mg/dL (9.0-27.0); Calcium 8.9 mg/dL (8.7-10.3); Carbon Dioxide 20.4 mmol/L (20.0-27.5); Magnesium 2.1 mg/dL (1.5-2.4); Non-African American GFR(CKD) 83.6 (60.0-200.0); Potassium 4.3 mmol/L (3.5-5.5)
[2022-03-03] MEDS ORDERED: guaiFENesin-DM 100-10MG/5ML 10 ML CUP PO SCH (12:00)
--- NOTE | 2022-03-03 12:47 | CA ---
Transthoracic Echo Report Name: Juliette Luis Age: 52 Gender: F : 1970 Exam Date: 03/03/2022 10:22 Exam Location: [facility] Ht (in): 67 Wt (lb): 195 Ordering Physician: Padmini Lam Attending/Referring Phys: [id number], Carole Primary Clinician Teresa Tran RDCS Procedure CPT: Indications: Chest Pain Cardiac Hx: Technical Quality: Contrast 1: Total Dose (mL): Contrast 2: Total Dose (mL): MEASUREMENTS (Male / Female) Normal Values 2D ECHO LV Diastolic Diameter PLAX 4.1 cm 4.2 - 5.9 / 3.9 - 5.3 cm LV Systolic Diameter PLAX 2.8 cm IVS Diastolic Thickness 1.1 cm 0.6 - 1.0 / 0.6 - 0.9 cm LVPW Diastolic Thickness 0.9 cm 0.6 - 1.0 / 0.6 - 0.9 cm LV Relative Wall Thickness 0.5 RV Internal Dim ED PLAX 2.7 cm LA Systolic Diameter LX 3.2 cm 3.0 - 4.0 / 2.7 - 3.8 cm M-MODE Aortic Root Diameter MM 3.0 cm LA Systolic Diameter MM 3.4 cm LA Ao Ratio MM 1.2 MV E Point Septal Separation 0.4 cm AV Cusp Separation MM 1.8 cm DOPPLER MV Area PHT 3.7 cm??? Mitral E Point Velocity 72.6 cm/s Mitral A Point Velocity 98.6 cm/s Mitral E to A Ratio 0.7 MV Deceleration Time 207.5 ms MV E' Velocity 11.8 cm/s Mitral E to MV E' Ratio 6.1 TR Peak Velocity 204.6 cm/s TR Peak Gradient 16.7 mmHg Right Ventricular Systolic Press 20.1 mmHg FINDINGS Left Ventricle Mildly increased septal wall thickness. Left ventricular ejection fraction is estimated at 55-60%. Right Ventricle Normal right ventricular size and function. Right ventricular systolic pressure within normal limits. Right Atrium Normal right atrial size. Left Atrium Normal left atrial size. Mitral Valve Structurally normal mitral valve. Mild mitral regurgitation. Aortic Valve Trileaflet aortic valve. Tricuspid Valve Structurally normal tricuspid valve. Mild tricuspid regurgitation. Pulmonic Valve Structurally normal pulmonic valve. Pericardium Echo free space anterior to the right ventricle likely represents a fat pad. Aorta Normal size aortic root and proximal ascending aorta. CONCLUSIONS 1. Normal ventricular size and systolic function 2. Mild mitral and tricuspid regurgitation. Previewed by: Dr. Kayla Bucio MD (Electronically Signed) Final Date: 03 March 2022 12:46
[2022-03-03 12:56] LABS: T4, Free (Free Thyroxine) 0.96 ng/dL (0.78-2.19)
[2022-03-03] MEDS ORDERED: CYANOCOBALAMIN 1,000 MCG/ML 1 ML VIAL IM ONE (13:37)
--- NOTE | 2022-03-03 13:39 | P.PN ---
Subjective Progress Note Date: 03/03/22 03/03/2022: Patient was seen for a follow-up. Patient continues to have body aches. She feels steroids is helping. She was to continue and received total of 3 doses. 03/02/2022: Patient was seen for a follow-up. Patient initially seen by Dr. Garcia. Please refer to her note for details. Patient has history of multiple sclerosis came with questionable exacerbation. Patient strength was normal. Patient reports severe pain. Patient was given 1 dose of Solu-Medrol. Dr. Garcia was not convinced if it was a real exacerbation of that she needs inpatient treatment. Patient at present tells me that she has suffered from bronchitis for last 1 week. She feels she has an MS flareup. She feels "tons of inflammation", horrendous pain all over, as if pressing on the ribs, like crushed from behind. Also complains of pain in the clavicle and in the low back pain. Patient has been seen by myself previously on 11/25/2020 with similar symptoms of upper respiratory infection, which she believed that time also triggered an MS exacerbation. Patient has been diagnosed with multiple sclerosis since around 2013. Patient has previously tried Avonex, Tecfidera, Gilenya and Copaxone. Patient was previously on Ocrevus, which she stopped about 9 months ago. For the last 3-4 months, she has been on Kesimpta for her MS. Patient has depression, could not tolerate interferon injections.She follows up with Dr Walton. Objective - Vital Signs Vital signs: Vital Signs Temp 97.5 F L 03/03/22 07:00 Pulse 110 H 03/03/22 07:00 Resp 18 03/03/22 07:00 BP 130/75 03/03/22 07:00 Pulse Ox 97 03/03/22 07:00 FiO2 Intake & Output 03/02/22 03/03/22 03/03/22 18:59 06:59 18:59 Intake Total 118 Balance 118 Intake: Oral 118 Other: # Voids 1 1 - Exam Patient is laying comfortably in the bed, appears worried. Patient's mental status, speech and language functions are normal. Muscle strength is normal in arms and legs distally and proximally. There is no ataxia for seyolo-[id number] testing. Mild ataxia for [id number]-rz-[id number] testing bilaterally, which was also present in the previous evaluation. Sensations are equal bilaterally. - Labs CBC & Chem 7: 03/02/22 04:36 03/03/22 03:28 Labs: Abnormal Lab Results - Last 24 Hours (Table) 03/03/22 03/03/22 Range/Units 03:28 03:28 Glucose 189 H (70-110) mg/dL TSH 0.136 L (0.465-4.680) mIU/L Assessment and Plan Assessment: 1. The patient is a 52-year-old female with a history of multiple sclerosis, who feels she is currently having an exacerbation. She may be experiencing mild increased weakness secondary to upper respiratory infection. I am not convinced that this is a true exacerbation 2. Upper respiratory infection with cough and rhinorrhea. The patient is afebrile. She is not hypoxic. ? Influenza 3. History of fibromyalgia Plan: 1. We will order IV Solu-Medrol 1 g daily 3 days. Patient has received 2 doses of Solu-Medrol. She will receive final dose today and then discharged. No need for oral tapering dose. 2. The patient is advised to follow-up with her neurologist Dr. Walton. 3. Symptomatic treatment for URI 4. Patient's previous B12 was low 247 on 12/24/2020. We will repeat B12 and folate level and TSH. Patient will receive B12 1000 g IM 1 dose now. Addendum 03/04/2022: Patient's B12 is quite low 191(200-944). Patient has received 1 B12 injections before she left home yesterday. Folate 2.5(4.4-31.0). Her TSH is also slightly low. I called patient's home today and informed her these results. Patient has an appointment with her primary physician and will start weekly B12 injections for one month and then twice a month. She will also start folic acid. PCP to address her thyroid functions. Also informed Dr. Louis about above recommendations.
[2022-03-03 15:13] VITALS: BP 132/74; PULSE 109; RESP 15; TEMP 97.9
[2022-03-03] MEDS: methylPREDNISolone SOD SUCCIN 1,000 MG in SODIUM CHLORIDE 0.9% 250 ML IVPB SCH (15:41)
[2022-03-03] MEDS ORDERED: PANTOPRAZOLE 40 MG TABLET PO SCH (21:00)
--- NOTE | 2022-03-03 22:14 | P.DS ---
Providers Date of admission: 03/03/22 10:24 Attending physician: Kathy De La Fuente Consults: 03/01/22 09:06 Consult Physician Routine Consulting Provider: Mesha Garcia Consult Reason/Comments: MS Do you want consulting provider notified?: Yes 03/02/22 12:51 Consult Physician Routine Consulting Provider: Kayla Bucio Consult Reason/Comments: Increased HR and chest pain Do you want consulting provider notified?: Yes Primary care physician: Ki Choi Hospital Course: Diagnoses: 1. Acute exacerbation of multiple sclerosis 2. Upper respiratory infection; with right maxillary sinusitis. 3 tachycardia, most likely secondary to systemic disease like infection, rule out cardiac causes and consult principle industrial hygienist. 4. Bipolar disorder; patient is currently on Lamictal 200 mg twice a day; trazodone 100 mg by mouth daily at bedtime; Cymbalta 30 mg twice a day 5. Hyperlipidemia; Crestor 10 mg daily 6. History of fibromyalgia Hospital course: 52-year-old female who presents initially with respiratory symptoms and coughing and concerns for generalized weakness related to her MS exacerbation Patient has been evaluated by neurologist and received 3 doses of IV Solu-Medrol. Also she was treated with IV fluids and antibiotics for her upper respiratory infection and sinusitis, she showed interval improvement however she still have some upper respiratory symptoms that can be managed as an outpatient. Knowledge Manager evaluated the patient for tachycardia, most likely secondary to upper respiratory infection, principle industrial hygienist recommended stress test as an outpatient. Ejection fraction 55-60%. D-dimer is negative Patient today was feeling better and that she can finish her course of therapy at home and she is agreeable for discharge with close outpatient monitoring On the day of discharge she denies chest pain. No dyspnea. She still has upper respiratory symptoms. No diarrhea or vomiting, no urinary complaints Her rib cage pain is controlled. Patient was cleared for discharge by neurologist and principle industrial hygienist. Problems and management plan were discussed with the patient and he verbalized understanding and acceptance Patient was found stable and can be discharged home in guarded prognosis however he needs follow-up as an outpatient. Patient was instructed to follow up with PCP Dr. Choi within one week and patient agrees. Patient agrees made for her with Dr. Choi on 03/10. Also I called Dr. Choi and discussed the case with him with the ending B12 and folate and he currently agreed to follow up his blood test. Patient also was instructed to follow up with her neurologist Dr. Pitt and Dr. Bucio principle industrial hygienist as an outpatient with recommendation for outpatient stress test, patient informed and she agrees Physical exam Gen: patient is a AAOx3, no distress CVS: S1-S2, RRR, no murmur Lungs: B/L CTA, no wheezing Abdomen: soft, no distention, no tenderness, positive bowel sounds Extremity: no leg edema or induration Time spent more than 35 minutes Plan - Discharge Summary Discharge Rx Participant: Yes New Discharge Prescriptions: New Loratadine [Claritin] 10 mg PO DAILY 7 Days #7 tab Amoxic-Pot Clav 500-125 mg [Augmentin 500-125 mg] 1 each PO BID 5 Days #10 tab Pantoprazole [Protonix] 40 mg PO BID 7 Days #7 tab guaiFENesin-DM 100-10MG/5ML [Robitussin DM] 10 ml PO Q6HR 3 Days #100 ml Acetaminophen Tab [Tylenol] 325 mg PO Q6HR PRN tab PRN Reason: Fever And/ Or Pain Continue Pregabalin [Lyrica] 300 mg PO BID HYDROcodone/APAP 7.5-325MG [[place] 7.5-325] 1 tab PO TID PRN PRN Reason: Pain Rosuvastatin [Crestor] 10 mg PO HS Baclofen [Lioresal] 20 mg PO BID PRN PRN Reason: Muscle Pain Dextroamphetamine/Amphetamine [Adderall] 30 mg PO DAILY lamoTRIgine [LaMICtal] 200 mg PO BID traZODone HCL [Desyrel] 100 mg PO HS PRN PRN Reason: SLEEP DULoxetine HCL [Cymbalta] 60 mg PO BID Changed Albuterol Inhaler [Ventolin Hfa Inhaler] 1 puff INHALATION RT-QID PRN #1 each PRN Reason: Shortness Of Breath Discharge Medication List Pregabalin [Lyrica] 300 mg PO BID 09/17/18 [History] HYDROcodone/APAP 7.5-325MG [[place] 7.5-325] 1 tab PO TID PRN 02/18/20 [History] Rosuvastatin [Crestor] 10 mg PO HS 02/19/20 [History] Baclofen [Lioresal] 20 mg PO BID PRN 11/25/20 [History] Dextroamphetamine/Amphetamine [Adderall] 30 mg PO DAILY 11/25/20 [History] lamoTRIgine [LaMICtal] 200 mg PO BID 11/25/20 [History] traZODone HCL [Desyrel] 100 mg PO HS PRN 11/25/20 [History] DULoxetine HCL [Cymbalta] 60 mg PO BID 03/01/22 [History] Acetaminophen Tab [Tylenol] 325 mg PO Q6HR PRN tab 03/03/22 [Rx] Albuterol Inhaler [Ventolin Hfa Inhaler] 1 puff INHALATION RT-QID PRN #1 each 03/03/22 [Rx] Amoxic-Pot Clav 500-125 mg [Augmentin 500-125 mg] 1 each PO BID 5 Days #10 tab 03/03/22 [Rx] Loratadine [Claritin] 10 mg PO DAILY 7 Days #7 tab 03/03/22 [Rx] Pantoprazole [Protonix] 40 mg PO BID 7 Days #7 tab 03/03/22 [Rx] guaiFENesin-DM 100-10MG/5ML [Robitussin DM] 10 ml PO Q6HR 3 Days #100 ml 03/03/22 [Rx] Follow up Appointment(s)/Referral(s): Ki Choi MD [Primary Care Provider] - 03/10/22 1:00 pm Kayla Bucio MD [STAFF PHYSICIAN] - 1 Week (Knowledge Manager, recommend stress test as an outpatient Office will call with appointment time and date.) Claudio Pitt MD [Family Provider] - 1 Week Patient Instructions/Handouts: Multiple Sclerosis ([place]) Activity/Diet/Wound Care/Special Instructions: heart healthy diet activity is restricted till you see your doctor Discharge Disposition: HOME SELF-CARE
== END 2022-03-03 17:12 | disposition home or self-care (01) ==
LOC: EC 06:33 → 6NMEDSUR 09:08 → INTOOBSV 03-03 10:24 → OBSVTOIN 03-03 10:24 → UNDODISIN 03-03 17:12
PROVIDERS: ADMIT Internal Medicine; ATTEND Internal Medicine
DX: G35 Multiple sclerosis (principal); J06.9 Acute upper respiratory infection, unspecified; R00.0 Tachycardia, unspecified; F31.9 Bipolar disorder, unspecified; E78.5 Hyperlipidemia, unspecified; M79.7 Fibromyalgia; J32.0 Chronic maxillary sinusitis; E03.9 Hypothyroidism, unspecified; F41.9 Anxiety disorder, unspecified; F12.90 Cannabis use, unspecified, uncomplicated; I08.1 Rheumatic disorders of both mitral and tricuspid valves; Z79.899 Other long term (current) drug therapy; Z87.891 Personal history of nicotine dependence; Z83.3 Family history of diabetes mellitus; Z82.49 Family history of ischemic heart disease and other diseases of the circulatory system; Z84.1 Family history of disorders of kidney and ureter; Z20.822 Contact with and (suspected) exposure to COVID-19; Z41.1 Encounter for cosmetic surgery
CPT/HCPCS: 96376 ×3; 96366 ×3; 96372; 96375 ×3; 96365 ×2; 99285; 36415; 94640 ×3; 93306; 85379; 84439; 83880; 80053; 80048 ×2; 84443; 82607; 82746; 83605; 83735; 84484; 85025 ×2; 87502; 84145; 87635; 71046; G0378 ×3; J2270; J3420; J2930 ×4; J1885; C9113 ×2; J1170 ×3; J1644

== ENCOUNTER → 2022-04-29 | Outpatient (CLI) | payer MEDICARE ==
--- NOTE | 2022-04-29 22:45 | CT ---
EXAMINATION TYPE: CT sinus wo con DATE OF EXAM: 04/29/2022 COMPARISON: NONE HISTORY: chronic sinusitis CT DLP: 693.0 mGycm. Automated Exposure Control for Dose Reduction was Utilized. TECHNIQUE: CT scan of the sinuses is performed without contrast, axial images are obtained, coronal r eformatted images are also reviewed. FINDINGS: Some patchy opacification inferiorly left maxillary sinus. Remainder of the paranasal sinu ses are clear without abnormal opacification or air-fluid levels. The ostiomeatal complex is patent b ilaterally on the coronal images. Visualized portion of mastoid air cells show no abnormal opacification. The globes are intact bilate rally. Visualized portion of brain parenchyma shows mild diffuse age related atrophy and moderate no nspecific periventricular white matter changes greatest over the left frontal horn extending superior ly correlating with 2018 MRI present product of demyelinating disease. IMPRESSION: Mild inferior left-sided acute maxillary sinusitis.
== END | disposition home or self-care (01) ==
LOC: RADCTMAIN 16:44
PROVIDERS: ATTEND Otolaryngology
DX: J01.00 Acute maxillary sinusitis, unspecified (principal)
CPT/HCPCS: 70486

== ENCOUNTER 2022-11-21 11:23 | Emergency (ER) | payer MEDICARE ==
[2022-11-21 11:45] VITALS: TEMP 98.1
[2022-11-21] MEDS ORDERED: KETOROLAC 15 MG/ML 1 ML VIAL IM STA (12:20)
[2022-11-21] MEDS ORDERED: HYDROmorphone 1 MG/ML 1 ML SYRINGE IM STA (12:20)
--- NOTE | 2022-11-21 12:28 | ED ---
General Adult HPI - General Chief complaint: Fall Stated complaint: Fall-L sided pain Time Seen by Provider: 11/21/22 12:02 Source: patient, RN notes reviewed, old records reviewed Mode of arrival: wheelchair Limitations: no limitations - History of Present Illness Initial comments: 52-year-old female with left hip and buttock pain after a fall which occurred one week ago. Patient has been ambulatory she has been receiving daily massages. She does have history of MS and states that her baseline pain medication which includes naproxen and [place] had been improving the pain. She completed a course of oral steroids and noted that in the middle of the night her pain seemed to worsen especially in the left hip and buttock region. No new injury. Patient is ambulatory. She states she has the proximal end, [place], and baclofen at home. - Related Data Home Medications Medication Instructions Recorded Confirmed Pregabalin [Lyrica] 300 mg PO BID 09/17/18 03/01/22 HYDROcodone/APAP 7.5-325MG [[place] 1 tab PO TID PRN 02/18/20 03/01/22 7.5-325] Rosuvastatin [Crestor] 10 mg PO HS 02/19/20 03/01/22 Baclofen [Lioresal] 20 mg PO BID PRN 11/25/20 03/01/22 Dextroamphetamine/Amphetamine 30 mg PO DAILY 11/25/20 03/01/22 [Adderall] lamoTRIgine [LaMICtal] 200 mg PO BID 11/25/20 03/01/22 traZODone HCL [Desyrel] 100 mg PO HS PRN 11/25/20 03/01/22 DULoxetine HCL [Cymbalta] 60 mg PO BID 03/01/22 03/01/22 Previous Rx's Medication Instructions Recorded Acetaminophen Tab [Tylenol] 325 mg PO Q6HR PRN tab 03/03/22 Albuterol Inhaler [Ventolin Hfa 1 puff INHALATION RT-QID PRN #1 03/03/22 Inhaler] each Amoxic-Pot Clav 500-125 mg 1 each PO BID 5 Days #10 tab 03/03/22 [Augmentin 500-125 mg] Loratadine [Claritin] 10 mg PO DAILY 7 Days #7 tab 03/03/22 Pantoprazole [Protonix] 40 mg PO BID 7 Days #7 tab 11/15/22 guaiFENesin-DM 100-10MG/5ML 10 ml PO Q6HR 3 Days #100 ml 03/03/22 [Robitussin DM] Allergies Allergy/AdvReac Type Severity Reaction Status Date / Time No Known Allergies Allergy Verified 11/21/22 11:45 Review of Systems ROS Statement: Those systems with pertinent positive or pertinent negative responses have been documented in the HPI. ROS Other: All systems not noted in ROS Statement are negative. Past Medical History Past Medical History: Fibromyalgia, Neurologic Disorder, Pneumonia, Thyroid Disorder Additional Past Medical History / Comment(s): Multiple Sclerosis - diagnosis 2013 , hypothyroidism, History of Any Multi-Drug Resistant Organisms: None Reported Past Surgical History: Appendectomy Additional Past Surgical History / Comment(s): breast reduction Past Anesthesia/Blood Transfusion Reactions: No Reported Reaction Past Psychological History: Anxiety, Depression Smoking Status: Former smoker Past Alcohol Use History: Rare Past Drug Use History: None Reported - Past Family History Father Family Medical History: Diabetes Mellitus, Myocardial Infarction ([place]) Mother Family Medical History: No Reported History Additional Family Medical History / Comment(s): Chronic kidney disease stage IV General Exam Limitations: no limitations General appearance: alert, in no apparent distress Head exam: Present: atraumatic, normocephalic Eye exam: Present: normal appearance, PERRL ENT exam: Present: normal exam Neck exam: Present: normal inspection. Absent: tenderness Respiratory exam: Present: normal lung sounds bilaterally. Absent: respiratory distress, wheezes Cardiovascular Exam: Present: regular rate, normal rhythm GI/Abdominal exam: Present: soft. Absent: distended, tenderness Extremities exam: Present: normal capillary refill. Absent: full ROM (Decreased range of motion of the left hip secondary to pain.), calf tenderness Back exam: Absent: vertebral tenderness Neurological exam: Present: alert, oriented X3, CN II-XII intact. Absent: motor sensory deficit Psychiatric exam: Present: normal affect, normal mood Skin exam: Present: warm, dry, intact. Absent: cyanosis, diaphoretic Course Vital Signs 11/21/22 11:43 Temperature 98.1 F Pulse Rate 72 Respiratory 20 Rate Blood Pressure 118/72 O2 Sat by Pulse 99 Oximetry Medical Decision Making - Medical Decision Making Was pt. sent in by a medical professional or institution (, PA, INSURANCE OFFICE SUPERVISOR, urgent care, hospital, or jail...) When possible be specific @ -No Did you speak to anyone other than the patient for history (EMS, parent, family, police, friend...)? What history was obtained from this source @ -No Did you review nursing and triage notes (agree or disagree)? Why? @ -I reviewed and agree with nursing and triage notes Were old charts reviewed (outside hosp., previous admission, EMS record, old EKG, old radiological studies, urgent care reports/EKG's, jail records)? Report findings @ -No old charts were reviewed Differential Diagnosis (chest pain, altered mental status, abdominal pain women, abdominal pain men, vaginal bleeding, weakness, fever, dyspnea, syncope, headache, dizziness, GI bleed, back pain, seizure, CVA, palpatations, mental health, musculoskeletal)? @ Differential Musculoskeletal Muscular strain, contusion, ligament sprain, fracture, arthritis, septic arthritis, bursitis, cellulitis, muscle spasm, nerve compression, DVT, arterial occlusion, herpes zoster, electrolyte abnormality, tumor.... This is not meant to be in all inclusive list EKG interpreted by me (3pts min.). @ -As above X-rays interpreted by me (1pt min.). @ -None done CT interpreted by me (1pt min.). @ -None done U/S interpreted by me (1pt. min.). @ -None done What testing was considered but not performed or refused? (CT, X-rays, U/S, labs)? Why? @ -None What meds were considered but not given or refused? Why? @ -None Did you discuss the management of the patient with other professionals (professionals i.e. , PA, INSURANCE OFFICE SUPERVISOR, lab, RT, psych nurse, social studies teacher, binder cutter hand, teacher, court security officer, pillowcase turner)? Give summary @ -No Was smoking cessation discussed for >3mins.? @ -No Was critical care preformed (if so, how long)? @ -No Were there social determinants of health that impacted care today? How? (Homelessness, low income, unemployed, alcoholism, drug addiction, transportation, low edu. Level, literacy, decrease access to med. care, care home, rehab)? @ -No Was there de-escalation of care discussed even if they declined (Discuss DNR or withdrawal of care, Hospice)? DNR status @ -No What co-morbidities impacted this encounter? (DM, HTN, Smoking, COPD, CAD, Cancer, CVA, ARF, Chemo, Hep., AIDS, mental health diagnosis, sleep apnea, morbid obesity)? @ -[MS Was patient admitted / discharged? Hospital course, mention meds given and route, prescriptions, significant lab abnormalities, going to OR and other pertinent info. @ -52 old female with worsening pain after a fall which occurred one week ago. This may be related to the discontinuation of her oral steroid. She does have nonsteroidal anti-inflammatory, baclofen, and [place] at home. She is given a shot of Toradol and Dilaudid in the emergency department for pain control. There is been no new injury. Vital signs are stable. I do feel this patient is stable for continued outpatient management. Undiagnosed new problem with uncertain prognosis? @ -No Drug Therapy requiring intensive monitoring for toxicity (Heparin, Nitro, Insulin, Cardizem)? @ -No Were any procedures done? @ -No Diagnosis/symptom? @ -[Contusion, muscle strain Acute, or Chronic, or Acute on Chronic? @ -[Acute Uncomplicated (without systemic symptoms) or Complicated (systemic symptoms)? @ -default Side effects of treatment? @ -No Exacerbation, Progression, or Severe Exacerbation? @ -No Poses a threat to life or bodily function? How? (Chest pain, [place], [place], pneumonia, PE, COPD, DKA, ARF, appy, cholecystitis, CVA, Diverticulitis, Homicidal, Suicidal, threat to staff... and all critical care pts) @ -No Disposition Clinical Impression: Left buttock pain Disposition: HOME SELF-CARE Condition: Fair Instructions (If sedation given, give patient instructions): Fall Prevention (ED) Is patient prescribed a controlled substance at d/c from ED?: No Referrals: Ki Choi MD [Primary Care Provider] - 1-2 days Time of Disposition: 12:30
[2022-11-21 13:51] VITALS: BP 138/68; PULSE 88; RESP 18
== END 2022-11-21 12:45 | disposition home or self-care (01) ==
LOC: EC 11:23
DX: S76.312A Strain of muscle, fascia and tendon of the posterior muscle group at thigh level, left thigh, initial encounter (principal); F41.9 Anxiety disorder, unspecified; F32.A Depression, unspecified; Z87.891 Personal history of nicotine dependence; Z79.899 Other long term (current) drug therapy; W10.8XXA Fall (on) (from) other stairs and steps, initial encounter
CPT/HCPCS: 99284; 96372 ×2; J1170; J1885

== ENCOUNTER → 2023-02-12 | Outpatient (CLI) | payer MEDICARE ==
--- NOTE | 2023-02-12 11:00 | MM ---
Reason for Exam: Screening (asymptomatic). Last mammogram was performed 6 year(s) and 2 month(s) ago. Patient History: Menarche at age 10. Patient has no children. Hormonal Contraceptives for 15 years from age 13 until age 28. 2019, Bilateral Reduction. Risk Values: Avril 5 year model risk: 1.3%. NCI Lifetime model risk: 9.1%. Prior Study Comparison: 11/22/2013 Bilateral Diagnostic Mammogram, [facility]. 11/17/2016 Bilateral Screening Mammogram, [facility]. 11/25/2016 Left Diagnostic Mammogram, [facility]. Tissue Density: The breast tissue is heterogeneously dense. This may lower the sensitivity of mammography. Findings: Analyzed By CAD. There is no suspicious group of microcalcifications or new suspicious mass in either breast. Post surgical changes from bilateral breast reduction. Overall Assessment: Benign, BI-RAD 2 Management: Screening Mammogram of both breasts in 1 year. A clinical breast exam by your physician is recommended on an annual basis and results should be correlated with mammographic findings. Note on Avril scores and lifetime risk: 1. A Avril score greater than 3% is considered moderate risk. If this is the case, consider specialist referral to assess eligibility for a risk reducing agent. If overall lifetime risk for the development of breast cancer is 20% or higher, the patient may qualify for future screening with alternating mammogram and breast MRI. Electronically signed and approved by: Paul Nunez D.O.
== END | disposition home or self-care (01) ==
LOC: RADMAMWWP 09:31
PROVIDERS: ATTEND Family Medicine
DX: Z12.31 Encounter for screening mammogram for malignant neoplasm of breast (principal)
CPT/HCPCS: 77063; 77067

== ENCOUNTER 2024-09-09 14:15 | Emergency (ER) | payer MEDICARE ==
[2024-09-09 14:46] VITALS: RESP 18
--- NOTE | 2024-09-09 15:19 | ED ---
General Adult HPI - General Chief complaint: Recheck/Abnormal Lab/Rx Stated complaint: Body Pain Time Seen by Provider: 09/09/24 15:14 Source: patient, family, RN notes reviewed Mode of arrival: ambulatory - History of Present Illness Initial comments: 54-year-old female with history of multiple sclerosis presenting for generalized body pain x 1 week. States last week she was hospitalized for a MS flareup and was admitted for 3 days on IV steroids and IV Dilaudid. Patient was feeling better when she was discharged last Wednesday however symptoms returned on Wednesday and have been worsening since. Reports generalized bodyaches in the back, the ribs, and hips. States this feels similar to previous MS flareups. Denies vision changes, fevers, chills, rigors. States she is able to ambulate. She has upcoming neurologist appointment September [address] Pitt. - Related Data Home Medications Medication Instructions Recorded Confirmed HYDROcodone/APAP 7.5-325MG [[place] 1 tab PO QID 02/18/20 09/01/24 7.5-325] Dextroamphetamine/Amphetamine 30 mg PO DAILY 09/01/24 09/01/24 [Adderall Xr 30 mg Capsule] Ergocalciferol [Vitamin D2 (1250 1,250 mcg PO HAYNES 09/01/24 09/01/24 Mcg = 50943 Iu)] Ofatumumab [Kesimpta Pen] 20 mg SQ QMONTHLY 09/01/24 09/01/24 Pregabalin [Lyrica] 300 mg PO BID 09/01/24 09/01/24 traZODone HCL 150 mg PO HS PRN 09/01/24 09/01/24 Previous Rx's Medication Instructions Recorded predniSONE [Deltasone] 40 mg PO DAILY #10 tab 09/09/24 Allergies Allergy/AdvReac Type Severity Reaction Status Date / Time No Known Allergies Allergy Verified 09/09/24 14:46 Review of Systems ROS Statement: Those systems with pertinent positive or pertinent negative responses have been documented in the HPI. ROS Other: All systems not noted in ROS Statement are negative. Past Medical History Past Medical History: Fibromyalgia, Neurologic Disorder, Pneumonia, Thyroid Disorder Additional Past Medical History / Comment(s): Multiple Sclerosis - diagnosis 2014 , hypothyroidism, History of Any Multi-Drug Resistant Organisms: None Reported Past Surgical History: Appendectomy Additional Past Surgical History / Comment(s): breast reduction Past Anesthesia/Blood Transfusion Reactions: No Reported Reaction Past Psychological History: Anxiety, Depression Smoking Status: Former smoker Past Alcohol Use History: None Reported Past Drug Use History: None Reported - Past Family History Father Family Medical History: Diabetes Mellitus, Myocardial Infarction ([place]) Mother Family Medical History: No Reported History Additional Family Medical History / Comment(s): Chronic kidney disease stage IV General Exam General appearance: alert, in no apparent distress Head exam: Present: atraumatic, normocephalic, normal inspection Eye exam: Present: normal appearance, PERRL, EOMI. Absent: scleral icterus, conjunctival injection, periorbital swelling ENT exam: Present: normal exam, mucous membranes moist Neck exam: Present: normal inspection. Absent: tenderness, meningismus, lymphadenopathy Respiratory exam: Present: normal lung sounds bilaterally. Absent: respiratory distress, wheezes, rales, rhonchi, stridor Cardiovascular Exam: Present: regular rate, normal rhythm, normal heart sounds. Absent: systolic murmur, diastolic murmur, rubs, gallop, clicks Neurological exam: Present: alert, oriented X3, CN II-XII intact Psychiatric exam: Present: normal affect, normal mood Skin exam: Present: warm, dry, intact, normal color. Absent: rash Course Vital Signs 09/09/24 14:42 Temperature 98.1 F Pulse Rate 83 Respiratory 18 Rate Blood Pressure 112/78 O2 Sat by Pulse 99 Oximetry Medical Decision Making - Medical Decision Making Was pt. sent in by a medical professional or institution (, PA, CARDIAC MONITOR TECHNICIAN, urgent care, hospital, or care home...) When possible be specific @ -No Did you speak to anyone other than the patient for history (EMS, parent, family, police, friend...)? What history was obtained from this source @ - supplemented history Did you review nursing and triage notes (agree or disagree)? Why? @ -I reviewed and agree with nursing and triage notes Were old charts reviewed (outside hosp., previous admission, EMS record, old EKG, old radiological studies, urgent care reports/EKG's, care home records)? Report findings @ -Reviewed previous admission notes including history and physical and neurology consult Differential Diagnosis (chest pain, altered mental status, abdominal pain women, abdominal pain men, vaginal bleeding, weakness, fever, dyspnea, syncope, headache, dizziness, GI bleed, back pain, seizure, CVA, palpatations, mental health, musculoskeletal)? @ -Multiple sclerosis flareup, fibromyalgia, viral URI EKG interpreted by me (3pts min.). @ -None X-rays interpreted by me (1pt min.). @ -None done CT interpreted by me (1pt min.). @ -None done U/S interpreted by me (1pt. min.). @ -None done What testing was considered but not performed or refused? (CT, X-rays, U/S, labs)? Why? @ -None What meds were considered but not given or refused? Why? @ -None Did you discuss the management of the patient with other professionals (professionals i.e. , PA, CARDIAC MONITOR TECHNICIAN, lab, RT, psych nurse, manager social services, compressor technician, teacher, county health officer, case making machine operator)? Give summary @ -No Was smoking cessation discussed for >3mins.? @ -No Was critical care preformed (if so, how long)? @ -No Were there social determinants of health that impacted care today? How? (Homelessness, low income, unemployed, alcoholism, drug addiction, transportation, low edu. Level, literacy, decrease access to med. care, long term, rehab)? @ -No Was there de-escalation of care discussed even if they declined (Discuss DNR or withdrawal of care, Hospice)? DNR status @ -No What co-morbidities impacted this encounter? (DM, HTN, Smoking, COPD, CAD, Cancer, CVA, ARF, Chemo, Hep., AIDS, mental health diagnosis, sleep apnea, m orbid obesity)? @ -None Was patient admitted / discharged? Hospital course, mention meds given and r oute, prescriptions, significant lab abnormalities, going to OR and other pertinent info. @ - discharge. 54-year-old female with history of MS presenting for generalized body pain x 1 week. Patient was recently admitted for MS flareup and states symptoms have returned since discharge 1 week ago. No red flag symptoms. Neurovascularly intact. Given dose of IV steroid, Dilaudid, Zofran, and IV f luids. Lab work largely unremarkable. Upon reevaluation, patient reports significant improvement of symptoms. As patient was recently admitted for intractable pain with neurology consult, I do not feel that there would be further benefit for admission at this time. Patient was provided with outp atient course of steroids. Patient has upcoming neurology appointment next week. Appropriate return precautions discussed. Case was discussed with my ED attending Dr. Lizarraga. Undiagnosed new problem with uncertain prognosis? @ -No Drug Therapy requiring intensive monitoring for toxicity (Heparin, Nitro, Insulin, Cardizem)? @ -No Were any procedures done? @ -No Diagnosis/symptom? @ -Generalized body pain Acute, or Chronic, or Acute on Chronic? @ -Acute Uncomplicated (without systemic symptoms) or Complicated (systemic symptoms)? @ -Complicated Side effects of treatment? @ -No Exacerbation, Progression, or Severe Exacerbation? @ -No Poses a threat to life or bodily function? How? (Chest pain, [place], [place], pneumonia, PE, COPD, DKA, ARF, appy, cholecystitis, CVA, Diverticulitis, Homicidal, [place] icidal, threat to staff... and all critical care pts) @ -No - Lab Data Result diagrams: 09/09/24 16:03 09/09/24 16:03 Lab Results 09/09/24 09/09/24 Range/Units 16:03 16:03 WBC 6.06 (4.50-10.00) 10*3/uL RBC 4.70 (4.10-5.20) 10*6/uL Hgb 14.7 (12.0-15.0) g/dL Hct 42.7 (37.2-46.3) % MCV 90.9 (80.0-97.0) fL MCH 31.3 (27.0-32.0) pg MCHC 34.4 (32.0-37.0) g/dL Plt Count 167 (140-440) 10*3/uL MPV 9.6 (9.5-12.2) fL Immature Gran % (Auto) 0.8 % Neutrophils % 42.0 % Lymphocytes % 47.5 % Monocytes % 7.8 % Eosinophils % 1.7 % Basophils % 0.2 % Immature Gran # 0.05 H (0.00-0.04) 10*3/uL Neutrophils # 2.55 (1.80-7.70) 10*3/uL Lymphocytes # 2.88 (0.90-5.00) 10*3/uL Monocytes # 0.47 (0.20-1.00) 10*3/uL Eosinophils # 0.10 (0.04-0.35) 10*3/uL Basophils # 0.01 (0.00-0.10) 10*3/uL Sodium 138 (137-145) mmol/L Potassium 4.4 (3.5-5.1) mmol/L Chloride 108 H (98-107) mmol/L Carbon Dioxide 24 (22-30) mmol/L Anion Gap 6 mmol/L BUN 12 (7-17) mg/dL Creatinine 0.69 (0.52-1.04) mg/dL Est GFR (CKD-EPI)AfAm >90 (>60 ml/min/1.73 sqM) Est GFR (CKD-EPI)NonAf >90 (>60 ml/min/1.73 sqM) Glucose 95 (74-99) mg/dL Calcium 9.2 (8.4-10.2) mg/dL Total Bilirubin 0.8 (0.2-1.3) mg/dL AST 23 (14-36) U/L ALT 21 (4-34) U/L Alkaline Phosphatase 31 L (38-126) U/L Total Protein 6.6 (6.3-8.2) g/dL Albumin 4.2 (3.5-5.0) g/dL Disposition Clinical Impression: Acute generalized body pain Disposition: HOME SELF-CARE Condition: Stable Additional Instructions: Start oral steroid tomorrow. Follow-up for your neurology appointment next week. Please return to the Emergency Department if symptoms worsen or any other concerns. Prescriptions: predniSONE [Deltasone] 40 mg PO DAILY #10 tab Is patient prescribed a controlled substance at d/c from ED?: No Referrals: Ki Choi MD [Primary Care Provider] - 1-2 days Time of Disposition: 17:05
[2024-09-09] MEDS: SODIUM CHLORIDE 0.9% 1,000 ML IV STA (16:03)
[2024-09-09] MEDS: HYDROmorphone 1 MG/ML 1 ML SYRINGE IVP STA (16:05)
[2024-09-09] MEDS: methylPREDNISolone SOD SUCCI 125 MG/2 ML VIAL IV STA (16:06)
[2024-09-09] MEDS: ONDANSETRON 4 MG/2 ML VIAL IVP STA (16:10)
[2024-09-09 16:19] LABS: Basophils # (A) 0.01 10*3/uL (0.00-0.10); Basophils % (A) 0.2 %; Eosinophils % (A) 1.7 %; HCT 42.7 % (37.2-46.3); HGB 14.7 g/dL (12.0-15.0); Lymphocytes # (A) 2.88 10*3/uL (0.90-5.00); Lymphocytes % (A) 47.5 %; MCH 31.3 pg (27.0-32.0); MCHC 34.4 g/dL (32.0-37.0); MCV 90.9 fL (80.0-97.0); Mean Platelet Volume 9.6 fL (9.5-12.2); Monocytes # (A) 0.47 10*3/uL (0.20-1.00); Monocytes % (A) 7.8 %; Neutrophils # (A) 2.55 10*3/uL (1.80-7.70); Platelet Count 167 10*3/uL (140-440); RDW 12.8 % (11.5-14.5); WBC 6.06 10*3/uL (4.50-10.00)
[2024-09-09 16:28] LABS: ALT 21 U/L (4-34); African American GFR (CKD) >90 (>60 ml/min/1.73 sqM); Albumin 4.2 g/dL (3.5-5.0); Anion Gap 6 mmol/L; Blood Urea Nitrogen 12 mg/dL (7-17); Calcium 9.2 mg/dL (8.4-10.2); Carbon Dioxide 24 mmol/L (22-30); Chloride 108 mmol/L (98-107); Glucose 95 mg/dL (74-99); Non-African American GFR(CKD) >90 (>60 ml/min/1.73 sqM); Sodium 138 mmol/L (137-145); Total Bilirubin 0.8 mg/dL (0.2-1.3); Total Protein 6.6 g/dL (6.3-8.2)
[2024-09-09 16:30] LABS: AST 23 U/L (14-36); Potassium 4.4 mmol/L (3.5-5.1)
[2024-09-09 16:31] LABS: Alkaline Phosphatase 31 U/L (38-126)
[2024-09-09] MEDS: HYDROmorphone 0.5 MG/0.5 ML SYRINGE IVP STA (17:34)
[2024-09-09] MEDS: predniSONE 50 MG TAB PO STA (17:37)
[2024-09-09 17:48] VITALS: BP 141/88; PULSE 72; TEMP 98.2
== END 2024-09-09 18:03 | disposition home or self-care (01) ==
LOC: EC 14:15
DX: R52 Pain, unspecified (principal); Z87.891 Personal history of nicotine dependence
CPT/HCPCS: 36415; 80053; 85025; 99284; 96374; 96375 ×2; 96376; 96361 ×2; J2405; J1171 ×2; J7512; J2919

== ENCOUNTER 2024-10-06 20:26 | Emergency (ER) | payer MEDICARE ==
[2024-10-06 20:45] VITALS: RESP 18; TEMP 97.6
[2024-10-06 21:10] LABS: Basophils # (A) 0.03 10*3/uL (0.00-0.10); Basophils % (A) 0.5 %; Eosinophils # (A) 0.12 10*3/uL (0.04-0.35); Eosinophils % (A) 1.9 %; HCT 37.6 % (37.2-46.3); HGB 13.2 g/dL (12.0-15.0); Lymphocytes # (A) 1.72 10*3/uL (0.90-5.00); Lymphocytes % (A) 27.7 %; MCH 32.1 pg (27.0-32.0); MCHC 35.1 g/dL (32.0-37.0); MCV 91.5 fL (80.0-97.0); Mean Platelet Volume 9.5 fL (9.5-12.2); Monocytes % (A) 6.4 %; Neutrophils # (A) 3.94 10*3/uL (1.80-7.70); Neutrophils % (A) 63.3 %; Platelet Count 267 10*3/uL (140-440); RBC 4.11 10*6/uL (4.10-5.20); RDW 13.2 % (11.5-14.5); WBC 6.22 10*3/uL (4.50-10.00)
--- NOTE | 2024-10-06 21:16 | ED ---
General Adult HPI - General Source: patient, RN notes reviewed Mode of arrival: wheelchair Limitations: no limitations <Dionne Alamo - Last Filed: 10/06/24 21:13> - General Source: patient, RN notes reviewed <Annette Baum - Last Filed: 10/06/24 23:18> - General Chief complaint: Fall Stated complaint: Back/Rib Pain-Fall Time Seen by Provider: 10/06/24 20:55 - History of Present Illness Initial comments: Quick Note: This is a 54-year-old female who presents to the emergency for a fall and pain. Patient states that she has a history of MS and is unsteady on her feet. She fell down some stairs yesterday and hit her head. Denies any LOC or blood thinner use. Currently complaining of pain to her head and neck as well as her mid back, lower back, ribs, and pelvis. States that all of her pain is making her feel sick to her stomach. (Dionne Alamo) 54-year-old female presenting for fall yesterday. States she has a history of MS and is chronically unsteady on her feet. States she fell down a few stairs yesterday and hit her head. Denies loss of consciousness or blood thinners. States she is not experiencing head and neck pain, mid back pain rib pain, and right hip pain. States she feels sick from the pain. Denies numbness, tingling, or weakness. States this does not feel similar to previous MS flares. She does follow with Dr. Choi and with Dr. Pitt neurologist who she has an upcoming appointment with on October 16. (Annette Baum) - Related Data Home Medications Medication Instructions Recorded Confirmed HYDROcodone/APAP 7.5-325MG [[place] 1 tab PO QID 02/18/20 09/01/24 7.5-325] Dextroamphetamine/Amphetamine 30 mg PO DAILY 09/01/24 09/01/24 [Adderall Xr 30 mg Capsule] Ergocalciferol [Vitamin D2 (1250 1,250 mcg PO HAYNES 09/01/24 09/01/24 Mcg = 13547 Iu)] Ofatumumab [Kesimpta Pen] 20 mg SQ QMONTHLY 09/01/24 09/01/24 Pregabalin [Lyrica] 300 mg PO BID 09/01/24 09/01/24 traZODone HCL 150 mg PO HS PRN 09/01/24 09/01/24 Previous Rx's Medication Instructions Recorded predniSONE [Deltasone] 40 mg PO DAILY #10 tab 09/09/24 Allergies Allergy/AdvReac Type Severity Reaction Status Date / Time No Known Allergies Allergy Verified 10/06/24 20:40 Review of Systems ROS Other: All systems not noted in ROS Statement are negative. <Dionne Alamo - Last Filed: 10/06/24 21:13> ROS Other: All systems not noted in ROS Statement are negative. <Annette Baum - Last Filed: 10/06/24 23:18> ROS Statement: Those systems with pertinent positive or pertinent negative responses have been documented in the HPI. Past Medical History Past Medical History: Fibromyalgia, Neurologic Disorder, Pneumonia, Thyroid Disorder Additional Past Medical History / Comment(s): Multiple Sclerosis - diagnosis 2013 , hypothyroidism, History of Any Multi-Drug Resistant Organisms: None Reported Past Surgical History: Appendectomy Additional Past Surgical History / Comment(s): breast reduction Past Anesthesia/Blood Transfusion Reactions: No Reported Reaction Past Psychological History: Anxiety, Depression Smoking Status: Former smoker Past Alcohol Use History: None Reported Past Drug Use History: None Reported - Past Family History Father Family Medical History: Diabetes Mellitus, Myocardial Infarction ([place]) Mother Family Medical History: No Reported History Additional Family Medical History / Comment(s): Chronic kidney disease stage IV <Dionne Alamo - Last Filed: 10/06/24 21:13> General Exam Limitations: no limitations <Dionne Alamo - Last Filed: 10/06/24 21:13> General appearance: alert, in no apparent distress Head exam: Present: atraumatic, normocephalic, normal inspection, other (No hematomas, contusions, or external signs of trauma) Eye exam: Present: normal appearance, PERRL, EOMI. Absent: scleral icterus, conjunctival injection, periorbital swelling Respiratory exam: Present: normal lung sounds bilaterally. Absent: respiratory distress, wheezes, rales, rhonchi, stridor Cardiovascular Exam: Present: regular rate, normal rhythm, normal heart sounds. Absent: systolic murmur, diastolic murmur, rubs, gallop, clicks Extremities exam: Present: normal inspection, full ROM, normal capillary refill, other (No obvious external injuries, full range of motion of all extremities). Absent: tenderness, pedal edema, joint swelling, calf tenderness Back exam: Present: normal inspection, full ROM. Absent: tenderness, CVA tenderness (L) Neurological exam: Present: alert, oriented X3, CN II-XII intact Psychiatric exam: Present: normal affect, other (Patient is tearful on exam) Skin exam: Present: warm, dry, intact, normal color. Absent: rash <BautistaAnnette - Last Filed: 10/06/24 23:18> - General Exam Comments Initial Comments: Visual Physical Exam Vital signs reviewed General: Well-appearing, nontoxic, no acute distress. Head: Normocephalic, atraumatic Eyes: PERRLA, EOMI ENT: Airway patent Chest: Nonlabored breathing Skin: No visual rash, normal skin tone Neuro: Alert and oriented 3 Musculoskeletal: No gross abnormalities (Dionne Alamo) Course Vital Signs 10/06/24 20:40 Temperature 97.6 F Pulse Rate 100 Respiratory 18 Rate Blood Pressure 118/92 O2 Sat by Pulse 97 Oximetry EKG Findings - EKG Results: EKG: interpreted by ERMD (EKG reveals normal sinus rhythm with no acute ST cameron ges. Ventricular rate 98 bpm, UT interval 186, QRS duration 89, QT/QTc 360/415) <BautistaAnnette - Last Filed: 10/06/24 23:18> Medical Decision Making - Lab Data Result diagrams: 10/06/24 20:51 <Dionne Alamo - Last Filed: 10/06/24 21:13> - Lab Data Result diagrams: 10/06/24 20:51 10/06/24 20:51 <BautistaAnnette - Last Filed: 10/06/24 23:18> - Medical Decision Making I performed the QuickNote portion of this chart. Signed Dionne Alamo PA-C. (Dionne Alamo) Was pt. sent in by a medical professional or institution ([facility], [facility], urgent care, hospital, or fpc...) When possible be specific @ -No Did you speak to anyone other than the patient for history (EMS, parent, family, police, friend...)? What history was obtained from this source @ -No Did you review nursing and triage notes (agree or disagree)? Why? @ -I reviewed and agree with nursing and triage notes Were old charts reviewed (outside hosp., previous admission, EMS record, old EKG , old radiological studies, urgent care reports/EKG's, fpc records)? Report findings @ -No old charts were reviewed Differential Diagnosis (chest pain, altered mental status, abdominal pain women, abdominal pain men, vaginal bleeding, weakness, fever, dyspnea, syncope, headache, dizziness, GI bleed, back pain, seizure, CVA, palpatations, mental health, musculoskeletal)? @ -Differential Musculoskeletal Muscular strain, contusion, ligament sprain, fracture, arthritis, septic arthritis, bursitis, cellulitis, muscle spasm, nerve compression, DVT, arterial occlusion, herpes zoster, electrolyte abnormality, tumor.... This is not meant to be in all inclusive list EKG interpreted by me (3pts min.). @ -As above X-rays interpreted by me (1pt min.). @ -X-ray lumbar spine, thoracic spine, pelvis, chest reveals no acute process CT interpreted by me (1pt min.). @ -CT brain and C-spine reveals no acute process, stable white matter changes above left anterior horn lateral ventricle, stable mild periventricular white matter ischemic changes U/S interpreted by me (1pt. min.). @ -None done What testing was considered but not performed or refused? (CT, X-rays, U/S, labs)? Why? @ -None What meds were considered but not given or refused? Why? @ -None Did you discuss the management of the patient with other professionals (professionals i.e. , PA, [facility], lab, RT, psych nurse, rn social services, performance tester, teacher, psychological operations officer, case finisher)? Give summary @ -No Was smoking cessation discussed for >3mins.? @ -No Was critical care preformed (if so, how long)? @ -No Were there social determinants of health that impacted care today? How? (Homelessness, low income, unemployed, alcoholism, drug addiction, transportation, low edu. Level, literacy, decrease access to med. care, [facility], rehab)? @ -No Was there de-escalation of care discussed even if they declined (Discuss DNR or withdrawal of care, Hospice)? DNR status @ -No What co-morbidities impacted this encounter? (DM, HTN, Smoking, COPD, CAD, Cancer, CVA, ARF, Chemo, Hep., AIDS, mental health diagnosis, sleep apnea, morbid obesity)? @ -None Was patient admitted / discharged? Hospital course, mention meds given and route, prescriptions, significant lab abnormalities, going to OR and other pertinent info. @ -discharge. 54-year-old female presenting for full body pain status post fall yesterday. No obvious external injuries. Neurovascularly intact in all extremities. Provided with IV fluids, Dilaudid, and Zofran. EKG reveals normal sinus rhythm with no acute ST changes. Lab work unremarkable. X-ray lumbar spine, thoracic spine, pelvis, chest reveals no acute process. CT brain and C- spine reveals no acute process. Discussed results with patient. Patient reports symptoms have significantly improved. Patient can be safely discharged home with strict return precautions and close PCP follow-up. Case was discussed with my ED attending Dr. Morrissey. Undiagnosed new problem with uncertain prognosis? @ -No Drug Therapy requiring intensive monitoring for toxicity (Heparin, Nitro, Insulin, Cardizem)? @ -No Were any procedures done? @ -No Diagnosis/symptom? @ -Fall, generalized pain Acute, or Chronic, or Acute on Chronic? @ -Acute Uncomplicated (without systemic symptoms) or Complicated (systemic symptoms)? @ -Complicated Side effects of treatment? @ -No Exacerbation, Progression, or Severe Exacerbation? @ -No Poses a threat to life or bodily function? How? (Chest pain, [place], [place], pneumonia, PE, COPD, DKA, ARF, appy, cholecystitis, CVA, Diverticulitis, Homicidal, Suicidal, threat to staff... and all critical care pts) @ -not at this time (Annette Baum) - Lab Data Lab Results 10/06/24 10/06/24 10/06/24 Range/Units 20:51 20:51 20:51 WBC 6.22 (4.50-10.00) 10*3/uL RBC 4.11 (4.10-5.20) 10*6/uL Hgb 13.2 (12.0-15.0) g/dL Hct 37.6 (37.2-46.3) % MCV 91.5 (80.0-97.0) fL MCH 32.1 H (27.0-32.0) pg MCHC 35.1 (32.0-37.0) g/dL Plt Count 267 (140-440) 10*3/uL MPV 9.5 (9.5-12.2) fL Immature Gran % (Auto) 0.2 % Neutrophils % 63.3 % Lymphocytes % 27.7 % Monocytes % 6.4 % Eosinophils % 1.9 % Basophils % 0.5 % Immature Gran # 0.01 (0.00-0.04) 10*3/uL Neutrophils # 3.94 (1.80-7.70) 10*3/uL Lymphocytes # 1.72 (0.90-5.00) 10*3/uL Monocytes # 0.40 (0.20-1.00) 10*3/uL Eosinophils # 0.12 (0.04-0.35) 10*3/uL Basophils # 0.03 (0.00-0.10) 10*3/uL PT 10.3 (10.0-12.5) sec INR 0.9 (<1.2) APTT 24.7 (22.0-30.0) sec Sodium 139 (137-145) mmol/L Potassium 4.2 (3.5-5.1) mmol/L Chloride 111 H (98-107) mmol/L Carbon Dioxide 19 L (22-30) mmol/L Anion Gap 9 mmol/L BUN 17 (7-17) mg/dL Creatinine 0.69 (0.52-1.04) mg/dL Est GFR (CKD-EPI)AfAm >90 (>60 ml/min/1.73 sqM) Est GFR (CKD-EPI)NonAf >90 (>60 ml/min/1.73 sqM) Glucose 144 H (74-99) mg/dL Plasma Lactic Acid Daniel (0.7-2.0) mmol/L Calcium 9.0 (8.4-10.2) mg/dL Total Bilirubin 0.9 (0.2-1.3) mg/dL AST 31 (14-36) U/L ALT 12 (4-34) U/L Alkaline Phosphatase 39 (38-126) U/L Troponin I (0.000-0.034) ng/mL Total Protein 6.6 (6.3-8.2) g/dL Albumin 4.4 (3.5-5.0) g/dL 10/06/24 10/06/24 Range/Units 20:51 20:51 WBC (4.50-10.00) 10*3/uL RBC (4.10-5.20) 10*6/uL Hgb (12.0-15.0) g/dL Hct (37.2-46.3) % MCV (80.0-97.0) fL MCH (27.0-32.0) pg MCHC (32.0-37.0) g/dL Plt Count (140-440) 10*3/uL MPV (9.5-12.2) fL Immature Gran % (Auto) % Neutrophils % % Lymphocytes % % Monocytes % % Eosinophils % % Basophils % % Immature Gran # (0.00-0.04) 10*3/uL Neutrophils # (1.80-7.70) 10*3/uL Lymphocytes # (0.90-5.00) 10*3/uL Monocytes # (0.20-1.00) 10*3/uL Eosinophils # (0.04-0.35) 10*3/uL Basophils # (0.00-0.10) 10*3/uL PT (10.0-12.5) sec INR (<1.2) APTT (22.0-30.0) sec Sodium (137-145) mmol/L Potassium (3.5-5.1) mmol/L Chloride (98-107) mmol/L Carbon Dioxide (22-30) mmol/L Anion Gap mmol/L BUN (7-17) mg/dL Creatinine (0.52-1.04) mg/dL Est GFR (CKD-EPI)AfAm (>60 ml/min/1.73 sqM) Est GFR (CKD-EPI)NonAf (>60 ml/min/1.73 sqM) Glucose (74-99) mg/dL Plasma Lactic Acid Daniel 1.3 (0.7-2.0) mmol/L Calcium (8.4-10.2) mg/dL Total Bilirubin (0.2-1.3) mg/dL AST (14-36) U/L ALT (4-34) U/L Alkaline Phosphatase (38-126) U/L Troponin I <0.012 (0.000-0.034) ng/mL Total Protein (6.3-8.2) g/dL Albumin (3.5-5.0) g/dL Disposition <Dionne Alamo - Last Filed: 10/06/24 21:13> Is patient prescribed a controlled substance at d/c from ED?: No Time of Disposition: 23:18 <Annette Baum - Last Filed: 10/06/24 23:18> Clinical Impression: Generalized pain, Fall Disposition: HOME SELF-CARE Condition: Stable Additional Instructions: Please return to the Emergency Department if symptoms worsen or any other concerns. Referrals: Ki Choi MD [Primary Care Provider] - 1-2 days
[2024-10-06 21:26] LABS: INR 0.9 (<1.2); Partial Thromboplastin Time 24.7 sec (22.0-30.0); Prothrombin Time 10.3 sec (10.0-12.5)
[2024-10-06 21:28] LABS: ALT 12 U/L (4-34); African American GFR (CKD) >90 (>60 ml/min/1.73 sqM); Anion Gap 9 mmol/L; Blood Urea Nitrogen 17 mg/dL (7-17); Carbon Dioxide 19 mmol/L (22-30); Chloride 111 mmol/L (98-107); Glucose 144 mg/dL (74-99); Non-African American GFR(CKD) >90 (>60 ml/min/1.73 sqM); Sodium 139 mmol/L (137-145)
[2024-10-06 21:30] LABS: AST 31 U/L (14-36); Albumin 4.4 g/dL (3.5-5.0); Alkaline Phosphatase 39 U/L (38-126); Potassium 4.2 mmol/L (3.5-5.1); Total Bilirubin 0.9 mg/dL (0.2-1.3); Total Protein 6.6 g/dL (6.3-8.2)
--- NOTE | 2024-10-06 22:10 | CT ---
EXAMINATION TYPE: CT brain jill wo con DATE OF EXAM: 10/06/2024 9:53 PM COMPARISON: CT brain 06/03/2016 MRI brain 04/09/2017 CLINICAL INDICATION: Female, 54 years old with history of Fall, pt arrives to ED for c/o fall r/t [place]. hit head. no LOC. no blood thinners. pt reports nausea. pt reports all over pain hx of MS, p ain TECHNIQUE: CT of the brain is performed utilizing 3 mm thick sections through the posterior fossa and 3 mm thick sections through the remaining calvarium. Study is performed within 24 hours of arrival to the hospital. Contrast used: mL of , (none if empty) CT DLP: 1328.4 mGycm, Automated exposure control for dose reduction was used. FINDINGS: No abnormal hyperdensity is present to suggest an acute intracranial hemorrhage. No mass lesion is evident. No acute infarcts are evident. There is an old white matter change measuring approximately 2.3 cm ab ove the anterior horn left lateral ventricle present previously. This can be an old multiple sclerosi s plaque. Additional mild periventricular white matter hypodensity is present, likely on the basis of chronic white matter ischemic change. Ventricles and sulci are appropriate for the patient age. Paranasal sinuses and mastoid air cells within the oglig-fi-ymar are clear. IMPRESSIONS: 1. No acute intracranial process. Follow-up MRI can be performed as clinically indicated. 2. Stable white matter changes above the left anterior horn lateral ventricle may be a multiple scler osis plaque or microvascular ischemic change. 3. Stable mild periventricular white matter ischemic changes CT cervical spine. COMPARISON: None TECHNIQUE: CT of the cervical spine is performed in the axial plane at 2 mm thick sections. Reconstr ucted images in the coronal, and sagittal plane are reviewed on the computer. FINDINGS: No acute fractures are evident. Vertebral body alignment is normal. Disc heights are preserved. Vertebral body heights are preserved. No spinal canal stenosis is evident. Some minimal calcifications posterior to the C5-6 disc space wit h minimal anterior thecal sac contact. No neural foraminal stenosis is evident. IMPRESSION: 1. No acute osseous abnormality cervical spine [facility], , 10/06/2024 10:08 PM
--- NOTE | 2024-10-06 22:12 | XR ---
EXAMINATION TYPE: XR lumbar spine 2 or 3V DATE OF EXAM: 10/06/2024 9:59 PM COMPARISON: None. CLINICAL INDICATION: Female, 54 years old with history of Fall, pain TECHNIQUE: 3 view(s) obtained. FINDINGS: There is disc space narrowing L5-S1. Mild disc space narrowing is present L4-5. Remaining disc height s are preserved. Spondylosis is present L2-L3. Vertebral body alignment is preserved. Vertebral body heights are preserved. There are 5 lumbar-type vertebral bodies. Pedicles are intact. IMPRESSION: 1. Mild degenerative disc changes L4-5 and L5-S1 [facility], , 10/06/2024 10:09 PM
--- NOTE | 2024-10-06 22:12 | XR ---
EXAMINATION TYPE: XR chest 2V DATE OF EXAM: 10/06/2024 9:59 PM COMPARISON: 03/01/2022 CLINICAL INDICATION: Female, 54 years old with history of Weakness, TECHNIQUE: XR chest 2V view(s) obtained. FINDINGS: The heart size is normal. The pulmonary vasculature is normal. The lungs are clear. No pneumothorax is evident. No displaced rib fractures are identified. IMPRESSION: 1. No acute pulmonary process. [facility], , 10/06/2024 10:10 PM
--- NOTE | 2024-10-06 22:13 | XR ---
EXAMINATION TYPE: XR thoracic spine 2V DATE OF EXAM: 10/06/2024 10:02 PM COMPARISON: None. CLINICAL INDICATION: Female, 54 years old with history of Fall, pain TECHNIQUE: 3 view(s) obtained. FINDINGS: There are 12 thoracic type vertebral bodies. Pedicles are intact. Disc heights are preserved. Vertebr al body heights are preserved. IMPRESSION: 1. Unremarkable thoracic spine. No acute osseous abnormality evident. [facility], , 10/06/2024 10:11 PM
--- NOTE | 2024-10-06 22:14 | XR ---
EXAMINATION TYPE: XR pelvis AP view DATE OF EXAM: 10/06/2024 10:04 PM COMPARISON: None. CLINICAL INDICATION: Female, 54 years old with history of Fall, pain TECHNIQUE: AP view(s) obtained. FINDINGS: Femoral heads articulate with the acetabulum. Joint spaces and mild diffuse narrowing. Pubic symphysi s and sacroiliac joints are normal. No acute fractures evident. Normal bowel gas is present. IMPRESSION: 1. No acute osseous abnormality AP Pelvis [facility], , 10/06/2024 10:12 PM
[2024-10-06] MEDS: HYDROmorphone 1 MG/ML 1 ML SYRINGE IVP STA (23:01)
[2024-10-06] MEDS: ONDANSETRON 4 MG/2 ML VIAL IVP STA (23:01)
[2024-10-06] MEDS: SODIUM CHLORIDE 0.9% 1,000 ML IV STA (23:18)
[2024-10-06 23:27] VITALS: BP 116/74; PULSE 99
[2024-10-06] MEDS: HYDROmorphone 0.5 MG/0.5 ML SYRINGE IVP STA ×2 (23:40→23:44)
== END 2024-10-06 23:56 | disposition home or self-care (01) ==
LOC: EC 20:26
DX: R52 Pain, unspecified (principal); Z87.891 Personal history of nicotine dependence; W10.9XXA Fall (on) (from) unspecified stairs and steps, initial encounter
CPT/HCPCS: 36415; 93005; 80053; 83605; 84484; 85025; 85610; 85730; 72070; 72100; 72170; 71046; 72125; 70450; 99284; 96374; 96375; 96376; J2405; J1171 ×2